=== PATIENT | male | born 1935 | race Caucasian/White ===

== ENCOUNTER 2018-01-15 08:20 | Day surgery (SDC) | payer MEDICARE, SELFPAY ==
[2018-01-15 08:48] VITALS: BP 150/84; PULSE 71; RESP 16; TEMP 36.5; O2SAT 100; BMI 31.8
[2018-01-15 09:01] LABS: Bedside Glucose 142 mg/dL (70-110)
--- NOTE | 2018-01-15 11:22 | PCM.DC.URO ---
Discharge Diet: Light diet - advance as tolerated Discharge Activity: Return to Normal Activity Suture Line Care: Avoid Pulling/Pushing, Avoid Pinching/Bending Catheter: Manzo to leg bag, Manzo to large bag Drain: [place] Allergies/Adverse Reactions: Allergies No Known Allergies Allergy (Verified 01/08/18 09:12) Medications to take at Discharge Ascorbic Acid [Vitamin C] 1,000 mg PO DAILY 11/14/16 Cholecalciferol (Vitamin D3) [Vitamin D3] 1,000 unit PO DAILY 11/14/16 Finasteride [Proscar] 5 mg PO DAILY 11/14/16 Lisinopril [Zestril] 40 mg PO DAILY 11/14/16 Loratadine [Claritin] 10 mg PO DAILY 11/14/16 Metformin HCl [Glucophage] 500 mg PO DAILY 11/14/16 Naproxen Sodium [Aleve] 220 mg PO DAILY 11/14/16 [place]-3 Fatty Acids/Fish Oil [Fish Oil 1,000 mg Capsule] 1 each PO DAILY 11/14/16 Omeprazole [Prilosec] 40 mg PO DAILY 11/14/16 Potassium (Otc) [Potassium Otc] 99 mg PO DAILY 11/14/16 Simvastatin [Zocor] 20 mg PO QHS 11/14/16 Tamsulosin HCl [Flomax] 0.4 mg PO DAILY 11/14/16 Insulin NPH Human Isophane [Novolin N] 40 unit SQ BID 01/08/18 Magnesium Oxide [Magnesium] 250 mg PO DAILY 01/08/18 Multivitamin [Multiple Vitamins] 1 each PO DAILY 01/08/18 Potassium 99 mg PO DAILY 01/08/18 Primary Care Physician: Nate Watters DO [Primary Care Provider] - Please Follow Up With: Darrell Stout MD When: January 28 at 8:45 am.
[2018-01-15] MEDS: Cefazolin 2 GM in 0.9% Normal Saline 100 ML IV (11:31)
--- NOTE | 2018-01-15 11:49 | OP.PCM_ITS ---
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 Post-Operative Diagnosis: Same Surgery/Procedure Performed:: Cystoscopy,meatotomy, direct vision internal urethrotomy, Steiner placement. Description of Surgical Findings:: 82-year-old male with a history of urethral stricture disease in the office was not able to dilate the stricture he had a very tight urethral stricture, very tight meatus. Therefore recommended we undergo anesthesia to cut open the urethral stricture and evaluate the urethra. Also do a cystoscopy evaluate the bladder and prostate. Patient was taken back to the operating room at the smooth induction of general anesthesia he was placed in dorsal lithotomy position with the legs in stirrups I first then used a Glidewire to advance this into the bladder over the Glidewire I dilated the meatus with 16, 18, 20 Norwegian dilators over the wire. I then was able to get into the urethra with the direct vision urethrotome and he had stricture disease along the course of the urethra I opened up the stricture disease from the bulbar urethra to the membranous and pendulous urethra. Went into the prostate and he had bilateral hypertrophy is small median lobe. Inside the bladder he had left and right ureteral orifice were open no tumors or stones seen within the bladder he had trabeculated bladder. I then pulled out the cystoscope I then performed a meatotomy and the penis by taking sharp dissection scissors and cutting open the meatus on the dorsal aspect in order to have a nice wide open meatus. Once the meatotomy was was performed then I put a 16 Norwegian catheter into the bladder to allow this to heal patient's anesthetic was reversed and is taken back to the PACU in good condition plan to see him about 2 weeks to remove the catheter and the patient knows the recurrent nature of this disease. Type of Anesthesia:: General Drains: steiner 16 fr - Admit VTE Documentation VTE Present on Admission: No VTE Mechan Device Prophylaxis: SCD's VTE Pharm Prophylaxis ordered?: No Reason prophylaxis not ordered:: Treatment Not Indicated
[2018-01-15 11:53] VITALS: BP 150/84; BP 167/91; PULSE 77; RESP 16; TEMP 36.4; O2SAT 92
[2018-01-15 12:08] VITALS: BP 142/76; BP 150/84; PULSE 62; RESP 16; O2SAT 94
[2018-01-15 12:15] VITALS: BP 150/84; BP 151/81; PULSE 59; RESP 16; O2SAT 93
[2018-01-15 12:16] LABS: Bedside Glucose 133 mg/dL (70-110)
[2018-01-15 12:24] VITALS: BP 150/81; BP 150/84; PULSE 63; RESP 16; TEMP 36.7; O2SAT 93
[2018-01-15 13:19] VITALS: BP 150/84
== END 2018-01-15 13:24 | disposition home or self-care (01) ==
LOC: SDC 08:22 → AC 08:24
PROVIDERS: Family Provider Family Medicine; PCP Family Medicine; Visit Provider Urology
PROC: 0T7D8ZZ Dilation of Urethra, Via Natural or Artificial Opening Endoscopic (ICD-10-PCS; CPT 52281; principal; 2018-01-15 10:20)
PROC: (CPT 52276; 2018-01-15 10:20)
DX: N40.1 Benign prostatic hyperplasia with lower urinary tract symptoms (principal); N13.8 Other obstructive and reflux uropathy; N35.8 Other urethral stricture; Z79.899 Other long term (current) drug therapy; Z79.4 Long term (current) use of insulin; I10 Essential (primary) hypertension; R01.1 Cardiac murmur, unspecified; Z85.828 Personal history of other malignant neoplasm of skin; E78.00 Pure hypercholesterolemia, unspecified; K21.9 Gastro-esophageal reflux disease without esophagitis; E11.9 Type 2 diabetes mellitus without complications
CPT/HCPCS: 52276; 82962; J3010; J7120; J2405

== ENCOUNTER → 2018-02-11 15:10 | Outpatient (CLI) | payer MEDICARE, SELFPAY ==
[2018-02-11 15:58] LABS: Hemoglobin A1c 6.6 % (4.2-6.3)
[2018-02-11 16:07] LABS: AST(SGOT) 24 U/L (15-37); Alanine Aminotransfer ALT/SGPT 33 U/L (16-61); Albumin, Serum 3.5 g/dL (3.2-5.0); Alkaline Phosphatase 54 U/L (45-117); Anion Gap 8 (5-15); BUN 22 mg/dL (7-18); BUN/Creat Ratio 14.4 RATIO (10-20); Calcium,Total 8.4 mg/dL (8.5-10.1); Chloride 109 mmol/L (98-107); Creatinine, Serum 1.53 mg/dL (0.70-1.30); EST Glomerular Filtration Rate 47 mL/min (>60); Est Glom Filt Rate - Afr Amer 57 mL/min (>60); Globulin 3.4 g/dL (2.2-4.2); Glucose 169 mg/dL (74-106); Potassium 4.1 mmol/L (3.5-5.1); Protein, Total 6.9 g/dL (6.4-8.2); Sodium Level 142 mmol/L (136-145)
== END ==
PROVIDERS: Family Provider Family Medicine; PCP Family Medicine; Visit Provider Family Medicine
DX: E11.9 Type 2 diabetes mellitus without complications (principal)
CPT/HCPCS: 36415; 80053; 83036

== ENCOUNTER → 2018-05-18 11:21 | Outpatient (CLI) | payer MEDICARE, SELFPAY ==
[2018-05-18 12:13] LABS: Absolute Lymphocyte Count 4.72 X10^3/ul (0.83-4.51); Absolute Neutrophil Count 3.9 X10^3/uL (2.0-7.7); Basophil# 0.02 X10^3/uL; Basophil% 0.2 % (0-1); Eosinophil# 0.18 X10^3/uL; Eosinophils% 1.9 % (0-5); Hematocrit 43.2 % (40-54); Hemoglobin 14.3 g/dl (13.0-16.5); Lymphocyte # 4.72 X10^3/ul (4.0); Lymphocyte % 50.8 % (19-41); Mean Corp Hgb Conc 33.1 g/gl (32-36); Mean Corpuscular Hgb 30.6 pg (27.0-32.0); Mean Corpuscular Volume 92.3 fL (80-94); Mean Platelet Vol. 11.6 fl (6.2-12.0); Monocyte# 0.51 X10^3/uL; Monocyte% 5.5 % (0-10); Neutrophil # 3.85 X10^3/uL (2.7-7.7); Neutrophil % 41.5 % (47-70); Platelet Count 121 K/mm3 (150-450); RBC Distribution Width CV 13.9 % (11.6-14.6); RBC Distribution Width SD 46.9 fl (35.1-43.9); Red Blood Count 4.68 M/mm3 (4.6-6.2); White Blood Count 9.3 K/mm3 (4.4-11.0)
[2018-05-18 12:14] LABS: POSITIVE COUNT NO; POSITIVE DIFFERENTIAL NO; POSITIVE MORPHOLOGY NO
[2018-05-18 12:36] LABS: Hemoglobin A1c 7.1 % (4.2-6.3)
[2018-05-18 12:54] LABS: Thyroid Stim Hormone (TSH) 2.88 uIU/mL (0.358-3.74)
== END ==
PROVIDERS: Family Provider Family Medicine; PCP Family Medicine; Visit Provider Family Medicine
DX: E11.9 Type 2 diabetes mellitus without complications (principal); R53.82 Chronic fatigue, unspecified
CPT/HCPCS: 36415; 83036; 84443; 85025

== ENCOUNTER → 2018-08-17 11:32 | Outpatient (CLI) | payer MEDICARE, SELFPAY ==
[2018-08-17 12:46] LABS: Cholesterol 117 mg/dL (200); High Density Lipoprotein 38 mg/dL; Triglycerides 126 mg/dL; Very Low Density Lipoprotein 25 mg/dL (5-40)
[2018-08-17 12:49] LABS: Hemoglobin A1c 6.6 % (4.2-6.3)
== END ==
PROVIDERS: Family Provider Family Medicine; PCP Family Medicine; Referring Provider Family Medicine; Visit Provider Family Medicine
DX: E11.9 Type 2 diabetes mellitus without complications (principal); E78.5 Hyperlipidemia, unspecified
CPT/HCPCS: 36415; 80061; 83036

== ENCOUNTER → 2019-02-15 | Outpatient (CLI) | payer MEDICARE, SELFPAY ==
[2019-02-15 11:51] VITALS: BMI 31.4
[2019-02-15 14:16] LABS: ALB/GLOB Ratio 0.9 RATIO (0.9-2.4); AST(SGOT) 25 U/L (15-37); Alanine Aminotransfer ALT/SGPT 32 U/L (16-61); Albumin, Serum 3.5 g/dL (3.2-5.0); Alkaline Phosphatase 69 U/L (45-117); Anion Gap 8 (5-15); BUN 26 mg/dL (7-18); BUN/Creat Ratio 14.9 RATIO (10-20); Calcium,Total 8.8 mg/dL (8.5-10.1); Chloride 108 mmol/L (98-107); Creatinine, Serum 1.75 mg/dL (0.70-1.30); EST Glomerular Filtration Rate 40 mL/min (>60); Est Glom Filt Rate - Afr Amer 48 mL/min (>60); Globulin 4.1 g/dL (2.2-4.2); Glucose 170 mg/dL (74-106); Potassium 4.8 mmol/L (3.5-5.1); Protein, Total 7.6 g/dL (6.4-8.2); Sodium Level 142 mmol/L (136-145)
[2019-02-15 14:48] LABS: Microalbumin:Creatinine Ratio 635.2 mg/g CRE (<30 mg/g CRE)
== END | disposition home or self-care (01) ==
LOC: BIMLAB 11:57
PROVIDERS: Family Provider Family Medicine; PCP Family Medicine; Visit Provider Family Medicine
DX: I10 Essential (primary) hypertension (principal); E11.9 Type 2 diabetes mellitus without complications
CPT/HCPCS: 36415; 80053; 82043; 82570

== ENCOUNTER → 2019-02-28 10:23 | Outpatient (CLI) | payer MEDICARE, SELFPAY ==
[2019-02-15 11:51] VITALS: BMI 31.4
[2019-02-28 12:42] LABS: Anion Gap 5 (5-15); BUN 21 mg/dL (7-18); BUN/Creat Ratio 13.3 RATIO (10-20); Calcium,Total 8.5 mg/dL (8.5-10.1); Chloride 111 mmol/L (98-107); Creatinine, Serum 1.58 mg/dL (0.70-1.30); EST Glomerular Filtration Rate 45 mL/min (>60); Est Glom Filt Rate - Afr Amer 54 mL/min (>60); Glucose 194 mg/dL (74-106); Potassium 4.5 mmol/L (3.5-5.1); Sodium Level 142 mmol/L (136-145)
== END ==
PROVIDERS: Family Provider Family Medicine; PCP Family Medicine; Visit Provider Family Medicine
DX: E11.22 Type 2 diabetes mellitus with diabetic chronic kidney disease (principal); N18.4 Chronic kidney disease, stage 4 (severe)
CPT/HCPCS: 36415; 80048

== ENCOUNTER 2019-04-22 05:51 | Day surgery (SDC) | payer MEDICARE, SELFPAY ==
[2019-02-15 11:51] VITALS: BMI 31.4
[2019-04-22] VITALS (7 sets, daily range): BP systolic 137–176; BP diastolic 72–94; PULSE 46–73; RESP 16–18; TEMP 36.4–37.2; O2SAT 92–97; BMI 32.5
[2019-04-22 07:35] LABS: Bedside Glucose 228 mg/dL (70-110)
[2019-04-22] MEDS: Cefazolin 2 GM in 0.9% Normal Saline 100 ML IV (07:36)
--- NOTE | 2019-04-22 07:38 | PCM.DC.URO ---
Discharge Diet: Light diet - advance as tolerated Discharge Activity: Return to Normal Activity Suture Line Care: Avoid Pulling/Pushing, Avoid Pinching/Bending Allergies/Adverse Reactions: Allergies No Known Allergies Allergy (Verified 04/20/19 14:55) Medications to take at Discharge Ascorbic Acid [Vitamin C] 1,000 mg PO DAILY 11/14/16 Cholecalciferol (Vitamin D3) [Vitamin D3] 1,000 unit PO DAILY 11/14/16 Finasteride [Proscar] 5 mg PO DAILY 11/14/16 Naproxen Sodium [Aleve] 220 mg PO DAILY 11/14/16 [place]-3 Fatty Acids/Fish Oil [Fish Oil 1,000 mg Capsule] 1 ea PO DAILY 11/14/16 Potassium (Otc) [Potassium Otc] 99 mg PO DAILY 11/14/16 Tamsulosin HCl [Flomax] 0.4 mg PO DAILY 11/14/16 Multivitamin [Multiple Vitamins] 1 ea PO DAILY 01/08/18 omeprazole 40 mg capsule,delayed release 40 mg PO DAILY #90 cap 05/18/18 loratadine 10 mg tablet 10 mg PO DAILY #90 tab 11/16/18 lisinopril 40 mg tablet 40 mg PO DAILY #90 tab 02/15/19 simvastatin 20 mg tablet 20 mg PO QHS #90 tab 02/15/19 Insulin NPH Human Isophane [Novolin N] 45 unit SC BID 04/20/19 Acetaminophen [Tylenol Extra Strength] 500 mg PO Q4H PRN PRN #20 tab 04/22/19 Ciprofloxacin [Cipro] 500 mg PO DAILY #14 tab 04/22/19 Ibuprofen 600 mg PO Q6H PRN PRN #20 tab 04/22/19 The following prescriptions were given: Acetaminophen [Tylenol Extra Strength] 500 mg PO Q4H PRN PRN #20 tab PRN Reason: Pain Ibuprofen 600 mg PO Q6H PRN PRN #20 tab PRN Reason: Pain Ciprofloxacin [Cipro] 500 mg PO DAILY #14 tab Primary Care Physician: Nate Watters DO [Primary Care Provider] - Test Results: Test results from this visit will be discussed in further detail at your follow-up appointment, if applicable. Please Follow Up With: Darrell Stout MD When: please call to make an appointment.
--- NOTE | 2019-04-22 08:05 | PCM.OPRPT ---
Problem List (1) Urethral stricture Status: Acute Qualifiers: Urethral stricture type: other stricture Urethral stricture sex-location: male urethra-overlapping sites Qualified Code(s): N35.816 - Other urethral stricture, male, overlapping sites Report of Operation Date of Procedure: 04/22/19 Pre-Operative Diagnosis: Severe urethral stricture disease along the entire course of the urethra Post-Operative Diagnosis: Same Surgery/Procedure Performed:: Cystoscopy, dilation of the urethra, direct vision internal urethrotomy, placement of Steiner catheter complicated. Description of Surgical Findings:: Indication this is an 84-year-old male who unfortunately has severe hathaway stricture urethral disease. He is refused to undergo reconstructive surgery and understands that the strictures will likely come back recurrent in nature. We talked about the progressive nature of this disease and that subsequent dilations and DVIU's are usually ineffective in the long-term he understands that this will be a temporary improvement. 84-year-old male taken back to the operating room at the smooth induction of anesthesia he was placed in dorsal lithotomy position, the penis and testicles are prepped and draped in usual sterile fashion had a fairly tight meatus at the dilate this with urethral sounds from 20 [place] to 28 [place]. I was then able to get into the urethra with the cystoscopy and DVIU set using a cutting knife and I went along the urethra and basically cut along the 12 o'clock position of the urethra all the way until I reached the sphincter there was scar tissue along the membranous urethra the scar tissue above the bulbar urethra. I then remove the DVIU set and then manually dilated the urethra with sounds from 20-28 [place]. Went back inside the bladder there was a small false passage after dilation of the sounds at the 12 o'clock position revealed near the bulbous urethra. Made correction for this as I went through with the cystoscope. Once inside the bladder place a wire and then over the wire I placed a 20 [place] catheter into the bladder drained the bladder pulled out the wire of the catheter in place the plan will be to leave the catheter in for about 3 weeks let it heal up because of severe urethral stricture and we will see him back in the office in 3 weeks for catheter removal probably after this I need to do a dilation of the urethra every month to keep it open. Type of Anesthesia:: General Drains: steiner - Admit VTE Documentation VTE Present on Admission: No VTE Mechan Device Prophylaxis: SCD's
[2019-04-22 08:26] LABS: Bedside Glucose 211 mg/dL (70-110)
== END 2019-04-22 10:00 | disposition home or self-care (01) ==
LOC: SDC 05:51 → AC 05:52
PROVIDERS: Family Provider Family Medicine; PCP Family Medicine; Referring Provider Urology; Visit Provider Urology
PROC: 0T7D8ZZ Dilation of Urethra, Via Natural or Artificial Opening Endoscopic (ICD-10-PCS; CPT 52276; principal; 2019-04-22 07:15)
DX: N35.816 Other urethral stricture, male, overlapping sites (principal); E11.9 Type 2 diabetes mellitus without complications; F32.9 Major depressive disorder, single episode, unspecified; E78.00 Pure hypercholesterolemia, unspecified; K21.9 Gastro-esophageal reflux disease without esophagitis; I10 Essential (primary) hypertension; M19.91 Primary osteoarthritis, unspecified site; H91.93 Unspecified hearing loss, bilateral; Z85.828 Personal history of other malignant neoplasm of skin; Z79.899 Other long term (current) drug therapy; Z79.4 Long term (current) use of insulin
CPT/HCPCS: 52276; 82962; J7120; C1769; J2405

== ENCOUNTER → 2019-11-18 11:43 | Outpatient (CLI) | payer MEDICARE, SELFPAY ==
[2019-11-17 14:33] VITALS: BMI 32.5
--- NOTE | 2019-11-18 11:45 | EKG12_ITS ---
Test Reason : BRADYCARDIA Blood Pressure : / mmHG Vent. Rate : 054 BPM Atrial Rate : 054 BPM P-R Int : 282 ms QRS Dur : 122 ms QT Int : 446 ms P-R-T Axes : -07 -62 073 degrees QTc Int : 422 ms Sinus bradycardia with sinus arrhythmia with 1st degree A-V block Left anterior fascicular block Abnormal ECG Confirmed by CONSTANCE SAMUEL, ANNE-MARIE ([id number]), multimedia editor WILBERT BELLO ([id number]) on 11/21/2019 10:30:34 AM Referred By: Nate Watters Confirmed By:ANNE-MARIE NOLASCO MD
== END ==
PROVIDERS: Family Provider Family Medicine; PCP Family Medicine; Referring Provider Family Medicine; Visit Provider Family Medicine
DX: R00.1 Bradycardia, unspecified (principal)
CPT/HCPCS: 93005

== ENCOUNTER → 2019-12-22 | Outpatient (CLI) | payer MEDICARE, SELFPAY ==
[2019-11-17 14:33] VITALS: BMI 32.5
== END | disposition home or self-care (01) ==
LOC: LABSPEC 11:05
PROVIDERS: PCP Family Medicine; Referring Provider Urology; Visit Provider Urology
DX: N39.0 Urinary tract infection, site not specified (principal)
CPT/HCPCS: 87077; 87086; 87088; 87186

== ENCOUNTER → 2020-05-23 13:32 | Outpatient (CLI) | payer MEDICARE, SELFPAY ==
[2020-05-23 13:06] VITALS: BMI 32.5
[2020-05-23 16:21] LABS: Absolute Lymphocyte Count 5.63 X10^3/uL (0.83-4.51); Absolute Neutrophil Count 3.7 X10^3/uL (2.0-7.7); Basophil# 0.07 X10^3/uL; Basophil% 0.7 % (0-1); Eosinophil# 0.24 X10^3/uL; Eosinophils% 2.3 % (0-5); Hemoglobin 15.2 g/dL (13.0-16.5); Lymphocyte # 5.63 X10^3/ul (4.0); Mean Corp Hgb Conc 31.7 g/dL (32-36); Mean Corpuscular Hgb 30.4 pg (27.0-32.0); Mean Platelet Vol. 11.8 fl (6.2-12.0); Monocyte# 0.56 X10^3/uL; Monocyte% 5.5 % (0-10); NRBC Flagged by Analyzer 0 % (0-5); Neutrophil % 36.2 % (47-70); POSITIVE DIFFERENTIAL YES; Platelet Count 148 K/mm3 (150-450); RBC Distribution Width CV 14.3 % (11.6-14.6); RBC Distribution Width SD 50.3 fl (35.1-43.9); White Blood Count 10.2 K/mm3 (4.4-11.0)
[2020-05-23 16:30] LABS: BUN 28 mg/dL (7-18); Creatinine, Serum 1.68 mg/dL (0.70-1.30); EST Glomerular Filtration Rate 42 mL/min (>60); Glucose 112 mg/dL (74-106)
[2020-05-23 16:31] LABS: AST(SGOT) 23 U/L (15-37); Alanine Aminotransfer ALT/SGPT 29 U/L (16-61); Albumin, Serum 3.8 g/dL (3.2-5.0); Alkaline Phosphatase 62 U/L (45-117); Anion Gap 5 (5-15); BUN/Creat Ratio 16.7 RATIO (10-20); Chloride 113 mmol/L (98-107); Cholesterol 101 mg/dL (200); Est Glom Filt Rate - Afr Amer 50 mL/min (>60); Globulin 3.7 g/dL (2.2-4.2); High Density Lipoprotein 37 mg/dL; Potassium 4.7 mmol/L (3.5-5.1); Protein, Total 7.5 g/dL (6.4-8.2); Sodium Level 144 mmol/L (136-145); Thyroid Stim Hormone (TSH) 2.38 uIU/mL (0.358-3.74); Triglycerides 277 mg/dL; Very Low Density Lipoprotein 55 mg/dL (5-40)
[2020-05-23 16:34] LABS: Differential Indicated SCAN CRITERIA MET
[2020-05-23 17:37] LABS: Platelet Estimate ADEQUATE (ADEQ); Red Cell Morphology NORM C+C NORMAL (NORM C&C)
== END ==
PROVIDERS: PCP Family Medicine; Referring Provider Family Medicine; Visit Provider Family Medicine
DX: R41.3 Other amnesia (principal); I10 Essential (primary) hypertension; E78.5 Hyperlipidemia, unspecified
CPT/HCPCS: 36415; 80053; 80061; 84443; 85025

== ENCOUNTER → 2020-12-03 | Outpatient (CLI) | payer MEDICARE, SELFPAY ==
[2020-12-03 11:37] VITALS: BMI 31.6
== END | disposition home or self-care (01) ==
LOC: LABSPEC 15:30
PROVIDERS: PCP Family Medicine; Referring Provider Physician Assistant; Visit Provider Physician Assistant
DX: R05 Cough (principal)
CPT/HCPCS: 87635; U0003

== ENCOUNTER → 2020-12-06 | Outpatient (CLI) | payer MEDICARE, SELFPAY ==
[2020-12-03 11:37] VITALS: BMI 31.6
--- NOTE | 2020-12-06 14:00 | RAD_ITS ---
STUDY: X-RAY CHEST REASON FOR EXAM: Male, 85 years old. SOB, COUGH, WEAKNESS TECHNIQUE: PA and lateral views of the chest. COMPARISON: None. FINDINGS: The lungs are clear and expanded. There is no demonstrated pleural abnormality. Normal size heart. Normal mediastinum and yvette. Normal visualized pulmonary arteries. There is atherosclerotic calcification of the aortic arch with tortuosity. There are diffuse degenerative changes of the visualized thoracic spine. Normal visualized ribs, clavicles, and shoulders. Moderate sized hiatal hernia. RAD/Chest PA and Lateral IMPRESSION: Moderate sized hiatal hernia. Electronically Signed: Tito Sargent MD at 15:48 EST , Service support ,
== END | disposition home or self-care (01) ==
PROVIDERS: PCP Family Medicine; Referring Provider Nurse Practitioner Family; Visit Provider Nurse Practitioner Family
DX: R05 Cough (principal); R06.00 Dyspnea, unspecified; R50.9 Fever, unspecified
CPT/HCPCS: 71046; 87635; U0005; U0003

== ENCOUNTER → 2021-02-20 14:28 | Outpatient (CLI) | payer MEDICARE, SELFPAY ==
[2021-02-20 13:54] VITALS: BMI 31.6
[2021-02-20 16:45] LABS: Absolute Lymphocyte Count 6.78 X10^3/uL (0.83-4.51); Absolute Neutrophil Count 5.9 X10^3/uL (2.0-7.7); Basophil# 0.06 X10^3/uL; Basophil% 0.4 % (0-1); Eosinophil# 0.12 X10^3/uL; Eosinophils% 0.9 % (0-5); Hematocrit 39.7 % (40-54); Hemoglobin 12.7 g/dL (13.0-16.5); Lymphocyte # 6.78 X10^3/ul (0.83-4.51); Lymphocyte % 49.9 % (19-41); Mean Corpuscular Volume 93.9 fL (80-94); Mean Platelet Vol. 11.4 fl (6.2-12.0); Monocyte# 0.72 X10^3/uL; Monocyte% 5.3 % (0-10); NRBC Flagged by Analyzer 0 % (0-5); Neutrophil # 5.87 X10^3/uL (2.7-7.7); Neutrophil % 43.2 % (47-70); POSITIVE DIFFERENTIAL YES; Platelet Count 197 K/mm3 (150-450); RBC Distribution Width CV 14.3 % (11.6-14.6); RBC Distribution Width SD 48.7 fl (35.1-43.9); Red Blood Count 4.23 M/mm3 (4.6-6.2); White Blood Count 13.6 K/mm3 (4.4-11.0)
[2021-02-20 16:59] LABS: Anion Gap 7 (5-15); BUN 31 mg/dL (7-18); BUN/Creat Ratio 16.5 RATIO (10-20); Calcium,Total 8.9 mg/dL (8.5-10.1); Chloride 110 mmol/L (98-107); Creatinine, Serum 1.88 mg/dL (0.70-1.30); EST Glomerular Filtration Rate 37 mL/min (>60); Est Glom Filt Rate - Afr Amer 44 mL/min (>60); Glucose 205 mg/dL (74-106); Potassium 4.3 mmol/L (3.5-5.1); Sodium Level 140 mmol/L (136-145)
[2021-02-20 17:00] LABS: Differential Indicated SCAN CRITERIA MET
[2021-02-20 17:47] LABS: Differential Comment SCANNED
== END ==
PROVIDERS: PCP Family Medicine; Referring Provider Family Medicine; Visit Provider Family Medicine
DX: R41.3 Other amnesia (principal); I10 Essential (primary) hypertension
CPT/HCPCS: 36415; 80048; 85025

== ENCOUNTER → 2021-03-26 13:23 | Outpatient (CLI) | payer MEDICARE, SELFPAY ==
[2021-03-26 13:08] VITALS: BMI 31.1
[2021-03-26 15:27] LABS: Absolute Lymphocyte Count 6.75 X10^3/uL (0.83-4.51); Absolute Neutrophil Count 4.8 X10^3/uL (2.0-7.7); Basophil# 0.05 X10^3/uL; Basophil% 0.4 % (0-1); Eosinophil# 0.22 X10^3/uL; Eosinophils% 1.8 % (0-5); Hematocrit 41.2 % (40-54); Hemoglobin 13.1 g/dL (13.0-16.5); Lymphocyte # 6.75 X10^3/ul (0.83-4.51); Lymphocyte % 54.6 % (19-41); Mean Corp Hgb Conc 31.8 g/dL (32-36); Mean Corpuscular Hgb 29.4 pg (27.0-32.0); Mean Corpuscular Volume 92.6 fL (80-94); Mean Platelet Vol. 11.5 fl (6.2-12.0); Monocyte# 0.57 X10^3/uL; Monocyte% 4.6 % (0-10); NRBC Flagged by Analyzer 0 % (0-5); Neutrophil # 4.75 X10^3/uL (2.7-7.7); Neutrophil % 38.4 % (47-70); POSITIVE DIFFERENTIAL YES; Platelet Count 196 K/mm3 (150-450); RBC Distribution Width CV 14.1 % (11.6-14.6); RBC Distribution Width SD 47.6 fl (35.1-43.9); Red Blood Count 4.45 M/mm3 (4.6-6.2); White Blood Count 12.4 K/mm3 (4.4-11.0)
[2021-03-26 15:33] LABS: Differential Indicated SCAN CRITERIA MET
[2021-03-26 15:45] LABS: Anion Gap 5 (5-15); BUN 31 mg/dL (7-18); BUN/Creat Ratio 18.1 RATIO (10-20); Calcium,Total 8.8 mg/dL (8.5-10.1); Chloride 111 mmol/L (98-107); Creatinine, Serum 1.71 mg/dL (0.70-1.30); EST Glomerular Filtration Rate 41 mL/min (>60); Est Glom Filt Rate - Afr Amer 49 mL/min (>60); Glucose 120 mg/dL (74-106); Potassium 4.5 mmol/L (3.5-5.1); Sodium Level 142 mmol/L (136-145)
[2021-03-26 16:06] LABS: Differential Comment SCANNED
== END ==
PROVIDERS: PCP Family Medicine; Referring Provider Family Medicine; Visit Provider Family Medicine
DX: E11.9 Type 2 diabetes mellitus without complications (principal); J30.2 Other seasonal allergic rhinitis; Z79.4 Long term (current) use of insulin
CPT/HCPCS: 36415; 80048; 85025

== ENCOUNTER → 2021-03-27 12:08 | Outpatient (CLI) | payer MEDICARE, SELFPAY ==
[2021-03-26 13:08] VITALS: BMI 31.1
--- NOTE | 2021-03-27 12:13 | EKG12_ITS ---
Test Reason : BRADYCARDIA Blood Pressure : / mmHG Vent. Rate : 059 BPM Atrial Rate : 059 BPM P-R Int : 232 ms QRS Dur : 122 ms QT Int : 428 ms P-R-T Axes : -56 -56 065 degrees QTc Int : 423 ms Unusual P axis, possible ectopic atrial bradycardia Left axis deviation Abnormal ECG Confirmed by CONSTANCE SAMUEL, ANNE-MARIE ([id number]), order editor WILBERT BELLO ([id number]) on 03/29/2021 11:06:58 AM Referred By: Nate Watters Confirmed By:ANNE-MARIE NOLASCO MD
== END ==
PROVIDERS: PCP Family Medicine; Referring Provider Family Medicine; Visit Provider Family Medicine
DX: R00.1 Bradycardia, unspecified (principal)
CPT/HCPCS: 93005

== ENCOUNTER 2021-04-08 11:59 | Observation (INO) | payer MEDICARE, SELFPAY ==
[2021-03-26 13:08] VITALS: BMI 31.1
[2021-04-08] VITALS (7 sets, daily range): BP systolic 150–186; BP diastolic 76–91; PULSE 52–74; RESP 16–18; TEMP 36.6–37.1; O2SAT 93–98; BMI 31.8; BMI 28.9
--- NOTE | 2021-04-08 12:11 | VDLE_ITS ---
Reason For Study: Swelling RIGHT LEFT GSV is normal. CFV is compressible, spontaneous, phasic, Rt CFV, Rt FV, Rt PopV, Rt T/P Trunk, Rt competent, and demonstrates normal GastrocV, Rt PTV, and Rt PeroV are dilated augmentation. and non compressible consistent with acute DVT Rt CFV DVT is not well adhered to vein wall and appears unstable. Procedure This is a venous duplex using B-mode, color flow and spectral Doppler. Exam performed portable in ED. A preliminary report was called and/or faxed to Dr. Gunn. VL/Venous Duplex US, Unilateral Interpretation Summary Acute deep venous thrombosis right common femoral, femoral, popliteal, tibioper mcdonough trunk, gastrocnemius, posterior tibial, and peroneal veins. Visible thrombus noted within the right common femoral vein with some mobility. Patent and compressible right great saphenous vein Normal flow patterns left common femoral vein Ordering Physician: Christian Gunn Referring Physician: Nate Watters Performed By: Veda Correia, ALIZA, RVT
--- NOTE | 2021-04-08 12:12 | EDS_ITS ---
HPI History of Present Illness Chief Complaint: Lower Extremity Injury Narrative Narrative: 86-year-old male presents with concern for swelling to his right lower extremity. States it began yesterday. States he has pain in the posterior aspect. Describes it as aching. Denies any trauma. Denies any chest pain or shortness of breath. Denies any history of DVT or pulmonary embolism. [facility] Medical History (Updated 04/08/21 @ 14:[address] Joanna Peguero MD) Arthritis Back problem Chronic neck and back pain Diabetes Diarrhea Fatigue Hearing problem Hyperlipidemia Hypertension Incontinence Knee pain Seasonal allergies Skin cancer Home Medications ascorbic acid (vitamin C) 1,000 mg PO DAILY 11/14/16 [History Last Taken Unknown] tamsulosin 0.4 mg PO DAILY 11/14/16 [History Last Taken Unknown] insulin NPH isoph U-100 human 100 unit/mL subcutaneous suspension 25 unit SUBCUT BID #20 ml 07/05/20 [Rx Last Taken Unknown] simvastatin 20 mg tablet 20 mg PO QHS #90 tab 12/14/20 [Rx Last Taken Unknown] donepezil 10 mg tablet 10 mg PO QHS #90 tablet 02/20/21 [Rx Last Taken Unknown] finasteride 1 mg tablet 1 mg PO DAILY 02/20/21 [History Last Taken Unknown] loratadine 10 mg capsule 10 mg PO DAILY #90 cap 02/20/21 [Rx Last Taken Unknown] omeprazole 40 mg capsule,delayed release 40 mg PO DAILY #90 cap 02/20/21 [Rx Last Taken Unknown] lisinopril 40 mg PO DAILY 04/08/21 [History Last Taken Unknown] Allergy/AdvReac Type Severity Reaction Status Date / Time No Known Allergies Allergy Verified 04/08/21 12:03 Family History (Updated 04/08/21 @ 14:[address] Joanna Peguero MD) Brother Heart disease Myocardial infarction Mother Myocardial infarction Heart disease Father CVA (cerebral vascular accident) Surgical History history of caataract removal History of urethral stricture Social History (Updated 04/08/21 @ 14:[address] Joanna Peguero MD) household members: spouse Smoking Status: Never smoker alcohol intake: never substance use type: does not use what type of physical activity do you participate in: none ROS ROS ED Constitutional Constitutional ED: Denies chills, fever(s) or sweats Eyes Eyes: Denies blurry vision, change in vision or diplopia ENT ENT ED: Denies rhinorrhea or sore throat Cardiovascular Cardiovascular: Denies chest pain, orthopnea, palpitations or racing heartbeat Respiratory/Chest Respiratory/Chest: Denies cough, dyspnea, dyspnea on exertion, orthopnea or sputum Gastrointestinal Gastrointestinal: Denies abdominal pain, constipation, diarrhea, melena, nausea or vomiting Genitourinary Genitourinary ED: Denies dysuria, hematuria or urinary frequency Musculoskeletal Musculoskeletal: Reports myalgias; Denies arthralgias or neck pain Integumentary Denies rash Neurologic Neurologic: Denies headache(s), paresthesias or weakness Psychiatric Psychiatric: Denies anxiety or depression Hematologic/Lymphatic Hematologic/Lymphatic: Denies easy bleeding or easy bruising Allergic/Immunologic Allergic/Immunologic ED: Denies mouth swelling or tongue swelling EXAM Physical Exam Const Vital Signs: 04/08/21 11:59 04/08/21 14:07 Temperature 97.9 F 97.9 F Temperature Source Temporal Temporal Pulse Rate 52 L 72 Respiratory Rate 18 16 Blood Pressure 169/78 H 186/91 H Blood Pressure Mean 108 122 Pulse Ox 98 97 Oxygen Delivery Method Room Air Room Air Positive well nourished and well developed General Appearance ED: well developed HEENT Reports moist mucous membranes normocephalic and atraumatic Eyes PERRL and EOMs intact bilaterally Neck no lymphadenopathy, supple and no JVD Chest Wall inspection of chest normal Resp normal respiratory effort and clear to auscultation bilaterally Cardio regular rate, S1 normal heart sound, S2 normal heart sound and no murmurs Peripheral Pulses: pulses 2+ throughout GI soft to palpation, non-tender and non-distended Back/Spine no thoracic nor lumbar tenderness Extremity Extremity Narrative: Unilateral swelling to the right lower extremity. Tenderness to palpation of the posterior aspect. No palpable cord. No overlying skin changes. Strong palpable pulses. Sensation intact. General Extremety ED: Yes edema and tenderness General Extremity: edema Neuro no sensory deficits noted Sensorium / Orientation: alert Motor Exam: strength 5/5 throughout Psych mental status grossly normal Skin no rashes or lesions noted MDM MDM MDM Narrative Medical decision making narrative: Patient appears well and nontoxic. Strong palpable pulses. Right lower extremity ultrasound shows significant clot burden from the right groin to the mid calf. Unstable proximal clot. Patient will be started on heparin. Spoke with vascular surgeon on-call Dr. Cohen who advised anticoagulation and agreeable with keeping patient at [facility]. Spoke with hospitalist Dr. Peguero who is agreeable with admission. Patient admitted in stable condition. Lab Data Attestation: I reviewed the patient's lab results. Labs: Laboratory Results - last 24 hr 04/08/21 04/08/21 04/08/21 13:40 13:40 13:40 WBC 12.9 H RBC 4.76 Hgb 13.8 Hct 43.6 MCV 91.6 MCH 29.0 MCHC 31.7 L RDW Std Deviation 47.9 H RDW Coeff of Bebe 14.3 Plt Count 126 L MPV 10.6 PT 13.3 INR 1.1 APTT 30.7 Sodium 143 Potassium 4.0 Chloride 111 H Carbon Dioxide 26.0 Anion Gap 6 BUN 28 H Creatinine 1.83 H Estim Creat Clear Calc 32.98 Est GFR (MDRD) Af Amer 46 L Est GFR (MDRD) Non-Af 38 L BUN/Creatinine Ratio 15.3 Glucose 102 Calcium 9.0 Magnesium 04/08/21 13:40 WBC RBC Hgb Hct MCV MCH MCHC RDW Std Deviation RDW Coeff of Bebe Plt Count MPV PT INR APTT Sodium Potassium Chloride Carbon Dioxide Anion Gap BUN Creatinine Estim Creat Clear Calc Est GFR (MDRD) Af Amer Est GFR (MDRD) Non-Af BUN/Creatinine Ratio Glucose Calcium Magnesium 2.3 Discharge Plan Disposition Disposition: Acute Care Hospital [facility] Discharge Date/Time: 04/08/21 14:32
--- NOTE | 2021-04-08 13:34 | HP.PCM.HOS_ITS ---
HPI - General HPI Narrative The patient is an 86 y/o M w/ PMHx: HTN, HLD, Obesity, Diabetes mellitus type II, Chronic neck and back pain, BPH, Dementia unclear type with unclear behavioral disturbance history, Chronic bradycardia who presents to the [facility] ED on 04/08/21 with history of onset RLE swelling and discomfort starting the day prior, more so in the posterior aspect with concurrent aching discomfort without any specific trauma associated Hypertension: Continue home regimen including lisinopril with hold parameters as needed, PRN hydralazine. Hyperlipidemia: We will continue patient home statin therapy. Diabetes mellitus type II: Hold oral home regimen, continue home insulin regimen, ADA diet, accu checks w/ ISS. Dementia, unclear type with unclear behavioral disturbance history: We will continue patient home donepezil regimen, fall precautions. Chronic bradycardia: Not on rate/rhythm agent, asymptomatic, continue outpatient follow-up as needed. Obesity: Weight loss and lifestyle changes encouraged. BPH: We will continue patient home finasteride and Flomax regimen. Allergic rhinitis: We will continue patient home loratadine regimen. Chronic neck and back pain: Fall precautions as noted, frequent position changes encouraged. Chronic Kidney Disease Stage III, unclear subtype: Admission BUN/Cr [], baseline renal function [], repeat BMP in AM. GERD: We will continue home PPI. [facility] Medical History (Updated 04/08/21 @ 13:[address] Christian Gunn, DO) Arthritis Back problem Chronic neck and back pain Diabetes Diarrhea Fatigue Hearing problem Hyperlipidemia Hypertension Incontinence Knee pain Seasonal allergies Skin cancer Home Medications ascorbic acid (vitamin C) 1,000 mg PO DAILY 11/14/16 [History Last Taken Unknown] tamsulosin 0.4 mg PO DAILY 11/14/16 [History Last Taken Unknown] insulin NPH isoph U-100 human 100 unit/mL subcutaneous suspension 25 unit SUBCUT BID #20 ml 07/05/20 [Rx Last Taken Unknown] simvastatin 20 mg tablet 20 mg PO QHS #90 tab 12/14/20 [Rx Last Taken Unknown] donepezil 10 mg tablet 10 mg PO QHS #90 tablet 02/20/21 [Rx Last Taken Unknown] finasteride 1 mg tablet 1 mg PO DAILY 02/20/21 [History Last Taken Unknown] loratadine 10 mg capsule 10 mg PO DAILY #90 cap 02/20/21 [Rx Last Taken Unknown] omeprazole 40 mg capsule,delayed release 40 mg PO DAILY #90 cap 02/20/21 [Rx Last Taken Unknown] lisinopril 40 mg PO DAILY 04/08/21 [History Last Taken Unknown] Allergy/AdvReac Type Severity Reaction Status Date / Time No Known Allergies Allergy Verified 04/08/21 12:03 Family History Brother Heart disease Myocardial infarction Surgical History history of caataract removal History of urethral stricture Social History Smoking Status: Never smoker alcohol intake: never substance use type: does not use what type of physical activity do you participate in: none Vital Signs Vital Signs Vital Signs: 04/08/21 11:59 Temperature 97.9 F Temperature Source Temporal Pulse Rate 52 L Respiratory Rate 18 Blood Pressure 169/78 H Blood Pressure Mean 108 Pulse Ox 98 Oxygen Delivery Method Room Air Weight Weight: 235 lb Body Mass Index (BMI) 31.8
[2021-04-08 13:46] LABS: Hematocrit 43.6 % (40-54); Hemoglobin 13.8 g/dL (13.0-16.5); Mean Corp Hgb Conc 31.7 g/dL (32-36); Mean Corpuscular Volume 91.6 fL (80-94); Mean Platelet Vol. 10.6 fl (6.2-12.0); Platelet Count 126 K/mm3 (150-450); RBC Distribution Width CV 14.3 % (11.6-14.6); RBC Distribution Width SD 47.9 fl (35.1-43.9); Red Blood Count 4.76 M/mm3 (4.6-6.2); White Blood Count 12.9 K/mm3 (4.4-11.0)
[2021-04-08 13:54] LABS: International Normalized Ratio 1.1; Prothrombin Time (Protime)PT. 13.3 SECONDS (11.7-14.9)
[2021-04-08 13:55] LABS: Partial Thromboplast Time 30.7 Seconds (24.1-36.2)
--- NOTE | 2021-04-08 13:55 | NURSING ---
MED SURG OBS DVT WHITE
[2021-04-08 14:00] LABS: Anion Gap 6 (5-15); BUN 28 mg/dL (7-18); BUN/Creat Ratio 15.3 RATIO (10-20); Chloride 111 mmol/L (98-107); Creatinine, Serum 1.83 mg/dL (0.70-1.30); EST Glomerular Filtration Rate 38 mL/min (>60); Est Glom Filt Rate - Afr Amer 46 mL/min (>60); Estimated Creatinine Clearance 32.98 ml/min; Glucose 102 mg/dL (74-106); Sodium Level 143 mmol/L (136-145)
[2021-04-08] MEDS: Heparin Injection (Vial) 5,000 UNIT/ML VIAL 8000 UNIT IV (14:01)
[2021-04-08] MEDS: HEPARIN/D5w 25,000 UNITS 25,000 UNITS/250 ML IV.SOLN. 15 UNITS IV (14:02)
--- NOTE | 2021-04-08 14:02 | HP.PCM.HOS_ITS ---
HPI - General General Date of Admission: 04/08/21 Date of Service: 04/08/21 Chief Complaint: RLE pain, edema. HPI Narrative The patient is an 86 y/o M w/ PMHx: HTN, HLD, Obesity, Diabetes mellitus type II, Chronic neck and back pain, BPH, Dementia unclear type with unclear behavioral disturbance history, Chronic bradycardia who presents to the [facility] ED on 04/08/21 with history of onset RLE swelling and discomfort starting the day prior, more so in the posterior aspect with concurrent aching discomfort without any specific trauma associated. He is currently rating the discomfort 5/10, primarily with activity or usage/weight bearing. He and his notes that he is very sedentary. He denies any recent travel. Work-up in the ED included T 97.9, heart rate 52, BP 169/78, respiratory rate 18, 90% room air, CBC with WBC 12.9, hemoglobin 13.8, platelet 126 without differential, unremarkable coags, BMP with chloride 111, BUN/creatinine 28/1.83 otherwise not marked appearing, RLE DVT US notable for significant clot burden groin to mid-calf region. ED physician, secondary to clot burden discussed case with Dr. Cohen who noted patient appropriate for [facility] admission, maintain on heparin drip. No intervention necessary given intact pulses. In the ED patient initiated on heparin bolus and drip. [facility] Medical History (Updated 04/08/21 @ 14:[address] Joanna Peguero MD) Arthritis Back problem Chronic neck and back pain Diabetes Diarrhea Fatigue Hearing problem Hyperlipidemia Hypertension Incontinence Knee pain Seasonal allergies Skin cancer Home Medications ascorbic acid (vitamin C) 1,000 mg PO DAILY 11/14/16 [History Last Taken Unknown] tamsulosin 0.4 mg PO DAILY 11/14/16 [History Last Taken Unknown] insulin NPH isoph U-100 human 100 unit/mL subcutaneous suspension 25 unit SUBCUT BID #20 ml 07/05/20 [Rx Last Taken Unknown] simvastatin 20 mg tablet 20 mg PO QHS #90 tab 12/14/20 [Rx Last Taken Unknown] donepezil 10 mg tablet 10 mg PO QHS #90 tablet 02/20/21 [Rx Last Taken Unknown] finasteride 1 mg tablet 1 mg PO DAILY 02/20/21 [History Last Taken Unknown] loratadine 10 mg capsule 10 mg PO DAILY #90 cap 02/20/21 [Rx Last Taken Unknown] omeprazole 40 mg capsule,delayed release 40 mg PO DAILY #90 cap 02/20/21 [Rx La st Taken Unknown] lisinopril 40 mg PO DAILY 04/08/21 [History Last Taken Unknown] Allergy/AdvReac Type Severity Reaction Status Date / Time No Known Allergies Allergy Verified 04/08/21 12:03 Family History (Updated 04/08/21 @ 14:[address] Joanna Peguero MD) Brother Heart disease Myocardial infarction Mother Myocardial infarction Heart disease Father CVA (cerebral vascular accident) Surgical History history of caataract removal History of urethral stricture Social History (Updated 04/08/21 @ 14:[address] Joanna Peguero MD) household members: spouse Smoking Status: Never smoker alcohol intake: never substance use type: does not use what type of physical activity do you participate in: none ROS ROS Narrative Admission Review of Systems: CONSTITUTIONAL: No weight loss, fever, chills, + weakness or fatigue. HEENT: Eyes: No visual loss, blurred vision, double vision or yellow sclerae. Ears, Nose, Throat: No hearing loss, sneezing, congestion, runny nose or sore th roat. SKIN: No rash or itching, lesions, wounds. CARDIOVASCULAR: No chest pain, chest pressure or chest discomfort, palpitations, edema, orthopnea, syncopal events. RESPIRATORY: No shortness of breath, cough or sputum, wheezing, hemoptysis. GASTROINTESTINAL: No anorexia, nausea, vomiting or diarrhea, abdominal pain, melena, BRBPR. GENITOURINARY: No dysuria, frequency, urgency or retention. NEUROLOGICAL: No headache, dizziness, syncope, paralysis, ataxia, numbness or tingling in the extremities, focal weakness, change in bowel or bladder control, seizure. MUSCULOSKELETAL: + muscle, back pain, joint pain or stiffness. HEMATOLOGIC: No anemia, bleeding or bruising. LYMPHATICS: No enlarged nodes. No history of splenectomy. PSYCHIATRIC: No history of depression or anxiety. ENDOCRINOLOGIC: No reports of sweating, cold or heat intolerance. No polyuria or polydipsia. ALLERGIES: No history of asthma, hives, eczema or rhinitis. Vital Signs Vital Signs Vital Signs: 04/08/21 11:59 Temperature 97.9 F Temperature Source Temporal Pulse Rate 52 L Respiratory Rate 18 Blood Pressure 169/78 H Blood Pressure Mean 108 Pulse Ox 98 Oxygen Delivery Method Room Air Weight Weight: 235 lb Body Mass Index (BMI) 31.8 Physical Exam Narrative Physical Examination: General: awake, alert, oriented x 3 although does have underlying mild dementia, remains cooperative, seated upright in the ED bed in no apparent distress, notes ongoing RLE discomfort, rated currently 4-5/10. Skin: normal color, turgor, no icterus, cyanosis. HEENT: AT/NC, EOMI, PERRLA, mildly dry MM, no carotid bruits or JVD noted. Lungs: Diminished BS, > bases, moderate effort, no rales, ronchi or wheezing. Heart: Mildly bradycardic with regular rhythm; no gallop, rub audible. Abdomen: soft, obese, NTTP, ND, distant normal BS, no HSM. Extremities: no cyanosis or clubbing, notable RLE ankle to mid thigh significant edema, warm to touch, no marked erythema, distal pulses intact. Neurological: patient awake, alert, oriented as noted, cognitive function intact; pupils equally reactive to light and accommodation, cranial nerves II- XII grossly normal, moving all 4 extremities although RLE discomfort limits some RLE movement, strength moderately to severely globally decreased. Psychiatric: affect appears fatigued otherwise normal, no acute evidence of depressive or anxiety feelings. Lab / Micro Data Result Diagrams: 04/08/21 13:40 04/08/21 13:40 Labs: Laboratory Results - last 24 hr 04/08/21 04/08/21 04/08/21 13:40 13:40 13:40 WBC 12.9 H RBC 4.76 Hgb 13.8 Hct 43.6 MCV 91.6 MCH 29.0 MCHC 31.7 L RDW Std Deviation 47.9 H RDW Coeff of Bebe 14.3 Plt Count 126 L MPV 10.6 PT 13.3 INR 1.1 APTT 30.7 Sodium 143 Potassium 4.0 Chloride 111 H Carbon Dioxide 26.0 Anion Gap 6 BUN 28 H Creatinine 1.83 H Estim Creat Clear Calc 32.98 Est GFR (MDRD) Af Amer 46 L Est GFR (MDRD) Non-Af 38 L BUN/Creatinine Ratio 15.3 Glucose 102 Calcium 9.0 Assessment & Plan Assessment/Plan (1) DVT (deep venous thrombosis): QUALIFIERS: DVT location: lower extremity Affected thrombotic vein of extremity: unspecified vein of extremity Chronicity: acute Laterality: right Qualified Code(s): I82.401 - Acute embolism and thrombosis of unspecified deep veins of right lower extremity PLAN: The patient is an 86 y/o M w/ PMHx: HTN, HLD, Obesity, Diabetes mellitus type II, Chronic neck and back pain, BPH, Dementia unclear type with unclear behavioral disturbance history, Chronic bradycardia who presents to the [facility] ED on 04/08/21 with history of onset RLE swelling and discomfort starting the day prior, more so in the posterior aspect with concurrent aching discomfort without any specific trauma associated. He is currently rating the discomfort 5/10, primarily with activity or usage/weight bearing. 1. Unstable appearing Large (mid calf-groin) RLE DVT: Discussed case with Vascular Surgeon, Dr. Cohen per ED who agreed with patient admission to [facility] on Heparin drip, no immediate surgical needs, will admit to [facility] telemetry, maintain on monitor to be cautious, continue heparin drip with bolus initiated in the ED, continue PTT parameter assessments to achieve therapeutic levels, continue elevation, as needed pain regimen. Will need case management input for transition to oral regimen likely within the next 24 hours if continued stable appearance. 2. Hypertension: Continue home regimen including lisinopril with hold parameters as needed, PRN hydralazine. 3. Hyperlipidemia: We will continue patient home statin therapy. 4. Diabetes mellitus type II: Hold oral home regimen, continue home insulin regimen, ADA diet, accu checks w/ ISS. 5. Dementia, unclear type with unclear behavioral disturbance history: We will continue patient home donepezil regimen, fall precautions. 6. Chronic bradycardia: Not on rate/rhythm agent, asymptomatic, continue outpatient follow-up as needed. 7. Obesity: Weight loss and lifestyle changes encouraged. 8. BPH: We will continue patient home finasteride and Flomax regimen. 9. Allergic rhinitis: We will continue patient home loratadine regimen. 10. Chronic neck and back pain: Fall precautions as noted, frequent position c hanges encouraged. 11. Chronic Kidney Disease Stage III, unclear subtype: Admission BUN/Cr 28/1.83 , baseline renal function 1.5-1.8, repeat BMP in AM. 12. GERD: We will continue home PPI. 13. DVT prophylaxis: SCDs, heparin drip. 14. CODE status: Patient HCPOA and living well are not set up but they are both interested therefore discussed and patient's will review with case management/social work during his admission. Discussed CODE status at length including difference between FULL code, DNR-CCA and DNR-CC status. Following discussions about the differences in these status, requested Full Code status. Advanced Care Planning Face to Face Time: 16 minutes. Visit Charges OBSV E&M: 24394 Initial observation care L3 Procedures Hospitalists Procedures: 49365 Advncd Care Plan 30 Min
[2021-04-08 14:27] LABS: Magnesium 2.3 mg/dL (1.6-2.6)
[2021-04-08] MEDS: 0.9% Normal Saline 1,000 ML 100 ML IV (15:21)
[2021-04-08] MEDS: hydrALAZINE 20 MG/ML Vial 10 MG IV (15:21)
[2021-04-08 18:01] LABS: Bedside Glucose 97 mg/dL (70-110)
[2021-04-08] MEDS: Insulin NPH Human 100 UNITS/ML PEN 25 UNITS SC (18:02)
[2021-04-08 18:10] LABS: Bedside Glucose 213 mg/dL (70-110)
[2021-04-08] MEDS: Atorvastatin Calcium 10 MG Tablet PO (20:21)
[2021-04-08] MEDS: Donepezil HCl 10 MG Tablet PO (20:21)
[2021-04-08] MEDS: Insulin Lispro 100 UNIT/ML INSULN.PEN SC (20:21)
[2021-04-08 20:52] LABS: Partial Thromboplast Time 217.1 Seconds (24.1-36.2)
[2021-04-08 22:26] LABS: Bedside Glucose 153 mg/dL (70-110)
[2021-04-09] VITALS (9 sets, daily range): BP systolic 127–145; BP diastolic 58–85; PULSE 56–76; RESP 16–18; TEMP 36.6–36.8; O2SAT 88–94
[2021-04-09 05:12] LABS: Absolute Lymphocyte Count 6.21 X10^3/uL (0.83-4.51); Absolute Neutrophil Count 4.7 X10^3/uL (2.0-7.7); Basophil# 0.05 X10^3/uL; Basophil% 0.4 % (0-1); Eosinophil# 0.25 X10^3/uL; Eosinophils% 2.1 % (0-5); Hematocrit 37.9 % (40-54); Hemoglobin 12.1 g/dL (13.0-16.5); Lymphocyte # 6.21 X10^3/ul (0.83-4.51); Lymphocyte % 52.1 % (19-41); Mean Corp Hgb Conc 31.9 g/dL (32-36); Mean Corpuscular Hgb 29.1 pg (27.0-32.0); Mean Corpuscular Volume 91.1 fL (80-94); Mean Platelet Vol. 10.3 fl (6.2-12.0); Monocyte# 0.65 X10^3/uL; Monocyte% 5.5 % (0-10); NRBC Flagged by Analyzer 0 % (0-5); Neutrophil # 4.74 X10^3/uL (2.7-7.7); Neutrophil % 39.7 % (47-70); POSITIVE DIFFERENTIAL YES; Platelet Count 110 K/mm3 (150-450); RBC Distribution Width CV 14.2 % (11.6-14.6); RBC Distribution Width SD 46.9 fl (35.1-43.9); Red Blood Count 4.16 M/mm3 (4.6-6.2); White Blood Count 11.9 K/mm3 (4.4-11.0)
[2021-04-09 05:14] LABS: Differential Indicated SCAN CRITERIA MET
[2021-04-09 05:25] LABS: Partial Thromboplast Time 87.1 Seconds (24.1-36.2)
[2021-04-09 05:31] LABS: ALB/GLOB Ratio 0.7 RATIO (0.9-2.4); AST(SGOT) 17 U/L (15-37); Alanine Aminotransfer ALT/SGPT 16 U/L (16-61); Albumin, Serum 2.7 g/dL (3.2-5.0); Alkaline Phosphatase 73 U/L (45-117); Anion Gap 6 (5-15); BUN 25 mg/dL (7-18); BUN/Creat Ratio 14.9 RATIO (10-20); Calcium,Total 8.3 mg/dL (8.5-10.1); Chloride 113 mmol/L (98-107); Creatinine, Serum 1.68 mg/dL (0.70-1.30); EST Glomerular Filtration Rate 42 mL/min (>60); Est Glom Filt Rate - Afr Amer 50 mL/min (>60); Estimated Creatinine Clearance 38.06 ml/min; Globulin 3.7 g/dL (2.2-4.2); Glucose 79 mg/dL (74-106); Potassium 3.7 mmol/L (3.5-5.1); Protein, Total 6.4 g/dL (6.4-8.2); Sodium Level 144 mmol/L (136-145)
--- NOTE | 2021-04-09 07:23 | PCM.PN.HOSP ---
Subjective Subjective The patient has dementia and mainly sits or lays down in couch all around the day. Hard to maintain therapeutic level with IV heparin drip therefore changed to Lovenox therapeutic dose after discussion with pharmacist. Objective Data Objective Data Vital Signs: Vital Signs Temp Pulse Resp BP Pulse Ox 98.3 F 56 L 16 127/58 H 92 04/09/21 02:35 04/09/21 02:35 04/09/21 02:35 04/09/21 02:35 04/09/21 02:35 Oxygen Delivery Method Room Air Weight: 225 lb 1.471 oz Body Mass Index (BMI) 28.9 Intake & Output: Intake and Output for Last 24 Hours 04/07/21 04/08/21 04/09/21 23:59 23:59 23:59 Intake Total 103.75 / 103.75 1084.6 / 1084.6 Output Total 450 / 450 500 / 500 Balance -346.25 / -346.25 584.6 / 584.6 Lab / Micro Data Result Diagrams: 04/09/21 05:06 04/09/21 05:06 Labs: Laboratory Results - last 24 hr 04/08/21 04/08/21 04/08/21 13:40 13:40 13:40 WBC 12.9 H RBC 4.76 Hgb 13.8 Hct 43.6 MCV 91.6 MCH 29.0 MCHC 31.7 L RDW Std Deviation 47.9 H RDW Coeff of Bebe 14.3 Plt Count 126 L MPV 10.6 Immature Gran % (Auto) Neut % (Auto) Lymph % (Auto) [place] % (Auto) Eos % (Auto) Baso % (Auto) Absolute Neuts (auto) Absolute Lymphs (auto) Nucleated RBC % PT 13.3 INR 1.1 APTT 30.7 Sodium 143 Potassium 4.0 Chloride 111 H Carbon Dioxide 26.0 Anion Gap 6 BUN 28 H Creatinine 1.83 H Estim Creat Clear Calc 32.98 Est GFR (MDRD) Af Amer 46 L Est GFR (MDRD) Non-Af 38 L BUN/Creatinine Ratio 15.3 Glucose 102 Calcium 9.0 Magnesium Total Bilirubin AST ALT Alkaline Phosphatase Total Protein Albumin Globulin Albumin/Globulin Ratio POC Glucose 04/08/21 04/08/21 04/08/21 13:40 15:56 18:01 WBC RBC Hgb Hct MCV MCH MCHC RDW Std Deviation RDW Coeff of Bebe Plt Count MPV Immature Gran % (Auto) Neut % (Auto) Lymph % (Auto) [place] % (Auto) Eos % (Auto) Baso % (Auto) Absolute Neuts (auto) Absolute Lymphs (auto) Nucleated RBC % PT INR APTT Sodium Potassium Chloride Carbon Dioxide Anion Gap BUN Creatinine Estim Creat Clear Calc Est GFR (MDRD) Af Amer Est GFR (MDRD) Non-Af BUN/Creatinine Ratio Glucose Calcium Magnesium 2.3 Total Bilirubin AST ALT Alkaline Phosphatase Total Protein Albumin Globulin Albumin/Globulin Ratio POC Glucose 97 213 H 04/08/21 04/08/21 04/09/21 20:10 20:14 05:06 WBC 11.9 H RBC 4.16 L Hgb 12.1 L Hct 37.9 L MCV 91.1 MCH 29.1 MCHC 31.9 L RDW Std Deviation 46.9 H RDW Coeff of Bebe 14.2 Plt Count 110 L MPV 10.3 Immature Gran % (Auto) 0.200 Neut % (Auto) 39.7 L Lymph % (Auto) 52.1 H [place] % (Auto) 5.5 Eos % (Auto) 2.1 Baso % (Auto) 0.4 Absolute Neuts (auto) 4.7 Absolute Lymphs (auto) 6.21 H Nucleated RBC % 0 PT INR APTT 217.1 H* Sodium Potassium Chloride Carbon Dioxide Anion Gap BUN Creatinine Estim Creat Clear Calc Est GFR (MDRD) Af Amer Est GFR (MDRD) Non-Af BUN/Creatinine Ratio Glucose Calcium Magnesium Total Bilirubin AST ALT Alkaline Phosphatase Total Protein Albumin Globulin Albumin/Globulin Ratio POC Glucose 153 H 04/09/21 04/09/21 05:06 05:06 WBC RBC Hgb Hct MCV MCH MCHC RDW Std Deviation RDW Coeff of Bebe Plt Count MPV Immature Gran % (Auto) Neut % (Auto) Lymph % (Auto) [place] % (Auto) Eos % (Auto) Baso % (Auto) Absolute Neuts (auto) Absolute Lymphs (auto) Nucleated RBC % PT INR APTT 87.1 H Sodium 144 Potassium 3.7 Chloride 113 H Carbon Dioxide 25.0 Anion Gap 6 BUN 25 H Creatinine 1.68 H Estim Creat Clear Calc 38.06 Est GFR (MDRD) Af Amer 50 L Est GFR (MDRD) Non-Af 42 L BUN/Creatinine Ratio 14.9 Glucose 79 Calcium 8.3 L Magnesium Total Bilirubin 0.60 AST 17 ALT 16 Alkaline Phosphatase 73 Total Protein 6.4 Albumin 2.7 L Globulin 3.7 Albumin/Globulin Ratio 0.7 L POC Glucose Radiography Diagnostic Testing: Radiology Impression Venous Doppler Study 04/08/21 12:11 Interpretation Summary Acute deep venous thrombosis right common femoral, femoral, popliteal, tibioperoneal trunk, gastrocnemius, posterior tibial, and peroneal veins. Visible thrombus noted within the right common femoral vein with some mobility. Patent and compressible right great saphenous vein Normal flow patterns left common femoral vein Ordering Physician: Christian Gunn Referring Physician: Nate Watters Performed By: Veda Correia, ALIZA, RVT Physical Exam Narrative General: Alert, oriented x3, mild cognitive deficit memory lapses. HEENT: Atraumatic, PERRLA, EOMI, Normocephalic Oral: No Gingival or Mucosal Lesions/ Ulcerations Neck: Supple, No JVD, Negative Carotid Bruits Lungs: Air entry diminished in bilateral lung bases. No crepitation/rhonchi Cardiovascular: A. fib, normal S1, Normal S2, systolic murmur over LSV Abdomen: Bowel Sounds Present, Soft, Non Tender, Non-Distended : No renal angle tenderness. No suprapubic tenderness. Extremities: Capillary Refill Less than 3 Seconds Skin: No rashes, No breakdown Musculoskeletal: Right lower extremity swollen and indurated as compared to left lower extremity. No appreciable tenderness. Neurological: Cranial nerves II-XII grossly intact, Deep Tendon Reflexes 2+/4 and Symmetrical, Neuro grossly intact Psych/Mental Status: Flat affect. Assessment & Plan Assessment/Plan (1) DVT (deep venous thrombosis): QUALIFIERS: Affected thrombotic vein of extremity: unspecified vein of extremity Chronicity: acute DVT location: lower extremity Laterality: right Qualified Code(s): I82.401 - Acute embolism and thrombosis of unspecified deep veins of right lower extremity (2) CKD (chronic kidney disease) stage 3, GFR 30-59 ml/min: PLAN: The patient is an 86 y/o MDiabetes mellitus type II, Dementia was admitted with history of onset RLE swelling and discomfort starting the day prior to admission. 1. Unstable appearing Large (mid calf-groin) RLE DVT: Patient does not have family history of hypercoagulable disorder and seems provoked from prolonged laying on the bed. As per vascular surgeon Dr. Cohen discussion with ED physician, patient was initially started on IV heparin drip but hard to maintain therapeutic level therefore changed to Lovenox 1 mg/kg body weight after improvement of creatinine clearance. Monitor CBC in evening. Pain is well controlled. 2. Hypertension: Continue home regimen including lisinopril with hold parameters as needed, PRN hydralazine. 3. Hyperlipidemia: We will continue patient home statin therapy. 4. Diabetes mellitus type II: Hold oral home regimen, continue home insulin regimen, ADA diet, Accu-Cheks AC meals and correctional sliding scale 5. Dementia, unclear type with unclear behavioral disturbance history: We will continue patient home donepezil regimen, fall precautions. 6. Chronic bradycardia: Not on rate/rhythm agent, asymptomatic, continue outpatient follow-up as needed. 7. Obesity: Weight loss and lifestyle changes encouraged. 8. BPH: We will continue patient home finasteride and Flomax regimen. 9. Allergic rhinitis: We will continue patient home loratadine regimen. 10. Chronic neck and back pain: Fall precautions as noted, frequent position changes encouraged. PT note 11. Chronic Kidney Disease Stage III, unclear subtype: Admission BUN/Cr 28/1.83, baseline renal function 1.5-1.8, repeat BMP, BUN/creatinine 25/1.68. 12. GERD: We will continue home PPI. 13. DVT prophylaxis: On therapeutic Lovenox 14. CODE status: Currently full code. Visit Charges Inpatient E&M: 68955 Subs Hosp L2
[2021-04-09] MEDS: Insulin NPH Human 100 UNITS/ML PEN 25 UNITS SC ×2 (08:35→17:27)
[2021-04-09] MEDS: Tamsulosin HCl 0.4 MG Capsule PO (08:35)
[2021-04-09] MEDS: Loratadine 10 MG Tablet PO (10:06)
[2021-04-09] MEDS: Lisinopril 20 MG Tablet PO (10:06)
[2021-04-09] MEDS: Pantoprazole Sodium 40 MG Tablet PO (10:06)
[2021-04-09] MEDS: Enoxaparin 100 MG/ML Syringe SC ×2 (10:06→22:01)
[2021-04-09] MEDS: Ascorbic Acid 500 MG Tablet 1000 MG PO (10:06)
[2021-04-09] MEDS: Finasteride 5 MG Tablet PO (10:07)
[2021-04-09] MEDS: Insulin Lispro 100 UNIT/ML INSULN.PEN SC (11:01)
[2021-04-09 11:38] LABS: Bedside Glucose 92 mg/dL (70-110)
[2021-04-09 11:39] LABS: Bedside Glucose 157 mg/dL (70-110)
--- NOTE | 2021-04-09 12:52 | CHAPLAIN ---
Type of Pastoral Visit _x__ Initial Visit ___ Follow-up Visit ___ On-call Visit ___ General Patient Visit ___ Spiritual Assessment ___ Family Conference ___ Bereavement ___ Rapid Response ___ Code Blue ___ Other (describe below) Pastoral Care Referral From _x__ Patient ___ Family ___ Nurse ___ Physician ___ Certified Low Vision Therapist ___ Hospital Receptionist ___ Other (describe below) Sacrament/Intervention _x__ Active listening ___ Anointing ___ Mandaeism ___ Bereavement ___ Communion ___ Alpa exploration ___ ___ Life review _x__ Prayer ___ Reconciliation ___ Sacrament of Sick _x__ Supportive presence ___ Wedding ___ Other (describe below) Pastoral Comments
--- NOTE | 2021-04-09 16:11 | CASEMGMT ---
BLAISE CHRISTENSEN in to discuss LA Form with patient. RN FERMIN explained LA Form to patient, patient voiced understanding. Patient signed LA form and filed in chart. Patient provided with copy of signed LA form. Patient had no further questions or concerns at this time.
[2021-04-09 16:30] LABS: Bedside Glucose 116 mg/dL (70-110)
[2021-04-09 20:48] LABS: Hematocrit 39.3 % (40-54); Hemoglobin 12.7 g/dL (13.0-16.5); Mean Corp Hgb Conc 32.3 g/dL (32-36); Mean Corpuscular Hgb 29.3 pg (27.0-32.0); Mean Corpuscular Volume 90.8 fL (80-94); Mean Platelet Vol. 10.3 fl (6.2-12.0); Platelet Count 108 K/mm3 (150-450); RBC Distribution Width CV 14.3 % (11.6-14.6); Red Blood Count 4.33 M/mm3 (4.6-6.2); White Blood Count 11.5 K/mm3 (4.4-11.0)
[2021-04-09] MEDS: Atorvastatin Calcium 10 MG Tablet PO (22:01)
[2021-04-09] MEDS: Donepezil HCl 10 MG Tablet PO (22:01)
[2021-04-09 22:06] LABS: Bedside Glucose 124 mg/dL (70-110)
[2021-04-10 02:30] VITALS: BP 162/86; PULSE 89; RESP 18; TEMP 36.9; O2SAT 93
[2021-04-10 03:00] VITALS: PULSE 66
[2021-04-10 06:40] VITALS: O2SAT 94
[2021-04-10 06:46] LABS: Bedside Glucose 145 mg/dL (70-110)
[2021-04-10 07:26] LABS: Absolute Lymphocyte Count 7.39 X10^3/uL (0.83-4.51); Absolute Neutrophil Count 4.2 X10^3/uL (2.0-7.7); Basophil# 0.06 X10^3/uL; Basophil% 0.5 % (0-1); Eosinophil# 0.31 X10^3/uL; Eosinophils% 2.4 % (0-5); Hemoglobin 12.9 g/dL (13.0-16.5); Lymphocyte # 7.39 X10^3/ul (0.83-4.51); Lymphocyte % 58.4 % (19-41); Mean Corp Hgb Conc 31.5 g/dL (32-36); Mean Corpuscular Hgb 28.6 pg (27.0-32.0); Mean Corpuscular Volume 90.9 fL (80-94); Mean Platelet Vol. 10.9 fl (6.2-12.0); Monocyte# 0.71 X10^3/uL; Monocyte% 5.6 % (0-10); NRBC Flagged by Analyzer 0 % (0-5); Neutrophil # 4.17 X10^3/uL (2.7-7.7); Neutrophil % 32.9 % (47-70); POSITIVE DIFFERENTIAL YES; Platelet Count 121 K/mm3 (150-450); RBC Distribution Width CV 14.3 % (11.6-14.6); RBC Distribution Width SD 47.3 fl (35.1-43.9); Red Blood Count 4.51 M/mm3 (4.6-6.2); White Blood Count 12.7 K/mm3 (4.4-11.0)
[2021-04-10 07:29] VITALS: PULSE 63
[2021-04-10 07:30] LABS: Differential Indicated SCAN CRITERIA MET
[2021-04-10 07:58] LABS: Anion Gap 5 (5-15); BUN 20 mg/dL (7-18); BUN/Creat Ratio 11.4 RATIO (10-20); Calcium,Total 8.7 mg/dL (8.5-10.1); Chloride 111 mmol/L (98-107); Creatinine, Serum 1.75 mg/dL (0.70-1.30); EST Glomerular Filtration Rate 40 mL/min (>60); Est Glom Filt Rate - Afr Amer 48 mL/min (>60); Estimated Creatinine Clearance 36.53 ml/min; Glucose 128 mg/dL (74-106); Sodium Level 141 mmol/L (136-145)
[2021-04-10 08:12] LABS: Differential Comment SCANNED; Reactive Lymphocyte 2+
--- NOTE | 2021-04-10 08:28 | CON.PCM_ITS ---
Assessment & Plan Assessment/Plan (1) DVT (deep venous thrombosis): QUALIFIERS: DVT location: lower extremity Affected thrombotic vein of extremity: unspecified vein of extremity Chronicity: acute Laterality: right Qualified Code(s): I82.401 - Acute embolism and thrombosis of unspecified deep veins of right lower extremity PLAN: 1. DVT. Continue with anticoagulation and switch over to an oral agent. Patient needs to wear thigh-high stockings. Patient needs increase daily activity and walking. Needs to be up-to-date with age-appropriate cancer screening. We will follow up in 6 months with repeat venous ultrasound. HPI Consult Data Date of Consult: 04/10/21 HPI Narrative HPI Narrative: JAYA STANTON, is a 86 M who presents right leg DVT. Reports some decreased activity here recently. No previous DVT. Has an extensive DVT up into the right common femoral vein. Has been on anticoagulation in his leg actually feels a little bit better. Thinks the swelling is down some. Vascular surgery consulted for evaluation of this. No coronary history. No stroke TIA amaurosis. No active smoking. Hypertension on meds. Diabetes on meds. Hyperlipidemia on a statin. No PAD. Does not appear to be up-to-date per him on age-appropriate cancer screening. [facility] Medical History Arthritis Back problem Chronic neck and back pain Diabetes Diarrhea Fatigue GERD (gastroesophageal reflux disease) Hearing problem Hyperlipidemia Hypertension Incontinence Irregular heart beat Kidney disease Knee pain Non-smoker Seasonal allergies Skin cancer Home Medications ascorbic acid (vitamin C) 1,000 mg PO DAILY 11/14/16 [History Last Taken 08:00] tamsulosin 0.4 mg PO DAILY 11/14/16 [History Last Taken 04/08/21 08:00] insulin NPH isoph U-100 human 100 unit/mL subcutaneous suspension 25 unit SUBCUT BID #20 ml 07/05/20 [Rx Last Taken 04/08/21 08:00] simvastatin 20 mg tablet 20 mg PO QHS #90 tab 12/14/20 [Rx Last Taken 04/07/21 17:00] donepezil 10 mg tablet 10 mg PO QHS #90 tablet 02/20/21 [Rx Last Taken 04/08/21 08:00] finasteride 1 mg tablet 5 mg PO DAILY 02/20/21 [History Last Taken 04/08/21 08:00] loratadine 10 mg capsule 10 mg PO DAILY #90 cap 02/20/21 [Rx Last Taken 04/08/21 08:00] omeprazole 40 mg capsule,delayed release 40 mg PO DAILY #90 cap 02/20/21 [Rx Last Taken 04/08/21 08:00] lisinopril 40 mg PO DAILY 04/08/21 [History Last Taken 04/08/21 08:00] Allergy/AdvReac Type Severity Reaction Status Date / Time No Known Allergies Allergy Verified 04/08/21 12:03 Family History Brother Heart disease Myocardial infarction Mother Myocardial infarction Heart disease Father CVA (cerebral vascular accident) Surgical History history of caataract removal History of urethral stricture Social History household members: spouse Smoking Status: Never smoker alcohol intake: never substance use type: does not use what type of physical activity do you participate in: none ROS ROS Narrative All appear negative except for what is in the HPI Physical Exam Narrative Patient awake alert oriented No apparent distress Afebrile vital signs stable HEENT: Normocephalic atraumatic Pupils equal and reactive Moist mucous membrane Neck supple Chest nontender Lungs clear Heart regular Abdomen soft Extremities palpable radial pulses Appears palpable pedal pulses Mild to moderate right leg edema Moves all extremities well x4 Lab / Micro Data Result Diagrams: 04/10/21 06:30 04/10/21 06:30 Labs: Laboratory Results - last 24 hr 04/09/21 04/09/21 04/09/21 07:43 10:59 16:19 WBC RBC Hgb Hct MCV MCH MCHC RDW Std Deviation RDW Coeff of Bebe Plt Count MPV Immature Gran % (Auto) Neut % (Auto) Lymph % (Auto) [place] % (Auto) Eos % (Auto) Baso % (Auto) Absolute Neuts (auto) Absolute Lymphs (auto) Nucleated RBC % Differential Comment Diff Path Review Reactive Lymphocytes Sodium Potassium Chloride Carbon Dioxide Anion Gap BUN Creatinine Estim Creat Clear Calc Est GFR (MDRD) Af Amer Est GFR (MDRD) Non-Af BUN/Creatinine Ratio Glucose Calcium POC Glucose 92 157 H 116 H 04/09/21 04/09/21 04/10/21 20:40 21:59 06:30 WBC 11.5 H 12.7 H RBC 4.33 L 4.51 L Hgb 12.7 L 12.9 L Hct 39.3 L 41.0 MCV 90.8 90.9 MCH 29.3 28.6 MCHC 32.3 31.5 L RDW Std Deviation 47.0 H 47.3 H RDW Coeff of Bebe 14.3 14.3 Plt Count 108 L 121 L MPV 10.3 10.9 Immature Gran % (Auto) 0.200 Neut % (Auto) 32.9 L Lymph % (Auto) 58.4 H [place] % (Auto) 5.6 Eos % (Auto) 2.4 Baso % (Auto) 0.5 Absolute Neuts (auto) 4.2 Absolute Lymphs (auto) 7.39 H Nucleated RBC % 0 Differential Comment SCANNED Diff Path Review May foll Reactive Lymphocytes 2+ Sodium Potassium Chloride Carbon Dioxide Anion Gap BUN Creatinine Estim Creat Clear Calc Est GFR (MDRD) Af Amer Est GFR (MDRD) Non-Af BUN/Creatinine Ratio Glucose Calcium POC Glucose 124 H 04/10/21 04/10/21 06:30 06:38 WBC RBC Hgb Hct MCV MCH MCHC RDW Std Deviation RDW Coeff of Bebe Plt Count MPV Immature Gran % (Auto) Neut % (Auto) Lymph % (Auto) [place] % (Auto) Eos % (Auto) Baso % (Auto) Absolute Neuts (auto) Absolute Lymphs (auto) Nucleated RBC % Differential Comment Diff Path Review Reactive Lymphocytes Sodium 141 Potassium 4.0 Chloride 111 H Carbon Dioxide 25.0 Anion Gap 5 BUN 20 H Creatinine 1.75 H Estim Creat Clear Calc 36.53 Est GFR (MDRD) Af Amer 48 L Est GFR (MDRD) Non-Af 40 L BUN/Creatinine Ratio 11.4 Glucose 128 H Calcium 8.7 POC Glucose 145 H
[2021-04-10 08:30] VITALS: BP 160/64; PULSE 72; RESP 16; TEMP 37.1; O2SAT 93
[2021-04-10] MEDS: Insulin NPH Human 100 UNITS/ML PEN 25 UNITS SC (08:54)
[2021-04-10] MEDS: Finasteride 5 MG Tablet PO (08:55)
[2021-04-10] MEDS: Pantoprazole Sodium 40 MG Tablet PO (08:55)
[2021-04-10] MEDS: Enoxaparin 100 MG/ML Syringe SC (08:55)
[2021-04-10] MEDS: Lisinopril 20 MG Tablet PO (08:55)
[2021-04-10] MEDS: Loratadine 10 MG Tablet PO (08:55)
[2021-04-10] MEDS: Ascorbic Acid 500 MG Tablet 1000 MG PO (08:56)
[2021-04-10] MEDS: Tamsulosin HCl 0.4 MG Capsule PO (08:56)
--- NOTE | 2021-04-10 09:57 | PCM.DC ---
Discharge Instructions Diet Discharge Diet: 1800 Calorie Control Diet and 2000 mg Sodium Diet Activity Discharge Activity: Return to Normal Activity and May Not Drive Weight Bearing Status: Partial weight bearing Follow Up Care Test Results: Test results from this visit will be discussed in further detail at your follow-up appointment, if applicable. Discharge Plan Admission Admit Date/Time: 04/08/21 14:13 Primary Reason for Your Visit: Right Lower extremity DVT Attending Provider: Tyrell Wilson Primary Care Provider: Nate Watters Consulting Providers: Jori Cohen Instructions Additional Instructions / Restrictions: Right knee high stocking, 10-20 mmHg PRESSURE (MIREILLE hose) while awake Discharge Orders/Prescriptions Prescriptions: New sennosides-docusate sodium [Stool Softener-Stimulant Laxat] 8.6-50 mg Tablet 2 tab PO BID PRN PRN (Reason: Constipation) Qty: 0 RF: 0 Eliquis DVT-PE Treat 30D Start 5 mg (74 tabs) tablets,dose pack 5 mg PO BID 30 Days Qty: 74 RF: 0 amlodipine 5 mg tablet 5 mg PO DAILY Qty: 30 RF: 1 lisinopril 20 mg tablet 10 mg PO DAILY Qty: 30 RF: 1 Continued finasteride 1 mg tablet 5 mg PO DAILY RF: 0 donepezil 10 mg tablet 10 mg PO QHS Qty: 90 RF: 1 omeprazole 40 mg capsule,delayed release(DR/EC) 40 mg PO DAILY Qty: 90 RF: 1 loratadine 10 mg capsule 10 mg PO DAILY Qty: 90 RF: 1 ascorbic acid (vitamin C) 1,000 MG tablet 1,000 mg PO DAILY RF: 0 tamsulosin 0.4 MG capsule 0.4 mg PO DAILY RF: 0 insulin NPH isoph U-100 human 100 unit/mL suspension 25 unit subcut BID Qty: 25 RF: 6 simvastatin 20 mg tablet 20 mg PO QHS Qty: 90 RF: 1 Discontinued lisinopril 40 mg tablet 40 mg PO DAILY RF: 0 Other Ambulatory Orders: Knee High Mireille Hose (Routine) Location: None Selected Ordered By: Dr. Tyrell iWlson Referrals / Follow Up: Nate Watters DO [Primary Care Provider] - In 1 Week (for CKD ) Jori Cohen MD [STAFF PHYSICIAN] - Within 1 Month (for RLE extremity DVT) Disposition Disposition (needs filled in before D/C Order can be placed): Home, self care
--- NOTE | 2021-04-10 09:58 | PCM.DC.SUM ---
Providers Date of Admission: 04/08/21 Primary Care Physician: Dr. Nate Watters, DO Consultations 04/09/21 12:50 Consult: Vascular Surgery Routine Consulting Provider: Jori Cohen Reason for Consult: Right lower extremity extensive DVT EMERGENT Consult: No MD Notified: Yes Date Notified:: 04/08/21 Time Notified: 13:50 Method of Notification: Text Reason For Visit: RLE DVT Diagnosis Discharge Diagnosis (1) DVT (deep venous thrombosis): Status: Acute Code(s): I82.409 - Acute embolism and thrombosis of unspecified deep veins of unspecified lower extremity Qualifiers: Affected thrombotic vein of extremity: unspecified vein of extremity Chronicity: acute DVT location: lower extremity Laterality: right Qualified Code(s): I82.401 - Acute embolism and thrombosis of unspecified deep veins of right lower extremity Medications at Discharge Home Medications ascorbic acid (vitamin C) 1,000 mg PO DAILY 11/14/16 tamsulosin 0.4 mg PO DAILY 11/14/16 simvastatin 20 mg tablet 20 mg PO QHS #90 tab 12/14/20 donepezil 10 mg tablet 10 mg PO QHS #90 tablet 02/20/21 finasteride 1 mg tablet 5 mg PO DAILY 02/20/21 loratadine 10 mg capsule 10 mg PO DAILY #90 cap 02/20/21 omeprazole 40 mg capsule,delayed release 40 mg PO DAILY #90 cap 02/20/21 amlodipine 5 mg PO DAILY #30 tab 04/10/21 apixaban [Eliquis DVT-PE Treat 30D Start] 5 mg PO BID 30 Days #74 tab 04/10/21 insulin NPH isoph U-100 human 25 unit SUBCUT BID #25 ml 04/10/21 lisinopril 10 mg PO DAILY #30 tab 04/10/21 sennosides-docusate sodium [Stool Softener-Stimulant Laxat] 2 tab PO BID PRN PRN #0 tab 04/10/21 Hospital Course Summary of Care Provided Hospital Course: The patient is an 86 y/o MDiabetes mellitus type II, Dementia was admitted with history of onset RLE swelling and discomfort starting the day prior to admission. 1. Unstable appearing Large (mid calf-groin) RLE DVT: Patient does not have family history of hypercoagulable disorder and seems provoked from prolonged laying on the bed. As per vascular surgeon Dr. Cohen discussion with ED physician, patient was initially started on IV heparin drip but hard to maintain therapeutic level therefore changed to Lovenox 1 mg/kg body weight after improvement of creatinine clearance. Patient hemoglobin remained stable, 12.9 g%. Mild leukocytosis probably inflammatory response of DVT. There was appreciable improvement on the RLE swelling, and induration. Seen by vascular surgeon Dr. Cohen agree with discharging on Eliquis DVT regimen. Prescription sent to the patient's pharmacy. Advised follow-up with Dr. Cohen in 1 month and repeat venous duplex of lower extremities after 6 months. Patient was advised to follow-up PCP in 1 to 2 weeks for age-an gender appropriate screening. Patient denies any family history of hypercoagulable disorder. MIREILLE hose bilateral lower extremities ordered, 10 to [address] Cohen recommendation. Advised to wear MIREILLE hose when patient is awake or moving. 2. Hypertension: Continue home regimen including lisinopril with hold parameters as needed, PRN hydralazine. 3. Hyperlipidemia: We will continue patient home statin therapy. 4. Diabetes mellitus type II: Hold oral home regimen, continue home insulin regimen, ADA diet, Accu-Cheks AC meals and correctional sliding scale 5. Dementia, unclear type with unclear behavioral disturbance history: We will continue patient home donepezil regimen, fall precautions. 6. Chronic bradycardia: Not on rate/rhythm agent, asymptomatic, continue outpatient follow-up as needed. 7. Obesity: Weight loss and lifestyle changes encouraged. 8. BPH: We will continue patient home finasteride and Flomax regimen. 9. Allergic rhinitis: We will continue patient home loratadine regimen. 10. Chronic neck and back pain: Fall precautions as noted, frequent position changes encouraged. PT note 11. Chronic Kidney Disease Stage III, unclear subtype: Admission BUN/Cr 28/1.83, baseline renal function 1.5-1.8, repeat BMP, BUN/creatinine 25/1.68. 12. GERD: We will continue home PPI. 13. DVT prophylaxis: On therapeutic Lovenox 14. CODE status: Currently full code. Discharge medication reconciliation done. Discharge follow-up instructions completed. Discharge process discussed with the patient and all questions were answered to patient's satisfaction. Total time spent, exact 35 minutes on discharge meds reconciliation, examination, coordination of care with nurses and ancillary staff, review of imaging and blood test and discussion with the patient on follow-up instructions Physical Exam Narrative General: Alert, oriented x3, chronic mild cognitive deficit memory lapses. HEENT: Atraumatic, PERRLA, EOMI, Normocephalic Oral: No Gingival or Mucosal Lesions/ Ulcerations Neck: Supple, No JVD, Negative Carotid Bruits Lungs: Air entry diminished in bilateral lung bases. No crepitation/rhonchi Cardiovascular: A. fib, normal S1, Normal S2, systolic murmur over LSV Abdomen: Bowel Sounds Present, Soft, Non Tender, Non-Distended : No renal angle tenderness. No suprapubic tenderness. Extremities: Capillary Refill Less than 3 Seconds Skin: No rashes, No breakdown Musculoskeletal: Decreasing RLE swelling and induration.No appreciable tenderness. Neurological: Cranial nerves II-XII grossly intact, Deep Tendon Reflexes 2+/4 and Symmetrical, Neuro grossly intact Psych/Mental Status: Flat affect. ABG / Lab / Microbiology Data Result Diagrams: 04/10/21 06:30 04/10/21 06:30 Laboratory: Laboratory Results - last 24 hr 04/09/21 04/09/21 04/09/21 07:43 10:59 16:19 WBC RBC Hgb Hct MCV MCH MCHC RDW Std Deviation RDW Coeff of Bebe Plt Count MPV Immature Gran % (Auto) Neut % (Auto) Lymph % (Auto) [place] % (Auto) Eos % (Auto) Baso % (Auto) Absolute Neuts (auto) Absolute Lymphs (auto) Nucleated RBC % Differential Comment Diff Path Review Reactive Lymphocytes Sodium Potassium Chloride Carbon Dioxide Anion Gap BUN Creatinine Estim Creat Clear Calc Est GFR (MDRD) Af Amer Est GFR (MDRD) Non-Af BUN/Creatinine Ratio Glucose Calcium POC Glucose 92 157 H 116 H 04/09/21 04/09/21 04/10/21 20:40 21:59 06:30 WBC 11.5 H 12.7 H RBC 4.33 L 4.51 L Hgb 12.7 L 12.9 L Hct 39.3 L 41.0 MCV 90.8 90.9 MCH 29.3 28.6 MCHC 32.3 31.5 L RDW Std Deviation 47.0 H 47.3 H RDW Coeff of Bebe 14.3 14.3 Plt Count 108 L 121 L MPV 10.3 10.9 Immature Gran % (Auto) 0.200 Neut % (Auto) 32.9 L Lymph % (Auto) 58.4 H [place] % (Auto) 5.6 Eos % (Auto) 2.4 Baso % (Auto) 0.5 Absolute Neuts (auto) 4.2 Absolute Lymphs (auto) 7.39 H Nucleated RBC % 0 Differential Comment SCANNED Diff Path Review May foll Reactive Lymphocytes 2+ Sodium Potassium Chloride Carbon Dioxide Anion Gap BUN Creatinine Estim Creat Clear Calc Est GFR (MDRD) Af Amer Est GFR (MDRD) Non-Af BUN/Creatinine Ratio Glucose Calcium POC Glucose 124 H 04/10/21 04/10/21 06:30 06:38 WBC RBC Hgb Hct MCV MCH MCHC RDW Std Deviation RDW Coeff of Bebe Plt Count MPV Immature Gran % (Auto) Neut % (Auto) Lymph % (Auto) [place] % (Auto) Eos % (Auto) Baso % (Auto) Absolute Neuts (auto) Absolute Lymphs (auto) Nucleated RBC % Differential Comment Diff Path Review Reactive Lymphocytes Sodium 141 Potassium 4.0 Chloride 111 H Carbon Dioxide 25.0 Anion Gap 5 BUN 20 H Creatinine 1.75 H Estim Creat Clear Calc 36.53 Est GFR (MDRD) Af Amer 48 L Est GFR (MDRD) Non-Af 40 L BUN/Creatinine Ratio 11.4 Glucose 128 H Calcium 8.7 POC Glucose 145 H Meaningful Use Info Meaningful Use Diagnoses (Choose all that apply): VTE VTE Anticoag overlap given w/in hospital stay or rx'd at dc?: No Pt receive overlap for 5 days?: No Reason overlap not ordered, prescribed, or given for 5 days: Procedure Not Indicated Discharge Plan Admission Admit Date/Time: 04/08/21 14:13 Primary Reason for Your Visit: Right Lower extremity DVT Attending Provider: Tyrell Wilson Primary Care Provider: Nate Watters Consulting Providers: Jori Cohen Instructions Additional Instructions / Restrictions: Right knee high stocking, 10-20 mmHg PRESSURE (MIREILLE hose) while awake Discharge Orders/Prescriptions Prescriptions: New sennosides-docusate sodium [Stool Softener-Stimulant Laxat] 8.6-50 mg Tablet 2 tab PO BID PRN PRN (Reason: Constipation) Qty: 0 RF: 0 Eliquis DVT-PE Treat 30D Start 5 mg (74 tabs) tablets,dose pack 5 mg PO BID 30 Days Qty: 74 RF: 0 amlodipine 5 mg tablet 5 mg PO DAILY Qty: 30 RF: 1 lisinopril 20 mg tablet 10 mg PO DAILY Qty: 30 RF: 1 Continued finasteride 1 mg tablet 5 mg PO DAILY RF: 0 donepezil 10 mg tablet 10 mg PO QHS Qty: 90 RF: 1 omeprazole 40 mg capsule,delayed release(DR/EC) 40 mg PO DAILY Qty: 90 RF: 1 loratadine 10 mg capsule 10 mg PO DAILY Qty: 90 RF: 1 ascorbic acid (vitamin C) 1,000 MG tablet 1,000 mg PO DAILY RF: 0 tamsulosin 0.4 MG capsule 0.4 mg PO DAILY RF: 0 insulin NPH isoph U-100 human 100 unit/mL suspension 25 unit subcut BID Qty: 25 RF: 6 simvastatin 20 mg tablet 20 mg PO QHS Qty: 90 RF: 1 Discontinued lisinopril 40 mg tablet 40 mg PO DAILY RF: 0 Other Ambulatory Orders: Knee High Mireille Hose (Routine) Location: None Selected Ordered By: Dr. Tyrell Wilson Referrals / Follow Up: Jori Cohen MD [STAFF PHYSICIAN] - Within 1 Month (for RLE extremity DVT) Nate Watters DO [Primary Care Provider] - In 1 Week (for CKD ) Disposition Disposition (needs filled in before D/C Order can be placed): Home, self care Visit Charges Inpatient E&M: 51303 Disch Hosp
--- NOTE | 2021-04-10 11:30 | CASEMGMT ---
BLAISE [facility]. Starter pack for Eliquis is $88. BLAISE CHRISTENSEN gave [facility] 30 free trial savings card and cost now $0. [facility] pharmacy script will be ready tomorrow as it is out of stock. BLAISE CHRISTENSEN updated hospitalist and floor nurse.
[2021-04-10 12:25] LABS: Bedside Glucose 139 mg/dL (70-110)
[2021-04-10 13:45] VITALS: BP 140/55; PULSE 61; RESP 18; O2SAT 96
[2021-04-10] MEDS: APIXABAN 5 MG TABLET 10 MG PO (13:47)
[2021-04-11 13:01] LABS: Pathologist Review Reviewed
== END 2021-04-10 13:52 | disposition home or self-care (01) ==
LOC: ED 13:01 → MS3 16:04
PROVIDERS: Admitting Provider Family Medicine; Emergency Provider Emergency Medicine; PCP Family Medicine; Visit Provider Internal Medicine
DX: I82.411 Acute embolism and thrombosis of right femoral vein (principal); E78.5 Hyperlipidemia, unspecified; M19.90 Unspecified osteoarthritis, unspecified site; E11.22 Type 2 diabetes mellitus with diabetic chronic kidney disease; N18.32 Chronic kidney disease, stage 3b; K21.9 Gastro-esophageal reflux disease without esophagitis; E66.9 Obesity, unspecified; N40.0 Benign prostatic hyperplasia without lower urinary tract symptoms; F03.90 Unspecified dementia, unspecified severity, without behavioral disturbance, psychotic disturbance, mood disturbance, and anxiety; R32 Unspecified urinary incontinence; Z79.4 Long term (current) use of insulin; Z79.899 Other long term (current) drug therapy; Z68.28 Body mass index [BMI] 28.0-28.9, adult
CPT/HCPCS: 36415; 80048; 80053; 82962; 83735; 85025; 85027; 85610; 85730; 93971; 96361; 96365; 96366; 96372; 96374; 96375; 99218; 99251; 99285; J7030; A4216; G0378; G0463

== ENCOUNTER → 2021-04-16 09:40 | Outpatient (CLI) | payer MEDICARE, SELFPAY ==
[2021-04-16 09:06] VITALS: BMI 28.9
[2021-04-16 12:08] LABS: Anion Gap 5 (5-15); BUN 33 mg/dL (7-18); BUN/Creat Ratio 16.9 RATIO (10-20); Calcium,Total 8.9 mg/dL (8.5-10.1); Chloride 112 mmol/L (98-107); Creatinine, Serum 1.95 mg/dL (0.70-1.30); EST Glomerular Filtration Rate 35 mL/min (>60); Est Glom Filt Rate - Afr Amer 42 mL/min (>60); Glucose 106 mg/dL (74-106); Potassium 4.6 mmol/L (3.5-5.1); Sodium Level 143 mmol/L (136-145)
== END ==
PROVIDERS: PCP Family Medicine; Referring Provider Physician Assistant; Visit Provider Physician Assistant
DX: E11.9 Type 2 diabetes mellitus without complications (principal); I10 Essential (primary) hypertension; Z79.4 Long term (current) use of insulin
CPT/HCPCS: 36415; 80048

== ENCOUNTER → 2021-05-30 08:48 | Outpatient (CLI) | payer MEDICARE, SELFPAY ==
[2021-05-29 16:07] VITALS: BMI 28.9
--- NOTE | 2021-05-30 08:56 | RAD_ITS ---
STUDY: X-RAY - LUMBAR SPINE REASON FOR EXAM: Male, 86 years old. Chronic pain. TECHNIQUE: 3 view(s) of the lumbar spine were obtained. COMPARISON: None FINDINGS: There is straightening of the normal lumbar lordosis. There is no substantial scoliosis. There is a normal alignment of the vertebrae. There is multilevel endplate spondylosis of the lumbar vertebrae. There is multi-level degenerative disc disease with multi-level disc space narrowing. There is atherosclerotic calcification of the abdominal aorta without a demonstrated aneurysm. RAD/Lumbar Spine 2 or 3 Views IMPRESSION: Degenerative changes of the spine, as detailed above. Electronically Signed: Tito Sargent MD at 10:25 EDT , Service support ,
== END ==
PROVIDERS: PCP Family Medicine; Referring Provider Family Medicine; Visit Provider Family Medicine
DX: M53.9 Dorsopathy, unspecified (principal)
CPT/HCPCS: 72100

== ENCOUNTER → 2021-08-21 | Outpatient (CLI) | payer MEDICARE, SELFPAY | END | disposition home or self-care (01) | LOC: LABSPEC 13:59 | PROVIDERS: PCP Family Medicine; Referring Provider Family Medicine; Visit Provider Family Medicine | DX: R50.9 Fever, unspecified (principal) | CPT/HCPCS: 87635; U0005; U0003 ==

== ENCOUNTER → 2021-08-23 10:11 | Outpatient (CLI) | payer MEDICARE, SELFPAY ==
[2021-08-23 11:03] LABS: Mucous, Urine 0 SEEN /hpf (<or=2+)
[2021-08-23 12:02] LABS: Absolute Lymphocyte Count 5.12 X10^3/uL (0.83-4.51); Basophil# 0.05 X10^3/uL; Basophil% 0.4 % (0-1); Eosinophil# 0.12 X10^3/uL; Hematocrit 37.5 % (40-54); Hemoglobin 12.1 g/dL (13.0-16.5); Lymphocyte # 5.12 X10^3/ul (0.83-4.51); Lymphocyte % 42.7 % (19-41); Mean Corp Hgb Conc 32.3 g/dL (32-36); Mean Corpuscular Hgb 30.7 pg (27.0-32.0); Mean Corpuscular Volume 95.2 fL (80-94); Mean Platelet Vol. 11.2 fl (6.2-12.0); Monocyte# 0.71 X10^3/uL; Monocyte% 5.9 % (0-10); NRBC Flagged by Analyzer 0 % (0-5); Neutrophil # 5.96 X10^3/uL (2.7-7.7); Neutrophil % 49.7 % (47-70); POSITIVE DIFFERENTIAL YES; Platelet Count 135 K/mm3 (150-450); RBC Distribution Width CV 15.8 % (11.6-14.6); RBC Distribution Width SD 55.4 fl (35.1-43.9); Red Blood Count 3.94 M/mm3 (4.6-6.2)
[2021-08-23 12:04] LABS: Differential Indicated SCAN CRITERIA MET
[2021-08-23 12:07] LABS: Color, Urine Yellow (Yellow); Glucose, Dipstick Normal (Normal); Ketone-Dipstick Negative (Negative); Leukocyte Esterase-Dipstick 500 /ul (Negative); Nitrite-Dipstick Negative (Negative); Occult Blood-Urine 50 /ul (Negative); Protein-Dipstick 100 mg/dl (Negative); Specific Gravity, Urine 1.015 (1.002-1.030); Urine Bilirubin Dipstick Negative (Negative); Urine Clarity Cloudy (Clear); Urine Urobilinogen Normal (Normal)
[2021-08-23 12:23] LABS: Bacteria 3+ /hpf (None Seen); Red Blood Cells-Urine 0-5 SEEN /hpf (0-5); Squamous Epithelial Cells - UA 0-5 SEEN /hpf (0-5); White Blood Cells 50-100 SEEN /hpf (0-5)
[2021-08-23 12:29] LABS: ALB/GLOB Ratio 0.6 RATIO (0.9-2.4); AST(SGOT) 31 U/L (15-37); Alanine Aminotransfer ALT/SGPT 27 U/L (16-61); Albumin, Serum 2.8 g/dL (3.2-5.0); Alkaline Phosphatase 66 U/L (45-117); Anion Gap 7 (5-15); BUN 36 mg/dL (7-18); BUN/Creat Ratio 19.3 RATIO (10-20); Calcium,Total 8.9 mg/dL (8.5-10.1); Chloride 109 mmol/L (98-107); Creatinine, Serum 1.87 mg/dL (0.70-1.30); EST Glomerular Filtration Rate 37 mL/min (>60); Est Glom Filt Rate - Afr Amer 44 mL/min (>60); Globulin 4.4 g/dL (2.2-4.2); Glucose 197 mg/dL (74-106); Potassium 4.1 mmol/L (3.5-5.1); Protein, Total 7.2 g/dL (6.4-8.2); Sodium Level 139 mmol/L (136-145)
== END ==
PROVIDERS: PCP Family Medicine; Referring Provider Physician Assistant; Visit Provider Physician Assistant
DX: R50.9 Fever, unspecified (principal)
CPT/HCPCS: 36415; 80053; 81001; 85025; 87077; 87086; 87088; 87186

== ENCOUNTER → 2021-08-28 | Outpatient (CLI) | payer MEDICARE, SELFPAY ==
[2021-08-28 12:08] LABS: Color, Urine Yellow (Yellow); Glucose, Dipstick Normal (Normal); Ketone-Dipstick Negative (Negative); Leukocyte Esterase-Dipstick 500 /ul (Negative); Nitrite-Dipstick Negative (Negative); Occult Blood-Urine 25 /ul (Negative); Protein-Dipstick 100 mg/dl (Negative); Urine Bilirubin Dipstick Negative (Negative); Urine Clarity Cloudy (Clear); Urine Urobilinogen Normal (Normal)
[2021-08-28 12:17] LABS: Red Blood Cells-Urine 0-5 SEEN /hpf (0-5); Squamous Epithelial Cells - UA 0-5 SEEN /hpf (0-5); White Blood Cells 50-100 SEEN /hpf (0-5)
[2021-08-28 12:18] LABS: Bacteria 1+ /hpf (None Seen); Mucous, Urine RARE /hpf (<or=2+)
== END | disposition home or self-care (01) ==
LOC: LABSPEC 11:00
PROVIDERS: PCP Family Medicine; Referring Provider Family Medicine; Visit Provider Family Medicine
DX: N39.0 Urinary tract infection, site not specified (principal)
CPT/HCPCS: 81001

== ENCOUNTER → 2021-09-16 11:24 | Outpatient (CLI) | payer MEDICARE, SELFPAY ==
[2021-09-16 11:36] LABS: Bacteria 0 SEEN /hpf (None Seen); Mucous, Urine 0 SEEN /hpf (<or=2+); Red Blood Cells-Urine 0 SEEN /hpf (0-5)
[2021-09-16 12:27] LABS: Color, Urine Yellow (Yellow); Glucose, Dipstick Normal (Normal); Ketone-Dipstick Negative (Negative); Leukocyte Esterase-Dipstick Negative /ul (Negative); Nitrite-Dipstick Negative (Negative); Occult Blood-Urine 10 /ul (Negative); Protein-Dipstick 100 mg/dl (Negative); Urine Bilirubin Dipstick Negative (Negative); Urine Clarity Clear (Clear); Urine Urobilinogen Normal (Normal)
[2021-09-16 12:37] LABS: Squamous Epithelial Cells - UA 0-5 SEEN /hpf (0-5); White Blood Cells 0-5 SEEN /hpf (0-5)
== END ==
PROVIDERS: PCP Family Medicine; Visit Provider Family Medicine
DX: R30.0 Dysuria (principal)
CPT/HCPCS: 81001

== ENCOUNTER 2022-01-13 12:58 | Outpatient (CLI) | payer MEDICARE, SELFPAY ==
--- NOTE | 2022-01-13 13:02 | VDLE_ITS ---
Reason For Study: DVT, Pain RIGHT LEFT GSV is normal. CFV is compressible, spontaneous, phasic, CFV is compressible, spontaneous, phasic, competent, and demonstrates normal competent and demonstrates normal augmentation. augmentation. FV is compressible, spontaneous, phasic, competent and demonstrates normal augmentation. POP V is compressible, spontaneous, phasic, competent and demonstrates normal augmentation. T/P Trunk is compressible. PTV is compressible. RT PerV is compressible. Rt gastrocV is partially compressible with bright intraluminal echoes consistent with Chronic DVT. Calf veins are diminished in size. Procedure This is a venous duplex using B-mode, color flow and spectral Doppler. Exam performed in department. A preliminary report was called and/or faxed to [facility]. VL/Venous Duplex US, Unilateral Interpretation Summary Right leg with chronic DVT noted of the gastroc. No extension noted. Ordering Physician: Jori Cohen Referring Physician: Zack Watters M.D. Performed By: Norma Herrera RVT
== END 2022-01-13 23:59 | disposition home or self-care (01) ==
PROVIDERS: PCP Family Medicine; Referring Provider Surgery Vascular Surgery; Visit Provider Surgery Vascular Surgery
DX: I80.201 Phlebitis and thrombophlebitis of unspecified deep vessels of right lower extremity (principal); M79.661 Pain in right lower leg
CPT/HCPCS: 93971

== ENCOUNTER 2022-06-05 00:01 | Inpatient (IN) | payer MEDICARE, SELFPAY ==
[2022-06-05] VITALS (21 sets, daily range): BP systolic 105–146; BP diastolic 63–116; PULSE 55–85; RESP 16–25; TEMP 34.7–36.8; O2SAT 85–98; BMI 34.0; BMI 32.3
--- NOTE | 2022-06-05 00:15 | CT_ITS ---
STUDY: CT BRAIN WITHOUT CONTRAST REASON FOR EXAM: Male, 87 years old. Syncope RADIATION DOSAGE (If Supplied By Facility): CTDIvol = ( 44.99 ) mGy, DLP = ( 829.85 ) mGycm TECHNIQUE: Transaxial CT imaging of the brain was performed without administration of intravenous contrast material. Individualized dose optimization techniques were used for this CT. COMPARISON: No relevant priors. FINDINGS: Normal soft tissue structures. Normal calvarium. Small left parietal calcified meningioma. Left middle fossa arachnoid cyst with mass effect on the left frontal and temporal lobes. There is mild cerebral volume loss with widening of the extra-axial spaces and ventricular dilatation. There are areas of decreased attenuation within the white matter tracts of the supratentorial brain, consistent with microvascular disease changes. Normal basal ganglia and thalami. Normal brainstem. Normal cerebellum. There is no intracranial hemorrhage. There are no findings of an acute ischemic infarction. Bilateral ocular lens replacements. Normal visualized paranasal sinuses. Diffuse right mastoid effusion. CT/Brain/Head without Contrast IMPRESSION: No acute abnormal intracranial finding. Right mastoid effusion. Left parietal calcified meningioma. Electronically Signed: Fernandez North MD at 1:50 EDT ,
--- NOTE | 2022-06-05 00:15 | EKG12_ITS ---
Test Reason : Syncope/A-fib Blood Pressure : / mmHG Vent. Rate : 078 BPM Atrial Rate : 000 BPM P-R Int : 000 ms QRS Dur : 130 ms QT Int : 440 ms P-R-T Axes : 000 -59 055 degrees QTc Int : 501 ms Sinus rhythm with PAC's Left axis deviation Non-specific intra-ventricular conduction block Minimal voltage criteria for LVH, may be normal variant ( [place] product ) Cannot rule out Septal infarct , age undetermined Abnormal ECG Confirmed by TEA SAMUEL, DIPTI ([id number]), material expeditor WILBERT BELLO ([id number]) on 06/09/2022 11:13:16 AM Referred By: Babita Confirmed By:UDAY METCALF MD
[2022-06-05 00:27] LABS: Absolute Lymphocyte Count 19.49 X10^3/uL (0.83-4.51); Absolute Neutrophil Count 5.1 X10^3/uL (2.0-7.7); Basophil# 0.11 X10^3/uL; Basophil% 0.4 % (0-1); Eosinophil# 0.26 X10^3/uL; Hematocrit 41.1 % (40-54); Hemoglobin 13.3 g/dL (13.0-16.5); Lymphocyte # 19.49 X10^3/ul (0.83-4.51); Mean Corp Hgb Conc 32.4 g/dL (32-36); Mean Corpuscular Hgb 31.1 pg (27.0-32.0); Mean Platelet Vol. 10.9 fl (6.2-12.0); Monocyte# 0.95 X10^3/uL; Monocyte% 3.7 % (0-10); NRBC Flagged by Analyzer 0 % (0-5); Neutrophil # 5.12 X10^3/uL (2.7-7.7); Neutrophil % 19.6 % (47-70); POSITIVE DIFFERENTIAL YES; Platelet Count 130 K/mm3 (150-450); RBC Distribution Width CV 13.4 % (11.6-14.6); RBC Distribution Width SD 47.6 fl (35.1-43.9); Red Blood Count 4.28 M/mm3 (4.6-6.2)
[2022-06-05 00:28] LABS: Differential Indicated SCAN CRITERIA MET
[2022-06-05 00:35] LABS: International Normalized Ratio 1.1; Prothrombin Time (Protime)PT. 13.5 SECONDS (11.7-14.9)
[2022-06-05 00:36] LABS: Partial Thromboplast Time 29.3 Seconds (24.1-36.2)
[2022-06-05 00:41] LABS: Macrocytosis 1+
[2022-06-05 00:45] LABS: Anion Gap 15 (5-15); BUN 30 mg/dL (7-18); BUN/Creat Ratio 12.8 RATIO (10-20); Calcium,Total 8.5 mg/dL (8.5-10.1); Chloride 110 mmol/L (98-107); Creatinine, Serum 2.35 mg/dL (0.70-1.30); EST Glomerular Filtration Rate 28 mL/min (>60); Est Glom Filt Rate - Afr Amer 34 mL/min (>60); Estimated Creatinine Clearance 25.22 ml/min; Glucose 349 mg/dL (74-106); Magnesium 2.5 mg/dL (1.6-2.6); Potassium 3.6 mmol/L (3.5-5.1); Sodium Level 141 mmol/L (136-145); Troponin-I HS 46 pg/mL (3.0-78.0)
[2022-06-05] MEDS: Ondansetron 4 MG/2 ML Vial IV (01:00)
--- NOTE | 2022-06-05 01:05 | RAD_ITS ---
STUDY: X-RAY CHEST REASON FOR EXAM: Male, 87 years old. Dyspnoea TECHNIQUE: Portable, upright, AP chest radiograph COMPARISON: 12/06/2020 FINDINGS: Right lower lung infiltrate. The left lung appears clear There is no demonstrated pleural abnormality. Normal size heart. Moderate-sized hiatal hernia. Normal mediastinum and yvette. Normal visualized pulmonary arteries. There is atherosclerotic calcification of the aortic arch with tortuosity. There is no demonstrated abnormality of the visualized soft tissue structures of the upper abdomen. RAD/Chest 1 View (Portable) IMPRESSION: Right lower lung infiltrate. Electronically Signed: Fernandez North MD at 1:46 EDT ,
--- NOTE | 2022-06-05 01:47 | HP.PCM.HOS_ITS ---
HPI - General General Date of Admission: 06/05/22 Date of Service: 06/05/22 Chief Complaint: Unresponsive episodes. HPI Narrative The patient is an 87 y/o M w/ PMHx: Chronic anemia/Fe deficiency anemia, HTN, HLD, Obesity, Diabetes mellitus type II, Chronic neck and back pain, BPH, Dementia unclear type with unclear behavioral disturbance history, Chronic bradycardia, Frequent UTIs, Hx RLE DVT, Obesity, BPH, Allergic Rhinitis, GERD who presents to the [facility] ED?on 06/05/22 with history of onset episodes of profound nausea and emesis with syncope lasting approximately 20 to 30 seconds with improvement following noted to be recurrent with at least 3 episodes including with EMS prompting eventual ED evaluation. Patient denies any recent fevers, chills, cough, dysuria, chest pain. In the ED following evaluation and concern for pneumonia he denies any recent pulmonary type complaints. Family does report that he has been significantly fatigued and primarily sits and sleeps upright with his legs down on his couch. Family does report that occasionally patient eats very fast and will cough with oral intake but this is on the rare side. Work-up in the ED included T97.2, heart rate 71, BP 142/116, respiratory rate 24, initially 85% on room air with improvement to 92% on 6 L nasal cannula, CBC with WBC 26, 113.3, platelet 130 with left shift, unremarkable coags, BMP with chloride 110, carbon dioxide 16, BUN/creatinine 30/2.35, glucose 349, lactic acid pending upon evaluation, magnesium 2.5, troponin 46, BNP 145, acetone negative, chest x-ray with right lower lobe lung infiltrate, CT of the brain with no acute abnormal intracranial finding with a right mastoid effusion, left parietal calcified meningioma. Of note EMS EKG was consistent with atrial fibrillation with rate 103. ED physician discussed case with cardiology given concerning findings. [facility] Medical History Arthritis Back problem Chronic neck and back pain Diabetes Diarrhea Fatigue GERD (gastroesophageal reflux disease) Hearing problem Hyperlipidemia Hypertension Incontinence Irregular heart beat Kidney disease Knee pain Non-smoker Seasonal allergies Skin cancer Home Medications ascorbic acid (vitamin C) 1,000 mg tablet 1,000 mg PO DAILY 11/14/16 [History Last Taken 04/08/21 08:00] finasteride 1 mg tablet (Propecia) 5 mg PO DAILY 02/20/21 [History Last Taken 04/08/21 08:00] blood sugar diagnostic (GeoGRAFITouch Verio test strips) #100 ea 04/16/21 [Rx Last Taken Unknown] ferrous sulfate 325 mg (65 mg iron) tablet 325 mg PO DAILY 08/28/21 [History Last Taken Unknown] cholecalciferol (vitamin D3) 125 mcg (5,000 unit) capsule 125 mcg PO DAILY 11/28/21 [History Last Taken Unknown] tamsulosin 0.4 mg capsule (Flomax) 0.4 mg PO DAILY 11/28/21 [History Last Taken Unknown] lisinopril 10 mg tablet 10 mg PO DAILY #90 tabs 02/11/22 [Rx Last Taken Unknown] amlodipine 5 mg tablet 5 mg PO DAILY #30 tabs 04/18/22 [Rx Last Taken Unknown] insulin NPH isoph U-100 human 100 unit/mL subcutaneous suspension 29 unit (0.29 mL) subcut BID #10 mL 04/25/22 [Rx Last Taken Unknown] donepezil 10 mg tablet (Aricept) 10 mg PO QHS 06/05/22 [History Last Taken Unknown] loperamide 2 mg capsule (Imodium A-D) 2 mg PO .COMPLEX PRN loose stool 06/05/22 [History Last Taken Unknown] loratadine 10 mg capsule (Claritin Liqui-Gel) 10 mg PO DAILY 06/05/22 [History Last Taken Unknown] simvastatin 20 mg tablet (Zocor) 20 mg PO QHS 06/05/22 [History Last Taken Unknown] Allergy/AdvReac Type Severity Reaction Status Date / Time No Known Allergies Allergy Verified 06/05/22 00:02 Family History Brother Heart disease Myocardial infarction Mother Myocardial infarction Heart disease Father CVA (cerebral vascular accident) Surgical History history of caataract removal History of urethral stricture Social History household members: spouse Smoking Status: Never smoker alcohol intake: never substance use type: does not use what type of physical activity do you participate in: none ROS ROS Narrative Admission Review of Systems: CONSTITUTIONAL: No weight loss, fever, chills, + weakness or fatigue. HEENT: Eyes: No visual loss, blurred vision, double vision or yellow sclerae. Ears, Nose, Throat: No hearing loss, sneezing, congestion, runny nose or sore throat. SKIN: No rash or itching, lesions, wounds. CARDIOVASCULAR: + Syncope, edema. No chest pain, chest pressure or chest discomfort, palpitations, orthopnea. RESPIRATORY: + Hypoxia but no reported prior shortness of breath, cough or sputum, wheezing, hemoptysis. GASTROINTESTINAL: + Mild anorexia, nausea, vomiting, No diarrhea, abdominal pain, melena, BRBPR. GENITOURINARY: No dysuria, frequency, urgency or retention. NEUROLOGICAL: + Syncopal events. No headache, dizziness, paralysis, ataxia, numbness or tingling in the extremities, focal weakness, change in bowel or bladder control, seizure. MUSCULOSKELETAL: + muscle, back pain, joint pain or stiffness. HEMATOLOGIC: No anemia, bleeding or bruising. LYMPHATICS: No enlarged nodes. No history of splenectomy. PSYCHIATRIC: No history of depression or anxiety. ENDOCRINOLOGIC: No reports of sweating, cold or heat intolerance. No polyuria or polydipsia. ALLERGIES: No history of asthma, hives, eczema or rhinitis. Vital Signs Vital Signs Vital Signs: 06/05/22 00:02 06/05/22 00:01 06/05/22 00:18 Temperature 97.2 F L Temperature Source Temporal Pulse Rate 71 Respiratory Rate 25 H Respiratory Effort Short of Breath Respiratory Pattern Tachypnea Blood Pressure 142/116 H Blood Pressure Mean 124 Pulse Ox 85 91 Oxygen Delivery Method Room Air Nasal Cannula Oxygen Flow Rate (L/min) 4 06/05/22 00:40 Temperature Temperature Source Pulse Rate Respiratory Rate Respiratory Effort Respiratory Pattern Blood Pressure Blood Pressure Mean Pulse Ox 92 Oxygen Delivery Method Nasal Cannula Oxygen Flow Rate (L/min) 6 Weight Weight: 251 lb 8 oz Body Mass Index (BMI) 34.0 Physical Exam Narrative Physical Examination: General: Awake, alert, oriented x 3 and cooperative, seated upright in ED bed, fatigued, ill-appearing. Skin: Mildly pale color, normal turgor, no icterus, no cyanosis. HEENT: AT/NC, EOMI, PERRLA, dry MM, no carotid bruits or JVD noted. Lungs: Diminished, greater bases, right greater than left, mildly rhonchorous, mildly increased respiratory rate but no distress, currently on 6 L nasal cannula, no marked no rales or wheezing. Heart: Irregular, rate controlled; no gallop, rub audible. Abdomen: Soft, obese, NTTP, ND, mildly hyperactive BS, no HSM. Extremities: No cyanosis, clubbing, or edema. Neurological: Patient awake, alert, oriented as noted, cognitive function mildly decreased from baseline intact; pupils equally reactive to light and accommodation, cranial nerves II-XII grossly normal, moving all 4 extremities, no focal deficits, strength moderately to severely global decrease secondary to acute presentation and recurrent syncopal events. Psychiatric: Affect appears fatigued, ill-appearing, no acute evidence of depressive or anxiety feelings. Results Lab / Micro Data Result Diagrams: 06/05/22 00:05 06/05/22 00:05 Labs: Laboratory Results - last 24 hr 06/05/22 00:05: PT 13.5, INR 1.1, APTT 29.3 06/05/22 00:05: Sodium 141, Potassium 3.6, Chloride 110 H, Carbon Dioxide 16.0 L , Anion Gap 15, BUN 30 H, Creatinine 2.35 H, Estim Creat Clear Calc 25.22, Est GFR (MDRD) Af Amer 34 L, Est GFR (MDRD) Non-Af 28 L, BUN/Creatinine Ratio 12.8, Glucose 349 H, Calcium 8.5, Magnesium 2.5, Troponin I High Sens 46 06/05/22 00:05: WBC 26.0 H, RBC 4.28 L, Hgb 13.3, Hct 41.1, MCV 96.0 H, MCH 31.1, MCHC 32.4, RDW Std Deviation 47.6 H, RDW Coeff of Bebe 13.4, Plt Count 130 L, MPV 10.9, Immature Gran % (Auto) 0.300, Neut % (Auto) 19.6 L, Lymph % (Auto) 75.0 H, Elliott % (Auto) 3.7, Eos % (Auto) 1.0, Baso % (Auto) 0.4, Absolute Neuts (auto) 5.1, Absolute Lymphs (auto) 19.49 H, Nucleated RBC % 0, Macrocytosis 1+ 06/05/22 00:05: B-Natriuretic Peptide 145.0 H 06/05/22 01:18: Acetone Level NEGATIVE Radiology Impression Chest X-Ray 06/05/22 01:05 IMPRESSION: Right lower lung infiltrate. Electronically Signed: Fernandez North MD at 1:46 EDT , Assessment & Plan Assessment/Plan (1) Right lower lobe pneumonia: (2) Hypoxia: PLAN: Plan The patient is an 87 y/o M w/ PMHx: Chronic anemia/Fe deficiency anemia, HTN, HLD, Obesity, Diabetes mellitus type II, Chronic neck and back pain, BPH, Dementia unclear type with unclear behavioral disturbance history, Chronic bradycardia, Frequent UTIs, Hx RLE DVT, Obesity, BPH, Allergic Rhinitis, GERD who presents to the [facility] ED?on 06/05/22 with history of onset episodes of profound nausea and emesis with syncope lasting approximately 20 to 30 seconds with improvement following noted to be recurrent with at least 3 episodes including with EMS prompting eventual ED evaluation. #1. Acute Hypoxia secondary to Acute RLL Pneumonia: Will admit to PCU, maintain on oxygen with wean as tolerated to room air, PRN albuterol, maintained on IV Rocephin and Azithromycin, HOB, IS parameters w/ pending sputum cultures, respiratory viral panel and urine antigens. Bld cx x 2 obtained in the ED. PT/OT/CM consultations for discharge planning. Speech therapy has been consulted given family report that patient has very rarely had episodes of coughing while he eats to be cautious. May alter antibiotic therapies if speech therapy does note any aspiration concerns. #2. New onset, Paroxsymal atrial fibrillation: EKG in ED w/ atrial fibril lation, rate controlled. Will maintain on telemetry, obtain cardiac enzyme serial set, magnesium 2.5, obtain ECHO, obtain TSH level. CHADs scoring appropriate for anticoagulation start at this time thus will initiate Eliquis regimen. Given history of bradycardia will hold on any rate agent at this time and continue to monitor. #3. Acute kidney injury on CKD stage III, unclear subtype: Secondary to acute presentation as noted above. Admission BUN/Cr 30/2.35, prior baseline creatinine noted to be 1.5-1.8 primarily. Will judiciously hydrate, hold nephrotoxic medications and repeat chemistry in AM. If no improvement would plan FeNa and renal ultrasound assessment. #4. Syncopal Events with episodes of bradycardia, concerning for vasovagal versus potentially underlying block: Likely secondary to acute presentation number 1, #2, #3, EKG in the field with EMS with atrial fibrillation with RVR, rate controlled upon presentation currently although has been bradycardic intermittently in the ED proceeding syncope, chest x-ray with as noted right lower lobe pneumonia, initial troponin 46, will continue treatment as noted above, maintain on fall precautions, cardiology has been consulted and discussed case with the ED physician. #5. Incidental left parietal calcified meningioma: CT of the brain with no acute intracranial findings with an incidental left parietal calcified meningioma. #6. Dementia unclear type with unclear behavioral disturbance history: We will continue patient home Aricept regimen, complicates presentation, maintain on fall precautions. #7. Hypertension: Continue home regimen including amlodipine with hold parameters as needed, PRN hydralazine. #8. Hyperlipidemia: We will continue patient home statin therapy. #9. Diabetes mellitus type II: Hold oral home regimen, continue home insulin regimen, ADA diet, accu checks w/ ISS. #10. Obesity: Weight loss and lifestyle changes encouraged. #11. BPH: We will continue patient home finasteride and Flomax regimen. #12. Allergic rhinitis: We will continue patient home loratadine regimen. #13. Chronic neck and back pain: Fall precautions as noted, frequent position changes encouraged. #14. DVT prophylaxis: SCDs, initiating Eliquis regimen as noted above. #15. CODE status: Patient HCPOA and living well are not set up. Discussed CODE status at length including difference between FULL code, DNR-CCA and DNR-CC status. Following discussions about the differences in these status, requested Full Code status. Advanced Care Planning Face to Face Time: 16 minutes. Charges/Coding Visit Charges Inpatient E&M: 16241 Init Hosp L3 Procedures Hospitalists Procedures: 78412 Advncd Care Plan 30 Min
--- NOTE | 2022-06-05 01:52 | ED.RN ---
pt dropped his hr to 34 and vomitted, dr in the room and saw this happen.
[2022-06-05 02:03] LABS: Lactic Acid 3.7 mmol/L (0.4-1.9)
--- NOTE | 2022-06-05 02:03 | EX.ED.DYSGE1 ---
HPI History of Present Illness Chief Complaint: Syncope Narrative Narrative: Patient is an 87-year-old male with history of of hypertension hyperlipidemia renal insufficiency and dementia as well as diabetes. states that she was in bed and the patient was standing up getting ready for bed when he suddenly passed out and fell from a standing position. She states he came to after 30 seconds to approximately 1 minute. states that after this event he seemed to keep feeling like he was going to pass out and was having bouts of nausea and vomiting and therefore EMS was called to bring him in for evaluation [facility] Medical History Arthritis Back problem Chronic neck and back pain Diabetes Diarrhea Fatigue GERD (gastroesophageal reflux disease) Hearing problem Hyperlipidemia Hypertension Incontinence Irregular heart beat Kidney disease Knee pain Non-smoker Seasonal allergies Skin cancer Home Medications ascorbic acid (vitamin C) 1,000 mg tablet 1,000 mg PO DAILY 11/14/16 [History Last Taken 04/08/21 08:00] finasteride 1 mg tablet (Propecia) 5 mg PO DAILY 02/20/21 [History Last Taken 04/08/21 08:00] blood sugar diagnostic (OneTouch Verio test strips) #100 ea 04/16/21 [Rx Last Taken Unknown] ferrous sulfate 325 mg (65 mg iron) tablet 325 mg PO DAILY 08/28/21 [History Last Taken Unknown] cholecalciferol (vitamin D3) 125 mcg (5,000 unit) capsule 125 mcg PO DAILY 11/28/21 [History Last Taken Unknown] tamsulosin 0.4 mg capsule (Flomax) 0.4 mg PO DAILY 11/28/21 [History Last Taken Unknown] lisinopril 10 mg tablet 10 mg PO DAILY #90 tabs 02/11/22 [Rx Last Taken Unknown] amlodipine 5 mg tablet 5 mg PO DAILY #30 tabs 04/18/22 [Rx Last Taken Unknown] insulin NPH isoph U-100 human 100 unit/mL subcutaneous suspension 29 unit (0.29 mL) subcut BID #10 mL 04/25/22 [Rx Last Taken Unknown] donepezil 10 mg tablet (Aricept) 10 mg PO QHS 06/05/22 [History Last Taken Unknown] loperamide 2 mg capsule (Imodium A-D) 2 mg PO .COMPLEX PRN loose stool 06/05/22 [History Last Taken Unknown] loratadine 10 mg capsule (Claritin Liqui-Gel) 10 mg PO DAILY 06/05/22 [History Last Taken Unknown] simvastatin 20 mg tablet (Zocor) 20 mg PO QHS 06/05/22 [History Last Taken Unknown] Allergy/AdvReac Type Severity Reaction Status Date / Time No Known Allergies Allergy Verified 06/05/22 03:44 Family History Brother Heart disease Myocardial infarction Mother Myocardial infarction Heart disease Father CVA (cerebral vascular accident) Surgical History history of caataract removal History of urethral stricture Social History household members: spouse Smoking Status: Never smoker alcohol intake: never substance use type: does not use what type of physical activity do you participate in: none ROS ROS ED Constitutional Constitutional ED: Denies chills or fever(s) Eyes Eyes: Denies change in vision ENT ENT ED: Denies sore throat Cardiovascular Cardiovascular: Denies chest pain or palpitations Respiratory/Chest Respiratory/Chest: Reports cough; Denies dyspnea Gastrointestinal Gastrointestinal: Reports nausea and vomiting; Denies abdominal pain or diarrhea Genitourinary Genitourinary ED: Denies dysuria Musculoskeletal Musculoskeletal: Denies myalgias Integumentary Reports Abrasions; Denies rash Neurologic Neurologic: Reports weakness; Denies headache(s) Hematologic/Lymphatic Hematologic/Lymphatic: Denies easy bleeding or easy bruising EXAM Physical Exam Const Vital Signs: 06/05/22 00:02 06/05/22 00:01 06/05/22 00:18 Temperature 97.2 F L Temperature Source Temporal Pulse Rate 71 Respiratory Rate 25 H Respiratory Effort Short of Breath Respiratory Pattern Tachypnea Blood Pressure 142/116 H Blood Pressure Mean 124 Pulse Ox 85 91 Oxygen Delivery Method Room Air Nasal Cannula Oxygen Flow Rate (L/min) 4 06/05/22 00:40 06/05/22 01:01 Temperature 97.2 F L Temperature Source Temporal Pulse Rate 78 Respiratory Rate 24 H Respiratory Effort Respiratory Pattern Blood Pressure 105/63 Blood Pressure Mean 77 Pulse Ox 92 95 Oxygen Delivery Method Nasal Cannula Nasal Cannula Oxygen Flow Rate (L/min) 6 6 Positive well nourished, well developed and obese General Appearance ED: well developed Nutritional Appearance: obese HEENT HEENT Narrative: No tongue or lip swelling no oral lesions no airway edema or compromise Eyes PERRL and EOMs intact bilaterally General Eye ED: Yes pale conjunctiva Neck supple and no JVD Chest Wall palpation of chest normal Resp normal respiratory effort Resp Narrative: Breath sounds are diminished throughout with faint rhonchi present in the bilateral lower lobes Cardio regular rate Rate: other Other Details: Regular rate with irregular rhythm consistent with atrial fibrillation GI normal to inspection, nondistended, normoactive bowel sounds, non-tender and non-distended GI Narrative: Abdomen is soft nontender and nondistended with hypoactive bowel sounds. No voluntary guarding or rigidity no pulsatile mass. No organomegaly to suggest a distended bladder Auscultation: hypoactive bowel sounds Palpation: soft Extremity Extremity Narrative: Patient has +3 pitting edema to the bilateral lower extremities that is equal and symmetric Neuro CN's II-XII intact bilaterally Sensorium / Orientation: alert Psych Psych Narrative: Patient has a depressed/flat affect Skin no rashes or lesions noted Skin Narrative: Patient has superficial abrasions to bilateral knees consistent with report of fall/syncope. However no secondary changes to suggest infection. Skin is pale in color MDM MDM MDM Narrative Medical decision making narrative: Patient presented to the ER at his baseline mental status but his pulse ox was in the low 80s and therefore he was placed on supplemental oxygen and had improvement of his PO2. EKG initially showed atrial fibrillation with rapid ventricular response from EMS with a rate of approximately 105. Upon arrival in the ER it is now normalized at approximately 70. Family denied any history of A. fib and therefore with his increased leg swelling and hypoxia as well as new onset heart rhythm there is concern he may have a pulmonary embolus or has developed acute fluid overload from CHF. A work-up was obtained and white count is grossly elevated at 26 and his lactic acid is also elevated at 3.7. His kidney function has raised from his baseline but approximately 1.7-2.35 indicating acute on chronic renal failure. Based on this value it is not possible to perform a CTA so therefore chest x-ray was added. Chest x-ray shows right lower lung pneumonia. This correlates with his high white count and hypoxia. Secondary to this he was started on vancomycin and Zosyn. His initial troponin is normal at 46 but delta has increased to 266 indicating non-STEMI. He was already given Eliquis secondary to the new onset A. fib prior to the elevation of the troponin and therefore will defer to cardiology about possible heparin drip. However the elevation could very well be secondary to his hypoxia and further metabolic demands. The patient did have occasional bouts of bradycardia where his heart rate reduced to about 30 and he becomes symptomatic with nausea vomiting and bouts of syncope which were short-lived. These events correlate with his passing out at home. At this time with his pneumonia he will need to continue antibiotics with the elevation to his troponin this will need to be trended to decide if it is truly coronary in nature or just secondary to metabolic demand. Therefore this time patient will be admitted to the medicine service for continued care Lab Data Attestation: I reviewed the patient's lab results. Labs: Laboratory Results - last 24 hr 06/05/22 06/05/22 06/05/22 00:05 00:05 00:05 WBC 26.0 H RBC 4.28 L Hgb 13.3 Hct 41.1 MCV 96.0 H MCH 31.1 MCHC 32.4 RDW Std Deviation 47.6 H RDW Coeff of Bebe 13.4 Plt Count 130 L MPV 10.9 Immature Gran % (Auto) 0.300 Neut % (Auto) 19.6 L Lymph % (Auto) 75.0 H Slope % (Auto) 3.7 Eos % (Auto) 1.0 Baso % (Auto) 0.4 Absolute Neuts (auto) 5.1 Absolute Lymphs (auto) 19.49 H Nucleated RBC % 0 Macrocytosis 1+ PT 13.5 INR 1.1 APTT 29.3 Sodium 141 Potassium 3.6 Chloride 110 H Carbon Dioxide 16.0 L Anion Gap 15 BUN 30 H Creatinine 2.35 H Estim Creat Clear Calc 25.22 Est GFR (MDRD) Af Amer 34 L Est GFR (MDRD) Non-Af 28 L BUN/Creatinine Ratio 12.8 Glucose 349 H Lactic Acid Calcium 8.5 Magnesium 2.5 Troponin I High Sens 46 B-Natriuretic Peptide Acetone Level 06/05/22 06/05/22 06/05/22 00:05 01:18 01:18 WBC RBC Hgb Hct MCV MCH MCHC RDW Std Deviation RDW Coeff of Bebe Plt Count MPV Immature Gran % (Auto) Neut % (Auto) Lymph % (Auto) Slope % (Auto) Eos % (Auto) Baso % (Auto) Absolute Neuts (auto) Absolute Lymphs (auto) Nucleated RBC % Macrocytosis PT INR APTT Sodium Potassium Chloride Carbon Dioxide Anion Gap BUN Creatinine Estim Creat Clear Calc Est GFR (MDRD) Af Amer Est GFR (MDRD) Non-Af BUN/Creatinine Ratio Glucose Lactic Acid 3.7 H* Calcium Magnesium Troponin I High Sens B-Natriuretic Peptide 145.0 H Acetone Level NEGATIVE Radiography Diagnostic Testing: Clinical Impression(s) from Imaging Studies Brain CT 06/05/22 00:15 IMPRESSION: No acute abnormal intracranial finding. Right mastoid effusion. Left parietal calcified meningioma. Electronically Signed: Fernandez North MD at 1:50 EDT , Chest X-Ray 06/05/22 01:05 IMPRESSION: Right lower lung infiltrate. Electronically Signed: Fernandez North MD at 1:46 EDT , Chest x-ray as interpreted by the emergency medicine physician reveals vascular congestion with right lower lung infiltrate Discharge Plan Dx/Rx/DC Orders Clinical Impression: Right lower lobe pneumonia, Hypoxia, Acute kidney injury superimposed on CKD, Atrial fibrillation, new onset Disposition Disposition: Acute Care [facility]
--- NOTE | 2022-06-05 02:21 | ED.RN ---
pt again w movement, leaning forward when dr antonio listenedto his lungs, pt became very sweaty, hr dropped to 32 and pt vomited.
[2022-06-05] MEDS: APIXABAN 5 MG TABLET PO (02:39)
[2022-06-05 02:51] LABS: Blood Gas Specimen Type VEN; O2 Delivery Device Cannula; VBG BASE EXCESS -9 mmol/L (-1.0-3.5); VBG Bicarbonate 18 mmol/L (22-26); VBG PO2 52 mmHg (25-40); VBG SO2 80 % (50-70); VBG TCO2 20 mmol/L (23-33); VBG pCO2 42.1 mmHg (41-51); VBG pH 7.25 (7.32-7.42)
[2022-06-05] MEDS: proCHLORPERazine 10 MG/2 ML Vial 5 MG IV (02:55)
[2022-06-05 02:58] LABS: Troponin-I HS 266 pg/mL (3.0-78.0)
--- NOTE | 2022-06-05 03:24 | ECHOCS_ITS ---
Reason For Study: PAF Procedure This was a 2D Doppler, Color Flow transthoracic echocardiogram. The study was technically difficult. Due to body habitus. Contrast injection was performed. Exam performed portable in patient room. Left Ventricle Normal LV size. Left ventricular systolic function is normal. The estimated ejection fraction is 60 %. No regional wall motion abnormalities noted. Right Ventricle Normal RV size. Normal systolic function. Atria The left atrium is mildly enlarged. Normal right atrium. Mitral Valve Normal mitral valve. Tricuspid Valve Normal tricuspid valve. Mild (1+) tricuspid valve insufficiency. Pulmonary artery systolic pressure is 30 mmHg. Aortic Valve Normal aortic valve. Trisinus/trileaflet aortic valve. Pulmonic Valve Normal pulmonic valve. Great Vessels Normal aortic root. The pulmonary artery is normal size. Normal inferior vena cava. Pericardium/Pleural No pericardial effusion. Medication Diluted definity 7.0ml given slow IV push to enhance endocardial definition. MMode/2D Measurements & Calculations LVIDd: 3.2 cm IVSd: 1.1 cm Ao root diam: 3.8 cm LVIDs: 2.2 cm LVPWd: 1.1 cm FS: 33.3 % LAV(MOD-sp4): 69.6 ml LA A4 area: 23.0 cm2 LA dimension(2D): 5.0 cm RA A4 area: 17.2 cm2 Doppler Measurements & Calculations MV E max nimco: 111.2 cm/sec Ao V2 max: 123.0 cm/sec LV V1 max: 77.7 cm/sec Ao max P.1 mmHg LV V1 max P.4 mmHg PA V2 max: 63.2 cm/sec TR max nimco: 263.8 cm/sec TR max P.8 mmHg ECHO/Echo Complete W/ Contrast Interpretation Summary Normal LV size. Left ventricular systolic function is normal. The estimated ejection fraction is 60 %. The left atrium is mildly enlarged. Pulmonary artery systolic pressure is 30 mmHg. Ordering Physician: Joanna Peguero Referring Physician: Nate Watters Performed By: Hamida Phan, ALIZA, RVT
[2022-06-05] MEDS: 0.9% Normal Saline 1,000 ML 125 ML IV ×3 (04:06→20:08)
[2022-06-05] MEDS: Aspirin 325 MG Tablet PO (04:07)
[2022-06-05 05:27] LABS: Reflex Lactate? Y
[2022-06-05] MEDS: 0.9% Normal Saline 1,000 ML 999 ML IV (06:39)
[2022-06-05 06:41] LABS: Lactic Acid 3.2 mmol/L (0.4-1.9)
[2022-06-05 06:45] LABS: Absolute Lymphocyte Count 5.26 X10^3/uL (0.83-4.51); Absolute Neutrophil Count 8.9 X10^3/uL (2.0-7.7); Basophil# 0.04 X10^3/uL; Basophil% 0.3 % (0-1); Eosinophil# 0.02 X10^3/uL; Eosinophils% 0.1 % (0-5); Hematocrit 39.9 % (40-54); Hemoglobin 13.1 g/dL (13.0-16.5); Lymphocyte # 5.26 X10^3/ul (0.83-4.51); Mean Corp Hgb Conc 32.8 g/dL (32-36); Mean Corpuscular Hgb 31.9 pg (27.0-32.0); Mean Corpuscular Volume 97.1 fL (80-94); Mean Platelet Vol. 10.9 fl (6.2-12.0); Monocyte# 0.72 X10^3/uL; Monocyte% 4.8 % (0-10); NRBC Flagged by Analyzer 0 % (0-5); Neutrophil % 59.3 % (47-70); POSITIVE DIFFERENTIAL YES; Platelet Count 100 K/mm3 (150-450); RBC Distribution Width CV 13.4 % (11.6-14.6); RBC Distribution Width SD 48.2 fl (35.1-43.9); Red Blood Count 4.11 M/mm3 (4.6-6.2)
[2022-06-05 06:46] LABS: Differential Indicated SCAN CRITERIA MET
[2022-06-05] MEDS: Insulin Lispro 100 UNIT/ML INSULN.PEN SC ×4 (06:48→23:09)
--- NOTE | 2022-06-05 06:54 | CON.PCM.CA_ITS ---
Assessment & Plan Assessment/Plan (1) Syncope: PLAN: He had a syncopal episode etiology of which is not entirely clear at this time. His EKG does not demonstrate any evidence of atrial fibrillation though the computer calls it as such. I also have not seen any significant pauses over 3 seconds. Will obtain an echocardiogram to assess his ventricular function (2) NSTEMI (non-ST elevated myocardial infarction): PLAN: He did have a significant elevation in his high-sensitivity troponin suggestive of a non-ST elevation myocardial infarction. It is possible that this may be the cause of his syncope. He does have significant renal dysfunction and would need to consider whether he is a candidate for an invasive approach with a cardiac catheterization. This could significantly worsen his renal function and push him towards dialysis. Risk versus benefits would need to be considered strongly. HPI Consult Data Date of Consult: 06/05/22 HPI Narrative HPI Narrative: JAYA STANTON, is a 87 M who presented to the emergency room following an apparent syncopal episode. He apparently had some nausea and vomiting and subsequently passed out after that for approximately 20 seconds. He has a history of hypertension, obesity, diabetes mellitus, chronic leg pain. Patient denies any recent fevers, chills, cough, dysuria, chest pain.? In the ED following evaluation and concern for pneumonia he denies any recent pulmonary type complaints.? Family does report that he has been significantly fatigued and primarily sits and sleeps upright with his legs down on his couch.?? Work-up in the ED included T97.2, heart rate 71, BP 142/116, respiratory rate 24, initially 85% on room air with improvement to 92% on 6 L nasal cannula, CBC with WBC 26, 113.3, platelet 130 with left shift, unremarkable coags, BMP with chloride 110, carbon dioxide 16, BUN/creatinine 30/2.35, glucose 349, lactic acid pending upon evaluation, magnesium 2.5, troponin 46, BNP 145, acetone negative, chest x-ray with right lower lobe lung infiltrate, CT of the brain with no acute abnormal i ntracranial finding with a right mastoid effusion, left parietal calcified meningioma. Of note EMS EKG was sinus rhythm with a right bundle branch block although the EKG machine read it as atrial fibrillation and was interpreted as such by ED. No pauses have been noted. [facility] Medical History Arthritis Back problem Chronic neck and back pain Diabetes Diarrhea Fatigue GERD (gastroesophageal reflux disease) Hearing problem Hyperlipidemia Hypertension Incontinence Irregular heart beat Kidney disease Knee pain Non-smoker Seasonal allergies Skin cancer Home Medications ascorbic acid (vitamin C) 1,000 mg tablet 1,000 mg PO DAILY 11/14/16 [History Last Taken 04/08/21 08:00] finasteride 1 mg tablet (Propecia) 5 mg PO DAILY 02/20/21 [History Last Taken 04/08/21 08:00] blood sugar diagnostic ([employer] Verio test strips) #100 ea 04/16/21 [Rx Last Taken Unknown] ferrous sulfate 325 mg (65 mg iron) tablet 325 mg PO DAILY 08/28/21 [History L ast Taken Unknown] cholecalciferol (vitamin D3) 125 mcg (5,000 unit) capsule 125 mcg PO DAILY 11/28/21 [History Last Taken Unknown] tamsulosin 0.4 mg capsule (Flomax) 0.4 mg PO DAILY 11/28/21 [History Last Taken Unknown] lisinopril 10 mg tablet 10 mg PO DAILY #90 tabs 02/11/22 [Rx Last Taken Unknown] amlodipine 5 mg tablet 5 mg PO DAILY #30 tabs 04/18/22 [Rx Last Taken Unknown] insulin NPH isoph U-100 human 100 unit/mL subcutaneous suspension 29 unit (0.29 mL) subcut BID #10 mL 04/25/22 [Rx Last Taken Unknown] donepezil 10 mg tablet (Aricept) 10 mg PO QHS 06/05/22 [History Last Taken Unknown] loperamide 2 mg capsule (Imodium A-D) 2 mg PO .COMPLEX PRN loose stool 06/05/22 [History Last Taken Unknown] loratadine 10 mg capsule (Claritin Liqui-Gel) 10 mg PO DAILY 06/05/22 [History Last Taken Unknown] simvastatin 20 mg tablet (Zocor) 20 mg PO QHS 06/05/22 [History Last Taken Unknown] Allergy/AdvReac Type Severity Reaction Status Date / Time No Known Allergies Allergy Verified 06/05/22 03:44 Family History Brother Heart disease Myocardial infarction Mother Myocardial infarction Heart disease Father CVA (cerebral vascular accident) Surgical History history of caataract removal History of urethral stricture Social History household members: spouse Smoking Status: Never smoker alcohol intake: never substance use type: does not use what type of physical activity do you participate in: none ROS Constitutional Constitutional: Denies fever(s) or weight loss Eyes Eyes: Reports systems reviewed and no addt'l complaints, except as documented ENT HEENT: Reports systems reviewed and no addt'l complaints, except as documented Cardiovascular Cardiovascular: Reports syncope; Denies chest pain at rest, chest pain with activity, dyspnea at rest, dyspnea on exertion, edema, palpitations or paroxysmal nocturnal dyspnea Respiratory/Chest Respiratory/Chest: Denies dyspnea on exertion, productive cough, shortness of breath at rest or shortness of breath with exertion Gastrointestinal Gastrointestinal: Reports nausea and vomiting; Denies change in bowel habits or weight changes Genitourinary Genitourinary: Denies difficulty urinating Musculoskeletal Musculoskeletal: Denies joint stiffness or muscle weakness Integumentary Integumentary: Denies lesions Neurologic Neurologic: Reports syncope; Denies dizziness Psychiatric Psychiatric: Denies anxiety Endocrine Endocrinology: Denies excessive sweating or fatigue Hematologic/Lymphatic Hematologic/Lymphatic: Denies anemia Allergic/Immunologic Allergic/Immunologic: Denies seasonal rhinorrhea Risk Stratification Risk Stratification Applicable: No Objective Data Vital Signs: Vital Signs Temp Pulse Resp BP Pulse Ox O2 Del Method O2 Flow Rate 97.2 F L 81 18 127/75 H 94 Nasal Cannula 2 06/05/22 06:37 06/05/22 06:37 06/05/22 06:37 06/05/22 06:37 06/05/22 06:37 06/05/22 06:37 06/05/22 06:37 Oxygen Flow Rate (L/min) 2 Oxygen Delivery Method Nasal Cannula Weight: 252 lb 10.396 oz Body Mass Index (BMI) 32.3 Intake & Output: Intake and Output for Last 24 Hours 06/03/22 06/04/22 06/05/22 23:59 23:59 23:59 Intake Total 903.75 / 903.75 Output Total 0 / 0 Balance 903.75 / 903.75 Lab / Micro Data Result Diagrams: 06/05/22 06:06 06/05/22 06:06 Labs: Laboratory Results - last 24 hr 06/05/22 00:05: PT 13.5, INR 1.1, APTT 29.3 06/05/22 00:05: Sodium 141, Potassium 3.6, Chloride 110 H, Carbon Dioxide 16.0 L , Anion Gap 15, BUN 30 H, Creatinine 2.35 H, Estim Creat Clear Calc 25.22, Est GFR (MDRD) Af Amer 34 L, Est GFR (MDRD) Non-Af 28 L, BUN/Creatinine Ratio 12.8, Glucose 349 H, Calcium 8.5, Magnesium 2.5, Troponin I High Sens 46 06/05/22 00:05: WBC 26.0 H, RBC 4.28 L, Hgb 13.3, Hct 41.1, MCV 96.0 H, MCH 31.1, MCHC 32.4, RDW Std Deviation 47.6 H, RDW Coeff of Bebe 13.4, Plt Count 130 L, MPV 10.9, Immature Gran % (Auto) 0.300, Neut % (Auto) 19.6 L, Lymph % (Auto) 75.0 H, [place] % (Auto) 3.7, Eos % (Auto) 1.0, Baso % (Auto) 0.4, Absolute Neuts (auto) 5.1, Absolute Lymphs (auto) 19.49 H, Nucleated RBC % 0, Macrocytosis 1+ 06/05/22 00:05: B-Natriuretic Peptide 145.0 H 06/05/22 01:18: Acetone Level NEGATIVE 06/05/22 01:18: Lactic Acid 3.7 H* 06/05/22 02:12: Troponin I High Sens 266 H* 06/05/22 05:27: Lactic Acid 3.2 H* 06/05/22 06:06: WBC 15.0 H, RBC 4.11 L, Hgb 13.1, Hct 39.9 L, MCV 97.1 H, MCH 31.9, MCHC 32.8, RDW Std Deviation 48.2 H, RDW Coeff of Bebe 13.4, Plt Count 100 L, MPV 10.9, Immature Gran % (Auto) 0.500, Neut % (Auto) 59.3, Lymph % (Auto) 35.0, [place] % (Auto) 4.8, Eos % (Auto) 0.1, Baso % (Auto) 0.3, Absolute Neuts (auto) 8.9 H, Absolute Lymphs (auto) 5.26 H, Nucleated RBC % 0 ABG Data ABG results: ABG 06/05/22 02:43 Specimen Type BRITTNEE VBG pH 7.25 L VBG pO2 52 H VBG HCO3 18 L VBG Total CO2 20 L VBG O2 Sat (Calc) 80 H VBG Base Excess -9 L POC Mix VBG pCO2 Pt Tmp 42.1 O2 Delivery Device Cannula Liter Flow 6.0 Cardiology Labs/Tests 06/05/22 00:05: PT 13.5, INR 1.1, APTT 29.3 06/05/22 00:05: Sodium 141, Potassium 3.6, Chloride 110 H, Carbon Dioxide 16.0 L , Anion Gap 15, BUN 30 H, Creatinine 2.35 H, Est GFR (MDRD) Af Amer 34 L, Est GFR (MDRD) Non-Af 28 L, BUN/Creatinine Ratio 12.8, Glucose 349 H, Calcium 8.5, Magnesium 2.5 06/05/22 00:05: WBC 26.0 H, RBC 4.28 L, Hgb 13.3, Hct 41.1, MCV 96.0 H, MCH 31.1, MCHC 32.4, Plt Count 130 L, MPV 10.9, Immature Gran % (Auto) 0.300, Neut % (Auto) 19.6 L, Lymph % (Auto) 75.0 H, [place] % (Auto) 3.7, Eos % (Auto) 1.0, Baso % (Auto) 0.4, Absolute Neuts (auto) 5.1, Nucleated RBC % 0 06/05/22 00:05: B-Natriuretic Peptide 145.0 H 06/05/22 01:18: Lactic Acid 3.7 H* 06/05/22 02:43: VBG pH 7.25 L, VBG pO2 52 H, VBG HCO3 18 L, VBG O2 Sat (Calc) 80 H, VBG Base Excess -9 L 06/05/22 05:27: Lactic Acid 3.2 H* 06/05/22 06:06: WBC 15.0 H, RBC 4.11 L, Hgb 13.1, Hct 39.9 L, MCV 97.1 H, MCH 31.9, MCHC 32.8, Plt Count 100 L, MPV 10.9, Immature Gran % (Auto) 0.500, Neut % (Auto) 59.3, Lymph % (Auto) 35.0, [place] % (Auto) 4.8, Eos % (Auto) 0.1, Baso % (Auto) 0.3, Absolute Neuts (auto) 8.9 H, Nucleated RBC % 0 Rhythm: EKG: ECHO: Stress Test: Cardiac Cath: PCI: CT Surgery: Holter monitor: EPS: PPM: CXR: Chest CT Scan: Radiography Diagnostic Testing: Radiology Impression Brain CT 06/05/22 00:15 IMPRESSION: No acute abnormal intracranial finding. Right mastoid effusion. Left parietal calcified meningioma. Electronically Signed: Fernandez Norht MD at 1:50 EDT , Chest X-Ray 06/05/22 01:05 IMPRESSION: Right lower lung infiltrate. Electronically Signed: Fernandez North MD at 1:46 EDT ,
[2022-06-05 07:06] LABS: Bedside Glucose 358 mg/dL (74-106)
[2022-06-05 07:33] LABS: ALB/GLOB Ratio 0.8 RATIO (0.9-2.4); AST(SGOT) 28 U/L (15-37); Alanine Aminotransfer ALT/SGPT 30 U/L (16-61); Albumin, Serum 2.9 g/dL (3.2-5.0); Alkaline Phosphatase 62 U/L (45-117); Anion Gap 12 (5-15); BUN 32 mg/dL (7-18); Calcium,Total 8.2 mg/dL (8.5-10.1); Chloride 110 mmol/L (98-107); Cholesterol 123 mg/dL (200); Creatinine, Serum 2.47 mg/dL (0.70-1.30); EST Glomerular Filtration Rate 27 mL/min (>60); Est Glom Filt Rate - Afr Amer 32 mL/min (>60); Estimated Creatinine Clearance 25.42 ml/min; Globulin 3.7 g/dL (2.2-4.2); Glucose 380 mg/dL (74-106); High Density Lipoprotein 33 mg/dL; Potassium 4.6 mmol/L (3.5-5.1); Protein, Total 6.6 g/dL (6.4-8.2); Sodium Level 140 mmol/L (136-145); Triglycerides 253 mg/dL; Troponin-I HS 828 pg/mL (3.0-78.0); Very Low Density Lipoprotein 51 mg/dL (5-40)
[2022-06-05 07:36] LABS: M R Staph aureus DNA By PCR Negative (Negative); Probe Check PASS; Specimen Processing Control PASS
[2022-06-05] MEDS: amLODIPine 5 MG Tablet PO (08:39)
[2022-06-05] MEDS: Ferrous Sulfate 325 MG Tablet PO (08:39)
[2022-06-05] MEDS: Tamsulosin HCl 0.4 MG Capsule PO (08:39)
[2022-06-05] MEDS: Loratadine 10 MG Tablet PO (08:39)
[2022-06-05] MEDS: Cholecalciferol (Vit D3) 125 MCG CAPSULE (5,000 UNITS) PO (08:39)
[2022-06-05] MEDS: Ascorbic Acid 500 MG Tablet 1000 MG PO (08:39)
[2022-06-05] MEDS: Finasteride 5 MG Tablet PO (08:40)
[2022-06-05] MEDS: APIXABAN 2.5 MG TABLET PO (08:40)
[2022-06-05] MEDS: Glucerna Shake 120 ML LIQUID PO ×3 (08:43→16:20)
[2022-06-05] MEDS: Insulin NPH Human 100 UNITS/ML PEN 29 UNITS SC ×2 (08:50→23:11)
[2022-06-05 09:37] LABS: Mucous, Urine 0 SEEN /hpf (<or=2+); Red Blood Cells-Urine 0 SEEN /hpf (0-5)
[2022-06-05 09:43] LABS: Color, Urine Yellow (Yellow); Glucose, Dipstick 100 mg/dl (Normal); Ketone-Dipstick 5 mg/dl (Negative); Leukocyte Esterase-Dipstick 500 /ul (Negative); Nitrite-Dipstick Negative (Negative); Occult Blood-Urine 50 /ul (Negative); Protein-Dipstick 500 mg/dl (Negative); Specific Gravity, Urine 1.025 (1.002-1.030); Urine Bilirubin Dipstick Negative (Negative); Urine Clarity Cloudy (Clear); Urine Urobilinogen Normal (Normal)
[2022-06-05 10:11] LABS: Bacteria 2+ /hpf (None Seen); Squamous Epithelial Cells - UA 0-5 SEEN /hpf (0-5); White Blood Cells >100 SEEN /hpf (0-5)
--- NOTE | 2022-06-05 10:37 | CASEMGMT ---
RN FERMIN Face to Face with patient for initial transition planning/care coordination assessment. RN CM introduced self and role at [facility]. Patient lying in bed, alert and oriented. Patient willing to participate in assessment and is able to answer all questions appropriately. Care providers, pharmacy, and demographics verified. Patient wishes to discharge home, denies need for home health at this time. Will monitor progress with therapy for needs at discharge. Patient states he has no further needs or concerns at this time. CM to follow for discharge planning needs that may arise. PCP: Duong Specialists: none [facility]erred [facility] Insurance: [facility] Prescription Benefit: yes Living Will/HPOA: none LNOK: , son Living Arrangements: Patient lives with in a single story home with 5 steps and railing to enter the home. Patient states he was independent prior to currently illness. Transportation: self, DME/HHC: Patient states he has cane, raised toilet, grab bars at home. Patient may benefit from walker at discharge. Therapy pending, will monitor progress. Will monitor patient for home oxygen at discharge. Disposition Plan: Patient to discharge home with family support and follow-up plans in place. Patient may benefit from HHC and walker at discharge. Norma MELENDEZ, RN, CM
--- NOTE | 2022-06-05 11:04 | PN.HOSP_ITS ---
Subjective Subjective Patient seen and examined. He was lying comfortably in bed and had no active complaints. He denied any chest pain, palpitations, dizziness, nausea, vomiting or diarrhea. Review of systems is otherwise negative. Objective Data Objective Data Vital Signs: Vital Signs Temp Pulse Resp BP Pulse Ox O2 Del Method O2 Flow Rate 98.2 F 79 16 124/81 H 93 Nasal Cannula 2 06/05/22 08:00 06/05/22 08:00 06/05/22 08:00 06/05/22 08:00 06/05/22 08:00 06/05/22 08:00 06/05/22 08:00 Oxygen Flow Rate (L/min) 2 Oxygen Delivery Method Nasal Cannula Weight: 252 lb 10.396 oz Body Mass Index (BMI) 32.3 Intake & Output: Intake and Output for Last 24 Hours 06/03/22 06/04/22 06/05/22 23:59 23:59 23:59 Intake Total 1903.75 / 1903.75 Output Total 0 / 0 Balance 1903.75 / 1903.75 Lab / Micro Data Result Diagrams: 06/05/22 06:06 06/05/22 06:06 Labs: Laboratory Results - last 24 hr 06/05/22 00:05: PT 13.5, INR 1.1, APTT 29.3 06/05/22 00:05: Sodium 141, Potassium 3.6, Chloride 110 H, Carbon Dioxide 16.0 L , Anion Gap 15, BUN 30 H, Creatinine 2.35 H, Estim Creat Clear Calc 25.22, Est GFR (MDRD) Af Amer 34 L, Est GFR (MDRD) Non-Af 28 L, BUN/Creatinine Ratio 12.8, Glucose 349 H, Calcium 8.5, Magnesium 2.5, Troponin I High Sens 46 06/05/22 00:05: WBC 26.0 H, RBC 4.28 L, Hgb 13.3, Hct 41.1, MCV 96.0 H, MCH 31.1, MCHC 32.4, RDW Std Deviation 47.6 H, RDW Coeff of Bebe 13.4, Plt Count 130 L, MPV 10.9, Immature Gran % (Auto) 0.300, Neut % (Auto) 19.6 L, Lymph % (Auto) 75.0 H, [place] % (Auto) 3.7, Eos % (Auto) 1.0, Baso % (Auto) 0.4, Absolute Neuts (auto) 5.1, Absolute Lymphs (auto) 19.49 H, Nucleated RBC % 0, Macrocytosis 1+ 06/05/22 00:05: B-Natriuretic Peptide 145.0 H 06/05/22 01:18: Acetone Level NEGATIVE 06/05/22 01:18: Lactic Acid 3.7 H* 06/05/22 02:12: Troponin I High Sens 266 H* 06/05/22 05:27: Lactic Acid 3.2 H* 06/05/22 05:30: MRSA (PCR) Negative 06/05/22 06:06: WBC 15.0 H, RBC 4.11 L, Hgb 13.1, Hct 39.9 L, MCV 97.1 H, MCH 31.9, MCHC 32.8, RDW Std Deviation 48.2 H, RDW Coeff of Bebe 13.4, Plt Count 100 L, MPV 10.9, Immature Gran % (Auto) 0.500, Neut % (Auto) 59.3, Lymph % (Auto) 35.0, [place] % (Auto) 4.8, Eos % (Auto) 0.1, Baso % (Auto) 0.3, Absolute Neuts (auto) 8.9 H, Absolute Lymphs (auto) 5.26 H, Nucleated RBC % 0 06/05/22 06:06: Sodium 140, Potassium 4.6, Chloride 110 H, Carbon Dioxide 18.0 L , Anion Gap 12, BUN 32 H, Creatinine 2.47 H, Estim Creat Clear Calc 25.42, Est GFR (MDRD) Af Amer 32 L, Est GFR (MDRD) Non-Af 27 L, BUN/Creatinine Ratio 13.0, Glucose 380 H, Calcium 8.2 L, Total Bilirubin 0.80, AST 28, ALT 30, Alkaline Phosphatase 62, Troponin I High Sens 828 H*, Total Protein 6.6, Albumin 2.9 L, Globulin 3.7, Albumin/Globulin Ratio 0.8 L, Triglycerides 253 H, Cholesterol 123, LDL Cholesterol 39, VLDL Cholesterol 51 H, HDL Cholesterol 33 L, TSH 4.40 H 06/05/22 06:42: POC Glucose 358 H 06/05/22 09:20: Urine Color Yellow, Urine Clarity Cloudy, Urine pH 5.0, Ur Specific [place] 1.025, Urine Protein 500 H, Urine Glucose (UA) 100 H, Urine Ketones 5 H, Urine Occult Blood 50 H, Urine Nitrite Negative, Urine Bilirubin Negative, Urine Urobilinogen Normal, Ur Leukocyte Esterase 500 H, Urine RBC 0 SEEN, Urine WBC >100 SEEN, Ur Squamous Epith Cells 0-5 SEEN, Urine Bacteria 2+, Urine Mucus 0 SEEN Micro: Microbiology 06/05/22 Unknown Urine, Clean Catch Legionella Antigen - Final 06/05/22 04:30 Mucosa - Nasopharyngeal Respiratory Panel (PCR) - Final ABG Data ABG results: ABG 06/05/22 02:43 Specimen Type BRITTNEE VBG pH 7.25 L VBG pO2 52 H VBG HCO3 18 L VBG Total CO2 20 L VBG O2 Sat (Calc) 80 H VBG Base Excess -9 L POC Mix VBG pCO2 Pt Tmp 42.1 O2 Delivery Device Cannula Liter Flow 6.0 Radiography Diagnostic Testing: Radiology Impression Brain CT 06/05/22 00:15 IMPRESSION: No acute abnormal intracranial finding. Right mastoid effusion. Left parietal calcified meningioma. Electronically Signed: Fernandez North MD at 1:50 EDT , Chest X-Ray 06/05/22 01:05 IMPRESSION: Right lower lung infiltrate. Electronically Signed: Fernandez North MD at 1:46 EDT , Physical Exam Const alert, oriented x3 and no apparent distress HEENT head/scalp atraumatic, moist oral mucous membranes and oropharynx normal Head and Scalp: normocephalic Mouth: oral and palatal mucosa normal Eyes PERRL, EOMs intact bilaterally and conjunctivae normal Neck no lymphadenopathy, supple and no JVD Resp Resp Narrative: mildly diminished breath sounds bibasally, no wheezes or crackles. On 2L of oxygen by nasal canula Cardio regular rate, regular rhythm, S1 normal heart sound, S2 normal heart sound and no murmurs GI normal to inspection, nondistended, normoactive bowel sounds, soft to palpation, non-tender and non-distended Extremity normal to inspection, full ROM and no clubbing, cyanosis or edema Neuro oriented x3, CN's II-XII intact bilaterally, moves all extremities and no focal motor deficits Sensorium / Orientation: awake and alert Coordination / Balance: [id number] test normal Motor Exam: strength 5/5 throughout Psych affect normal Assessment & Plan Assessment/Plan (1) NSTEMI (non-ST elevated myocardial infarction): (2) Syncope: (3) Right lower lobe pneumonia: (4) Hypoxia: PLAN: Plan #Syncope * associated with episodes of bradycardia, though he was in afib at time of admission * 2D echo done, read is pending * cardiology on board * initial tropoinin was only 46, but trended up to 828 * await further rec's from cardiology * fall precautions * #Nonstemi * troponin trended up to a peak of 828. * cardiology on board * EKG showed afib, rate controlled * 2D echo done, read pending * in light of patient's impaired kidney function, this may preclude a cath. Cardiology to determine * #Hypoxia due to right lower lobe pneumonia * on 3L of oxygen. Titrate oxygen to maintain sats >90% * breathing treatment with bronchodilators * on IV ceftriaxone and azithromycin * sputum cultures and blood cultures ordered * urine for strep and legionella negative * titrate oxygen to maintain sats >90% * #Afib: * new onset.rate controlled, with episodes of bradycardia. * Not on any rate control medication. on eliquis. * Cardiology on board. 2D echo pending. * #Hypertension: on amlodipine and hydralazine #Hyperlipidemia; on statiin #Type 2 diabetes mellitus: on ISS. Accuchecks ACHS #BPH: on finasteride and flomax #Dementia with behavioral disturbance: on aricept. PT/OT on board. Fall precautions. DVT prophylaxis; on eliquis. Code status; full code Charges/Coding Visit Charges Inpatient E&M: 85090 Subs Hosp L3
[2022-06-05] MEDS: Ceftriaxone 1 GM/50 ML BAG IV (11:16)
[2022-06-05 11:45] LABS: Bedside Glucose 406 mg/dL (74-106)
[2022-06-05 16:55] LABS: Bedside Glucose 340 mg/dL (74-106)
[2022-06-05] MEDS: Atorvastatin Calcium 10 MG Tablet PO (23:06)
[2022-06-05] MEDS: Donepezil HCl 10 MG Tablet PO (23:06)
[2022-06-05 23:46] LABS: Bedside Glucose 310 mg/dL (74-106)
[2022-06-06] VITALS (17 sets, daily range): BP systolic 133–204; BP diastolic 75–90; PULSE 49–112; RESP 12–40; TEMP 36.2–37; O2SAT 83–98
[2022-06-06] MEDS: Albuterol 2.5 MG/3 ML VIAL.NEB. INHALATION (00:58)
[2022-06-06] MEDS: 0.9% Normal Saline 1,000 ML 125 ML IV (05:05)
[2022-06-06 06:11] LABS: Absolute Lymphocyte Count 8.59 X10^3/uL (0.83-4.51); Absolute Neutrophil Count 8.9 X10^3/uL (2.0-7.7); Basophil# 0.06 X10^3/uL; Basophil% 0.3 % (0-1); Eosinophil# 0.06 X10^3/uL; Eosinophils% 0.3 % (0-5); Hematocrit 36.7 % (40-54); Lymphocyte # 8.59 X10^3/ul (0.83-4.51); Lymphocyte % 45.5 % (19-41); Mean Corp Hgb Conc 32.7 g/dL (32-36); Mean Corpuscular Hgb 31.7 pg (27.0-32.0); Mean Corpuscular Volume 97.1 fL (80-94); Monocyte% 6.4 % (0-10); NRBC Flagged by Analyzer 0 % (0-5); Neutrophil % 47.1 % (47-70); POSITIVE DIFFERENTIAL YES; Platelet Count 106 K/mm3 (150-450); RBC Distribution Width CV 13.7 % (11.6-14.6); RBC Distribution Width SD 48.7 fl (35.1-43.9); Red Blood Count 3.78 M/mm3 (4.6-6.2); White Blood Count 18.9 K/mm3 (4.4-11.0)
[2022-06-06] MEDS: Aspirin 81 MG TAB.CHEW PO (06:16)
[2022-06-06 06:17] LABS: Differential Indicated SCAN CRITERIA MET
[2022-06-06 06:26] LABS: Macrocytosis 1+
[2022-06-06 06:34] LABS: Anion Gap 8 (5-15); BUN 39 mg/dL (7-18); BUN/Creat Ratio 12.3 RATIO (10-20); Calcium,Total 7.9 mg/dL (8.5-10.1); Chloride 112 mmol/L (98-107); Creatinine, Serum 3.16 mg/dL (0.70-1.30); EST Glomerular Filtration Rate 20 mL/min (>60); Est Glom Filt Rate - Afr Amer 24 mL/min (>60); Estimated Creatinine Clearance 19.87 ml/min; Glucose 255 mg/dL (74-106); Potassium 4.4 mmol/L (3.5-5.1); Sodium Level 139 mmol/L (136-145)
--- NOTE | 2022-06-06 06:49 | EKG12_ITS ---
Test Reason : Blood Pressure : / mmHG Vent. Rate : 061 BPM Atrial Rate : 000 BPM P-R Int : 000 ms QRS Dur : 114 ms QT Int : 436 ms P-R-T Axes : 000 -49 025 degrees QTc Int : 438 ms Sinus rhythm Left axis deviation Incomplete right bundle branch block Abnormal ECG When compared with ECG of 05-JUN-2022 00:20, MANUAL COMPARISON REQUIRED, DATA IS UNCONFIRMED Confirmed by TEA SAMUEL, DIPTI ([id number]), newspaper editor managing WILBERT BELLO ([id number]) on 06/09/2022 11:33:46 AM Referred By: Ramila Confirmed By:UDAY METCALF MD
--- NOTE | 2022-06-06 07:08 | PN.CARD_ITS ---
Subjective Subjective Patient seen and evaluated. Appears to be stable at this time. Objective Data Vital Signs: Vital Signs Temp Pulse Resp BP Pulse Ox O2 Del Method O2 Flow Rate 97.9 F 63 18 147/75 H 95 Nasal Cannula 2 06/06/22 03:00 06/06/22 06:00 06/06/22 03:00 06/06/22 03:00 06/06/22 03:00 06/06/22 03:00 06/06/22 03:00 Oxygen Flow Rate (L/min) 2 Oxygen Delivery Method Nasal Cannula Weight: 253 lb 15.56 oz Body Mass Index (BMI) 32.3 Intake & Output: Intake and Output for Last 24 Hours 06/04/22 06/05/22 06/06/22 23:59 23:59 23:59 Intake Total 4131.67 / 4531.67 1450 / 1450 Output Total 100 / 200 200 / 200 Balance 4031.67 / 4331.67 1250 / 1250 Lab / Micro Data Result Diagrams: 06/06/22 05:20 06/06/22 05:20 Labs: Laboratory Results - last 24 hr 06/05/22 05:30: MRSA (PCR) Negative 06/05/22 06:06: Sodium 140, Potassium 4.6, Chloride 110 H, Carbon Dioxide 18.0 L , Anion Gap 12, BUN 32 H, Creatinine 2.47 H, Estim Creat Clear Calc 25.42, Est GFR (MDRD) Af Amer 32 L, Est GFR (MDRD) Non-Af 27 L, BUN/Creatinine Ratio 13.0, Glucose 380 H, Calcium 8.2 L, Total Bilirubin 0.80, AST 28, ALT 30, Alkaline Phosphatase 62, Troponin I High Sens 828 H*, Total Protein 6.6, Albumin 2.9 L, Globulin 3.7, Albumin/Globulin Ratio 0.8 L, Triglycerides 253 H, Cholesterol 123, LDL Cholesterol 39, VLDL Cholesterol 51 H, HDL Cholesterol 33 L, TSH 4.40 H 06/05/22 09:20: Urine Color Yellow, Urine Clarity Cloudy, Urine pH 5.0, Ur Specific [place] 1.025, Urine Protein 500 H, Urine Glucose (UA) 100 H, Urine Ketones 5 H, Urine Occult Blood 50 H, Urine Nitrite Negative, Urine Bilirubin Negative, Urine Urobilinogen Normal, Ur Leukocyte Esterase 500 H, Urine RBC 0 SEEN, Urine WBC >100 SEEN, Ur Squamous Epith Cells 0-5 SEEN, Urine Bacteria 2+, Urine Mucus 0 SEEN 06/05/22 11:15: POC Glucose 406 H 06/05/22 16:15: POC Glucose 340 H 06/05/22 23:05: POC Glucose 310 H 06/06/22 05:20: WBC 18.9 H, RBC 3.78 L, Hgb 12.0 L, Hct 36.7 L, MCV 97.1 H, MCH 31.7, MCHC 32.7, RDW Std Deviation 48.7 H, RDW Coeff of Bebe 13.7, Plt Count 106 L, MPV 11.0, Immature Gran % (Auto) 0.400, Neut % (Auto) 47.1, Lymph % (Auto) 45 .5 H, Mcke[place] % (Auto) 6.4, Eos % (Auto) 0.3, Baso % (Auto) 0.3, Absolute Neuts (auto) 8.9 H, Absolute Lymphs (auto) 8.59 H, Nucleated RBC % 0, Macrocytosis 1+ 06/06/22 05:20: Sodium 139, Potassium 4.4, Chloride 112 H, Carbon Dioxide 19.0 L , Anion Gap 8, BUN 39 H, Creatinine 3.16 H, Estim Creat Clear Calc 19.87, Est G FR (MDRD) Af Amer 24 L, Est GFR (MDRD) Non-Af 20 L, BUN/Creatinine Ratio 12.3, Glucose 255 H, Calcium 7.9 L Micro: Microbiology 06/05/22 Unknown Urine, Clean Catch Legionella Antigen - Final 06/05/22 04:30 Mucosa - Nasopharyngeal Respiratory Panel (PCR) - Final Cardiology Labs/Tests 06/05/22 06:06: Sodium 140, Potassium 4.6, Chloride 110 H, Carbon Dioxide 18.0 L , Anion Gap 12, BUN 32 H, Creatinine 2.47 H, Est GFR (MDRD) Af Amer 32 L, Est GFR (MDRD) Non-Af 27 L, BUN/Creatinine Ratio 13.0, Glucose 380 H, Calcium 8.2 L, Total Bilirubin 0.80, Triglycerides 253 H, Cholesterol 123, LDL Cholesterol 39, VLDL Cholesterol 51 H, HDL Cholesterol 33 L 06/05/22 09:20: Urine Color Yellow, Urine Clarity Cloudy, Urine pH 5.0, Ur Specific [place] 1.025, Urine Protein 500 H, Urine Glucose (UA) 100 H, Urine Ketones 5 H, Urine Occult Blood 50 H, Urine Nitrite Negative, Urine Bilirubin Negative, Urine Urobilinogen Normal, Ur Leukocyte Esterase 500 H, Urine RBC 0 SEEN, Urine WBC >100 SEEN 06/06/22 05:20: WBC 18.9 H, RBC 3.78 L, Hgb 12.0 L, Hct 36.7 L, MCV 97.1 H, MCH 31.7, MCHC 32.7, Plt Count 106 L, MPV 11.0, Immature Gran % (Auto) 0.400, Neut % (Auto) 47.1, Lymph % (Auto) 45.5 H, [place] % (Auto) 6.4, Eos % (Auto) 0.3, Baso % (Auto) 0.3, Absolute Neuts (auto) 8.9 H, Nucleated RBC % 0 06/06/22 05:20: Sodium 139, Potassium 4.4, Chloride 112 H, Carbon Dioxide 19.0 L , Anion Gap 8, BUN 39 H, Creatinine 3.16 H, Est GFR (MDRD) Af Amer 24 L, Est GFR (MDRD) Non-Af 20 L, BUN/Creatinine Ratio 12.3, Glucose 255 H, Calcium 7.9 L Rhythm: EKG: ECHO: Stress Test: Cardiac Cath: PCI: CT Surgery: Holter monitor: EPS: PPM: CXR: Chest CT Scan: Radiography Diagnostic Testing: Radiology Impression Echocardiogram 06/05/22 03:24 Interpretation Summary Normal LV size. Left ventricular systolic function is normal. The estimated ejection fraction is 60 %. The left atrium is mildly enlarged. Pulmonary artery systolic pressure is 30 mmHg. Ordering Physician: Joanna Peguero Referring Physician: Nate Watters Performed By: Hamida Phan, ALIZA, RVT Physical Exam Const alert, oriented x3 and no apparent distress HEENT head/scalp atraumatic, moist oral mucous membranes and oropharynx normal Head and Scalp: normocephalic Mouth: oral and palatal mucosa normal Eyes PERRL, EOMs intact bilaterally and conjunctivae normal Neck no lymphadenopathy, supple and no JVD Resp Resp Narrative: mildly diminished breath sounds bibasally, no wheezes or crackles. On 2L of oxygen by nasal canula Cardio regular rate, regular rhythm, S1 normal heart sound, S2 normal heart sound and no murmurs GI normal to inspection, nondistended, normoactive bowel sounds, soft to palpation, non-tender and non-distended Extremity normal to inspection, full ROM and no clubbing, cyanosis or edema Neuro oriented x3, CN's II-XII intact bilaterally, moves all extremities and no focal motor deficits Sensorium / Orientation: awake and alert Coordination / Balance: [id number] test normal Motor Exam: strength 5/5 throughout Psych affect normal Assessment & Plan Assessment/Plan (1) Syncope: PLAN: He had a syncopal episode etiology of which is not entirely clear at this time. His EKG does not demonstrate any evidence of atrial fibrillation though the computer calls it as such. I also have not seen any significant pauses over 3 seconds. I wonder whether this was related to repeated emesis or dehydration. His echocardiogram demonstrated preserved left ventricular systolic function. (2) NSTEMI (non-ST elevated myocardial infarction): PLAN: He did have a significant elevation in his high-sensitivity troponin suggestive of a non-ST elevation myocardial infarction. It is possible that this may be the cause of his syncope. He does have significant renal dysfunction and would need to consider whether he is a candidate for an invasive approach with a cardiac catheterization. This could significantly worsen his renal function and push him towards dialysis. Will perform a pharmacologic myocardial perfusion scan today. If the area of ischemia is not significantly worse we would continue with medical therapy.
[2022-06-06 07:20] LABS: Bedside Glucose 233 mg/dL (74-106)
--- NOTE | 2022-06-06 08:56 | ST.MBS ---
Modified Barium Swallow - Patient Information Study Date: 06/06/22 Study Time: 13:30 Diagnosis: Right lower lobe pneumonia (J18.9) Referring Physician: Brittney Mcgrath Reason for Referral: Objectively assess swallow function, risk for aspiration, and determine recommendations for least restrictive diet textures and compensatory strategies to improve safety of swallow. Medical History: The patient is an 87-old-male with PMH including anemia, HTN, HLD, obesity, DM type II, chronic neck and back pain, BPH, dementia, chronic bradycardia, Frequent UTIs, Hx RLE DVT, allergic rhinitis, and GERD who presented to the [facility] ED?on 06/05/22 with history of onset episodes of profound nausea and emesis with 3 episodes of syncope. X-ray 06/05/2022 revealed RLL infiltrate. He was evaluated by speech therapy and recommended for soft and bite size textures / thin liquids with 1:1 supervision and plan for MBS study 06/06/2022 due to current PNA and report of two recent coughing/choking/emesis episodes in the past week per patient?s . Current Diet Ordered: Soft and bite size textures / Thin liquids Mental Status: Impaired - Hx of dementia - Penetration-Aspiration Scale Penetration-Aspiration Scale: OBJECTIVE ASSESSMENT OF SWALLOW FUNCTION (QUANTITATIVE ? PER TRIAL): PENETRATION / ASPIRATION SCALE (REDDY): 1 = does not enter airway 2 = enters airway/above vocal folds/ejected 3 = enters airway/above vocal folds/not ejected 4 = enters airway/contacts vocal folds/ejected 5 = enters airway/contacts vocal folds/not ejected 6 = enters airway/below vocal folds/ejected 7 = enters airway/below vocal folds/not ejected despite effort 8 = enters airway/below vocal folds/no effort VIDEOFLOROSCOPIC SCALE SCORE (REDDY): Grade I = aspiration of material that has penetrated into the laryngeal vestibule, intact cough reflex Grade II = aspiration < 10 % of the bolus, intact cough reflex Grade III = aspiration of < 10 % of the bolus, reduced cough reflex or aspiration of > 10 % of the bolus, intact cough reflex Grade IV = aspiration of > 10 % of the bolus, reduced cough reflex - Status Active ST Patient: Active - Contact Information [facility] Speech Therapy:: Bushra Gonzales M.A. [facility] Speech-Language Pathologist [facility] [address] [place] [address] [email or web address] [phone] 06/06/22 09:00
--- NOTE | 2022-06-06 10:08 | PN.HOSP_ITS ---
Subjective Subjective Patient seen and examined. He complained of mild shortness of breath with exertion and wheezing. He denied any chest pain, palpitations, dizziness, nausea, vomiting or diarrhea. Review of systems is otherwise negative. He is for stress test today. Objective Data Objective Data Vital Signs: Vital Signs Temp Pulse Resp BP Pulse Ox O2 Del Method O2 Flow Rate 97.9 F 60 18 147/75 H 93 Nasal Cannula 2 06/06/22 03:00 06/06/22 07:55 06/06/22 03:00 06/06/22 03:00 06/06/22 08:02 06/06/22 08:02 06/06/22 08:02 Oxygen Flow Rate (L/min) 2 Oxygen Delivery Method Nasal Cannula Weight: 253 lb 15.56 oz Body Mass Index (BMI) 32.3 Intake & Output: Intake and Output for Last 24 Hours 06/04/22 06/05/22 06/06/22 23:59 23:59 23:59 Intake Total 4131.67 / 4531.67 1450 / 1450 Output Total 100 / 200 200 / 200 Balance 4031.67 / 4331.67 1250 / 1250 Lab / Micro Data Result Diagrams: 06/06/22 05:20 06/06/22 05:20 Labs: Laboratory Results - last 24 hr 06/05/22 09:20: Urine RBC 0 SEEN, Urine WBC >100 SEEN, Ur Squamous Epith Cells 0-5 SEEN, Urine Bacteria 2+, Urine Mucus 0 SEEN 06/05/22 11:15: POC Glucose 406 H 06/05/22 16:15: POC Glucose 340 H 06/05/22 23:05: POC Glucose 310 H 06/06/22 05:20: WBC 18.9 H, RBC 3.78 L, Hgb 12.0 L, Hct 36.7 L, MCV 97.1 H, MCH 31.7, MCHC 32.7, RDW Std Deviation 48.7 H, RDW Coeff of Bebe 13.7, Plt Count 106 L, MPV 11.0, Immature Gran % (Auto) 0.400, Neut % (Auto) 47.1, Lymph % (Auto) 45.5 H, [place] % (Auto) 6.4, Eos % (Auto) 0.3, Baso % (Auto) 0.3, Absolute Neuts (auto) 8.9 H, Absolute Lymphs (auto) 8.59 H, Nucleated RBC % 0, Macrocytosis 1+ 06/06/22 05:20: Sodium 139, Potassium 4.4, Chloride 112 H, Carbon Dioxide 19.0 L , Anion Gap 8, BUN 39 H, Creatinine 3.16 H, Estim Creat Clear Calc 19.87, Est GFR (MDRD) Af Amer 24 L, Est GFR (MDRD) Non-Af 20 L, BUN/Creatinine Ratio 12.3, Glucose 255 H, Calcium 7.9 L 06/06/22 06:53: POC Glucose 233 H Micro: Microbiology 06/06/22 06:20 Urine, Clean Catch Streptococcus pneumoniae Antigen (M - Final 06/05/22 Unknown Urine, Clean Catch Legionella Antigen - Final 06/05/22 04:30 Mucosa - Nasopharyngeal Respiratory Panel (PCR) - Final Radiography Diagnostic Testing: Radiology Impression Echocardiogram 06/05/22 03:24 Interpretation Summary Normal LV size. Left ventricular systolic function is normal. The estimated ejection fraction is 60 %. The left atrium is mildly enlarged. Pulmonary artery systolic pressure is 30 mmHg. Ordering Physician: Joanna Peguero Referring Physician: Nate Watters Performed By: Hamida Phan, ALIZA, RVT Physical Exam Const alert, oriented x3 and no apparent distress HEENT head/scalp atraumatic, moist oral mucous membranes and oropharynx normal Eyes PERRL, EOMs intact bilaterally and conjunctivae normal Neck no lymphadenopathy, supple and no JVD Resp Resp Narrative: mildly diminished breath sounds bibasally, mild wheezes, no crackles. On 2L of oxygen by nasal canula Cardio regular rate, regular rhythm, S1 normal heart sound, S2 normal heart sound and no murmurs GI normal to inspection, nondistended, normoactive bowel sounds, soft to palpation, non-tender and non-distended Extremity normal to inspection, full ROM and no clubbing, cyanosis or edema Neuro oriented x3, CN's II-XII intact bilaterally, moves all extremities and no focal motor deficits Sensorium / Orientation: awake and alert Coordination / Balance: [id number] test normal Motor Exam: strength 5/5 throughout Psych affect normal Assessment & Plan Assessment/Plan (1) NSTEMI (non-ST elevated myocardial infarction): (2) Syncope: (3) Right lower lobe pneumonia: (4) Hypoxia: PLAN: Plan #Syncope * associated with episodes of bradycardia, though he was in afib at time of admission * 2D echo done and showed EF of 60% and no regional wall motion abnormalities. PA pressure is 30mmHg. * cardiology on board * for stress test today * fall precautions * #Nonstemi * troponin trended up to a peak of 828. * cardiology on board * EKG showed afib, rate controlled * 2D echo as above * in light of patient's impaired kidney function, this may preclude a cath. * #Hypoxia due to right lower lobe pneumonia * on 2L of oxygen. Titrate oxygen to maintain sats >90% * breathing treatment with bronchodilators * on IV ceftriaxone and azithromycin * sputum cultures and blood cultures pending * urine for strep and legionella negative * titrate oxygen to maintain sats >90% * #Afib: * new onset.rate controlled, with episodes of bradycardia. * Not on any rate control medication. on eliquis. * Cardiology on board. 2D echo as above * #Juany on CKD 3 * Cr is 3.16, has trended up from 2.47. * will get nephrology consult * order renal USG * #Hypertension: on amlodipine and hydralazine #Hyperlipidemia; on statiin #Type 2 diabetes mellitus: on ISS. Accuchecks ACHS #BPH: on finasteride and flomax #Dementia with behavioral disturbance: on aricept. PT/OT on board. Fall precautions. DVT prophylaxis; on eliquis. Code status; full code Charges/Coding Visit Charges Inpatient E&M: 45826 Subs Hosp L3
--- NOTE | 2022-06-06 10:21 | US_ITS ---
INDICATION: acute on chronic kidney injury EXAMINATION: Ultrasound US Kidney(s) complete (eg, kidneys and bladder) TECHNIQUE: Harvey scale and color doppler images were obtained of the kidneys. COMPARISON: None. FINDINGS: RIGHT KIDNEY: 10.3 x 4.6 x 4.8 cm. There is no hydronephrosis. No shadowing calculus, solid lesion or perinephric collection is demonstrated. 1.8 cm anechoic simple cyst. LEFT KIDNEY: 12.9 x 6.1 x 7.0 cm. There is no hydronephrosis. No shadowing calculus, solid lesion or perinephric collection is demonstrated. 5.3 and 4.2 cm anechoic simple cysts. URINARY BLADDER: No acute abnormality. Anechoic. Prevoid volume 87 mL. Left ureteral jet seen. Nonspecific nonvisualization of the right ureteral jet. OTHER: Increased hepatic echogenicity. US/Kidney and Bladder IMPRESSION: 1. No evidence of obstructive uropathy or acute renal process. 2. Benign bilateral renal cysts, no specific imaging follow-up required. 3. Echogenic liver as can be seen with steatosis or early fibrosis. Electronically Signed: Polo Salazar MD at 2:46 EDT ,
[2022-06-06] MEDS: Ferrous Sulfate 325 MG Tablet PO (11:29)
[2022-06-06] MEDS: Tamsulosin HCl 0.4 MG Capsule PO (11:29)
[2022-06-06] MEDS: Ascorbic Acid 500 MG Tablet 1000 MG PO (11:29)
[2022-06-06] MEDS: Cholecalciferol (Vit D3) 125 MCG CAPSULE (5,000 UNITS) PO (11:29)
[2022-06-06] MEDS: Insulin Lispro 100 UNIT/ML INSULN.PEN SC ×3 (11:29→22:07)
[2022-06-06] MEDS: amLODIPine 5 MG Tablet PO (11:29)
[2022-06-06] MEDS: Insulin NPH Human 100 UNITS/ML PEN 29 UNITS SC ×2 (11:30→22:07)
[2022-06-06] MEDS: Finasteride 5 MG Tablet PO (11:33)
[2022-06-06] MEDS: Ceftriaxone 1 GM/50 ML BAG IV (12:07)
[2022-06-06] MEDS: 0.9% Saline Lock 10 ML Syringe IV ×2 (12:08→22:08)
[2022-06-06 12:45] LABS: Bedside Glucose 284 mg/dL (74-106)
--- NOTE | 2022-06-06 13:34 | ST.MBS ---
Modified Barium Swallow - Patient Information Study Date: 06/06/22 Study Time: 13:30 Direct Billable Minutes: 105 Total Minutes procedure & reportin Diagnosis: Right lower lobe pneumonia (J18.9) Referring Physician: Brittney Mcgrath Reason for Referral: Objectively assess swallow function, risk for aspiration, and determine recommendations for least restrictive diet textures and compensatory strategies to improve safety of swallow. Medical History: The patient is an 87-old-male with PMH including anemia, HTN, HLD, obesity, DM type II, chronic neck and back pain, BPH, dementia, chronic bradycardia, Frequent UTIs, Hx RLE DVT, allergic rhinitis, and GERD who presented to the [facility] ED?on 06/05/22 with history of onset episodes of profound nausea and emesis with 3 episodes of syncope. X-ray 06/05/2022 revealed RLL infiltrate. He was evaluated by speech therapy and recommended for soft and bite size textures / thin liquids with 1:1 supervision and plan for MBS study 06/06/2022 due to current PNA and report of two recent coughing/choking/emesis episodes in the past week per patient?s . Current Diet Ordered: Soft and bite size textures / Thin liquids Dentition: Lower Dentures Mental Status: Impaired - hx of dementia Respiratory Status: Oxygenating on 2L/M nasal cannula - Penetration-Aspiration Scale Penetration-Aspiration Scale: OBJECTIVE ASSESSMENT OF SWALLOW FUNCTION (QUANTITATIVE ? PER TRIAL): PENETRATION / ASPIRATION SCALE (REDDY): 1 = does not enter airway 2 = enters airway/above vocal folds/ejected 3 = enters airway/above vocal folds/not ejected 4 = enters airway/contacts vocal folds/ejected 5 = enters airway/contacts vocal folds/not ejected 6 = enters airway/below vocal folds/ejected 7 = enters airway/below vocal folds/not ejected despite effort 8 = enters airway/below vocal folds/no effort - Penetration-Aspiration Scale Score Thin Liquid via teaspoon Result: 5= enters airways/contacts vocal folds/not ejected Thin Liquid via teaspoon Trial 2 Result: 3= enters airways/above vocal folds/not ejected Thin Liquid via small single sip from cup Result: 3= enters airways/above vocal folds/not ejected Thin Liquid via single sip from straw Result: 4= enters airway/contacts vocal folds/ejected [place] Thick Liquid via teaspoon Result: 2= enter airway/above vocal folds/ejected [place] Thick Liquid via small single sip from cup Result: 2= enter airway/above vocal folds/ejected [place] Thick Liquid via small single sip from cup Result: 1= does not enter airway - No penetration or aspiration observed, however, following swallow residue in the valleculae and along the pharyngeal wall Pudding via teaspoon Result: 2= enter airway/above vocal folds/ejected Cookie via teaspoon Result: 1= does not enter airway Thin Liquid via small single sip from cup Chin tuck Result: 3= enters airways/above vocal folds/not ejected - swallow mildly delayed 3 seconds resulting in residue along pharyngeal wall and pyriform sinus during swallow - Oral Phase Labial Seal: Interlabial escape, no progression to anterior lip Tongue Control During Bolus Hold: Posterior escape of less than half of bolus Bolus Preparation/Mastication: Slow prolonged chewing/mashing with complete recollection Bolus Transport/Lingual Motion: Slowed tongue motion Oral Residue: Residue collection on oral structures - Pharyngeal Phase Initiation of Pharyngeal Swallow: Bolus head in valleculae Soft Palate Elevation: No bolus between soft palate and pharyngeal wall Laryngeal Elevation: Partial superior movement thyroid cart/partial apprx aryt-epig petiole Anterior Hyoid Excursion: Partial anterior movement Epiglottic Movement: Partial inversion Laryngeal Vestibule Closure at Height of Swallow: Incomplete; narrow column of air/contrast in laryngeal vestibule Pharyngeal Stripping Wave: Present - diminished Pharyngoesophageal Segment Opening: Complete distension and complete duration; no obstruction of flow Tongue Base Retraction: Narrow column of contrast between tongue base & post. pharyngeal wall Pharyngeal Residue: Trace residue within or on pharyngeal structures - Esophageal Phase Esophageal Clearance: Complete clearance - esophageal scan not completed due to width of patients shoulders - Treatment Strategies Effects of treatment strategies attemped:: Safe swallow strategies of 2nd swallow cued for pt. to implement with decrease in residuals, but they were not eliminated. The Swallow strategy of chin tuck was trialed with thin liquids. Chin tuck resulted in a delay in swallow initiation and increase in pharyngeal residues during the swallow resulting in continued penetration was observed with chin tuck. - Diagnosis/Impression Diagnosis: moderate oropharyngeal dysphagia (R13.12) Impression: PT. presented with oral phase dysphagia characterized by prolonged mastication, decreased anterior-posterior transfer of the bolus resulting in oral residuals. Pt. presented with pharyngeal phase dysphagia characterized by decreased tongue base retraction, decreased hyolaryngeal elevation and pharyngeal constriction resulting in bolus pooling into the valleculae prior to the swallow initiation, decreased epiglottic deflection and decreased airway closure. Penetration was observed with thin, nectar and puree textures. Penetrated bolus was ejected from airway with nectar and puree textures. Trace residue was present along the valleculae and pharyngeal wall. Pt. was breathing heavily during study and stated he has trouble breathing. He was on 2L of oxygen during the study. Pt. sat in a forward position and given verbal prompts to sit up straight. Pt. was able to follow verbal directions given during the study. - Recommendations Diet: Mechanical Soft Textures - soft and bite sides IDDSI level 6, [place]-thick Liquids - IDDSI level 2 Compensatory Strategies: Small Bites, Small Sips, No Straws, Slow Rate, Multiple Swallows, Alternate bites/solids and sips/liquids, Sitting upright, Remain sitting upright for 30 minutes after PO intake, Assist with verbal cues to use recommended strategies Supervision: 1:1 Close Supervision Recommend Repeat Modified Barium Swallow: TBD - based on respiratory status and ability to tolerate recommended diet Need for Skilled Speech Therapy Services: Yes Education Completed: 1. Described result of evaluation., 2. Pt understands evaluation & agrees with goals and treatment plan., 7. Pt requires further education on strategies & risks. - Status Active ST Patient: Active - Contact Information [facility] Speech Therapy:: [facility] [address] [place] [address] Sharmaine Oscar M.A., CCC-MITTEN STITCHER 06/06/22
--- NOTE | 2022-06-06 14:45 | NURSING ---
BLAISE Yates informed BLAISE Pillai of pt's tachypnea and vital signs during ultrasound at 1416. Freya reports pt has been tachypneic on floor. Pt is returning to floor when ultrasound is complete.
--- NOTE | 2022-06-06 15:01 | CON.PCM.RE_ITS ---
Assessment & Plan Assessment/Plan (1) Acute kidney injury superimposed on CKD: (2) Syncope: (3) Urethral stricture: QUALIFIERS: Urethral stricture type: other stricture Urethral stricture sex-location: male urethra-overlapping sites Qualified Code(s): N35.816 - Other urethral stricture, male, overlapping sites PLAN: Plan Assessment Pleasant 87-year-old gentleman underlying history of hypertension, diabetes,Dyslipidemia, urethral stricture in addition to chronic kidney disease admitted to the hospital due to syncope. Nephrology is consulted for acute kidney injury #1 acute kidney injury on chronic kidney disease -His baseline serum creatinine appears to be around 1.8 mg/dL -Acute insult likely combination of hemodynamics in setting of syncope in addition to possible obstructive uropathy -Patient had a renal ultrasound done. Official reading is pending however appears to have some dilated calyces to me #2 volume -Patient is dyspneic on conversation. Was receiving IV fluids currently off -At this time agree with holding IV fluids or diuretics #3 urethral stricture -Patient is known to urology service with prior dilation in the past. Urology has been consulted #4 syncope -Cardiology input is noted. Echocardiogram noted Plan -Check urinary indices -Ensure no obstructive uropathy -Hold Lasix and IV fluids for now -No immediate need for renal placement therapy today however will need to monitor urinary output and renal function over next 24 hours -We will add uric acid, phosphorus Thank you please call [phone] with any concerns Discussed with Dr. Mcgrath. HPI Consult Data Date of Consult: 06/06/22 HPI Narrative Reason for Consultation: Acute kidney injury on chronic kidney disease HPI Narrative: JAYA STANTON, is a 87 M who presents with underlying history below who presents to the hospital due to feeling unwell with company by syncope at home. Most of the history was obtained via patient's and chart review. For his syncope patient was seen by cardiology, echocardiogram obtained relatively unremarkable. No malignant rhythms were noted. Nephrology was consulted due to worsening renal function and progressive oliguria. According to the patient's patient has history of urethral stricture requiring dilation x2 in the past last episode being a few years ago. His p.o. intake has been on the lower side last few days. Currently feels slightly short of breath denies chest discomfort [facility] Medical History (Updated 06/05/22 @ 08:[address] Ethan Milan MD) Arthritis Back problem Chronic neck and back pain Diabetes Diarrhea Fatigue GERD (gastroesophageal reflux disease) Hearing problem Hyperlipidemia Hypertension Incontinence Irregular heart beat Kidney disease Knee pain Non-smoker Seasonal allergies Skin cancer Home Medications ascorbic acid (vitamin C) 1,000 mg tablet 1,000 mg PO DAILY 11/14/16 [History Last Taken 04/08/21 08:00] finasteride 1 mg tablet (Propecia) 5 mg PO DAILY 02/20/21 [History Last Taken 04/08/21 08:00] blood sugar diagnostic (Easiest Credit Card To Get Approved Foruch Verio test strips) #100 ea 04/16/21 [Rx Last Taken Unknown] ferrous sulfate 325 mg (65 mg iron) tablet 325 mg PO DAILY 08/28/21 [History Last Taken Unknown] cholecalciferol (vitamin D3) 125 mcg (5,000 unit) capsule 125 mcg PO DAILY 11/28/21 [History Last Taken Unknown] tamsulosin 0.4 mg capsule (Flomax) 0.4 mg PO DAILY 11/28/21 [History Last Taken Unknown] lisinopril 10 mg tablet 10 mg PO DAILY #90 tabs 02/11/22 [Rx Last Taken Unknown] amlodipine 5 mg tablet 5 mg PO DAILY #30 tabs 04/18/22 [Rx Last Taken Unknown] insulin NPH isoph U-100 human 100 unit/mL subcutaneous suspension 29 unit (0.29 mL) subcut BID #10 mL 04/25/22 [Rx Last Taken Unknown] donepezil 10 mg tablet (Aricept) 10 mg PO QHS 06/05/22 [History Last Taken Unknown] loperamide 2 mg capsule (Imodium A-D) 2 mg PO .COMPLEX PRN loose stool 06/05/22 [History Last Taken Unknown] loratadine 10 mg capsule (Claritin Liqui-Gel) 10 mg PO DAILY 06/05/22 [History Last Taken Unknown] simvastatin 20 mg tablet (Zocor) 20 mg PO QHS 06/05/22 [History Last Taken Unknown] Allergy/AdvReac Type Severity Reaction Status Date / Time No Known Allergies Allergy Verified 06/05/22 03:44 Family History Brother Heart disease Myocardial infarction Mother Myocardial infarction Heart disease Father CVA (cerebral vascular accident) Surgical History (Updated 06/05/22 @ 16:38 by Priscilla Connors) history of caataract removal History of urethral stricture Social History household members: spouse Smoking Status: Never smoker alcohol intake: never substance use type: does not use what type of physical activity do you participate in: none ROS ROS Narrative 10 review of system is negative other than stated above Physical Exam Narrative Pleasant elderly gentleman who is awake follows some simple commands Normocephalic atraumatic Oral mucosa is dry Neck is supple S1-S2 regular Breath sounds are diminished Abdomen is obese No Manzo catheter Lower extremities are wrapped No focal deficit Normal mood and affect Lab / Micro Data Result Diagrams: 06/06/22 05:20 06/06/22 05:20 Labs: Laboratory Results - last 24 hr 06/05/22 16:15: POC Glucose 340 H 06/05/22 23:05: POC Glucose 310 H 06/06/22 05:20: WBC 18.9 H, RBC 3.78 L, Hgb 12.0 L, Hct 36.7 L, MCV 97.1 H, MCH 31.7, MCHC 32.7, RDW Std Deviation 48.7 H, RDW Coeff of Bebe 13.7, Plt Count 106 L, MPV 11.0, Immature Gran % (Auto) 0.400, Neut % (Auto) 47.1, Lymph % (Auto) 45.5 H, [place] % (Auto) 6.4, Eos % (Auto) 0.3, Baso % (Auto) 0.3, Absolute Neuts (auto) 8.9 H, Absolute Lymphs (auto) 8.59 H, Nucleated RBC % 0, Macrocytosis 1+ 06/06/22 05:20: Sodium 139, Potassium 4.4, Chloride 112 H, Carbon Dioxide 19.0 L , Anion Gap 8, BUN 39 H, Creatinine 3.16 H, Estim Creat Clear Calc 19.87, Est GFR (MDRD) Af Amer 24 L, Est GFR (MDRD) Non-Af 20 L, BUN/Creatinine Ratio 12.3, Glucose 255 H, Calcium 7.9 L 06/06/22 06:53: POC Glucose 233 H 06/06/22 11:27: POC Glucose 284 H Micro: Microbiology 06/06/22 02:10 Sputum, Expectorated/Coughed Gram Stain - Final 06/06/22 06:20 Urine, Clean Catch Streptococcus pneumoniae Antigen (M - Final
--- NOTE | 2022-06-06 16:11 | NURSING ---
pt down for cookie swallow and will do us bladder and kidney per dr. grover. thinking outlet obstuction reports hx strictures with need of intervention x2 and that was supposed to do home caths to keep it open but hasnt been doing.
[2022-06-06 16:13] LABS: CPK Total, Creatine Kinase 308 U/L (39-308); Phosphorus 3.9 mg/dL (2.5-4.9); Uric Acid 8.6 mg/dL (3.5-7.2)
--- NOTE | 2022-06-06 16:13 | NURSING ---
pt back in bed and diaphoretic and rr 36. sop2 on 4l was 83%. pt moved up in bed and hob up. pt looking more tachypneic. o2 up to 6l and up to 93%. hr 114. bs checked and was 368. pt more ill appearing. nephrology in and concerned on pt's condition and voiced that may have to transfer.
[2022-06-06 16:32] LABS: Urine Chloride 11 mmol/L (Not Establ.); Urine Sodium 20 mmol/L (Not Establ.)
--- NOTE | 2022-06-06 16:43 | STRESSREP_ITS ---
Stress Test Report Date: 06/06/2022 Procedure: Pharmacologic stress nuclear imaging study Indications: Syncope Consent: Per the patient Procedure: The patient underwent pharmacologic (Regadenoson) evaluation with a peak heart rate of 68 beats per minute (50%predicted maximal heart rate) and a peak blood pressure of 158/80 mmHg. The baseline ECG demonstrated normal sinus rhythm, prior anterior OK. EKG during lexiscan infusion revealed no significant ST-T changes. EKG post infusion revealed no significant ST-T changes [There were no cardiac dysrhythmias pretest, during pharmacologic infusion, or recovery]. [There was no complaint of chest discomfort during pharmacologic infusion or recovery]. The examination was discontinued secondary to completion of protocol. Impression: 1. Lexiscan stress test test is negative for Lexiscan infusion induced EKG changes of ischemia. 2. Lexiscan stress test test is negative for Lexiscan infusion induced chest pain. 3. Results of the nuclear portion of the test is as below Myocardial perfusion imaging study: Technique: The patient was injected with 15 millicuries of technetium 99m Cardiolite and subsequently rest SPECT Cardiolite nuclear imaging was obtained in the horizontal long, vertical long, and short axis views. The patient underwent pharmacologic [Regadenoson 0.4mg] evaluation. Please see above for details. The patient was injected with 44.8 millicuries of technetium 99m Cardiolite and subsequently stress SPECT Cardiolite nuclear imaging was obtained in the horizontal long, vertical long, and short axis views. A gated Cardiolite study at peak stress was obtained. Interpretation: Rest and stress SPECT Cardiolite nuclear imaging status post realignment, normal ization, and attenuation correction demonstrate overall normal myocardial radioisotope uptake after attenuation correction. Gated images reveal no significant regional wall motion abnormalities. The reported LVEF is 63%. Impression: 1. There is no evidence of significant ischemia or infarction. 2. Estimated ejection fraction is 63%. This note was generated with Data[employer] software. It may contain incorrect words, spelling, and punctuation that were not noted in checking the note before signing.
--- NOTE | 2022-06-06 16:47 | NURSING ---
pt on bipap and spo2 99% now. rr more controlled on bipap. pt resting with eyes closed. 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 awaiting dr. cope to come in to try catheter. lungs clear ant and lat bases. occas gas reverser cough. pt npo while on bipap and aware.
[2022-06-06 16:50] LABS: Bedside Glucose 368 mg/dL (74-106)
--- NOTE | 2022-06-06 17:47 | PCM.CONS.U ---
Assessment & Plan Assessment/Plan (1) Urethral stricture unspecified: QUALIFIERS: Urethral stricture type: other stricture Qualified Code(s): N35.8 - Other urethral stricture PLAN: We will proceed with procedure to place Manzo at the bedside. (2) Meatal stenosis: HPI Consult Data Date of Consult: 06/06/22 HPI Narrative Reason for Consultation: Urethral strictures unable to place Manzo HPI Narrative: JAYA STANTON, is a 87 M who is well-known to my service he has a history of chronic BX so and as a result has severe dense strictures along the urethra he has had multiple surgeries to dilate the strictures in the past he has refused referral for reconstruction given his age and comorbidities. He has been on his self intermittent catheterization to keep the urethra open but his says with his dementia and chronic deteriorating health is not been self cathing. At this point he is in the hospital he is on BiPAP to help him breathe is got chronic medical problems that are worsening the nursing staff attend the place a catheter but because of the severe dense strictures along the entire length of the urethra they were not able so procedure will be done today to dilate the strictures and place a Manzo. [facility] Medical History (Updated 06/05/22 @ 08:[address] Ethan Milan MD) Arthritis Back problem Chronic neck and back pain Diabetes Diarrhea Fatigue GERD (gastroesophageal reflux disease) Hearing problem Hyperlipidemia Hypertension Incontinence Irregular heart beat Kidney disease Knee pain Non-smoker Seasonal allergies Skin cancer Home Medications ascorbic acid (vitamin C) 1,000 mg tablet 1,000 mg PO DAILY 11/14/16 [History Last Taken 04/08/21 08:00] finasteride 1 mg tablet (Propecia) 5 mg PO DAILY 02/20/21 [History Last Taken 04/08/21 08:00] blood sugar diagnostic (OneTouch Verio test strips) #100 ea 04/16/21 [Rx Last Taken Unknown] ferrous sulfate 325 mg (65 mg iron) tablet 325 mg PO DAILY 08/28/21 [History Last Taken Unknown] cholecalciferol (vitamin D3) 125 mcg (5,000 unit) capsule 125 mcg PO DAILY 11/28/21 [History Last Taken Unknown] tamsulosin 0.4 mg capsule (Flomax) 0.4 mg PO DAILY 11/28/21 [History Last Taken Unknown] lisinopril 10 mg tablet 10 mg PO DAILY #90 tabs 02/11/22 [Rx Last Taken Unknown] amlodipine 5 mg tablet 5 mg PO DAILY #30 tabs 04/18/22 [Rx Last Taken Unknown] insulin NPH isoph U-100 human 100 unit/mL subcutaneous suspension 29 unit (0.29 mL) subcut BID #10 mL 04/25/22 [Rx Last Taken Unknown] donepezil 10 mg tablet (Aricept) 10 mg PO QHS 06/05/22 [History Last Taken Unknown] loperamide 2 mg capsule (Imodium A-D) 2 mg PO .COMPLEX PRN loose stool 06/05/22 [History Last Taken Unknown] loratadine 10 mg capsule (Claritin Liqui-Gel) 10 mg PO DAILY 06/05/22 [History Last Taken Unknown] simvastatin 20 mg tablet (Zocor) 20 mg PO QHS 06/05/22 [History Last Taken Unknown] Allergy/AdvReac Type Severity Reaction Status Date / Time No Known Allergies Allergy Verified 06/05/22 03:44 Family History Brother Heart disease Myocardial infarction Mother Myocardial infarction Heart disease Father CVA (cerebral vascular accident) Surgical History history of caataract removal History of urethral stricture Social History household members: spouse Smoking Status: Never smoker alcohol intake: never substance use type: does not use what type of physical activity do you participate in: none Physical Exam Narrative On exam he is on BiPAP he is responding but no conversation was held because he was on BiPAP machine breathing penis is circumcised he had a very tight meatal stenosis and he also has known to have strictures along the course of the urethra testicles are normal digital rectal exam deferred abdomen is obese he is alert but not oriented to place or time. Lab / Micro Data Result Diagrams: 06/06/22 05:20 06/06/22 05:20 Labs: Laboratory Results - last 24 hr 06/05/22 23:05: POC Glucose 310 H 06/06/22 05:20: WBC 18.9 H, RBC 3.78 L, Hgb 12.0 L, Hct 36.7 L, MCV 97.1 H, MCH 31.7, MCHC 32.7, RDW Std Deviation 48.7 H, RDW Coeff of Bebe 13.7, Plt Count 106 L, MPV 11.0, Immature Gran % (Auto) 0.400, Neut % (Auto) 47.1, Lymph % (Auto) 45.5 H, [place] % (Auto) 6.4, Eos % (Auto) 0.3, Baso % (Auto) 0.3, Absolute Neuts (auto) 8.9 H, Absolute Lymphs (auto) 8.59 H, Nucleated RBC % 0, Macrocytosis 1+ 06/06/22 05:20: Sodium 139, Potassium 4.4, Chloride 112 H, Carbon Dioxide 19.0 L, Anion Gap 8, BUN 39 H, Creatinine 3.16 H, Estim Creat Clear Calc 19.87, Est GFR (MDRD) Af Amer 24 L, Est GFR (MDRD) Non-Af 20 L, BUN/Creatinine Ratio 12.3, Glucose 255 H, Calcium 7.9 L 06/06/22 05:20: Uric Acid 8.6 H, Phosphorus 3.9, Total Creatine Kinase 308 06/06/22 06:53: POC Glucose 233 H 06/06/22 11:27: POC Glucose 284 H 06/06/22 15:50: POC Glucose 368 H 06/06/22 15:55: Ur Random Sodium 20, Urine Potassium 54.0, Urine Chloride 11 Micro: Microbiology 06/06/22 02:10 Sputum, Expectorated/Coughed Gram Stain - Final 06/06/22 06:20 Urine, Clean Catch Streptococcus pneumoniae Antigen (M - Final
--- NOTE | 2022-06-06 17:50 | PCM.OPRPT ---
Report of Operation Date of Procedure: 06/06/22 Pre-Operative Diagnosis: Urethral stricture disease Post-Operative Diagnosis: Same Surgery/Procedure Performed:: Dilation of urethral strictures and placement of a 16 [place]an catheter Description of Surgical Findings:: At the bedside I used a local anesthetic for control of pain the penis and testicles were prepped and draped in usual sterile fashion I advanced a wire with the FestEvo urology kit through the urethra into the bladder by feel once the wire was in place then after this I used the serial dilators in the kit started with a 14 Zimbabwean then 16 Zimbabwean then 18 and 20 Zimbabwean to dilate the urethra was very dense strictures along the entire length the urethra as is dilating the gallow but a urine when I went deep into the urethra when I got to the prostate beyond the prostate and bladder with reached dilator. Then once this was accomplished I try to go over the wire with the 16 [place]an solomon tip catheter using the guide but the wire kinked so I switched out to a new wire once I got the wire new wire in place then over that wire I advanced a 16 [place]an solomon tip catheter into the bladder with return of bloody urine. I then irrigated the catheter out until was completely clear and draining there was some urine in the bladder but not expect significant amount. This was placed to Steiner drainage 10 cc in the balloon and was secured to the patient. For now we will leave this catheter in place and he ought to go home with a catheter he can follow-up in my office after discharge hopefully when he improves he will need further work for the stents urethral strictures. Surgeon: Darrell Stout Type of Anesthesia: Local Drains: 16 fr solomon tip steiner Admit VTE Documentation VTE Present on Admission: No
--- NOTE | 2022-06-06 19:20 | NURSING ---
dr cope placed steiner with several attempts with urology tray and 350cc bright red urine remmoved. flushed with ns and no clots obs now. family in at bedside. linens changed and pt moved up in bed. doing much better with bipap now
[2022-06-06] MEDS: Donepezil HCl 10 MG Tablet PO (22:01)
[2022-06-06] MEDS: Atorvastatin Calcium 10 MG Tablet PO (22:02)
[2022-06-06 22:45] LABS: Bedside Glucose 252 mg/dL (74-106)
[2022-06-07] VITALS (24 sets, daily range): BP systolic 142–167; BP diastolic 06–83; PULSE 57–86; RESP 12–42; TEMP 36.1–36.9; O2SAT 90–97
--- NOTE | 2022-06-07 07:28 | CT_ITS ---
EXAMINATION: CT CHEST/THORAX WITHOUT CONTRAST - CT Chest W/O Contrast Injection INDICATION: Male, 87 years old. Shortness of breath TECHNIQUE: Helically acquired images were obtained of the chest. A radiation dose optimization technique was used for this scan. IV Contrast dosage and agent: None.. Imaging is degraded by respiratory motion. COMPARISON: Portable AP upright chest x-ray 06/05/2022 FINDINGS: LUNGS, PLEURA AND LARGE AIRWAYS: There is moderate elevation of the right diaphragm. Opacity in much of the right lower lobe is consistent with collapse. This is accompanied by small pleural effusion, however, and infection is not excluded. There is trace subsegmental atelectasis in the medial basilar left lower lobe. No pleural effusion or thickening. No pneumothorax. THYROID: No thyroid lesions. HEART AND PERICARDIUM: Heart size is normal. No pericardial effusion. CORONARY ARTERIES: Coronary artery calcification is seen. VESSELS: There are atherosclerotic calcifications of the thoracic aortic arch and descending thoracic aorta Thoracic aorta is not dilated. MEDIASTINUM AND DANTE: No mediastinal or hilar adenopathy. Esophagus is unremarkable. Moderate size to large hiatal hernia containing fundus of the stomach as well as adjacent perigastric fatty tissues. UPPER ABDOMEN: Subtle hyperdensity along the dependent aspect of the neck of the gallbladder raises question of with lithogenic sludge. Although not fully included in the [id number], there is suggestion of hepatomegaly. Also not fully included in the [id number] is a 4.2 x 2.85 cm subcapsular cortical cyst at the lateral upper pole of the left kidney. BONES: There are extensive spondylotic degenerative changes of the thoracic spine with multilevel bridging or near bridging anterior endplate osteophytes. No suspicious lytic or blastic abnormality. CT/Chest without Contrast IMPRESSION: 1. Collapse of much of the right lower lobe with concomitant elevation of right diaphragm now present. A small pleural effusion is also noted. Infection not excluded. 2. Atherosclerotic vascular calcifications. Heart size within normal limits. No thoracic aortic aneurysm. 3. Moderate sized to large hiatal hernia containing the gastric fundus and perigastric fatty tissues. 4. 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 5. Although not fully included in the [id number], there is suggestion of hepatomegaly. Possible small volume of lithogenic sludge in the gallbladder. A 4 cm cortical cyst is also seen at the upper pole of the left kidney. Electronically Signed: Angel Childers MD at 8:32 EDT ,
[2022-06-07 07:44] LABS: Absolute Lymphocyte Count 10.49 X10^3/uL (0.83-4.51); Absolute Neutrophil Count 8.5 X10^3/uL (2.0-7.7); Basophil# 0.05 X10^3/uL; Basophil% 0.2 % (0-1); Eosinophil# 0.11 X10^3/uL; Eosinophils% 0.5 % (0-5); Hematocrit 36.8 % (40-54); Hemoglobin 12.2 g/dL (13.0-16.5); Lymphocyte # 10.49 X10^3/ul (0.83-4.51); Lymphocyte % 51.6 % (19-41); Mean Corp Hgb Conc 33.2 g/dL (32-36); Mean Corpuscular Hgb 31.9 pg (27.0-32.0); Mean Corpuscular Volume 96.3 fL (80-94); Mean Platelet Vol. 11.4 fl (6.2-12.0); Monocyte# 1.14 X10^3/uL; Monocyte% 5.6 % (0-10); NRBC Flagged by Analyzer 0 % (0-5); Neutrophil # 8.47 X10^3/uL (2.7-7.7); Neutrophil % 41.8 % (47-70); POSITIVE DIFFERENTIAL YES; POSITIVE MORPHOLOGY YES; Platelet Count 126 K/mm3 (150-450); RBC Distribution Width CV 13.8 % (11.6-14.6); RBC Distribution Width SD 48.7 fl (35.1-43.9); Red Blood Count 3.82 M/mm3 (4.6-6.2); White Blood Count 20.3 K/mm3 (4.4-11.0)
[2022-06-07 07:47] LABS: Differential Indicated SCAN CRITERIA MET
[2022-06-07 07:56] LABS: Anion Gap 8 (5-15); BUN 43 mg/dL (7-18); BUN/Creat Ratio 13.8 RATIO (10-20); Calcium,Total 8.3 mg/dL (8.5-10.1); Chloride 114 mmol/L (98-107); Creatinine, Serum 3.12 mg/dL (0.70-1.30); EST Glomerular Filtration Rate 20 mL/min (>60); Est Glom Filt Rate - Afr Amer 25 mL/min (>60); Estimated Creatinine Clearance 20.13 ml/min; Glucose 161 mg/dL (74-106); Potassium 4.4 mmol/L (3.5-5.1); Sodium Level 141 mmol/L (136-145)
--- NOTE | 2022-06-07 08:05 | NURSING ---
Pt back from CT scan, abdominal breathing noted and patient c/o SOB. Saturating 93% on 6L NC, Placed back on BiPap at this time. Will continue to monitor.
[2022-06-07 09:43] LABS: Atypical Lymphocyte 1+ %; Platelet Estimate SLT DEC (ADEQ)
[2022-06-07 09:44] LABS: Red Cell Morphology NORM C+C NORMAL (NORM C&C)
--- NOTE | 2022-06-07 09:56 | PCM.CONS.B ---
Consult Date of Consult: 06/07/22 Reason for Consult Status post placement of Manzo catheter yesterday due to urethral strictures. The catheter is in place this morning urine is nice and clear no more bleeding no more blood. Patient still on BiPAP. At this point recommend he go home with the Manzo catheter on discharge he needs a follow-up with me in the office and I spoke to the patient and family regarding probable dilation of the urethral strictures even more as an outpatient setting once he is clinically stable call me with questions, signing off.
[2022-06-07] MEDS: Ceftriaxone 1 GM/50 ML BAG IV (10:24)
[2022-06-07] MEDS: 0.9% Saline Lock 10 ML Syringe IV (10:25)
[2022-06-07 10:56] LABS: Bedside Glucose 160 mg/dL (74-106)
--- NOTE | 2022-06-07 10:57 | PN.HOSP_ITS ---
Subjective Subjective Patient seen and examined. He looks much better today. He had no active complaints. He is on BiPAP. He was placed on BiPAP yesterday for worsening shortness of breath. He had a steiner catheter inserted by urology yesterday. WBC is up to 20. Cr is 3.12 today. Objective Data Objective Data Vital Signs: Vital Signs Temp Pulse Resp BP Pulse Ox O2 Del Method O2 Flow Rate 97.1 F L 59 L 28 H 147/71 H 97 Bi-pap 45 06/07/22 10:00 06/07/22 10:00 06/07/22 10:00 06/07/22 10:00 06/07/22 10:00 06/07/22 10:00 06/07/22 08:15 FiO2 45 06/07/22 10:00 Oxygen Flow Rate (L/min) 45 Oxygen Delivery Method Bi-pap Weight: 263 lb 7.238 oz Body Mass Index (BMI) 32.3 Intake & Output: Intake and Output for Last 24 Hours 06/05/22 06/06/22 06/07/22 23:59 23:59 23:59 Intake Total 4131.67 / 4531.67 2600.83 / 2600.83 Output Total 100 / 200 700 / 700 150 / 150 Balance 4031.67 / 4331.67 1900.83 / 1900.83 -150 / -150 Lab / Micro Data Result Diagrams: 06/07/22 06:56 06/07/22 06:56 Labs: Laboratory Results - last 24 hr 06/06/22 05:20: Uric Acid 8.6 H, Phosphorus 3.9, Total Creatine Kinase 308 06/06/22 11:27: POC Glucose 284 H 06/06/22 15:50: POC Glucose 368 H 06/06/22 15:55: Ur Random Sodium 20, Urine Potassium 54.0, Urine Chloride 11 06/06/22 22:06: POC Glucose 252 H 06/07/22 06:56: WBC 20.3 H, RBC 3.82 L, Hgb 12.2 L, Hct 36.8 L, MCV 96.3 H, MCH 31.9, MCHC 33.2, RDW Std Deviation 48.7 H, RDW Coeff of Bebe 13.8, Plt Count 126 L, MPV 11.4, Immature Gran % (Auto) 0.300, Neut % (Auto) 41.8 L, Lymph % (Auto) 51.6 H, [place] % (Auto) 5.6, Eos % (Auto) 0.5, Baso % (Auto) 0.2, Absolute Neuts (auto) 8.5 H, Absolute Lymphs (auto) 10.49 H, Nucleated RBC % 0, Differential Comment , Atypical Lymphocytes 1+, Platelet Estimate SLT DEC, RBC Morphology NORM C+C 06/07/22 06:56: Sodium 141, Potassium 4.4, Chloride 114 H, Carbon Dioxide 19.0 L , Anion Gap 8, BUN 43 H, Creatinine 3.12 H, Estim Creat Clear Calc 20.13, Est GFR (MDRD) Af Amer 25 L, Est GFR (MDRD) Non-Af 20 L, BUN/Creatinine Ratio 13.8, Glucose 161 H, Calcium 8.3 L 06/07/22 10:22: POC Glucose 160 H Micro: Microbiology 06/06/22 02:10 Sputum, Expectorated/Coughed Gram Stain - Final 06/06/22 06:20 Urine, Clean Catch Streptococcus pneumoniae Antigen (M - Final 06/05/22 Unknown Urine, Clean Catch Legionella Antigen - Final 06/05/22 04:30 Mucosa - Nasopharyngeal Respiratory Panel (PCR) - Final Radiography Diagnostic Testing: Radiology Impression Renal Ultrasound 06/06/22 10:21 IMPRESSION: 1. No evidence of obstructive uropathy or acute renal process. 2. Benign bilateral renal cysts, no specific imaging follow-up required. 3. Echogenic liver as can be seen with steatosis or early fibrosis. Electronically Signed: Polo Salazar MD at 2:46 EDT , Chest CT 06/07/22 07:28 IMPRESSION: 1. Collapse of much of the right lower lobe with concomitant elevation of right diaphragm now present. A small pleural effusion is also noted. Infection not excluded. 2. Atherosclerotic vascular calcifications. Heart size within normal limits. No thoracic aortic aneurysm. 3. Moderate sized to large hiatal hernia containing the gastric fundus and perigastric fatty tissues. 4. 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 5. Although not fully included in the [id number]-fdnl, there is suggestion of hepatomegaly. Possible small volume of lithogenic sludge in the gallbladder. A 4 cm cortical cyst is also seen at the upper pole of the left kidney. Electronically Signed: Angel Childers MD at 8:32 EDT , Physical Exam Const alert, oriented x3 and no apparent distress HEENT head/scalp atraumatic, moist oral mucous membranes and oropharynx normal Eyes PERRL, EOMs intact bilaterally and conjunctivae normal Neck no lymphadenopathy, supple and no JVD Resp Resp Narrative: mildly diminished breath sounds bibasally, mild wheezes, no crackles. On BIPAP Cardio regular rate, regular rhythm, S1 normal heart sound, S2 normal heart sound and no murmurs GI normal to inspection, nondistended, normoactive bowel sounds, soft to palpation, non-tender and non-distended Extremity normal to inspection, full ROM and no clubbing, cyanosis or edema Neuro oriented x3, CN's II-XII intact bilaterally, moves all extremities and no focal motor deficits Sensorium / Orientation: awake and alert Coordination / Balance: [id number] test normal Motor Exam: strength 5/5 throughout Psych affect normal Assessment & Plan Assessment/Plan (1) NSTEMI (non-ST elevated myocardial infarction): (2) Syncope: (3) Right lower lobe pneumonia: (4) Hypoxia: PLAN: Plan #Syncope * associated with episodes of bradycardia, though he was in afib at time of admission * 2D echo done and showed EF of 60% and no regional wall motion abnormalities. PA pressure is 30mmHg. * cardiology on board * stress test showed no evidence of infarct * fall precautions * #Nonstemi * troponin trended up to a peak of 828. * cardiology on board * EKG showed afib, rate controlled * 2D echo as above * stress test as above * cardiology recommends conservative management for now * #Acute hypoxic respiratory failure due to right lower lobe pneumonia * had to be transitioned to BIPAP yesterday * remains on BIPAP * on IV ceftriaxone and azithromycin * CT chest done today showed collapse of the much of hte right lower lobe with elevatedion of ht right hemidiaphragm, and a small pleural effusion, as well as a modere to large sized hiatal hernia containing the gastric fundus and perigastric fatty tissues * titrate oxygen to maintain sats >90% * breathing treatment with bronchodilators * pulmonology consulted; await rec's * #Afib: * new onset.rate controlled, with episodes of bradycardia. * Not on any rate control medication. on eliquis. * Cardiology on board. 2D echo as above * #Juany on CKD 3 * Cr is down to 3.12, from 3.16 yesterday * nephrology on board * renal USG showed no evidence of obstruction or acute renal process * there was concern about obstruction as he has a history of urethral stricture * urology consulted and he had steiner catheter placed. Plan is for him to be discharged with Steiner catheter in situ. * * #Hypertension: on amlodipine and hydralazine #Hyperlipidemia; on statiin #Type 2 diabetes mellitus: on ISS. Accuchecks ACHS #BPH: on finasteride and flomax #Dementia with behavioral disturbance: on aricept. PT/OT on board. Fall precautions. DVT prophylaxis; on eliquis. Code status; full code Charges/Coding Visit Charges Inpatient E&M: 64387 Subs Hosp L3
[2022-06-07] MEDS: Cholecalciferol (Vit D3) 125 MCG CAPSULE (5,000 UNITS) PO (12:31)
[2022-06-07] MEDS: Loratadine 10 MG Tablet PO (12:31)
[2022-06-07] MEDS: Finasteride 5 MG Tablet PO (12:31)
[2022-06-07] MEDS: Ascorbic Acid 500 MG Tablet 1000 MG PO (12:31)
[2022-06-07] MEDS: Ferrous Sulfate 325 MG Tablet PO (12:32)
[2022-06-07] MEDS: amLODIPine 5 MG Tablet PO (12:32)
[2022-06-07] MEDS: Tamsulosin HCl 0.4 MG Capsule PO (12:32)
[2022-06-07] MEDS: Aspirin 81 MG TAB.CHEW PO (12:32)
--- NOTE | 2022-06-07 12:52 | PCM.PN.REN ---
Subjective Subjective f/u maci/ckd -needed NIV yesterday -feels a little better -steiner inserted, u/s no obstruction b/l cyst Objective Data Objective Data Vital Signs: Vital Signs Temp Pulse Resp BP Pulse Ox O2 Del Method O2 Flow Rate 97.1 F L 57 L 24 H 155/73 H 93 Nasal Cannula 6 06/07/22 12:23 06/07/22 12:23 06/07/22 12:23 06/07/22 12:23 06/07/22 12:23 06/07/22 12:23 06/07/22 12:23 FiO2 45 06/07/22 10:00 Oxygen Flow Rate (L/min) 6 Oxygen Delivery Method Nasal Cannula Weight: 119.5 kg Body Mass Index (BMI) 32.3 Intake & Output: Intake and Output for Last 24 Hours 06/05/22 06/06/22 06/07/22 23:59 23:59 23:59 Intake Total 4131.67 / 4531.67 2600.83 / 2600.83 170 / 170 Output Total 100 / 200 700 / 700 400 / 400 Balance 4031.67 / 4331.67 1900.83 / 1900.83 -230 / -230 Lab / Micro Data Attestation: I reviewed the patient's lab results. Result Diagrams: 06/07/22 06:56 06/07/22 06:56 Labs: Laboratory Results - last 24 hr 06/06/22 05:20: Uric Acid 8.6 H, Phosphorus 3.9, Total Creatine Kinase 308 06/06/22 15:50: POC Glucose 368 H 06/06/22 15:55: Ur Random Sodium 20, Urine Potassium 54.0, Urine Chloride 11 06/06/22 22:06: POC Glucose 252 H 06/07/22 06:56: WBC 20.3 H, RBC 3.82 L, Hgb 12.2 L, Hct 36.8 L, MCV 96.3 H, MCH 31.9, MCHC 33.2, RDW Std Deviation 48.7 H, RDW Coeff of Bebe 13.8, Plt Count 126 L, MPV 11.4, Immature Gran % (Auto) 0.300, Neut % (Auto) 41.8 L, Lymph % (Auto) 51.6 H, [place] % (Auto) 5.6, Eos % (Auto) 0.5, Baso % (Auto) 0.2, Absolute Neuts (auto) 8.5 H, Absolute Lymphs (auto) 10.49 H, Nucleated RBC % 0, Differential Comment , Atypical Lymphocytes 1+, Platelet Estimate SLT DEC, RBC Morphology NORM C+C 06/07/22 06:56: Sodium 141, Potassium 4.4, Chloride 114 H, Carbon Dioxide 19.0 L, Anion Gap 8, BUN 43 H, Creatinine 3.12 H, Estim Creat Clear Calc 20.13, Est GFR (MDRD) Af Amer 25 L, Est GFR (MDRD) Non-Af 20 L, BUN/Creatinine Ratio 13.8, Glucose 161 H, Calcium 8.3 L 06/07/22 10:22: POC Glucose 160 H Micro: Microbiology 06/06/22 02:10 Sputum, Expectorated/Coughed Gram Stain - Final 06/06/22 02:10 Sputum, Expectorated/Coughed Respiratory Culture - Preliminary Appears to be normal respiratory lenard. Further studies to follow. 06/05/22 01:17 Blood Culture (Wb) - Anticubital Left Blood Culture - Preliminary No growth in 48 hours. 06/05/22 01:18 Blood Culture (Wb) - Right Forearm Blood Culture - Preliminary No growth in 48 hours. 06/06/22 06:20 Urine, Clean Catch Streptococcus pneumoniae Antigen (M - Final 06/05/22 Unknown Urine, Clean Catch Legionella Antigen - Final 06/05/22 04:30 Mucosa - Nasopharyngeal Respiratory Panel (PCR) - Final Radiography Diagnostic Testing: Radiology Impression Renal Ultrasound 06/06/22 10:21 IMPRESSION: 1. No evidence of obstructive uropathy or acute renal process. 2. Benign bilateral renal cysts, no specific imaging follow-up required. 3. Echogenic liver as can be seen with steatosis or early fibrosis. Electronically Signed: Polo Salazar MD at 2:46 EDT , Chest CT 06/07/22 07:28 IMPRESSION: 1. Collapse of much of the right lower lobe with concomitant elevation of right diaphragm now present. A small pleural effusion is also noted. Infection not excluded. 2. Atherosclerotic vascular calcifications. Heart size within normal limits. No thoracic aortic aneurysm. 3. Moderate sized to large hiatal hernia containing the gastric fundus and perigastric fatty tissues. 4. 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 5. Although not fully included in the [id number], there is suggestion of hepatomegaly. Possible small volume of lithogenic sludge in the gallbladder. A 4 cm cortical cyst is also seen at the upper pole of the left kidney. Electronically Signed: Angel Childers MD at 8:32 EDT , Physical Exam Narrative awake, respiration better s1s2 regular coarse b/s abdomen obese, non tender steiner, yellow urine Assessment & Plan Assessment/Plan (1) Acute kidney injury superimposed on CKD: (2) Syncope: (3) Urethral stricture: QUALIFIERS: Urethral stricture type: other stricture Urethral stricture sex-location: male urethra-overlapping sites Qualified Code(s): N35.816 - Other urethral stricture, male, overlapping sites PLAN: Plan Assessment Pleasant 87-year-old gentleman underlying history of hypertension, diabetes,Dyslipidemia, urethral stricture in addition to chronic kidney disease admitted to the hospital due to syncope. Nephrology is consulted for acute kidney injury #1 acute kidney injury on chronic kidney disease -His baseline serum creatinine appears to be around 1.8 mg/dL -Acute insult likely combination of hemodynamics in setting of syncope -u/s no obstruction -scr peaked at 3.16mg/dL -stable at 3.12mg/dL today #2 volume -urine sodium of 20, hence still has decrease EBV -bp ok -given respiratory status can hold of on fluids/lasix today #3 urethral stricture -steiner inserted, appreciate urology assistance #4 syncope/sob -echo/stress test unremarkable Plan -continue with supportive care today -hold lasix/fluids -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
[2022-06-07] MEDS: Albuterol 2.5 MG/3 ML VIAL.NEB. INHALATION (14:58)
[2022-06-07 17:00] LABS: Bedside Glucose 174 mg/dL (74-106)
[2022-06-07 17:08] LABS: Urine Sodium 27 mmol/L (Not Establ.)
[2022-06-07] MEDS: Atorvastatin Calcium 10 MG Tablet PO (22:10)
[2022-06-07] MEDS: Insulin NPH Human 100 UNITS/ML PEN 29 UNITS SC (22:10)
[2022-06-07] MEDS: Insulin Lispro 100 UNIT/ML INSULN.PEN SC (22:11)
[2022-06-07] MEDS: Donepezil HCl 10 MG Tablet PO (22:12)
[2022-06-07 23:35] LABS: Bedside Glucose 226 mg/dL (74-106)
[2022-06-08] VITALS (22 sets, daily range): BP systolic 131–171; BP diastolic 70–91; PULSE 56–75; RESP 12–30; TEMP 36.3–36.8; O2SAT 93–96
[2022-06-08] MEDS: 0.9% Saline Lock 10 ML Syringe IV (03:40)
--- NOTE | 2022-06-08 05:57 | EX.PCM.CONCC ---
Assessment & Plan Assessment/Plan (1) Acute hypoxemic respiratory failure: PLAN: Plan RECOMMENDATIONS: 1. Transition from BiPAP to Airvo for patient comfort. Wean FiO2 for saturations greater than 90%. 2. Transition from current antibiotics to Zosyn to provide better aspiration coverage. 3. Continue aggressive bronchopulmonary hygiene. PEP therapy has been ordered. 4. Continue modified diet and aspiration precautions per speech therapy. IMPRESSIONS: 1. Acute hypoxemic respiratory failure Appears to be secondary to right lower lobe pneumonia with concern for aspiration. The patient is currently on a modified diet after being evaluated by speech therapy. For patient comfort, I would recommend that we transition him from BiPAP to Airvo heated high flow and continue to wean FiO2 to maintain saturations at or above 90%. Continue supervised feeds and aspiration precautions. I would recommend that his current antibiotics be discontinued and he be transitioned to Zosyn to provide better aspiration coverage. Initiate aggressive bronchopulmonary hygiene. If the aforementioned interventions do not provide any improvement in the patient's respiratory status, bronchoscopy could be considered. 2. Acute on chronic kidney disease Potentially related to hemodynamic instability in the setting of syncope. No obstruction was noted on renal ultrasound. Nephrology is currently following to assist with medical management. The patient does have a urethral stricture, which required dilation and subsequent Manzo catheter insertion. Continue to monitor urine output for now. No indication for renal replacement therapy. 3. Syncope/NSTEMI/atrial fibrillation Continue current medical management per cardiology recommendations. 4. Advanced age/obesity/hypertension/hyperlipidemia/BPH/dementia/diabetes mellitus Complicates care, management, recovery and prognosis. Continue home medications as indicated. This note was generated with [employer] dictation software. It may contain incorrect words, spelling, and punctuation that were not noted in checking the note before signing. HPI Consult Data Date of Consult: 06/08/22 HPI Narrative Reason for Consultation: Respiratory failure HPI Narrative: The patient is an 87-year-old male, with a history as outlined below, who presented to the emergency department via EMS on June 05 with syncope. The patient has no pre-existing lung conditions and does not utilize supplemental oxygen at his baseline. His medical history includes diabetes mellitus/chronic pain/anemia/GERD and history of DVT. On presentation to the emergency department, the patient was noted to be afebrile and hemodynamically stable. He was, nevertheless, hypoxemic on room air. Initial laboratory evaluation revealed an elevated white blood cell count to 26,000. Coagulation profile was within normal limits. Chemistry profile was notable for a bicarbonate of 16, creatinine of 2.35 and lactate of 3.7. Troponin was within normal limits. BNP was mildly elevated at 145. Urine analysis was positive for leukocyte esterase and 2+ urine bacteria. Acetone level was negative. MRSA screen was negative. Head CT revealed no acute intracranial finding. Initial chest x-ray demonstrated a right lower lobe infiltrate. EKG demonstrated the presence of atrial fibrillation. Due to the patient's presenting syncope, cardiology was consulted to evaluate the patient. A cardiac stress test was then completed on June 06 which showed no evidence of significant ischemia or infarction. The estimated ejection fraction was 63%. Due to an inability to place a Manzo catheter, a urology consultation was obtained as well on June 06. The patient ultimately had to be taken to the OR on June 06 due to the presence of a urethral stricture which required dilation. In addition, the patient completed a modified barium swallow on June 06, which raise concerns for aspiration, for which a modified diet was recommended. Ironically, despite the concern for potential aspiration, the patient has only been maintained on ceftriaxone and azithromycin throughout his hospital course, to date. The patient's oxygenation status has worsened. He is currently on BiPAP with an FiO2 of 50%. [facility] Medical History (Updated 06/08/22 @ 06:[address] Gilbert Watters, ) Arthritis Back problem Chronic neck and back pain Diabetes Diarrhea Fatigue GERD (gastroesophageal reflux disease) Hearing problem Hyperlipidemia Hypertension Incontinence Irregular heart beat Kidney disease Knee pain Non-smoker Seasonal allergies Skin cancer Home Medications ascorbic acid (vitamin C) 1,000 mg tablet 1,000 mg PO DAILY 11/14/16 [History Last Taken 04/08/21 08:00] finasteride 1 mg tablet (Propecia) 5 mg PO DAILY 02/20/21 [History Last Taken 04/08/21 08:00] blood sugar diagnostic (MovetisTouch Verio test strips) #100 ea 04/16/21 [Rx Last Taken Unknown] ferrous sulfate 325 mg (65 mg iron) tablet 325 mg PO DAILY 08/28/21 [History Last Taken Unknown] cholecalciferol (vitamin D3) 125 mcg (5,000 unit) capsule 125 mcg PO DAILY 11/28/21 [History Last Taken Unknown] tamsulosin 0.4 mg capsule (Flomax) 0.4 mg PO DAILY 11/28/21 [History Last Taken Unknown] lisinopril 10 mg tablet 10 mg PO DAILY #90 tabs 02/11/22 [Rx Last Taken Unknown] amlodipine 5 mg tablet 5 mg PO DAILY #30 tabs 04/18/22 [Rx Last Taken Unknown] insulin NPH isoph U-100 human 100 unit/mL subcutaneous suspension 29 unit (0.29 mL) subcut BID #10 mL 04/25/22 [Rx Last Taken Unknown] donepezil 10 mg tablet (Aricept) 10 mg PO QHS 06/05/22 [History Last Taken Unknown] loperamide 2 mg capsule (Imodium A-D) 2 mg PO .COMPLEX PRN loose stool 06/05/22 [History Last Taken Unknown] loratadine 10 mg capsule (Claritin Liqui-Gel) 10 mg PO DAILY 06/05/22 [History Last Taken Unknown] simvastatin 20 mg tablet (Zocor) 20 mg PO QHS 06/05/22 [History Last Taken Unknown] Allergy/AdvReac Type Severity Reaction Status Date / Time No Known Allergies Allergy Verified 06/05/22 03:44 Family History Brother Heart disease Myocardial infarction Mother Myocardial infarction Heart disease Father CVA (cerebral vascular accident) Surgical History history of caataract removal History of urethral stricture Social History household members: spouse Smoking Status: Never smoker alcohol intake: never substance use type: does not use what type of physical activity do you participate in: none ROS Constitutional Constitutional: Reports fatigue; Denies chills or fever(s) Eyes Eyes: Denies blurry vision or change in vision ENT HEENT: Reports dysphagia; Denies epistaxis or headache(s) Cardiovascular Cardiovascular: Reports dyspnea; Denies chest pain Respiratory/Chest Respiratory/Chest: Reports dyspnea; Denies cough Gastrointestinal Gastrointestinal: Denies abdominal pain, nausea or vomiting Genitourinary Genitourinary: Reports difficulty urinating Musculoskeletal Musculoskeletal: Denies arthralgias or back pain Integumentary Integumentary: Denies lesions, rash or skin ulcer Neurologic Neurologic: Reports syncope Psychiatric Psychiatric: Denies anxiety or depression Endocrine Endocrinology: Reports fatigue Hematologic/Lymphatic Hematologic/Lymphatic: Denies easy bleeding or easy bruising Physical Exam Const alert and no apparent distress Constitutional Narrative: Fatigued in appearance. BiPAP currently in place. Nutritional Appearance: obese HEENT normocephalic and head/scalp atraumatic Eyes PERRL, EOMs intact bilaterally and conjunctivae normal Neck supple General: trachea midline Chest inspection of chest normal Resp no use of accessory muscles Auscultation: rales bilateral lower and diminished lung sounds Cardio regular rate and regular rhythm GI normal to inspection, nondistended, normoactive bowel sounds Extremity Extremity Narrative: Wrapped lower extremities. General Extremity: edema; Negative for clubbing Skin no rashes or lesions noted Neuro CN's II-XII intact bilaterally and no focal motor deficits Psych Mood & Affect: flat affect Lab / Micro Data Result Diagrams: 06/08/22 05:28 06/07/22 06:56 Labs: Laboratory Results - last 24 hr 06/07/22 06:56: WBC 20.3 H, RBC 3.82 L, Hgb 12.2 L, Hct 36.8 L, MCV 96.3 H, MCH 31.9, MCHC 33.2, RDW Std Deviation 48.7 H, RDW Coeff of Bebe 13.8, Plt Count 126 L, MPV 11.4, Immature Gran % (Auto) 0.300, Neut % (Auto) 41.8 L, Lymph % (Auto) 51.6 H, [place] % (Auto) 5.6, Eos % (Auto) 0.5, Baso % (Auto) 0.2, Absolute Neuts (auto) 8.5 H, Absolute Lymphs (auto) 10.49 H, Nucleated RBC % 0, Differential Comment , Atypical Lymphocytes 1+, Platelet Estimate SLT DEC, RBC Morphology NORM C+C 06/07/22 06:56: Sodium 141, Potassium 4.4, Chloride 114 H, Carbon Dioxide 19.0 L, Anion Gap 8, BUN 43 H, Creatinine 3.12 H, Estim Creat Clear Calc 20.13, Est GFR (MDRD) Af Amer 25 L, Est GFR (MDRD) Non-Af 20 L, BUN/Creatinine Ratio 13.8, Glucose 161 H, Calcium 8.3 L 06/07/22 10:22: POC Glucose 160 H 06/07/22 16:34: Ur Random Sodium 27 06/07/22 16:36: POC Glucose 174 H 06/07/22 22:05: POC Glucose 226 H Micro: Microbiology 06/06/22 02:10 Sputum, Expectorated/Coughed Gram Stain - Final 06/06/22 02:10 Sputum, Expectorated/Coughed Respiratory Culture - Preliminary Appears to be normal respiratory lenard. Further studies to follow. 06/05/22 01:17 Blood Culture (Wb) - Anticubital Left Blood Culture - Preliminary No growth in 48 hours. 06/05/22 01:18 Blood Culture (Wb) - Right Forearm Blood Culture - Preliminary No growth in 48 hours. Radiology Impression Chest CT 06/07/22 07:28 IMPRESSION: 1. Collapse of much of the right lower lobe with concomitant elevation of right diaphragm now present. A small pleural effusion is also noted. Infection not excluded. 2. Atherosclerotic vascular calcifications. Heart size within normal limits. No thoracic aortic aneurysm. 3. Moderate sized to large hiatal hernia containing the gastric fundus and perigastric fatty tissues. 4. 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 5. Although not fully included in the [id number], there is suggestion of hepatomegaly. Possible small volume of lithogenic sludge in the gallbladder. A 4 cm cortical cyst is also seen at the upper pole of the left kidney. Electronically Signed: Angel Childers MD at 8:32 EDT , Charges/Coding Visit Charges Inpatient E&M: 00478 Init Hosp L3
[2022-06-08 06:13] LABS: Absolute Lymphocyte Count 8.95 X10^3/uL (0.83-4.51); Basophil# 0.06 X10^3/uL; Basophil% 0.3 % (0-1); Eosinophil# 0.22 X10^3/uL; Eosinophils% 1.3 % (0-5); Hematocrit 39.8 % (40-54); Hemoglobin 13.1 g/dL (13.0-16.5); Lymphocyte # 8.95 X10^3/ul (0.83-4.51); Lymphocyte % 52.1 % (19-41); Mean Corp Hgb Conc 32.9 g/dL (32-36); Mean Corpuscular Hgb 32.1 pg (27.0-32.0); Mean Corpuscular Volume 97.5 fL (80-94); Mean Platelet Vol. 11.5 fl (6.2-12.0); Monocyte% 5.2 % (0-10); NRBC Flagged by Analyzer 0 % (0-5); Neutrophil # 6.99 X10^3/uL (2.7-7.7); Neutrophil % 40.8 % (47-70); POSITIVE DIFFERENTIAL YES; Platelet Count 130 K/mm3 (150-450); RBC Distribution Width CV 13.9 % (11.6-14.6); RBC Distribution Width SD 49.1 fl (35.1-43.9); Red Blood Count 4.08 M/mm3 (4.6-6.2); White Blood Count 17.2 K/mm3 (4.4-11.0)
[2022-06-08 06:25] LABS: Differential Indicated SCAN CRITERIA MET
[2022-06-08] MEDS: Insulin Lispro 100 UNIT/ML INSULN.PEN SC ×4 (06:33→22:19)
[2022-06-08 06:47] LABS: Macrocytosis 1+
[2022-06-08 06:48] LABS: Anisocytosis 1+
[2022-06-08 06:51] LABS: Anion Gap 8 (5-15); BUN 44 mg/dL (7-18); BUN/Creat Ratio 14.8 RATIO (10-20); Calcium,Total 8.2 mg/dL (8.5-10.1); Chloride 112 mmol/L (98-107); Creatinine, Serum 2.97 mg/dL (0.70-1.30); EST Glomerular Filtration Rate 22 mL/min (>60); Est Glom Filt Rate - Afr Amer 26 mL/min (>60); Estimated Creatinine Clearance 21.14 ml/min; Glucose 206 mg/dL (74-106); Potassium 4.2 mmol/L (3.5-5.1); Sodium Level 139 mmol/L (136-145)
[2022-06-08 07:00] LABS: Bedside Glucose 195 mg/dL (74-106)
[2022-06-08 09:26] LABS: M R Staph aureus DNA By PCR Negative (Negative); Probe Check PASS; Specimen Processing Control PASS
--- NOTE | 2022-06-08 10:57 | PN.HOSP_ITS ---
Subjective Subjective Patient seen and examined. He still remains short of breath. He has been switched to Airvo. Antibiotics broadened to Zosyn. He is still coughing but denies any fever or chills, nausea vomiting or diarrhea. Review of systems otherwise negative. WBC 17.2 today. Objective Data Objective Data Vital Signs: Vital Signs Temp Pulse Resp BP Pulse Ox O2 Del Method O2 Flow Rate 97.7 F L 60 24 H 158/77 H 95 Airvo 6 06/08/22 08:17 06/08/22 08:27 06/08/22 08:27 06/08/22 08:17 06/08/22 08:17 06/08/22 08:27 06/07/22 17:44 FiO2 63 06/08/22 08:17 Oxygen Flow Rate (L/min) 6 Oxygen Delivery Method Airvo Weight: 263 lb 3.711 oz Body Mass Index (BMI) 32.3 Intake & Output: Intake and Output for Last 24 Hours 06/06/22 06/07/22 06/08/22 23:59 23:59 23:59 Intake Total 2600.83 / 2600.83 545 / 545 60 / 60 Output Total 700 / 700 650 / 650 450 / 450 Balance 1900.83 / 1900.83 -105 / -105 -390 / -390 Lab / Micro Data Result Diagrams: 06/08/22 05:28 06/08/22 05:28 Labs: Laboratory Results - last 24 hr 06/07/22 16:34: Ur Random Sodium 27 06/07/22 16:36: POC Glucose 174 H 06/07/22 22:05: POC Glucose 226 H 06/08/22 05:28: WBC 17.2 H, RBC 4.08 L, Hgb 13.1, Hct 39.8 L, MCV 97.5 H, MCH 32.1 H, MCHC 32.9, RDW Std Deviation 49.1 H, RDW Coeff of Bebe 13.9, Plt Count 130 L, MPV 11.5, Immature Gran % (Auto) 0.300, Neut % (Auto) 40.8 L, Lymph % (Auto) 52.1 H, [place] % (Auto) 5.2, Eos % (Auto) 1.3, Baso % (Auto) 0.3, Absolute Neuts (auto) 7.0, Absolute Lymphs (auto) 8.95 H, Nucleated RBC % 0, Anisocytosis 1+, Macrocytosis 1+ 06/08/22 05:28: Sodium 139, Potassium 4.2, Chloride 112 H, Carbon Dioxide 19.0 L , Anion Gap 8, BUN 44 H, Creatinine 2.97 H, Estim Creat Clear Calc 21.14, Est GFR (MDRD) Af Amer 26 L, Est GFR (MDRD) Non-Af 22 L, BUN/Creatinine Ratio 14.8, Glucose 206 H, Calcium 8.2 L 06/08/22 06:32: POC Glucose 195 H 06/08/22 07:26: MRSA (PCR) Negative Micro: Microbiology 06/06/22 02:10 Sputum, Expectorated/Coughed Gram Stain - Final 06/06/22 02:10 Sputum, Expectorated/Coughed Respiratory Culture - Final 06/05/22 01:17 Blood Culture (Wb) - Anticubital Left Blood Culture - Preliminary No growth in 48 hours. 06/05/22 01:18 Blood Culture (Wb) - Right Forearm Blood Culture - Preliminary No growth in 48 hours. 06/06/22 06:20 Urine, Clean Catch Streptococcus pneumoniae Antigen (M - Final 06/05/22 Unknown Urine, Clean Catch Legionella Antigen - Final 06/05/22 04:30 Mucosa - Nasopharyngeal Respiratory Panel (PCR) - Final Physical Exam Const alert, oriented x3 and no apparent distress HEENT head/scalp atraumatic, moist oral mucous membranes and oropharynx normal Eyes PERRL, EOMs intact bilaterally and conjunctivae normal Neck no lymphadenopathy, supple and no JVD Resp Resp Narrative: markedly diminished breath sounds in right mid and lower lung posey, no crackles. on AirVo Cardio regular rate, regular rhythm, S1 normal heart sound, S2 normal heart sound and no murmurs GI normal to inspection, nondistended, normoactive bowel sounds, soft to palpation, non-tender and non-distended Extremity normal to inspection, full ROM and no clubbing, cyanosis or edema Neuro oriented x3, CN's II-XII intact bilaterally, moves all extremities and no focal motor deficits Sensorium / Orientation: awake and alert Coordination / Balance: gyugqw-ko-[id number] test normal Motor Exam: strength 5/5 throughout Psych affect normal Assessment & Plan Assessment/Plan (1) NSTEMI (non-ST elevated myocardial infarction): (2) Syncope: (3) Right lower lobe pneumonia: (4) Hypoxia: PLAN: Plan #Syncope * associated with episodes of bradycardia, though he was in afib at time of admission * 2D echo done and showed EF of 60% and no regional wall motion abnormalities. PA pressure is 30mmHg. * cardiology on board * stress test showed no evidence of infarct * fall precautions * #Nonstemi * troponin trended up to a peak of 828. * cardiology on board * EKG showed afib, rate controlled * 2D echo as above * stress test as above * cardiology recommends conservative management for now * #Acute hypoxic respiratory failure due to right lower lobe pneumonia and lung collapse. * CT chest done today showed collapse of the much of hte right lower lobe with elevatedion of ht right hemidiaphragm, and a small pleural effusion, as well as a modere to large sized hiatal hernia containing the gastric fundus and perigastric fatty tissues * now transitioned to IV zosyn due to concerns of aspiration * now on AirVO * titrate oxygen to maintain sats >90% * breathing treatment with bronchodilators * pulmonology on board * chest physiotherapy * #Afib: * new onset.rate controlled, with episodes of bradycardia. * Not on any rate control medication. on eliquis. * Cardiology on board. 2D echo as above * #Juany on CKD 3 * Cr trended down some more to 2.97 * nephrology on board * renal USG showed no evidence of obstruction or acute renal process * there was concern about obstruction as he has a history of urethral stricture * urology consulted and he had steiner catheter placed. Plan is for him to be discharged with Steiner catheter in situ. * * #Hypertension: on amlodipine and hydralazine #Hyperlipidemia; on statiin #Type 2 diabetes mellitus: on ISS. Accuchecks ACHS #BPH: on finasteride and flomax #Dementia with behavioral disturbance: on aricept. PT/OT on board. Fall precautions. DVT prophylaxis; on eliquis. Code status; full code Charges/Coding Visit Charges Inpatient E&M: 41417 Subs Hosp L3
[2022-06-08] MEDS: Aspirin 81 MG TAB.CHEW PO (11:39)
[2022-06-08] MEDS: Ferrous Sulfate 325 MG Tablet PO (11:40)
[2022-06-08] MEDS: Tamsulosin HCl 0.4 MG Capsule PO (11:40)
[2022-06-08] MEDS: Ascorbic Acid 500 MG Tablet 1000 MG PO (11:41)
[2022-06-08] MEDS: amLODIPine 5 MG Tablet PO (11:41)
[2022-06-08] MEDS: Finasteride 5 MG Tablet PO (11:41)
[2022-06-08] MEDS: Cholecalciferol (Vit D3) 125 MCG CAPSULE (5,000 UNITS) PO (11:42)
[2022-06-08] MEDS: Insulin NPH Human 100 UNITS/ML PEN 29 UNITS SC ×2 (11:49→22:16)
[2022-06-08] MEDS: Glucerna Shake 120 ML LIQUID PO (11:52)
[2022-06-08 12:25] LABS: Bedside Glucose 223 mg/dL (74-106)
[2022-06-08] MEDS: Albuterol 2.5 MG/3 ML VIAL.NEB. INHALATION (14:41)
[2022-06-08 18:10] LABS: Bedside Glucose 265 mg/dL (74-106)
--- NOTE | 2022-06-08 18:35 | NUR.TO.PHY ---
All documentation and med pass completed by Lazarus Casillas RN completed under the supervision of this RN.
[2022-06-08] MEDS: Donepezil HCl 10 MG Tablet PO (22:19)
[2022-06-08] MEDS: Atorvastatin Calcium 10 MG Tablet PO (22:20)
[2022-06-08 22:55] LABS: Bedside Glucose 183 mg/dL (74-106)
[2022-06-09] VITALS (23 sets, daily range): BP systolic 126–170; BP diastolic 67–88; PULSE 57–76; RESP 19–96; TEMP 36.3–36.7; O2SAT 94–97
[2022-06-09] MEDS: hydrALAZINE 20 MG/ML Vial 10 MG IV ×2 (02:11→06:30)
[2022-06-09] MEDS: 0.9% Saline Lock 10 ML Syringe IV ×2 (02:11→06:30)
[2022-06-09 05:49] LABS: Absolute Lymphocyte Count 9.15 X10^3/uL (0.83-4.51); Absolute Neutrophil Count 7.3 X10^3/uL (2.0-7.7); Basophil# 0.07 X10^3/uL; Basophil% 0.4 % (0-1); Eosinophil# 0.28 X10^3/uL; Eosinophils% 1.6 % (0-5); Hemoglobin 12.4 g/dL (13.0-16.5); Lymphocyte # 9.15 X10^3/ul (0.83-4.51); Lymphocyte % 52.1 % (19-41); Mean Corp Hgb Conc 32.6 g/dL (32-36); Mean Corpuscular Hgb 31.4 pg (27.0-32.0); Mean Corpuscular Volume 96.2 fL (80-94); Mean Platelet Vol. 11.2 fl (6.2-12.0); Monocyte# 0.74 X10^3/uL; Monocyte% 4.2 % (0-10); NRBC Flagged by Analyzer 0 % (0-5); Neutrophil # 7.27 X10^3/uL (2.7-7.7); Neutrophil % 41.4 % (47-70); POSITIVE DIFFERENTIAL YES; POSITIVE MORPHOLOGY YES; Platelet Count 137 K/mm3 (150-450); RBC Distribution Width CV 13.5 % (11.6-14.6); RBC Distribution Width SD 47.8 fl (35.1-43.9); Red Blood Count 3.95 M/mm3 (4.6-6.2); White Blood Count 17.6 K/mm3 (4.4-11.0)
[2022-06-09 06:18] LABS: Anion Gap 8 (5-15); BUN 46 mg/dL (7-18); BUN/Creat Ratio 16.6 RATIO (10-20); Calcium,Total 8.3 mg/dL (8.5-10.1); Chloride 114 mmol/L (98-107); Creatinine, Serum 2.77 mg/dL (0.70-1.30); EST Glomerular Filtration Rate 23 mL/min (>60); Est Glom Filt Rate - Afr Amer 28 mL/min (>60); Estimated Creatinine Clearance 22.67 ml/min; Glucose 167 mg/dL (74-106); Sodium Level 141 mmol/L (136-145)
[2022-06-09 06:23] LABS: Differential Indicated SCAN CRITERIA MET
[2022-06-09 06:50] LABS: Macrocytosis 1+
[2022-06-09 06:51] LABS: Platelet Estimate SLT DEC (ADEQ)
[2022-06-09 06:53] LABS: Atypical Lymphocyte 1+ %
[2022-06-09 07:00] LABS: Bedside Glucose 164 mg/dL (74-106)
--- NOTE | 2022-06-09 07:02 | PN.CC_ITS ---
Assessment & Plan Assessment/Plan (1) Acute hypoxemic respiratory failure: PLAN: Plan RECOMMENDATIONS: 1. Okay to continue with Airvo for now. Wean FiO2 for saturations greater than 90%. 2. Complete 7 days of Zosyn for aspiration pneumonia. 3. Continue aggressive bronchopulmonary hygiene. PEP therapy has been ordered. 4. Continue modified diet and aspiration precautions per speech therapy. 5. Mobilize patient as tolerated IMPRESSIONS: 1. Acute hypoxemic respiratory failure Appears to be secondary to right lower lobe pneumonia with concern for aspiration. The patient is currently on a modified diet after being evaluated by speech therapy. Patient appears to be tolerating Airvo well. Continue to wean FiO2 to maintain saturations at or above 90%. Continue supervised feeds and aspiration precautions. Patient likely require 7 days of antibiotics. Initiate aggressive bronchopulmonary hygiene. If the aforementioned interventions do not provide any improvement in the patient's respiratory status, bronchoscopy could be considered. 2. Acute on chronic kidney disease Potentially related to hemodynamic instability in the setting of syncope. No obstruction was noted on renal ultrasound. Nephrology is currently following to assist with medical management. The patient does have a urethral stricture, which required dilation and subsequent Manzo catheter insertion. Continue to monitor urine output for now. No indication for renal replacement therapy. 3. Syncope/NSTEMI/atrial fibrillation Continue current medical management per cardiology recommendations. 4. Advanced age/obesity/hypertension/hyperlipidemia/BPH/dementia/diabetes mellitus Complicates care, management, recovery and prognosis. Continue home medications as indicated. This note was generated with [employer] dictation software. It may contain incorrect words, spelling, and punctuation that were not noted in checking the note before signing. Subjective Subjective Patient did okay overnight. Patient was able to be transition to Airvo and tolerated this well. Patient continues to report a productive cough. Patient feels subjectively slightly improved compared to yesterday. Patient has not been out of bed per his report. Objective Data Objective Data Vital Signs: Vital Signs Temp Pulse Resp BP Pulse Ox O2 Del Method O2 Flow Rate 36.4 C L 66 26 H 164/71 H 97 Airvo 60 06/09/22 06:00 06/09/22 06:30 06/09/22 06:00 06/09/22 06:30 06/09/22 06:00 06/09/22 06:00 06/09/22 02:00 FiO2 65 06/09/22 02:00 Oxygen Flow Rate (L/min) 60 Oxygen Delivery Method Airvo Weight: 118.9 kg Body Mass Index (BMI) 32.3 Intake & Output: Intake and Output for Last 24 Hours 06/07/22 06/08/22 06/09/22 23:59 23:59 23:59 Intake Total 545 / 545 1140 / 1140 270 / 270 Output Total 650 / 650 1275 / 1275 400 / 400 Balance -105 / -105 -135 / -135 -130 / -130 Lab / Micro Data Attestation: I reviewed the patient's lab results. Result Diagrams: 06/09/22 04:53 06/09/22 04:53 Labs: Laboratory Results - last 24 hr 06/08/22 07:26: MRSA (PCR) Negative 06/08/22 11:47: POC Glucose 223 H 06/08/22 17:46: POC Glucose 265 H 06/08/22 22:12: POC Glucose 183 H 06/09/22 04:53: WBC 17.6 H, RBC 3.95 L, Hgb 12.4 L, Hct 38.0 L, MCV 96.2 H, MCH 31.4, MCHC 32.6, RDW Std Deviation 47.8 H, RDW Coeff of Bebe 13.5, Plt Count 137 L, MPV 11.2, Immature Gran % (Auto) 0.300, Neut % (Auto) 41.4 L, Lymph % (Auto) 52.1 H, [place] % (Auto) 4.2, Eos % (Auto) 1.6, Baso % (Auto) 0.4, Absolute Neuts (auto) 7.3, Absolute Lymphs (auto) 9.15 H, Nucleated RBC % 0, Atypical Lymphocytes 1+, Platelet Estimate SLT DEC, Macrocytosis 1+ 06/09/22 04:53: Sodium 141, Potassium 4.0, Chloride 114 H, Carbon Dioxide 19.0 L , Anion Gap 8, BUN 46 H, Creatinine 2.77 H, Estim Creat Clear Calc 22.67, Est GFR (MDRD) Af Amer 28 L, Est GFR (MDRD) Non-Af 23 L, BUN/Creatinine Ratio 16.6, Glucose 167 H, Calcium 8.3 L 06/09/22 06:27: POC Glucose 164 H Micro: Microbiology 06/06/22 02:10 Sputum, Expectorated/Coughed Gram Stain - Final 06/06/22 02:10 Sputum, Expectorated/Coughed Respiratory Culture - Final 06/05/22 01:17 Blood Culture (Wb) - Anticubital Left Blood Culture - Preliminary No growth in 48 hours. 06/05/22 01:18 Blood Culture (Wb) - Right Forearm Blood Culture - Preliminary No growth in 48 hours. 06/06/22 06:20 Urine, Clean Catch Streptococcus pneumoniae Antigen (M - Final 06/05/22 Unknown Urine, Clean Catch Legionella Antigen - Final 06/05/22 04:30 Mucosa - Nasopharyngeal Respiratory Panel (PCR) - Final Physical Exam Const alert, oriented x3 and no apparent distress Nutritional Appearance: obese HEENT normocephalic and head/scalp atraumatic Eyes PERRL, EOMs intact bilaterally and conjunctivae normal Neck supple General: trachea midline Chest inspection of chest normal Resp no use of accessory muscles Auscultation: rales bilateral lower and diminished lung sounds; Negative for rhonchi or wheezes Cardio regular rate, S1 normal heart sound, S2 normal heart sound, no murmurs, no rub and no gallops Rhythm: abnormal rhythm irregularly irregular GI normal to inspection, nondistended, normoactive bowel sounds Extremity Extremity Narrative: Wrapped lower extremities. General Extremity: edema; Negative for clubbing Skin no rashes or lesions noted Neuro CN's II-XII intact bilaterally, moves all extremities and no focal motor deficits Psych Mood & Affect: flat affect Charges/Coding Visit Charges Inpatient E&M: 43836 Subs Hosp L3
[2022-06-09] MEDS: Glucerna Shake 120 ML LIQUID PO ×3 (08:30→16:46)
[2022-06-09] MEDS: Cholecalciferol (Vit D3) 125 MCG CAPSULE (5,000 UNITS) PO (08:30)
[2022-06-09] MEDS: Ascorbic Acid 500 MG Tablet 1000 MG PO (08:30)
[2022-06-09] MEDS: Finasteride 5 MG Tablet PO (08:30)
[2022-06-09] MEDS: Tamsulosin HCl 0.4 MG Capsule PO (08:30)
[2022-06-09] MEDS: Acetaminophen 325 MG Tablet 650 MG PO (08:30)
[2022-06-09] MEDS: Aspirin 81 MG TAB.CHEW PO (08:31)
[2022-06-09] MEDS: amLODIPine 5 MG Tablet PO (08:31)
[2022-06-09] MEDS: Loratadine 10 MG Tablet PO (08:31)
[2022-06-09] MEDS: Ferrous Sulfate 325 MG Tablet PO (08:31)
[2022-06-09] MEDS: Insulin NPH Human 100 UNITS/ML PEN 29 UNITS SC ×2 (08:31→21:59)
--- NOTE | 2022-06-09 11:01 | PN.RENAL_ITS ---
Subjective Subjective Following for CLAYTON Patient is resting, sitting up in bed. Denies any nausea, vomiting or diarrhea. Reports shortness of breath has improved. Reports that he has not been eating much, states has poor appetite. Objective Data Objective Data Vital Signs: Vital Signs Temp Pulse Resp BP Pulse Ox O2 Del Method O2 Flow Rate 97.6 F L 75 24 H 152/85 H 96 Airvo 55 06/09/22 08:00 06/09/22 08:00 06/09/22 08:00 06/09/22 08:00 06/09/22 08:00 06/09/22 08:00 06/09/22 08:00 FiO2 63 06/09/22 08:00 Oxygen Flow Rate (L/min) 55 Oxygen Delivery Method Airvo Weight: 118.9 kg Body Mass Index (BMI) 32.3 Intake & Output: Intake and Output for Last 24 Hours 06/07/22 06/08/22 06/09/22 23:59 23:59 23:59 Intake Total 545 / 545 1140 / 1140 320 / 320 Output Total 650 / 650 1275 / 1275 400 / 400 Balance -105 / -105 -135 / -135 -80 / -80 Lab / Micro Data Result Diagrams: 06/09/22 04:53 06/09/22 04:53 Labs: Laboratory Results - last 24 hr 06/08/22 11:47: POC Glucose 223 H 06/08/22 17:46: POC Glucose 265 H 06/08/22 22:12: POC Glucose 183 H 06/09/22 04:53: WBC 17.6 H, RBC 3.95 L, Hgb 12.4 L, Hct 38.0 L, MCV 96.2 H, MCH 31.4, MCHC 32.6, RDW Std Deviation 47.8 H, RDW Coeff of Bebe 13.5, Plt Count 137 L, MPV 11.2, Immature Gran % (Auto) 0.300, Neut % (Auto) 41.4 L, Lymph % (Auto) 52.1 H, [place] % (Auto) 4.2, Eos % (Auto) 1.6, Baso % (Auto) 0.4, Absolute Neuts (auto) 7.3, Absolute Lymphs (auto) 9.15 H, Nucleated RBC % 0, Atypical Lymphocytes 1+, Platelet Estimate SLT DEC, Macrocytosis 1+ 06/09/22 04:53: Sodium 141, Potassium 4.0, Chloride 114 H, Carbon Dioxide 19.0 L , Anion Gap 8, BUN 46 H, Creatinine 2.77 H, Estim Creat Clear Calc 22.67, Est GFR (MDRD) Af Amer 28 L, Est GFR (MDRD) Non-Af 23 L, BUN/Creatinine Ratio 16.6, Glucose 167 H, Calcium 8.3 L 06/09/22 06:27: POC Glucose 164 H Micro: Microbiology 06/06/22 02:10 Sputum, Expectorated/Coughed Gram Stain - Final 06/06/22 02:10 Sputum, Expectorated/Coughed Respiratory Culture - Final 06/05/22 01:17 Blood Culture (Wb) - Anticubital Left Blood Culture - Preliminary No growth in 48 hours. 06/05/22 01:18 Blood Culture (Wb) - Right Forearm Blood Culture - Preliminary No growth in 48 hours. 06/06/22 06:20 Urine, Clean Catch Streptococcus pneumoniae Antigen (M - Final 06/05/22 Unknown Urine, Clean Catch Legionella Antigen - Final 06/05/22 04:30 Mucosa - Nasopharyngeal Respiratory Panel (PCR) - Final Physical Exam Narrative awake and alert. No apparent distress s1s2 regular Clear anteriorly, diminished breath sounds posterior bases. No rhonchi, rales or wheezing noted abdomen obese, non tender, soft No pitting edema noted bilateral lower extremities or feet steiner, clear yellow urine Assessment & Plan Assessment/Plan (1) Acute kidney injury superimposed on CKD: (2) Syncope: (3) Urethral stricture: QUALIFIERS: Urethral stricture type: other stricture Urethral stricture sex-location: male urethra-overlapping sites Qualified Code(s): N35.816 - Other urethral stricture, male, overlapping sites PLAN: Plan Assessment Pleasant 87-year-old gentleman underlying history of hypertension, diabetes,Dyslipidemia, urethral stricture in addition to chronic kidney disease admitted to the hospital due to syncope. Nephrology consulted for acute kidney injury #1 nonoliguric CLAYTON on cCKD -His baseline serum creatinine appears to be around 1.8 mg/dL -Acute insult likely combination of hemodynamics in setting of syncope -u/s no obstruction -scr peaked at 3.16mg/dL on 06/06 -overall renal function is stable, SCr 2.77mg/dL today - No acute indication for [employer] today as there has been some improvement in renal function, potassium and acid-base acceptable, no overt fluid overload noted. -Encouraged patient to increase solute and fluid intake #2 volume -repeat urine sodium 27, initial urine sodium 20, hence still has decrease EBV -bp ok -given respiratory status can hold of on fluids/lasix again today #3 urethral stricture -steiner inserted, appreciate urology assistance #4 syncope/sob -echo/stress test unremarkable -pulmonary following for acute hypoxemic respiratory failure felt to be secondary to right lower lobe pneumonia with concern for aspiration. Patient is tolerating Airvo. He is on Zosyn. He is on modified diet with supervision. Blood cultures no growth. 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 Current baseline SCr ~1.7- 1.8mg/dL as of August 2021 Plan -continue with supportive care today -lasix/IV fluids on hold - on Airvo - on Zosyn -no need for [employer] -bmp in am - bps slightly elevated, on norvasc. If SBP remains consistently above 150 will increase amlodipine but add holding parameters. - continue protein supplement -repeat urine sodium 27 today (previous urine sodium 20). Will hold off on rechallenge of volume expansion today. Encouraged patient to increase fluid and solute intake.
[2022-06-09] MEDS: Insulin Lispro 100 UNIT/ML INSULN.PEN SC ×3 (11:21→21:17)
[2022-06-09 11:50] LABS: Bedside Glucose 182 mg/dL (74-106)
--- NOTE | 2022-06-09 16:23 | PN.HOSP_ITS ---
Subjective Subjective Doing well, no issues overnight. He has been able to come off of BiPAP down to Airvo and he still has a bit of a cough but does feel better than he did yesterday. Objective Data Objective Data Vital Signs: Vital Signs Temp Pulse Resp BP Pulse Ox O2 Del Method O2 Flow Rate 97.3 F L 65 24 H 155/77 H 95 Airvo 55 06/09/22 14:00 06/09/22 15:00 06/09/22 14:00 06/09/22 14:00 06/09/22 15:20 06/09/22 14:00 06/09/22 14:00 FiO2 64 06/09/22 15:20 Oxygen Flow Rate (L/min) 55 Oxygen Delivery Method Airvo Weight: 262 lb 2.074 oz Body Mass Index (BMI) 32.3 Intake & Output: Intake and Output for Last 24 Hours 06/08/22 06/09/22 06/10/22 03:59 03:59 03:59 Intake Total 605 / 605 1130 / 1130 510 / 510 Output Total 1100 / 1100 825 / 825 950 / 950 Balance -495 / -495 305 / 305 -440 / -440 Lab / Micro Data Result Diagrams: 06/09/22 04:53 06/09/22 04:53 Labs: Laboratory Results - last 24 hr 06/08/22 17:46: POC Glucose 265 H 06/08/22 22:12: POC Glucose 183 H 06/09/22 04:53: WBC 17.6 H, RBC 3.95 L, Hgb 12.4 L, Hct 38.0 L, MCV 96.2 H, MCH 31.4, MCHC 32.6, RDW Std Deviation 47.8 H, RDW Coeff of Bebe 13.5, Plt Count 137 L, MPV 11.2, Immature Gran % (Auto) 0.300, Neut % (Auto) 41.4 L, Lymph % (Auto) 52.1 H, [place] % (Auto) 4.2, Eos % (Auto) 1.6, Baso % (Auto) 0.4, Absolute Neuts (auto) 7.3, Absolute Lymphs (auto) 9.15 H, Nucleated RBC % 0, Atypical Lym phocytes 1+, Platelet Estimate SLT DEC, Macrocytosis 1+ 06/09/22 04:53: Sodium 141, Potassium 4.0, Chloride 114 H, Carbon Dioxide 19.0 L , Anion Gap 8, BUN 46 H, Creatinine 2.77 H, Estim Creat Clear Calc 22.67, Est GFR (MDRD) Af Amer 28 L, Est GFR (MDRD) Non-Af 23 L, BUN/Creatinine Ratio 16.6, Glucose 167 H, Calcium 8.3 L 06/09/22 06:27: POC Glucose 164 H 06/09/22 11:20: POC Glucose 182 H Micro: Microbiology 06/09/22 10:10 Nasal Secretion SARS-CoV-2 Antigen (Rapid) - Final 06/06/22 02:10 Sputum, Expectorated/Coughed Gram Stain - Final 06/06/22 02:10 Sputum, Expectorated/Coughed Respiratory Culture - Final 06/05/22 01:17 Blood Culture (Wb) - Anticubital Left Blood Culture - Preliminary No growth in 48 hours. 06/05/22 01:18 Blood Culture (Wb) - Right Forearm Blood Culture - Preli minary No growth in 48 hours. 06/06/22 06:20 Urine, Clean Catch Streptococcus pneumoniae Antigen (M - Final 06/05/22 Unknown Urine, Clean Catch Legionella Antigen - Final 06/05/22 04:30 Mucosa - Nasopharyngeal Respiratory Panel (PCR) - Final Physical Exam Narrative General: Alert, Oriented x3, Cooperative, No apparent distress HEENT: Atraumatic, PERRLA, EOMI, Normocephalic Oral: Moist Mucosa Neck: Supple, No JVD Lungs: Diminished, normal air movement, No rhonchi, No wheeze, Rales at the bilateral bases Cardiovascular: Regular rate and rhythm, Normal S1, Normal S2, No murmurs Abdomen: Soft, Non Tender, Non-Distended, No Hepato-splenomegaly Extremities: Edema, Capillary Refill Less than 3 Seconds Skin: No rashes, No breakdown Musculoskeletal: No Tenderness to Palpation of Joints or Extremities Neurological: Cranial nerves II-XII grossly intact, Motor Exam 5/5 strength thro ughout, Sensory exam intact to light touch and pain Psych/Mental Status: Flat affect, Appropriate Assessment & Plan Assessment/Plan (1) NSTEMI (non-ST elevated myocardial infarction): (2) Syncope: (3) Right lower lobe pneumonia: (4) Hypoxia: PLAN: Plan 1. Acute hypoxic respiratory failure secondary to right lower lobe pneumonia and lung collapse/CLAYTON on CKD 3B ? Continue with Zosyn for 7 days as her concerns for aspiration ? CT scan had demonstrated collapse of the right lower lobe with elevation of the right hemidiaphragm and a small pleural effusion ? Continue with bronchodilators ? Appreciate pulmonology's assistance ? Appreciate nephrology's assistance, will continue to monitor renal function ? Renal ultrasound demonstrates no evidence of obstruction or acute renal process ? Urology was consulted and Manzo was placed and he will need to keep the Manzo in place even after discharge 2. Syncope/non-STEMI/HTN/HLD ? Cardiology did not feel that he had A. fib despite the EKG text stating A. fib, the Eliquis that was started on admission was discontinued ? Echo demonstrates an EF of 60% with no regional wall motion abnormalities, PA pressure is 30 mmHg ? Stress test was negative for any type of ischemia ? Appreciate cardiology's assistance ? His troponin did peak at 828 ? We will continue with conservative management for now ? Continue with his statin as well his blood medications 3. DM2 ? Continue sign scale insulin ? Accu-Cheks AC at bedtime ? We will make adjustments as necessary 4. BPH ? Continue with finasteride and Flomax ? Continue with Manzo in place ? Appreciate urology distance 5. Dementia with behavioral disturbance ? Currently on Aricept which we will continue ? PT/OT for evaluation discharge planning ? Continue with fall precautions DVT: SCDs Charges/Coding Visit Charges Inpatient E&M: 66009 Subs Hosp L2
[2022-06-09 17:20] LABS: Bedside Glucose 183 mg/dL (74-106)
[2022-06-09] MEDS: Donepezil HCl 10 MG Tablet PO (21:19)
[2022-06-09] MEDS: Atorvastatin Calcium 10 MG Tablet PO (21:20)
[2022-06-09 22:16] LABS: Bedside Glucose 191 mg/dL (74-106)
[2022-06-10] VITALS (15 sets, daily range): BP systolic 143–164; BP diastolic 71–96; PULSE 58–70; RESP 20–26; TEMP 35.9–36.6; O2SAT 93–97
[2022-06-10 06:30] LABS: Absolute Lymphocyte Count 9.33 X10^3/uL (0.83-4.51); Absolute Neutrophil Count 7.5 X10^3/uL (2.0-7.7); Basophil# 0.05 X10^3/uL; Basophil% 0.3 % (0-1); Eosinophil# 0.32 X10^3/uL; Eosinophils% 1.8 % (0-5); Hematocrit 36.8 % (40-54); Hemoglobin 12.1 g/dL (13.0-16.5); Lymphocyte # 9.33 X10^3/ul (0.83-4.51); Mean Corp Hgb Conc 32.9 g/dL (32-36); Mean Corpuscular Hgb 31.7 pg (27.0-32.0); Mean Corpuscular Volume 96.3 fL (80-94); Mean Platelet Vol. 11.5 fl (6.2-12.0); Monocyte# 0.67 X10^3/uL; Monocyte% 3.7 % (0-10); NRBC Flagged by Analyzer 0 % (0-5); Neutrophil % 41.8 % (47-70); POSITIVE DIFFERENTIAL YES; POSITIVE MORPHOLOGY YES; Platelet Count 160 K/mm3 (150-450); RBC Distribution Width CV 13.7 % (11.6-14.6); RBC Distribution Width SD 48.2 fl (35.1-43.9); Red Blood Count 3.82 M/mm3 (4.6-6.2)
[2022-06-10 06:40] LABS: Differential Indicated SCAN CRITERIA MET
[2022-06-10 06:53] LABS: Anion Gap 8 (5-15); BUN 47 mg/dL (7-18); BUN/Creat Ratio 16.8 RATIO (10-20); Calcium,Total 8.3 mg/dL (8.5-10.1); Chloride 114 mmol/L (98-107); Creatinine, Serum 2.79 mg/dL (0.70-1.30); Differential Comment SCANNED; EST Glomerular Filtration Rate 23 mL/min (>60); Est Glom Filt Rate - Afr Amer 28 mL/min (>60); Estimated Creatinine Clearance 22.51 ml/min; Glucose 127 mg/dL (74-106); Potassium 4.2 mmol/L (3.5-5.1); Reactive Lymphocyte RARE; Sodium Level 141 mmol/L (136-145)
[2022-06-10] MEDS: Insulin NPH Human 100 UNITS/ML PEN 29 UNITS SC ×2 (08:43→22:09)
[2022-06-10] MEDS: 0.9% Saline Lock 10 ML Syringe IV (08:43)
[2022-06-10] MEDS: Glucerna Shake 120 ML LIQUID PO ×3 (08:43→16:32)
--- NOTE | 2022-06-10 08:44 | PN.CC_ITS ---
Assessment & Plan Assessment/Plan (1) NSTEMI (non-ST elevated myocardial infarction): (2) Syncope: (3) Right lower lobe pneumonia: (4) Hypoxia: (5) Acute hypoxemic respiratory failure: PLAN: Plan RECOMMENDATIONS: 1. Okay to continue with Airvo for now. Wean FiO2 for saturations greater than 90%. 2. Complete 7 days of Zosyn for aspiration pneumonia. 3. Continue aggressive bronchopulmonary hygiene. PEP therapy has been ordered. 4. Continue modified diet and aspiration precautions per speech therapy. 5. Mobilize patient as tolerated 6. Consider nasal saline if develops epistaxis IMPRESSIONS: 1. Acute hypoxemic respiratory failure Appears to be secondary to right lower lobe pneumonia with concern for as piration. The patient is currently on a modified diet after being evaluated by speech therapy. Patient appears to be tolerating Airvo well. Continue to wean FiO2 to maintain saturations at or above 90%. Continue supervised feeds and aspiration precautions. Patient likely require 7 days of antibiotics. Continue aggressive bronchopulmonary hygiene. Patient appears to be slowly improving. It is unclear if bronchoscopy will be required. 2. Acute on chronic kidney disease Potentially related to hemodynamic instability in the setting of syncope. No obstruction was noted on renal ultrasound. Nephrology is currently following to assist with medical management. The patient does have a urethral stricture, which required dilation and subsequent Manzo catheter insertion. Continue to monitor urine output for now. No indication for renal replacement therapy. Renal function has remained stable. 3. Syncope/NSTEMI/atrial fibrillation Continue current medical management per cardiology recommendations. 4. Advanced age/obesity/hypertension/hyperlipidemia/BPH/dementia/diabetes mellitus Complicates care, management, recovery and prognosis. Continue home medications as indicated. This note was generated with [employer] dictation software. It may contain incorrect words, spelling, and punctuation that were not noted in checking the note before signing. Subjective Subjective Patient did well overnight. No acute issues were reported. Patient is reporting that he is thirsty and wanting some water. Patient has reported his cough is less frequent with less production. Patient is still requiring Airvo to maintain saturations. Patient was able to make it out of bed yesterday and is interested in doing it again today. Objective Data Objective Data Vital Signs: Vital Signs Temp Pulse Resp BP Pulse Ox O2 Del Method O2 Flow Rate 35.9 C L 61 24 H 145/79 H 94 Airvo 55 06/10/22 08:00 06/10/22 08:00 06/10/22 08:00 06/10/22 08:00 06/10/22 08:00 06/10/22 08:18 06/10/22 08:18 FiO2 45 06/10/22 08:18 Oxygen Flow Rate (L/min) 55 Oxygen Delivery Method Airvo Weight: 118 kg Body Mass Index (BMI) 32.3 Intake & Output: Intake and Output for Last 24 Hours 06/08/22 06/09/22 06/10/22 23:59 23:59 23:59 Intake Total 1140 / 1140 970 / 1170 250 / 250 Output Total 1275 / 1275 950 / 950 Balance -135 / -135 20 / 220 250 / 250 Lab / Micro Data Attestation: I reviewed the patient's lab results. Result Diagrams: 06/10/22 05:30 06/10/22 05:30 Labs: Laboratory Results - last 24 hr 06/09/22 11:20: POC Glucose 182 H 06/09/22 16:45: POC Glucose 183 H 06/09/22 21:16: POC Glucose 191 H 06/10/22 05:30: WBC 18.0 H, RBC 3.82 L, Hgb 12.1 L, Hct 36.8 L, MCV 96.3 H, MCH 31.7, MCHC 32.9, RDW Std Deviation 48.2 H, RDW Coeff of Bebe 13.7, Plt Count 160, MPV 11.5, Immature Gran % (Auto) 0.400, Neut % (Auto) 41.8 L, Lymph % (Auto) 52.0 H, [place] % (Auto) 3.7, Eos % (Auto) 1.8, Baso % (Auto) 0.3, Absolute Neuts (auto) 7.5, Absolute Lymphs (auto) 9.33 H, Nucleated RBC % 0, Differential Comment SCANNED, Reactive Lymphocytes RARE 06/10/22 05:30: Sodium 141, Potassium 4.2, Chloride 114 H, Carbon Dioxide 19.0 L , Anion Gap 8, BUN 47 H, Creatinine 2.79 H, Estim Creat Clear Calc 22.51, Est GFR (MDRD) Af Amer 28 L, Est GFR (MDRD) Non-Af 23 L, BUN/Creatinine Ratio 16.8, Glucose 127 H, Calcium 8.3 L Micro: Microbiology 06/05/22 01:17 Blood Culture (Wb) - Anticubital Left Blood Culture - Final No growth in 5 days. 06/05/22 01:18 Blood Culture (Wb) - Right Forearm Blood Culture - Final No growth in 5 days. 06/09/22 10:10 Nasal Secretion SARS-CoV-2 Antigen (Rapid) - Final 06/06/22 02:10 Sputum, Expectorated/Coughed Gram Stain - Final 06/06/22 02:10 Sputum, Expectorated/Coughed Respiratory Culture - Final 06/06/22 06:20 Urine, Clean Catch Streptococcus pneumoniae Antigen (M - Final 06/05/22 Unknown Urine, Clean Catch Legionella Antigen - Final 06/05/22 04:30 Mucosa - Nasopharyngeal Respiratory Panel (PCR) - Final Physical Exam Const alert, oriented x3 and no apparent distress Nutritional Appearance: obese HEENT normocephalic and head/scalp atraumatic Eyes PERRL, EOMs intact bilaterally and conjunctivae normal Neck supple General: trachea midline Chest inspection of chest normal Resp no use of accessory muscles Auscultation: rales bilateral lower and diminished lung sounds; Negative for rhonchi or wheezes Cardio regular rate, S1 normal heart sound, S2 normal heart sound, no murmurs, no rub and no gallops Rhythm: abnormal rhythm irregularly irregular GI normal to inspection, nondistended, normoactive bowel sounds Extremity Extremity Narrative: Wrapped lower extremities. General Extremity: edema; Negative for clubbing Skin no rashes or lesions noted Neuro CN's II-XII intact bilaterally, moves all extremities and no focal motor deficits Psych Mood & Affect: flat affect Charges/Coding Visit Charges Inpatient E&M: 12147 Subs Hosp L3
[2022-06-10] MEDS: Acetaminophen 325 MG Tablet 650 MG PO (08:46)
[2022-06-10] MEDS: Tamsulosin HCl 0.4 MG Capsule PO (08:46)
[2022-06-10] MEDS: Ferrous Sulfate 325 MG Tablet PO (08:46)
[2022-06-10] MEDS: Finasteride 5 MG Tablet PO (08:46)
[2022-06-10] MEDS: Cholecalciferol (Vit D3) 125 MCG CAPSULE (5,000 UNITS) PO (08:46)
[2022-06-10] MEDS: amLODIPine 5 MG Tablet PO (08:46)
[2022-06-10] MEDS: Ascorbic Acid 500 MG Tablet 1000 MG PO (08:46)
[2022-06-10] MEDS: Aspirin 81 MG TAB.CHEW PO (08:46)
[2022-06-10 08:55] LABS: Bedside Glucose 129 mg/dL (74-106)
--- NOTE | 2022-06-10 10:23 | PN.RENAL_ITS ---
Subjective Subjective Following for CLAYTON on CKD Patient is sitting up in bed. Denies any complaints. States again today he does not have much of an appetite. Denies any nausea, vomiting or diarrhea. Objective Data Objective Data Vital Signs: Vital Signs Temp Pulse Resp BP Pulse Ox O2 Del Method O2 Flow Rate 96.7 F L 70 24 H 154/73 H 94 Airvo 55 06/10/22 10:00 06/10/22 10:00 06/10/22 10:00 06/10/22 10:00 06/10/22 10:00 06/10/22 10:00 06/10/22 10:00 FiO2 45 06/10/22 10:00 Oxygen Flow Rate (L/min) 55 Oxygen Delivery Method Airvo Weight: 118 kg Body Mass Index (BMI) 32.3 Intake & Output: Intake and Output for Last 24 Hours 06/08/22 06/09/22 06/10/22 23:59 23:59 23:59 Intake Total 1140 / 1140 970 / 1170 250 / 250 Output Total 1275 / 1275 950 / 950 Balance -135 / -135 20 / 220 250 / 250 Lab / Micro Data Result Diagrams: 06/10/22 05:30 06/10/22 05:30 Labs: Laboratory Results - last 24 hr 06/09/22 11:20: POC Glucose 182 H 06/09/22 16:45: POC Glucose 183 H 06/09/22 21:16: POC Glucose 191 H 06/10/22 05:30: WBC 18.0 H, RBC 3.82 L, Hgb 12.1 L, Hct 36.8 L, MCV 96.3 H, MCH 31.7, MCHC 32.9, RDW Std Deviation 48.2 H, RDW Coeff of Bebe 13.7, Plt Count 160, MPV 11.5, Immature Gran % (Auto) 0.400, Neut % (Auto) 41.8 L, Lymph % (Auto) 52.0 H, [place] % (Auto) 3.7, Eos % (Auto) 1.8, Baso % (Auto) 0.3, Absolute Neuts (auto) 7.5, Absolute Lymphs (auto) 9.33 H, Nucleated RBC % 0, Differential Comment SCANNED, Reactive Lymphocytes RARE 06/10/22 05:30: Sodium 141, Potassium 4.2, Chloride 114 H, Carbon Dioxide 19.0 L , Anion Gap 8, BUN 47 H, Creatinine 2.79 H, Estim Creat Clear Calc 22.51, Est GFR (MDRD) Af Amer 28 L, Est GFR (MDRD) Non-Af 23 L, BUN/Creatinine Ratio 16.8, Glucose 127 H, Calcium 8.3 L 06/10/22 06:20: POC Glucose 129 H Micro: Microbiology 06/05/22 01:17 Blood Culture (Wb) - Anticubital Left Blood Culture - Final No growth in 5 days. 06/05/22 01:18 Blood Culture (Wb) - Right Forearm Blood Culture - Final No growth in 5 days. 06/09/22 10:10 Nasal Secretion SARS-CoV-2 Antigen (Rapid) - Final 06/06/22 02:10 Sputum, Expectorated/Coughed Gram Stain - Final 06/06/22 02:10 Sputum, Expectorated/Coughed Respiratory Culture - Final 06/06/22 06:20 Urine, Clean Catch Streptococcus pneumoniae Antigen (M - Final 06/05/22 Unknown Urine, Clean Catch Legionella Antigen - Final 06/05/22 04:30 Mucosa - Nasopharyngeal Respiratory Panel (PCR) - Final Physical Exam Narrative awake and alert. No apparent distress s1s2 regular Clear anteriorly and posteriorly. No rhonchi, rales or wheezing noted abdomen obese, non tender, soft No pitting edema noted bilateral lower extremities or feet steiner, clear yellow urine Assessment & Plan Assessment/Plan (1) Acute kidney injury superimposed on CKD: (2) Syncope: (3) Urethral stricture: QUALIFIERS: Urethral stricture type: other stricture Urethral stricture sex-location: male urethra-overlapping sites Qualified Code(s): N35.816 - Other urethral stricture, male, overlapping sites PLAN: Plan Assessment Pleasant 87-year-old gentleman underlying history of hypertension, diabetes, dementia, dyslipidemia, urethral stricture in addition to chronic kidney disease admitted to the hospital due to syncope. Nephrology consulted for acute kidney injury #1 nonoliguric CLAYTON on CKD -His baseline serum creatinine appears to be around 1.8 mg/dL -Acute insult likely combination of hemodynamics in setting of syncope -u/s no obstruction -scr peaked at 3.16mg/dL on 06/06 -overall renal function is stable, SCr 2.79mg/dL today - No acute indication for [facility] today as there has been some improvement in renal function, potassium and acid-base acceptable, no overt fluid overload no mary, and patient is nonoliguric. -Patient may be becoming intravascularly volume depleted as he has poor oral intake. Encouraged patient to increase solute and fluid intake #2 volume -repeat urine sodium 27, initial urine sodium 20 -bp ok -given respiratory status can hold of on fluids/lasix #3 urethral stricture -steiner inserted, appreciate urology assistance -patient will be discharged with steiner in place #4 syncope/sob -echo/stress test unremarkable -pulmonary following for acute hypoxemic respiratory failure felt to be secondary to right lower lobe pneumonia with concern for aspiration. Patient is tolerating Airvo. He is on Zosyn. He is on modified diet with supervision. Blood cultures no growth. 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 Current baseline SCr ~1.7- 1.8mg/dL as of August 2021 Plan -continue with supportive care today -lasix/IV fluids on hold. However patient may need gentle IV fluids as he has poor oral intake. -on Airvo, tolerating and weaning to maintain saturations at or above 90% -on Zosyn -no need for [facility] -bmp in am -On Norvasc, blood pressure is acceptable -continue protein supplement -repeat urine sodium 27 (previous urine sodium 20). Given poor oral intake patient may need rechallenge of volume expansion. Encouraged patient to increase fluid and solute intake.
[2022-06-10] MEDS: Insulin Lispro 100 UNIT/ML INSULN.PEN SC ×3 (11:38→22:09)
--- NOTE | 2022-06-10 11:53 | PCM.PN.HOSP ---
Subjective Subjective No new issues overnight, doing well. Discussed the case with nephrology and they feel that he might be a little bit dry Objective Data Objective Data Vital Signs: Vital Signs Temp Pulse Resp BP Pulse Ox O2 Del Method O2 Flow Rate 96.7 F L 70 24 H 154/73 H 94 Airvo 55 06/10/22 10:00 06/10/22 10:00 06/10/22 10:00 06/10/22 10:00 06/10/22 10:00 06/10/22 10:00 06/10/22 10:00 FiO2 45 06/10/22 10:00 Oxygen Flow Rate (L/min) 55 Oxygen Delivery Method Airvo Weight: 260 lb 2.327 oz Body Mass Index (BMI) 32.3 Intake & Output: Intake and Output for Last 24 Hours 06/09/22 06/10/22 06/11/22 03:59 03:59 03:59 Intake Total 1130 / 1130 1170 / 1170 530 / 530 Output Total 825 / 825 950 / 950 225 / 225 Balance 305 / 305 220 / 220 305 / 305 Lab / Micro Data Result Diagrams: 06/10/22 05:30 06/10/22 05:30 Labs: Laboratory Results - last 24 hr 06/09/22 16:45: POC Glucose 183 H 06/09/22 21:16: POC Glucose 191 H 06/10/22 05:30: WBC 18.0 H, RBC 3.82 L, Hgb 12.1 L, Hct 36.8 L, MCV 96.3 H, MCH 31.7, MCHC 32.9, RDW Std Deviation 48.2 H, RDW Coeff of Bebe 13.7, Plt Count 160, MPV 11.5, Immature Gran % (Auto) 0.400, Neut % (Auto) 41.8 L, Lymph % (Auto) 52.0 H, [place] % (Auto) 3.7, Eos % (Auto) 1.8, Baso % (Auto) 0.3, Absolute Neuts (auto) 7.5, Absolute Lymphs (auto) 9.33 H, Nucleated RBC % 0, Differential Comment SCANNED, Reactive Lymphocytes RARE 06/10/22 05:30: Sodium 141, Potassium 4.2, Chloride 114 H, Carbon Dioxide 19.0 L, Anion Gap 8, BUN 47 H, Creatinine 2.79 H, Estim Creat Clear Calc 22.51, Est GFR (MDRD) Af Amer 28 L, Est GFR (MDRD) Non-Af 23 L, BUN/Creatinine Ratio 16.8, Glucose 127 H, Calcium 8.3 L 06/10/22 06:20: POC Glucose 129 H Micro: Microbiology 06/05/22 01:17 Blood Culture (Wb) - Anticubital Left Blood Culture - Final No growth in 5 days. 06/05/22 01:18 Blood Culture (Wb) - Right Forearm Blood Culture - Final No growth in 5 days. 06/09/22 10:10 Nasal Secretion SARS-CoV-2 Antigen (Rapid) - Final 06/06/22 02:10 Sputum, Expectorated/Coughed Gram Stain - Final 06/06/22 02:10 Sputum, Expectorated/Coughed Respiratory Culture - Final 06/06/22 06:20 Urine, Clean Catch Streptococcus pneumoniae Antigen (M - Final 06/05/22 Unknown Urine, Clean Catch Legionella Antigen - Final 06/05/22 04:30 Mucosa - Nasopharyngeal Respiratory Panel (PCR) - Final Physical Exam Narrative General: Alert, Oriented x3, Cooperative, No apparent distress HEENT: Atraumatic, PERRLA, EOMI, Normocephalic Oral: Moist Mucosa Neck: Supple, No JVD Lungs: Diminished, normal air movement, No rhonchi, No wheeze, Rales at the bilateral bases Cardiovascular: Regular rate and rhythm, Normal S1, Normal S2, No murmurs Abdomen: Soft, Non Tender, Non-Distended, No Hepato-splenomegaly Extremities: Edema, Capillary Refill Less than 3 Seconds Skin: No rashes, No breakdown Musculoskeletal: No Tenderness to Palpation of Joints or Extremities Neurological: Cranial nerves II-XII grossly intact, Motor Exam 5/5 strength throughout, Sensory exam intact to light touch and pain Psych/Mental Status: Flat affect, Appropriate Assessment & Plan Assessment/Plan (1) NSTEMI (non-ST elevated myocardial infarction): (2) Syncope: (3) Right lower lobe pneumonia: (4) Hypoxia: PLAN: Plan 1. Acute hypoxic respiratory failure secondary to right lower lobe pneumonia and lung collapse/CLAYTON on CKD 3B ? Continue with Zosyn for 7 days on concerns for aspiration ? CT scan had demonstrated collapse of the right lower lobe with elevation of the right hemidiaphragm and a small pleural effusion ? Continue with bronchodilators ? Appreciate pulmonology's assistance ? Appreciate nephrology's assistance, will continue to monitor renal function, will trial him on small amount of fluid today ? Renal ultrasound demonstrates no evidence of obstruction or acute renal process ? Urology was consulted and Manzo was placed and he will need to keep the Manzo in place even after discharge 2. Syncope/non-STEMI/HTN/HLD ? Cardiology did not feel that he had A. fib despite the EKG text stating A. fib, the Eliquis that was started on admission was discontinued ? Echo demonstrates an EF of 60% with no regional wall motion abnormalities, PA pressure is 30 mmHg ? Stress test was negative for any type of ischemia ? Appreciate cardiology's assistance ? His troponin did peak at 828 ? We will continue with conservative management for now ? Continue with his statin as well his blood medications 3. DM2 ? Continue sign scale insulin ? Accu-Cheks AC at bedtime ? We will make adjustments as necessary 4. BPH ? Continue with finasteride and Flomax ? Continue with Manzo in place ? Appreciate urology distance 5. Dementia with behavioral disturbance ? Currently on Aricept which we will continue ? PT/OT for evaluation discharge planning ? Continue with fall precautions DVT: SCDs Charges/Coding Visit Charges Inpatient E&M: 92602 Subs Hosp L2
[2022-06-10 12:05] LABS: Bedside Glucose 195 mg/dL (74-106)
[2022-06-10] MEDS: 0.9% Normal Saline 1,000 ML 75 ML IV (12:58)
[2022-06-10 17:00] LABS: Bedside Glucose 229 mg/dL (74-106)
[2022-06-10] MEDS: Atorvastatin Calcium 10 MG Tablet PO (22:12)
[2022-06-10] MEDS: Donepezil HCl 10 MG Tablet PO (22:12)
[2022-06-10 22:35] LABS: Bedside Glucose 210 mg/dL (74-106)
[2022-06-11] VITALS (22 sets, daily range): BP systolic 147–181; BP diastolic 70–87; PULSE 59–70; RESP 20–28; TEMP 36.1–36.8; O2SAT 93–96
[2022-06-11] MEDS: hydrALAZINE 20 MG/ML Vial 10 MG IV (04:33)
[2022-06-11] MEDS: 0.9% Saline Lock 10 ML Syringe IV (04:34)
[2022-06-11 05:40] LABS: Absolute Lymphocyte Count 8.75 X10^3/uL (0.83-4.51); Absolute Neutrophil Count 7.1 X10^3/uL (2.0-7.7); Basophil# 0.06 X10^3/uL; Basophil% 0.4 % (0-1); Eosinophil# 0.35 X10^3/uL; Eosinophils% 2.1 % (0-5); Hematocrit 36.9 % (40-54); Hemoglobin 12.4 g/dL (13.0-16.5); Lymphocyte # 8.75 X10^3/ul (0.83-4.51); Lymphocyte % 51.4 % (19-41); Mean Corp Hgb Conc 33.6 g/dL (32-36); Mean Corpuscular Hgb 31.8 pg (27.0-32.0); Mean Corpuscular Volume 94.6 fL (80-94); Mean Platelet Vol. 11.2 fl (6.2-12.0); Monocyte# 0.73 X10^3/uL; Monocyte% 4.3 % (0-10); NRBC Flagged by Analyzer 0 % (0-5); Neutrophil # 7.07 X10^3/uL (2.7-7.7); Neutrophil % 41.4 % (47-70); POSITIVE DIFFERENTIAL YES; POSITIVE MORPHOLOGY YES; Platelet Count 149 K/mm3 (150-450); RBC Distribution Width CV 13.6 % (11.6-14.6); RBC Distribution Width SD 46.9 fl (35.1-43.9)
[2022-06-11 05:46] LABS: Differential Indicated SCAN CRITERIA MET
[2022-06-11 06:10] LABS: Differential Comment SCANNED; Reactive Lymphocyte 2+
[2022-06-11 06:11] LABS: Anion Gap 8 (5-15); BUN 43 mg/dL (7-18); Calcium,Total 8.2 mg/dL (8.5-10.1); Chloride 115 mmol/L (98-107); Creatinine, Serum 2.68 mg/dL (0.70-1.30); EST Glomerular Filtration Rate 24 mL/min (>60); Est Glom Filt Rate - Afr Amer 29 mL/min (>60); Estimated Creatinine Clearance 23.43 ml/min; Glucose 136 mg/dL (74-106); Sodium Level 142 mmol/L (136-145)
--- NOTE | 2022-06-11 06:39 | PN.CC_ITS ---
Assessment & Plan Assessment/Plan (1) NSTEMI (non-ST elevated myocardial infarction): (2) Syncope: (3) Right lower lobe pneumonia: (4) Hypoxia: (5) Acute hypoxemic respiratory failure: PLAN: Plan RECOMMENDATIONS: 1. Consider attempt at nasal cannula. Wean FiO2 for saturations greater than 90%. 2. Complete 7 days of Zosyn for aspiration pneumonia. 3. Continue aggressive bronchopulmonary hygiene. PEP therapy has been ordered. 4. Continue modified diet and aspiration precautions per speech therapy. 5. Mobilize patient as tolerated 6. Consider nasal saline if develops epistaxis IMPRESSIONS: 1. Acute hypoxemic respiratory failure Appears to be secondary to right lower lobe pneumonia with concern for aspiration. The patient is currently on a modified diet after being evaluated by speech therapy. Patient appears to be tolerating Airvo well, but likely would tolerate nasal cannula at current FiO2 requirements. Continue to wean FiO2 to maintain saturations at or above 90%. Continue supervised feeds and aspiration precautions. Patient likely require 7 days of antibiotics (stop date added). Continue aggressive bronchopulmonary hygiene. Patient appears to be slowly improving. Bronchoscopy will likely not be required. 2. Acute on chronic kidney disease Stable. Potentially related to hemodynamic instability in the setting of syncope. No obstruction was noted on renal ultrasound. Nephrology is currently following to assist with medical management. The patient does have a urethral stricture, which required dilation and subsequent Manzo catheter insertion. Continue to monitor urine output for now. No indication for renal replacement therapy. Renal function has remained stable. 3. Syncope/NSTEMI/atrial fibrillation Continue current medical management per cardiology recommendations. 4. Advanced age/obesity/hypertension/hyperlipidemia/BPH/dementia/diabetes mellitus Complicates care, management, recovery and prognosis. Continue home medications as indicated. This note was generated with [employer] dictation software. It may contain incorrect words, spelling, and punctuation that were not noted in checking the note before signing. Subjective Subjective Patient did well overnight. No acute issues were reported. Patient remains on Airvo and tolerating well. Patient resting comfortably on my initial evaluat ion. Patient is denying any pain. Patient is requesting water and does not like the diet you give me. Patient states he is working with speech therapy. Objective Data Objective Data Vital Signs: Vital Signs Temp Pulse Resp BP Pulse Ox O2 Del Method O2 Flow Rate 36.6 C 66 24 H 164/87 H 96 Airvo 55 08/03/22 06:00 06/11/22 06:00 06/11/22 06:00 06/11/22 06:00 06/11/22 06:00 06/11/22 06:00 06/11/22 06:00 FiO2 45 06/11/22 06:00 Oxygen Flow Rate (L/min) 55 Oxygen Delivery Method Airvo Weight: 118.1 kg Body Mass Index (BMI) 32.3 Intake & Output: Intake and Output for Last 24 Hours 06/09/22 06/10/22 06/11/22 23:59 23:59 23:59 Intake Total 970 / 1170 1190 / 1390 1250 / 1250 Output Total 950 / 950 575 / 1175 600 / 600 Balance 615 / 215 650 / 650 Lab / Micro Data Attestation: I reviewed the patient's lab results. Result Diagrams: 06/11/22 04:21 06/11/22 04:21 Labs: Laboratory Results - last 24 hr 06/10/22 05:30: WBC 18.0 H, RBC 3.82 L, Hgb 12.1 L, Hct 36.8 L, MCV 96.3 H, MCH 31.7, MCHC 32.9, RDW Std Deviation 48.2 H, RDW Coeff of Bebe 13.7, Plt Count 160, MPV 11.5, Immature Gran % (Auto) 0.400, Neut % (Auto) 41.8 L, Lymph % (Auto) 52.0 H, [place] % (Auto) 3.7, Eos % (Auto) 1.8, Baso % (Auto) 0.3, Absolute Neuts ( auto) 7.5, Absolute Lymphs (auto) 9.33 H, Nucleated RBC % 0, Differential Com ment SCANNED, Reactive Lymphocytes RARE 06/10/22 05:30: Sodium 141, Potassium 4.2, Chloride 114 H, Carbon Dioxide 19.0 L , Anion Gap 8, BUN 47 H, Creatinine 2.79 H, Estim Creat Clear Calc 22.51, Est GFR (MDRD) Af Amer 28 L, Est GFR (MDRD) Non-Af 23 L, BUN/Creatinine Ratio 16.8, Glucose 127 H, Calcium 8.3 L 06/10/22 06:20: POC Glucose 129 H 06/10/22 11:37: POC Glucose 195 H 06/10/22 16:30: POC Glucose 229 H 06/10/22 22:09: POC Glucose 210 H 06/11/22 04:21: WBC 17.0 H, RBC 3.90 L, Hgb 12.4 L, Hct 36.9 L, MCV 94.6 H, MCH 31.8, MCHC 33.6, RDW Std Deviation 46.9 H, RDW Coeff of Bebe 13.6, Plt Count 149 L, MPV 11.2, Immature Gran % (Auto) 0.400, Neut % (Auto) 41.4 L, Lymph % (Auto) 51.4 H, [place] % (Auto) 4.3, Eos % (Auto) 2.1, Baso % (Auto) 0.4, Absolute Neuts (auto) 7.1, Absolute Lymphs (auto) 8.75 H, Nucleated RBC % 0, Differential Comment SCANNED, Reactive Lymphocytes 2+ 06/11/22 04:21: Sodium 142, Potassium 4.0, Chloride 115 H, Carbon Dioxide 19.0 L , Anion Gap 8, BUN 43 H, Creatinine 2.68 H, Estim Creat Clear Calc 23.43, Est GFR (MDRD) Af Amer 29 L, Est GFR (MDRD) Non-Af 24 L, BUN/Creatinine Ratio 16.0, Glucose 136 H, Calcium 8.2 L Micro: Microbiology 06/05/22 01:17 Blood Culture (Wb) - Anticubital Left Blood Culture - Final No growth in 5 days. 06/05/22 01:18 Blood Culture (Wb) - Right Forearm Blood Culture - Final No growth in 5 days. 06/09/22 10:10 Nasal Secretion SARS-CoV-2 Antigen (Rapid) - Final 06/06/22 02:10 Sputum, Expectorated/Coughed Gram Stain - Final 06/06/22 02:10 Sputum, Expectorated/Coughed Respiratory Culture - Final 06/06/22 06:20 Urine, Clean Catch Streptococcus pneumoniae Antigen (M - Final 06/05/22 Unknown Urine, Clean Catch Legionella Antigen - Final 06/05/22 04:30 Mucosa - Nasopharyngeal Respiratory Panel (PCR) - Final Physical Exam Const alert and no apparent distress Constitutional Narrative: Airvo in place on my arrival. Resting comfortably. Nutritional Appearance: obese HEENT normocephalic and head/scalp atraumatic Eyes PERRL, EOMs intact bilaterally and conjunctivae normal Neck supple General: trachea midline Chest inspection of chest normal Resp no use of accessory muscles Auscultation: diminished lung sounds; Negative for rales, rhonchi or wheezes Cardio regular rate, S1 normal heart sound, S2 normal heart sound, no murmurs, no rub and no gallops Rhythm: abnormal rhythm irregularly irregular GI normal to inspection, nondistended, normoactive bowel sounds Extremity Extremity Narrative: Wrapped lower extremities. General Extremity: edema; Negative for clubbing Skin no rashes or lesions noted Neuro CN's II-XII intact bilaterally, moves all extremities and no focal motor deficits Psych Mood & Affect: flat affect Charges/Coding Visit Charges Inpatient E&M: 54786 Subs Hosp L2
[2022-06-11 07:20] LABS: Bedside Glucose 128 mg/dL (74-106)
[2022-06-11] MEDS: Insulin NPH Human 100 UNITS/ML PEN 29 UNITS SC (08:32)
[2022-06-11] MEDS: Ferrous Sulfate 325 MG Tablet PO (08:34)
[2022-06-11] MEDS: Glucerna Shake 120 ML LIQUID PO ×3 (08:34→16:46)
[2022-06-11] MEDS: Acetaminophen 325 MG Tablet 650 MG PO (08:34)
[2022-06-11] MEDS: Menthol/Lanolin/Calamine/Znox 113 GM Tube 1 APPLIC TOPICAL ×2 (08:34→21:35)
[2022-06-11] MEDS: Aspirin 81 MG TAB.CHEW PO (08:34)
[2022-06-11] MEDS: Loratadine 10 MG Tablet PO (08:35)
[2022-06-11] MEDS: Loperamide 2 MG Capsule PO ×2 (08:35→16:46)
[2022-06-11] MEDS: Cholecalciferol (Vit D3) 125 MCG CAPSULE (5,000 UNITS) PO (08:35)
[2022-06-11] MEDS: Ascorbic Acid 500 MG Tablet 1000 MG PO (08:35)
[2022-06-11] MEDS: Tamsulosin HCl 0.4 MG Capsule PO (08:35)
[2022-06-11] MEDS: Finasteride 5 MG Tablet PO (08:35)
[2022-06-11] MEDS: amLODIPine 5 MG Tablet PO (08:35)
--- NOTE | 2022-06-11 11:39 | PCM.PN.REN ---
Subjective Subjective Following for CLAYTON on CKD Patient is sitting up in bed, no distress noted. Alert. Again states today he does not have an appetite. Objective Data Objective Data Vital Signs: Vital Signs Temp Pulse Resp BP Pulse Ox O2 Del Method O2 Flow Rate 97.9 F 65 27 H 164/87 H 93 Airvo 55 06/11/22 06:00 06/11/22 11:16 06/11/22 11:16 06/11/22 06:00 06/11/22 11:16 06/11/22 07:52 06/11/22 07:52 FiO2 40 06/11/22 11:16 Oxygen Flow Rate (L/min) 55 Oxygen Delivery Method Airvo Weight: 118.1 kg Body Mass Index (BMI) 32.3 Intake & Output: Intake and Output for Last 24 Hours 06/09/22 06/10/22 06/11/22 23:59 23:59 23:59 Intake Total 970 / 1170 1190 / 1390 1300 / 1300 Output Total 950 / 950 575 / 1175 600 / 600 Balance 20 / 220 615 / 215 700 / 700 Lab / Micro Data Result Diagrams: 06/11/22 04:21 06/11/22 04:21 Labs: Laboratory Results - last 24 hr 06/10/22 11:37: POC Glucose 195 H 06/10/22 16:30: POC Glucose 229 H 06/10/22 22:09: POC Glucose 210 H 06/11/22 04:21: WBC 17.0 H, RBC 3.90 L, Hgb 12.4 L, Hct 36.9 L, MCV 94.6 H, MCH 31.8, MCHC 33.6, RDW Std Deviation 46.9 H, RDW Coeff of Bebe 13.6, Plt Count 149 L, MPV 11.2, Immature Gran % (Auto) 0.400, Neut % (Auto) 41.4 L, Lymph % (Auto) 51.4 H, [place] % (Auto) 4.3, Eos % (Auto) 2.1, Baso % (Auto) 0.4, Absolute Neuts (auto) 7.1, Absolute Lymphs (auto) 8.75 H, Nucleated RBC % 0, Differential Comment SCANNED, Reactive Lymphocytes 2+ 06/11/22 04:21: Sodium 142, Potassium 4.0, Chloride 115 H, Carbon Dioxide 19.0 L, Anion Gap 8, BUN 43 H, Creatinine 2.68 H, Estim Creat Clear Calc 23.43, Est GFR (MDRD) Af Amer 29 L, Est GFR (MDRD) Non-Af 24 L, BUN/Creatinine Ratio 16.0, Glucose 136 H, Calcium 8.2 L 06/11/22 06:36: POC Glucose 128 H Micro: Microbiology 06/05/22 01:17 Blood Culture (Wb) - Anticubital Left Blood Culture - Final No growth in 5 days. 06/05/22 01:18 Blood Culture (Wb) - Right Forearm Blood Culture - Final No growth in 5 days. 06/09/22 10:10 Nasal Secretion SARS-CoV-2 Antigen (Rapid) - Final 06/06/22 02:10 Sputum, Expectorated/Coughed Gram Stain - Final 06/06/22 02:10 Sputum, Expectorated/Coughed Respiratory Culture - Final 06/06/22 06:20 Urine, Clean Catch Streptococcus pneumoniae Antigen (M - Final 06/05/22 Unknown Urine, Clean Catch Legionella Antigen - Final 06/05/22 04:30 Mucosa - Nasopharyngeal Respiratory Panel (PCR) - Final Physical Exam Narrative awake and alert. No apparent distress s1s2 regular Clear anteriorly and posteriorly. No rhonchi, rales or wheezing noted abdomen obese, non tender, soft No pitting edema noted bilateral lower extremities or feet steiner, clear yellow urine Assessment & Plan Assessment/Plan (1) Acute kidney injury superimposed on CKD: (2) Syncope: (3) Urethral stricture: QUALIFIERS: Urethral stricture type: other stricture Urethral stricture sex-location: male urethra-overlapping sites Qualified Code(s): N35.816 - Other urethral stricture, male, overlapping sites PLAN: Plan Assessment Pleasant 87-year-old gentleman underlying history of hypertension, diabetes, dementia, dyslipidemia, urethral stricture in addition to chronic kidney disease admitted to the hospital due to syncope. Nephrology consulted for acute kidney injury #1 nonoliguric CLAYTON on CKD -His baseline serum creatinine appears to be around 1.8 mg/dL -Acute insult likely combination of hemodynamics in setting of syncope -u/s no obstruction -scr peaked at 3.16mg/dL on 06/06 -overall renal function is stable, SCr 2.68mg/dL today - No acute indication for ONLINE [employer]IA [employer]ER today as there has been some improvement in renal function, potassium and acid-base acceptable, no overt fluid overload noted, and patient is nonoliguric. -Patient may be becoming intravascularly volume depleted as he has poor oral intake. Encouraged patient to increase solute and fluid intake #2 volume -repeat urine sodium 27, initial urine sodium 20 -bp ok -given respiratory status can hold of on fluids/lasix #3 urethral stricture -steiner inserted, appreciate urology assistance -patient will be discharged with steiner in place #4 syncope/sob -echo/stress test unremarkable -pulmonary following for acute hypoxemic respiratory failure felt to be secondary to right lower lobe pneumonia with concern for aspiration. Patient is tolerating Airvo. He is on Zosyn. He is on modified diet with supervision. Blood cultures no growth. 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 Current baseline SCr ~1.7-1.8mg/dL as of August 2021 Plan -continue with supportive care -Concern for patient becoming intravascularly volume depleted as he has very poor oral/solute intake, he did receive IV fluids yesterday. Urine output picked up and slight improvement in kidney function today. Currently lasix/IV fluids on hold. -on Airvo, tolerating and weaning to maintain saturations at or above 90%. Trying to attempt nasal cannula. -on Zosyn -no need for ONLINE MEDIA BUYER -bmp in am -Increase Norvasc 10 mg daily. -continue protein supplement -repeat urine sodium 27 (previous urine sodium 20). Given poor oral intake patient may need rechallenge of volume expansion. Encouraged patient to increase fluid and solute intake. -Discharge planning in progress, to ECF.
[2022-06-11] MEDS: Insulin Lispro 100 UNIT/ML INSULN.PEN SC (11:57)
[2022-06-11 12:20] LABS: Bedside Glucose 192 mg/dL (74-106)
[2022-06-11 17:10] LABS: Bedside Glucose 144 mg/dL (74-106)
[2022-06-11] MEDS: Albuterol 2.5 MG/3 ML VIAL.NEB. INHALATION (20:27)
--- NOTE | 2022-06-11 20:34 | PN.HOSP_ITS ---
Subjective Subjective Patient was seen and examined today, I talked briefly with pulmonary medicine about his care, at the time of this dictation patient is on 6 L of nasal cannula oxygen. Patient has no complaints of any fevers or chills at this time. Objective Data Objective Data Vital Signs: Vital Signs Temp Pulse Resp BP Pulse Ox O2 Del Method O2 Flow Rate 98.0 F 63 25 H 164/81 H 94 High Flow 6 06/11/22 20:19 06/11/22 20:19 06/11/22 20:19 06/11/22 20:19 06/11/22 20:19 06/11/22 20:19 06/11/22 20:19 FiO2 40 06/11/22 11:16 Oxygen Flow Rate (L/min) 6 Oxygen Delivery Method High Flow Weight: 118.1 kg Body Mass Index (BMI) 32.3 Intake & Output: Intake and Output for Last 24 Hours 06/09/22 06/10/22 06/11/22 23:59 23:59 23:59 Intake Total 970 / 1170 1190 / 1390 2190 / 2190 Output Total 950 / 950 575 / 1175 1300 / 1300 Balance 20 / 220 615 / 215 890 / 890 Lab / Micro Data Result Diagrams: 06/12/22 05:40 06/12/22 05:40 Labs: Laboratory Results - last 24 hr 06/10/22 22:09: POC Glucose 210 H 06/11/22 04:21: WBC 17.0 H, RBC 3.90 L, Hgb 12.4 L, Hct 36.9 L, MCV 94.6 H, MCH 31.8, MCHC 33.6, RDW Std Deviation 46.9 H, RDW Coeff of Bebe 13.6, Plt Count 149 L, MPV 11.2, Immature Gran % (Auto) 0.400, Neut % (Auto) 41.4 L, Lymph % (Auto) 51.4 H, [place] % (Auto) 4.3, Eos % (Auto) 2.1, Baso % (Auto) 0.4, Absolute Neuts (auto) 7.1, Absolute Lymphs (auto) 8.75 H, Nucleated RBC % 0, Differential Comment SCANNED, Reactive Lymphocytes 2+ 06/11/22 04:21: Sodium 142, Potassium 4.0, Chloride 115 H, Carbon Dioxide 19.0 L , Anion Gap 8, BUN 43 H, Creatinine 2.68 H, Estim Creat Clear Calc 23.43, Est GFR (MDRD) Af Amer 29 L, Est GFR (MDRD) Non-Af 24 L, BUN/Creatinine Ratio 16.0, Glucose 136 H, Calcium 8.2 L 06/11/22 06:36: POC Glucose 128 H 06/11/22 11:56: POC Glucose 192 H 06/11/22 16:45: POC Glucose 144 H Micro: Microbiology 06/05/22 01:17 Blood Culture (Wb) - Anticubital Left Blood Culture - Final No growth in 5 days. 06/05/22 01:18 Blood Culture (Wb) - Right Forearm Blood Culture - Final No growth in 5 days. 06/09/22 10:10 Nasal Secretion SARS-CoV-2 Antigen (Rapid) - Final 06/06/22 02:10 Sputum, Expectorated/Coughed Gram Stain - Final 06/06/22 02:10 Sputum, Expectorated/Coughed Respiratory Culture - Final 06/06/22 06:20 Urine, Clean Catch Streptococcus pneumoniae Antigen (M - Final 06/05/22 Unknown Urine, Clean Catch Legionella Antigen - Final 06/05/22 04:30 Mucosa - Nasopharyngeal Respiratory Panel (PCR) - Final Physical Exam Const alert, oriented x3 and no apparent distress General Appearance: cooperative, well kempt and well developed Orientation / Consciousness: awake, oriented to person, oriented to place and oriented to time HEENT normocephalic and moist oral mucous membranes Eyes PERRL, EOMs intact bilaterally and conjunctivae normal Neck supple, no JVD, thyroid normal and no carotid bruits General: trachea midline Resp normal respiratory effort, no retractions and no use of accessory muscles Resp Narrative: Decreased breath sounds bilaterally Auscultation: Negative for rales, rhonchi or wheezes Cardio regular rate, regular rhythm, S1 normal heart sound, S2 normal heart sound, no murmurs, no rub and no gallops GI normal to inspection, nondistended, normoactive bowel sounds, soft to palpation, non-tender and non-distended Extremity normal to inspection Skin no rashes or lesions noted General Skin Exam: no breakdown Neuro oriented x3, CN's II-XII intact bilaterally, no focal motor deficits and no sensory deficits noted Sensorium / Orientation: awake and alert Speech: speech normal Psych affect normal Assessment & Plan Assessment/Plan (1) Acute hypoxemic respiratory failure: PLAN: Plan 1. Acute hypoxic respiratory failure secondary to right lower lobe community- acquired pneumonia-continue present antibiotic coverage, pulmonary medicine is participating in his care #2 right lower lobe pneumonia-felt to be bacterial in nature, organism unknown at this time, continue present antibiotic coverage #3 type 2 diabetes-blood sugars will continue to be monitored, sliding scale insulin will be given as indicated #4 [id number] allergies participating in his care, patient is currently on a statin and aspirin, stress test showed no evidence of reversible ischemia. #5 essential hypertension-patient will remain on Norvasc #6 acute kidney injury superimposed on a backdrop of chronic kidney disease stage IV-complicates care, recovery, and prognosis #7 dementia-complicates care, recovery, and prognosis Charges/Coding Visit Charges Inpatient E&M: 30021 Subs Hosp L2
[2022-06-11] MEDS: Atorvastatin Calcium 10 MG Tablet PO (21:35)
[2022-06-11] MEDS: Donepezil HCl 10 MG Tablet PO (21:35)
[2022-06-11 22:45] LABS: Bedside Glucose 102 mg/dL (74-106)
[2022-06-12] VITALS (31 sets, daily range): BP systolic 147–177; BP diastolic 65–82; PULSE 63–90; RESP 24–31; TEMP 36.1–37.3; O2SAT 90–95
[2022-06-12] MEDS: hydrALAZINE 20 MG/ML Vial 10 MG IV ×2 (00:21→16:05)
[2022-06-12] MEDS: 0.9% Saline Lock 10 ML Syringe IV ×2 (00:23→16:05)
[2022-06-12] MEDS: Albuterol 2.5 MG/3 ML VIAL.NEB. INHALATION ×2 (03:27→12:00)
[2022-06-12 06:34] LABS: Absolute Lymphocyte Count 9.65 X10^3/uL (0.83-4.51); Absolute Neutrophil Count 7.4 X10^3/uL (2.0-7.7); Basophil# 0.06 X10^3/uL; Basophil% 0.3 % (0-1); Eosinophil# 0.29 X10^3/uL; Eosinophils% 1.6 % (0-5); Hemoglobin 12.2 g/dL (13.0-16.5); Lymphocyte # 9.65 X10^3/ul (0.83-4.51); Mean Corp Hgb Conc 32.1 g/dL (32-36); Mean Corpuscular Hgb 31.1 pg (27.0-32.0); Mean Corpuscular Volume 96.9 fL (80-94); Mean Platelet Vol. 11.2 fl (6.2-12.0); Monocyte# 0.74 X10^3/uL; Monocyte% 4.1 % (0-10); NRBC Flagged by Analyzer 0 % (0-5); Neutrophil # 7.37 X10^3/uL (2.7-7.7); Neutrophil % 40.5 % (47-70); POSITIVE DIFFERENTIAL YES; POSITIVE MORPHOLOGY YES; Platelet Count 159 K/mm3 (150-450); RBC Distribution Width SD 48.9 fl (35.1-43.9); Red Blood Count 3.92 M/mm3 (4.6-6.2); White Blood Count 18.2 K/mm3 (4.4-11.0)
[2022-06-12 06:37] LABS: Differential Indicated SCAN CRITERIA MET
[2022-06-12 06:39] LABS: Anion Gap 7 (5-15); BUN 38 mg/dL (7-18); Calcium,Total 8.1 mg/dL (8.5-10.1); Chloride 115 mmol/L (98-107); Creatinine, Serum 2.54 mg/dL (0.70-1.30); EST Glomerular Filtration Rate 26 mL/min (>60); Est Glom Filt Rate - Afr Amer 31 mL/min (>60); Estimated Creatinine Clearance 24.72 ml/min; Glucose 116 mg/dL (74-106); Potassium 4.1 mmol/L (3.5-5.1); Sodium Level 142 mmol/L (136-145)
[2022-06-12 06:55] LABS: Bedside Glucose 120 mg/dL (74-106)
[2022-06-12 07:00] LABS: Atypical Lymphocyte RARE %; Differential Comment SCANNED
--- NOTE | 2022-06-12 07:30 | PN.CC_ITS ---
Assessment & Plan Assessment/Plan (1) NSTEMI (non-ST elevated myocardial infarction): (2) Syncope: (3) Right lower lobe pneumonia: (4) Hypoxia: (5) Acute hypoxemic respiratory failure: PLAN: Plan RECOMMENDATIONS: 1. Encourage incentive spirometer. Wean FiO2 for saturations greater than 90%. 2. Complete 7 days of Zosyn for aspiration pneumonia. End date added to order 3. Continue aggressive bronchopulmonary hygiene. PEP therapy has been ordered. 4. Continue modified diet and aspiration precautions per speech therapy. 5. Mobilize patient as tolerated 6. Consider nasal saline if develops epistaxis IMPRESSIONS: 1. Acute hypoxemic respiratory failure Appears to be secondary to right lower lobe pneumonia with concern for aspiration. The patient is currently on a modified diet after being evaluated by speech therapy. Patient tolerating nasal cannula at current FiO2 requirements. Continue to wean FiO2 to maintain saturations at or above 90%. Continue supervised feeds and aspiration precautions. Patient improving with prevention of recurrent aspiration. Patient likely require 7 days of antibio tics (stop date added). Continue aggressive bronchopulmonary hygiene. Patient appears to be slowly improving. Bronchoscopy will likely not be required. 2. Acute on chronic kidney disease Stable. Potentially related to hemodynamic instability in the setting of syncope. No obstruction was noted on renal ultrasound. Nephrology is currently following to assist with medical management. The patient does have a urethral stricture, which required dilation and subsequent Manzo catheter insertion. Continue to monitor urine output for now. No indication for renal replacement therapy. Renal function has remained stable. 3. Syncope/NSTEMI/atrial fibrillation Continue current medical management per cardiology recommendations. 4. Advanced age/obesity/hypertension/hyperlipidemia/BPH/dementia/diabetes mellitus Complicates care, management, recovery and prognosis. Continue home medications as indicated. This note was generated with [employer] dictation software. It may contain incorrect words, spelling, and punctuation that were not noted in checking the note before signing. Subjective Subjective Patient did okay overnight. Patient states he did not get to the chair yesterday. Patient's cough is starting to decrease in frequency and volume. Patient was able to be weaned to nasal cannula. Patient's biggest complaint is thirst and global weakness. Objective Data Objective Data Vital Signs: Vital Signs Temp Pulse Resp BP Pulse Ox O2 Del Method O2 Flow Rate 36.7 C 67 28 H 170/75 H 93 High Flow 6 06/12/22 07:00 06/12/22 07:00 06/12/22 07:00 06/12/22 07:00 06/12/22 07:00 06/12/22 07:00 06/12/22 07:00 FiO2 40 06/11/22 11:16 Oxygen Flow Rate (L/min) 6 Oxygen Delivery Method High Flow Weight: 120.3 kg Body Mass Index (BMI) 32.3 Intake & Output: Intake and Output for Last 24 Hours 06/10/22 06/11/22 06/12/22 23:59 23:59 23:59 Intake Total 1190 / 1390 2190 / 2190 650 / 650 Output Total 575 / 1175 1300 / 1300 900 / 900 Balance 615 / 215 890 / 890 -250 / -250 Lab / Micro Data Attestation: I reviewed the patient's lab results. Result Diagrams: 06/12/22 05:40 06/12/22 05:40 Labs: Laboratory Results - last 24 hr 06/11/22 11:56: POC Glucose 192 H 06/11/22 16:45: POC Glucose 144 H 06/11/22 21:52: POC Glucose 102 06/12/22 05:40: WBC 18.2 H, RBC 3.92 L, Hgb 12.2 L, Hct 38.0 L, MCV 96.9 H, MCH 31.1, MCHC 32.1, RDW Std Deviation 48.9 H, RDW Coeff of Bebe 14.0, Plt Count 159, MPV 11.2, Immature Gran % (Auto) 0.500, Neut % (Auto) 40.5 L, Lymph % (Auto) 53.0 H, [place] % (Auto) 4.1, Eos % (Auto) 1.6, Baso % (Auto) 0.3, Absolute Neuts (auto) 7.4, Absolute Lymphs (auto) 9.65 H, Nucleated RBC % 0, Differential Comme nt SCANNED, Atypical Lymphocytes RARE 06/12/22 05:40: Sodium 142, Potassium 4.1, Chloride 115 H, Carbon Dioxide 20.0 L , Anion Gap 7, BUN 38 H, Creatinine 2.54 H, Estim Creat Clear Calc 24.72, Est GFR (MDRD) Af Amer 31 L, Est GFR (MDRD) Non-Af 26 L, BUN/Creatinine Ratio 15.0, Glucose 116 H, Calcium 8.1 L 06/12/22 06:20: POC Glucose 120 H Micro: Microbiology 06/05/22 01:17 Blood Culture (Wb) - Anticubital Left Blood Culture - Final No growth in 5 days. 06/05/22 01:18 Blood Culture (Wb) - Right Forearm Blood Culture - Final No growth in 5 days. 06/09/22 10:10 Nasal Secretion SARS-CoV-2 Antigen (Rapid) - Final 06/06/22 02:10 Sputum, Expectorated/Coughed Gram Stain - Final 06/06/22 02:10 Sputum, Expectorated/Coughed Respiratory Culture - Final 06/06/22 06:20 Urine, Clean Catch Streptococcus pneumoniae Antigen (M - Final 06/05/22 Unknown Urine, Clean Catch Legionella Antigen - Final 06/05/22 04:30 Mucosa - Nasopharyngeal Respiratory Panel (PCR) - Final Physical Exam Const alert and no apparent distress Constitutional Narrative: Nasal cannula in place on my arrival. Resting comfortably. Nutritional Appearance: obese HEENT normocephalic and head/scalp atraumatic Eyes PERRL, EOMs intact bilaterally and conjunctivae normal Neck supple General: trachea midline Chest inspection of chest normal Resp no use of accessory muscles Auscultation: diminished lung sounds; Negative for rales, rhonchi or wheezes Cardio regular rate, regular rhythm, S1 normal heart sound, S2 normal heart sound, no murmurs, no rub and no gallops Rhythm: abnormal rhythm irregularly irregular GI normal to inspection, nondistended, normoactive bowel sounds Extremity Extremity Narrative: Wrapped lower extremities. General Extremity: edema; Negative for clubbing Skin no rashes or lesions noted Neuro CN's II-XII intact bilaterally, moves all extremities and no focal motor de ficits Psych Mood & Affect: flat affect Charges/Coding Visit Charges Inpatient E&M: 09938 Subs Hosp L2
[2022-06-12] MEDS: Menthol/Lanolin/Calamine/Znox 113 GM Tube 1 APPLIC TOPICAL ×2 (08:36→22:26)
[2022-06-12] MEDS: Ascorbic Acid 500 MG Tablet 1000 MG PO (08:36)
[2022-06-12] MEDS: Tamsulosin HCl 0.4 MG Capsule PO (08:36)
[2022-06-12] MEDS: Glucerna Shake 120 ML LIQUID PO ×2 (08:36→16:05)
[2022-06-12] MEDS: Aspirin 81 MG TAB.CHEW PO (08:36)
[2022-06-12] MEDS: Cholecalciferol (Vit D3) 125 MCG CAPSULE (5,000 UNITS) PO (08:36)
[2022-06-12] MEDS: Finasteride 5 MG Tablet PO (08:36)
[2022-06-12] MEDS: Ferrous Sulfate 325 MG Tablet PO (08:36)
[2022-06-12] MEDS: amLODIPine 10 MG Tablet PO (08:36)
--- NOTE | 2022-06-12 09:57 | CASEMGMT ---
Dr Hare spoke with and he states would like pt to go to TCU at discharge. Call to and she states the same plan for TCU. Radha in TCU aware of referral and precert started as Dr. Hare states probable d/c tomorrow. Norma PORTER aware. CM to follow. An WELSH CM
[2022-06-12] MEDS: Insulin NPH Human 100 UNITS/ML PEN 29 UNITS SC ×2 (11:06→22:25)
[2022-06-12] MEDS: Insulin Lispro 100 UNIT/ML INSULN.PEN SC ×3 (11:06→22:25)
--- NOTE | 2022-06-12 11:10 | NURSING ---
Patient satting 93% on 5L High Flow nasal cannula. Changed oxygen tubing from high flow tubing to regular oxygen tubing and patient saturations remain 93% on 5L.
[2022-06-12 11:31] LABS: Bedside Glucose 176 mg/dL (74-106)
--- NOTE | 2022-06-12 13:30 | PN.RENAL_ITS ---
Subjective Subjective No new events. Urine output is okay through Steiner catheter. Remains on nasal cannula. Feels breathing is subjectively somewhat better. Creatinine trending down. Objective Data Objective Data Vital Signs: Vital Signs Temp Pulse Resp BP Pulse Ox O2 Del Method O2 Flow Rate 98.9 F 73 31 H 177/82 H 91 Nasal Cannula 6 06/12/22 12:00 06/12/22 12:00 06/12/22 12:00 06/12/22 12:00 06/12/22 12:00 06/12/22 12:00 06/12/22 12:00 FiO2 40 06/11/22 11:16 Oxygen Flow Rate (L/min) 6 Oxygen Delivery Method Nasal Cannula Weight: 120.3 kg Body Mass Index (BMI) 32.3 Intake & Output: Intake and Output for Last 24 Hours 06/10/22 06/11/22 06/12/22 23:59 23:59 23:59 Intake Total 1190 / 1390 2190 / 2190 820 / 820 Output Total 575 / 1175 1300 / 1300 1275 / 1275 Balance 615 / 215 890 / 890 -455 / -455 Lab / Micro Data Result Diagrams: 06/12/22 05:40 06/12/22 05:40 Labs: Laboratory Results - last 24 hr 06/11/22 16:45: POC Glucose 144 H 06/11/22 21:52: POC Glucose 102 06/12/22 05:40: WBC 18.2 H, RBC 3.92 L, Hgb 12.2 L, Hct 38.0 L, MCV 96.9 H, MCH 31.1, MCHC 32.1, RDW Std Deviation 48.9 H, RDW Coeff of Bebe 14.0, Plt Count 159, MPV 11.2, Immature Gran % (Auto) 0.500, Neut % (Auto) 40.5 L, Lymph % (Auto) 53.0 H, [place] % (Auto) 4.1, Eos % (Auto) 1.6, Baso % (Auto) 0.3, Absolute Neuts (auto) 7.4, Absolute Lymphs (auto) 9.65 H, Nucleated RBC % 0, Differential Comment SCANNED, Atypical Lymphocytes RARE 06/12/22 05:40: Sodium 142, Potassium 4.1, Chloride 115 H, Carbon Dioxide 20.0 L , Anion Gap 7, BUN 38 H, Creatinine 2.54 H, Estim Creat Clear Calc 24.72, Est GFR (MDRD) Af Amer 31 L, Est GFR (MDRD) Non-Af 26 L, BUN/Creatinine Ratio 15.0, Glucose 116 H, Calcium 8.1 L 06/12/22 06:20: POC Glucose 120 H 06/12/22 11:04: POC Glucose 176 H Micro: Microbiology 06/05/22 01:17 Blood Culture (Wb) - Anticubital Left Blood Culture - Final No growth in 5 days. 06/05/22 01:18 Blood Culture (Wb) - Right Forearm Blood Culture - Final No growth in 5 days. 06/09/22 10:10 Nasal Secretion SARS-CoV-2 Antigen (Rapid) - Final 06/06/22 02:10 Sputum, Expectorated/Coughed Gram Stain - Final 06/06/22 02:10 Sputum, Expectorated/Coughed Respiratory Culture - Final 06/06/22 06:20 Urine, Clean Catch Streptococcus pneumoniae Antigen (M - Final 06/05/22 Unknown Urine, Clean Catch Legionella Antigen - Final 06/05/22 04:30 Mucosa - Nasopharyngeal Respiratory Panel (PCR) - Final Physical Exam Narrative Alert awake oriented x 3 no obvious distress no pallor no icterus no JVD s1s2 no murmurs lungs clear abdomen soft no organomegaly + edema no cyanosis steiner + Assessment & Plan Assessment/Plan (1) Acute kidney injury superimposed on CKD: PLAN: Baseline creatinine is around 1.8 as of last year. Admitted with CLAYTON. Likely ischemic ATN. Creatinine is trending down. Renal ultrasound without any hydronephrosis. He has known history of ureteral stenosis, s/p Steiner catheter placement. Urine analysis shows proteinuria, hematuria, cells. He currently has a Steiner catheter. Previous urine albumin creatinine ratio was around 830 mg. Repeat protein creatinine ratio. BNP on admission 145 Echocardiogram with good ejection fraction, no significant elevation of PA pressures CT chest with collapsed right lower lobe, possible aspiration pneumonia, currently on antibiotics as per primary Creatinine is trending down to start daily. Good urine output. Likely recovery. Discussed with family at bedside
[2022-06-12 15:14] LABS: Protein:Creat Ratio 2183 mg/g CRE (0-200)
[2022-06-12 16:26] LABS: Bedside Glucose 232 mg/dL (74-106)
--- NOTE | 2022-06-12 16:54 | PN.HOSP_ITS ---
Subjective Subjective Patient was seen and examined today, I talked with the patient's by phone this morning and I told her that the patient would need to go short-term to a longterm facility for rehab services, I think the patient is too weak to go home, she agreed to this approach and we are trying to get the patient into TCU, we will have to get precertification. Patient is currently on nasal cannula oxygen of 5 L. Objective Data Objective Data Vital Signs: Vital Signs Temp Pulse Resp BP Pulse Ox O2 Del Method O2 Flow Rate 97.8 F 63 27 H 170/74 H 91 High Flow 5 06/12/22 15:00 06/12/22 16:05 06/12/22 15:00 06/12/22 16:05 06/12/22 15:00 06/12/22 15:00 06/12/22 15:00 FiO2 40 06/11/22 11:16 Oxygen Flow Rate (L/min) 5 Oxygen Delivery Method High Flow Weight: 120.3 kg Body Mass Index (BMI) 32.3 Intake & Output: Intake and Output for Last 24 Hours 06/10/22 06/11/22 06/12/22 23:59 23:59 23:59 Intake Total 1190 / 1390 2190 / 2190 820 / 820 Output Total 575 / 1175 1300 / 1300 1275 / 1275 Balance 615 / 215 890 / 890 -455 / -455 Lab / Micro Data Result Diagrams: 06/12/22 05:40 06/12/22 05:40 Labs: Laboratory Results - last 24 hr 06/11/22 16:45: POC Glucose 144 H 06/11/22 21:52: POC Glucose 102 06/12/22 05:40: WBC 18.2 H, RBC 3.92 L, Hgb 12.2 L, Hct 38.0 L, MCV 96.9 H, MCH 31.1, MCHC 32.1, RDW Std Deviation 48.9 H, RDW Coeff of Bebe 14.0, Plt Count 159, MPV 11.2, Immature Gran % (Auto) 0.500, Neut % (Auto) 40.5 L, Lymph % (Auto) 53.0 H, [place] % (Auto) 4.1, Eos % (Auto) 1.6, Baso % (Auto) 0.3, Absolute Neuts (auto) 7.4, Absolute Lymphs (auto) 9.65 H, Nucleated RBC % 0, Differential Comment SCANNED, Atypical Lymphocytes RARE 06/12/22 05:40: Sodium 142, Potassium 4.1, Chloride 115 H, Carbon Dioxide 20.0 L , Anion Gap 7, BUN 38 H, Creatinine 2.54 H, Estim Creat Clear Calc 24.72, Est GFR (MDRD) Af Amer 31 L, Est GFR (MDRD) Non-Af 26 L, BUN/Creatinine Ratio 15.0, Glucose 116 H, Calcium 8.1 L 06/12/22 06:20: POC Glucose 120 H 06/12/22 11:04: POC Glucose 176 H 06/12/22 14:40: U Random Total Protein 275.0 H, Urine Creatinine 126.00, Protein/Creatinin Ratio 2183 H 06/12/22 16:04: POC Glucose 232 H Micro: Microbiology 06/05/22 01:17 Blood Culture (Wb) - Anticubital Left Blood Culture - Final No growth in 5 days. 06/05/22 01:18 Blood Culture (Wb) - Right Forearm Blood Culture - Final No growth in 5 days. 06/09/22 10:10 Nasal Secretion SARS-CoV-2 Antigen (Rapid) - Final 06/06/22 02:10 Sputum, Expectorated/Coughed Gram Stain - Final 06/06/22 02:10 Sputum, Expectorated/Coughed Respiratory Culture - Final 06/06/22 06:20 Urine, Clean Catch Streptococcus pneumoniae Antigen (M - Final 06/05/22 Unknown Urine, Clean Catch Legionella Antigen - Final 06/05/22 04:30 Mucosa - Nasopharyngeal Respiratory Panel (PCR) - Final Physical Exam Narrative alert, oriented x3 and no apparent distress General Appearance: cooperative, well kempt and well developed Orientation / Consciousness: awake, oriented to person, oriented to place HEENT normocephalic and moist oral mucous membranes Eyes PERRL, EOMs intact bilaterally and conjunctivae normal Neck supple, no JVD, thyroid normal and no carotid bruits General: trachea midline Resp normal respiratory effort, no retractions and no use of accessory muscles Resp Narrative: Decreased breath sounds bilaterally Auscultation: Negative for rales, rhonchi or wheezes Cardio regular rate, regular rhythm, S1 normal heart sound, S2 normal heart sound, no murmurs, no rub and no gallops GI normal to inspection, nondistended, normoactive bowel sounds, soft to palpation, non-tender and non-distended Extremity normal to inspection Skin no rashes or lesions noted General Skin Exam: no breakdown Neuro oriented x3, CN's II-XII intact bilaterally, no focal motor deficits and no sensory deficits noted Sensorium / Orientation: awake and alert Speech: speech normal Psych affect flat Const alert, oriented x3 and no apparent distress General Appearance: cooperative, well kempt and well developed Orientation / Consciousness: awake, oriented to person, oriented to place and oriented to time HEENT normocephalic, head/scalp atraumatic, moist oral mucous membranes and oropharynx normal Eyes PERRL, EOMs intact bilaterally and conjunctivae normal Neck no lymphadenopathy, supple, no JVD, thyroid normal and no carotid bruits General: trachea midline Resp normal respiratory effort, no retractions and no use of accessory muscles Resp Narrative: Decreased breath sounds bilaterally Auscultation: Negative for rales, rhonchi or wheezes Cardio regular rate, regular rhythm, S1 normal heart sound, S2 normal heart sound, no murmurs, no rub and no gallops GI normal to inspection, nondistended, normoactive bowel sounds, soft to palpation, non-tender and non-distended Extremity normal to inspection, full ROM and no clubbing, cyanosis or edema Skin no rashes or lesions noted General Skin Exam: no breakdown Neuro oriented x3, CN's II-XII intact bilaterally, moves all extremities, no focal motor deficits and no sensory deficits noted Sensorium / Orientation: awake and alert Coordination / Balance: [id number] test normal Speech: speech normal Motor Exam: strength 5/5 throughout Psych affect normal Assessment & Plan Assessment/Plan (1) Acute hypoxemic respiratory failure: PLAN: Plan 1. Acute hypoxic respiratory failure secondary to right lower lobe community- acquired pneumonia-continue present antibiotic coverage, pulmonary medicine is participating in his care #2 right lower lobe pneumonia-felt to be bacterial in nature, organism unknown at this time, continue present antibiotic coverage #3 type 2 diabetes-blood sugars will continue to be monitored, sliding scale insulin will be given as indicated #4 [id number] allergies participating in his care, patient is currently on a statin and aspirin, stress test showed no evidence of reversible ischemia. #5 essential hypertension-patient will remain on Norvasc #6 acute kidney injury superimposed on a backdrop of chronic kidney disease stage IV-complicates care, recovery, and prognosis #7 dementia-complicates care, recovery, and prognosis #8 acute debility-physical therapy is participating in his care, again patient will need short-term placement in a longterm facility. We are attempting pre-CERT at this time Charges/Coding Visit Charges Inpatient E&M: 12664 Subs Hosp L2
[2022-06-12] MEDS: Donepezil HCl 10 MG Tablet PO (22:24)
[2022-06-12] MEDS: Atorvastatin Calcium 10 MG Tablet PO (22:26)
[2022-06-12 22:55] LABS: Bedside Glucose 181 mg/dL (74-106)
[2022-06-13] VITALS (17 sets, daily range): BP systolic 146–170; BP diastolic 62–75; PULSE 64–80; RESP 20–34; TEMP 36.4–36.8; O2SAT 92–95
[2022-06-13] MEDS: hydrALAZINE 20 MG/ML Vial 10 MG IV (02:16)
[2022-06-13 04:32] LABS: Absolute Lymphocyte Count 8.94 X10^3/uL (0.83-4.51); Absolute Neutrophil Count 7.7 X10^3/uL (2.0-7.7); Basophil# 0.05 X10^3/uL; Basophil% 0.3 % (0-1); Eosinophil# 0.19 X10^3/uL; Eosinophils% 1.1 % (0-5); Hematocrit 35.1 % (40-54); Hemoglobin 11.4 g/dL (13.0-16.5); Lymphocyte # 8.94 X10^3/ul (0.83-4.51); Lymphocyte % 50.4 % (19-41); Mean Corp Hgb Conc 32.5 g/dL (32-36); Mean Corpuscular Hgb 31.1 pg (27.0-32.0); Mean Corpuscular Volume 95.9 fL (80-94); Mean Platelet Vol. 10.7 fl (6.2-12.0); Monocyte# 0.75 X10^3/uL; Monocyte% 4.2 % (0-10); NRBC Flagged by Analyzer 0 % (0-5); Neutrophil # 7.71 X10^3/uL (2.7-7.7); Neutrophil % 43.4 % (47-70); POSITIVE DIFFERENTIAL YES; POSITIVE MORPHOLOGY YES; Platelet Count 162 K/mm3 (150-450); RBC Distribution Width CV 13.6 % (11.6-14.6); RBC Distribution Width SD 47.6 fl (35.1-43.9); Red Blood Count 3.66 M/mm3 (4.6-6.2); White Blood Count 17.8 K/mm3 (4.4-11.0)
[2022-06-13 04:33] LABS: Differential Indicated SCAN CRITERIA MET
[2022-06-13 04:53] LABS: Anion Gap 8 (5-15); BUN 36 mg/dL (7-18); BUN/Creat Ratio 14.5 RATIO (10-20); Chloride 113 mmol/L (98-107); Creatinine, Serum 2.49 mg/dL (0.70-1.30); EST Glomerular Filtration Rate 26 mL/min (>60); Est Glom Filt Rate - Afr Amer 32 mL/min (>60); Estimated Creatinine Clearance 25.22 ml/min; Glucose 148 mg/dL (74-106); Potassium 4.2 mmol/L (3.5-5.1); Sodium Level 140 mmol/L (136-145)
[2022-06-13 05:11] LABS: Atypical Lymphocyte RARE %; Differential Comment SCANNED
[2022-06-13 07:16] LABS: Bedside Glucose 129 mg/dL (74-106)
--- NOTE | 2022-06-13 08:12 | PCM.PN.INT ---
Assessment & Plan Assessment/Plan (1) NSTEMI (non-ST elevated myocardial infarction): (2) Syncope: (3) Right lower lobe pneumonia: (4) Hypoxia: (5) Acute hypoxemic respiratory failure: PLAN: Plan RECOMMENDATIONS: 1. Encourage incentive spirometer. Wean FiO2 for saturations greater than 90%. 2. Complete 7 days of Zosyn for aspiration pneumonia. End date added to order 3. Continue aggressive bronchopulmonary hygiene. PEP therapy has been ordered. 4. Continue modified diet and aspiration precautions per speech therapy. 5. Mobilize patient as tolerated 6. Consider nasal saline if develops epistaxis 7. Okay to transfer to TCU from a pulmonary perspective IMPRESSIONS: 1. Acute hypoxemic respiratory failure Appears to be secondary to right lower lobe pneumonia with concern for aspiration. The patient is currently on a modified diet after being evaluated by speech therapy. Patient tolerating nasal cannula at current FiO2 requirements. Continue to wean FiO2 to maintain saturations at or above 90%. Continue supervised feeds and aspiration precautions. Patient improving with prevention of recurrent aspiration. Impaired at the patient continues precautions to avoid repeat insult. Patient likely require 7 days of antibiotics (stop date added). Continue aggressive bronchopulmonary hygiene. Patient appears to be slowly improving. Bronchoscopy will likely not be required. Patient can follow-up in 2 to 4 weeks in pulmonary office. 2. Acute on chronic kidney disease Stable. Potentially related to hemodynamic instability in the setting of syncope. No obstruction was noted on renal ultrasound. Nephrology is currently following to assist with medical management. The patient does have a urethral stricture, which required dilation and subsequent Manzo catheter insertion. Continue to monitor urine output for now. No indication for renal replacement therapy. Renal function has remained stable. 3. Syncope/NSTEMI/atrial fibrillation Continue current medical management per cardiology recommendations. 4. Advanced age/obesity/hypertension/hyperlipidemia/BPH/dementia/diabetes mellitus Complicates care, management, recovery and prognosis. Continue home medications as indicated. This note was generated with [employer] dictation software. It may contain incorrect words, spelling, and punctuation that were not noted in checking the note before signing. Subjective Subjective Patient did okay overnight from a hemodynamic standpoint. Patient remains on nasal cannula oxygen. Patient states he was not out of bed yesterday. Patient is reporting a dry mouth, but no nausea or palpitations. Objective Data Objective Data Vital Signs: Vital Signs Temp Pulse Resp BP Pulse Ox O2 Del Method O2 Flow Rate 36.4 C L 67 30 H 146/70 H 95 Nasal Cannula 6 06/13/22 06:49 06/13/22 07:00 06/13/22 06:49 06/13/22 06:49 06/13/22 07:30 06/13/22 07:30 06/13/22 07:30 FiO2 40 06/11/22 11:16 Oxygen Flow Rate (L/min) 6 Oxygen Delivery Method Nasal Cannula Weight: 119.8 kg Body Mass Index (BMI) 32.3 Intake & Output: Intake and Output for Last 24 Hours 06/11/22 06/12/22 06/13/22 23:59 23:59 23:59 Intake Total 2190 / 2190 1070 / 1070 170 / 170 Output Total 1300 / 1300 1475 / 1825 600 / 600 Balance 890 / 890 -405 / -755 -430 / -430 Lab / Micro Data Attestation: I reviewed the patient's lab results. Result Diagrams: 06/13/22 04:14 06/13/22 04:14 Labs: Laboratory Results - last 24 hr 06/12/22 11:04: POC Glucose 176 H 06/12/22 14:40: U Random Total Protein 275.0 H, Urine Creatinine 126.00, Protein/Creatinin Ratio 2183 H 06/12/22 16:04: POC Glucose 232 H 06/12/22 22:21: POC Glucose 181 H 06/13/22 04:14: WBC 17.8 H, RBC 3.66 L, Hgb 11.4 L, Hct 35.1 L, MCV 95.9 H, MCH 31.1, MCHC 32.5, RDW Std Deviation 47.6 H, RDW Coeff of Bebe 13.6, Plt Count 162, MPV 10.7, Immature Gran % (Auto) 0.600, Neut % (Auto) 43.4 L, Lymph % (Auto) 50.4 H, [place] % (Auto) 4.2, Eos % (Auto) 1.1, Baso % (Auto) 0.3, Absolute Neuts (auto) 7.7, Absolute Lymphs (auto) 8.94 H, Nucleated RBC % 0, Differential Comment SCANNED, Atypical Lymphocytes RARE 06/13/22 04:14: Sodium 140, Potassium 4.2, Chloride 113 H, Carbon Dioxide 19.0 L, Anion Gap 8, BUN 36 H, Creatinine 2.49 H, Estim Creat Clear Calc 25.22, Est GFR (MDRD) Af Amer 32 L, Est GFR (MDRD) Non-Af 26 L, BUN/Creatinine Ratio 14.5, Glucose 148 H, Calcium 8.0 L 06/13/22 06:54: POC Glucose 129 H Micro: Microbiology 06/05/22 01:17 Blood Culture (Wb) - Anticubital Left Blood Culture - Final No growth in 5 days. 06/05/22 01:18 Blood Culture (Wb) - Right Forearm Blood Culture - Final No growth in 5 days. 06/09/22 10:10 Nasal Secretion SARS-CoV-2 Antigen (Rapid) - Final 06/06/22 02:10 Sputum, Expectorated/Coughed Gram Stain - Final 06/06/22 02:10 Sputum, Expectorated/Coughed Respiratory Culture - Final 06/06/22 06:20 Urine, Clean Catch Streptococcus pneumoniae Antigen (M - Final 06/05/22 Unknown Urine, Clean Catch Legionella Antigen - Final 06/05/22 04:30 Mucosa - Nasopharyngeal Respiratory Panel (PCR) - Final Physical Exam Const alert and no apparent distress Constitutional Narrative: Nasal cannula in place on my arrival. Resting comfortably. Nutritional Appearance: obese HEENT normocephalic and head/scalp atraumatic Eyes PERRL, EOMs intact bilaterally and conjunctivae normal Neck supple General: trachea midline Chest inspection of chest normal Resp no use of accessory muscles Auscultation: diminished lung sounds; Negative for rales, rhonchi or wheezes Cardio regular rate, regular rhythm, S1 normal heart sound, S2 normal heart sound, no murmurs, no rub and no gallops Rhythm: abnormal rhythm irregularly irregular GI normal to inspection, nondistended, normoactive bowel sounds Extremity Extremity Narrative: Wrapped lower extremities. General Extremity: edema; Negative for clubbing Skin no rashes or lesions noted Neuro CN's II-XII intact bilaterally, moves all extremities and no focal motor deficits Psych Mood & Affect: flat affect Charges/Coding Visit Charges Inpatient E&M: 94381 Subs Hosp L2
[2022-06-13] MEDS: Ascorbic Acid 500 MG Tablet 1000 MG PO (08:36)
[2022-06-13] MEDS: Glucerna Shake 120 ML LIQUID PO ×2 (08:36→11:09)
[2022-06-13] MEDS: Loratadine 10 MG Tablet PO (08:36)
[2022-06-13] MEDS: Tamsulosin HCl 0.4 MG Capsule PO (08:36)
[2022-06-13] MEDS: Aspirin 81 MG TAB.CHEW PO (08:36)
[2022-06-13] MEDS: amLODIPine 10 MG Tablet PO (08:36)
[2022-06-13] MEDS: Ferrous Sulfate 325 MG Tablet PO (08:36)
[2022-06-13] MEDS: Finasteride 5 MG Tablet PO (08:37)
[2022-06-13] MEDS: Cholecalciferol (Vit D3) 125 MCG CAPSULE (5,000 UNITS) PO (08:37)
[2022-06-13] MEDS: Menthol/Lanolin/Calamine/Znox 113 GM Tube 1 APPLIC TOPICAL (08:37)
[2022-06-13] MEDS: Insulin NPH Human 100 UNITS/ML PEN 29 UNITS SC (08:50)
[2022-06-13] MEDS: Albuterol 2.5 MG/3 ML VIAL.NEB. INHALATION ×2 (09:01→12:30)
--- NOTE | 2022-06-13 10:15 | CASEMGMT ---
Social Work Telephone call from Dyan Napier. Patient approved for discharge to TCU today as pre-cert has been obtained. This social services communicating above information to medical team, patient, and patient spouse. Nurse to obtain COVID results and aware that a negative COVID test is needed in order for patient to discharge to TCU. Proposed discharge date: 06/13/2022 PLAN: Discharge to TCU, skilled. Anson GONZALEZ, THIAGO-S
--- NOTE | 2022-06-13 10:50 | PCM.TXEXTCAR ---
Diet Diet Order/Speech Therapy: 06/06/22 12:12 Diet: Cardiac: Calorie-Controlled Food consistency:: Soft & Bite Sized Liquid Consistency:: [place]/Mildly Thick Dietary Modifications:: Consistent Carbohydrate Type of Dietary Supplement:: 120ml Straw Glucerna TID Is pt able to select menu?: Yes Diet Comments: staff or family supervision - small bites, slow rate; no straws, How many daily calories?: 2000 calorie Routine Orders/Code Status O2 Liters per Minute: 6 O2 Frequency: 8 liters/min with activity Keep PO Greater than or Equal to (%): 90 Routine Lab Work: CBC (In 5 days) and - (Fingerstick blood sugars AC nightly, coverage with Humalog subcu per sliding scale: 200-250: 5 units, 251-300: 8 units, 301-350: 12 units) Code Status: Full Code Wound(s) left knee: Wound Type: Abrasion right knee: Wound Type: Abrasion right hand: Wound Type: Abrasion Therapies Weight Bearing: Full weight bearing Physical Therapy: Eval and Treat Occupational Therapy: Eval and Treat Speech Therapy: Eval and Treat Problem/Diagnosis (1) NSTEMI (non-ST elevated myocardial infarction): Status: Acute Code(s): I21.4 - Non-ST elevation (NSTEMI) myocardial infarction (2) Syncope: Status: Acute Code(s): R55 - Syncope and collapse (3) Right lower lobe pneumonia: Status: Acute Code(s): J18.9 - Pneumonia, unspecified organism (4) Hypoxia: Status: Acute Code(s): R09.02 - Hypoxemia (5) Acute hypoxemic respiratory failure: Status: Acute Code(s): J96.01 - Acute respiratory failure with hypoxia Plan 1. Acute hypoxic respiratory failure secondary to right lower lobe community-acquired pneumonia-continue present antibiotic coverage, pulmonary medicine is participating in his care #2 right lower lobe pneumonia-felt to be bacterial in nature, organism unknown at this time, continue present antibiotic coverage #3 type 2 diabetes-blood sugars will continue to be monitored, sliding scale insulin will be given as indicated #4 [id number] participating in his care, patient is currently on a statin and aspirin, stress test showed no evidence of reversible ischemia. #5 essential hypertension-patient will remain on Norvasc #6 acute kidney injury superimposed on a backdrop of chronic kidney disease stage IV-complicates care, recovery, and prognosis #7 dementia-complicates care, recovery, and prognosis #8 acute debility-physical therapy is participating in his care, again patient will need short-term placement in a snf facility. We are attempting pre-CERT at this time #9 persistent leukocytosis-possibly secondary to chronic aspiration, CBC will be rechecked #10 right lower lobe collapse on CT 06/07/2022-CT scan of the chest will need to be repeated in 4 to 6 weeks Allergies/Procedures Done in Hospital Allergies No Known Allergies Allergy (Verified 06/05/22 03:44) Procedures: 2-D Echocardiogram Type of Care/Length of Stay Estimated LOS: Convalescent Care Less Than 30 days Type of Care Needed: Skilled Rehab Potential: Good Prognosis: Good Additional Orders/Day of Discharge H&P will serve as current which was dated: 06/05/22 Day of Discharge: 06/13/22 Dietary and Speech Recommendations Dietitian Recommendations/Changes: Will continue 2000 calorie/consistent carbohydrate; cardiac diet with consistency/texture as per PASSENGER BOOKING CLERK. Will continue 120mL Glucerna TID with medpass and 120 ml strawberry glucerna shake TID w/ meals due to decreased intake at meals---nectar-thick liquids. Discharge Plan Admission Admit Date/Time: 06/05/22 01:58 Primary Reason for Your Visit: Respiratory failure, pneumonia, non-STEMI Attending Provider: Buddy Hare Primary Care Provider: Nate Watters Consulting Providers: Ethan Milan ; Joanna Peguero ; Alli Richard ; Darrell Stout ; Arnold Doe ; Gilbert Watters ; Tamiko Little NP ; Brittney Mcgrath ; Ed Mendez Instructions Additional Instructions / Restrictions: Repeat CT of the chest without contrast should be obtained in 4 to 6 weeks Maintain Manzo catheter due to history of urethral stricture, patient to follow-up with Dr. Stout in 2 weeks Discharge Orders/Prescriptions Prescriptions: New ascorbic acid (vitamin C) 500 mg Tablet 1,000 mg PO DAILY Qty: 0 0RF amlodipine 10 mg Tablet 10 mg PO DAILY Qty: 0 0RF finasteride 5 mg Tablet 5 mg PO DAILY Qty: 0 0RF Humulin N NPH Insulin KwikPen 100 unit/mL (3 mL) Insulin Pen 29 unit subcut BID Qty: 0 0RF acetaminophen [Tylenol] 325 mg Tablet 650 mg PO Q4H PRN PRN (Reason: Fever, pain -08/18) Qty: 0 0RF loperamide 2 mg Capsule 2 mg PO Q4H PRN (Reason: loose stool) Qty: 1 0RF tamsulosin 0.4 mg Capsule 0.4 mg PO DAILY Qty: 0 0RF albuterol sulfate 2.5 mg /3 mL (0.083 %) Solution For Nebulization 2.5 mg inhalation Q2H PRN PRN (Reason: Dyspnea, wheezing) Qty: 0 0RF aspirin 81 mg Tablet,Chewable 81 mg PO BREAKFAST Qty: 0 0RF Glucerna 1.2 Brady 0.06-1.2 gram-kcal/mL Liquid 120 ml PO TIDCM Qty: 0 0RF menthol-zinc oxide [Calmoseptine] 0.44-20.6 % Ointment 1 applic topical BID Qty: 0 0RF Protocol: *Topical Application Instructions APPLICATION INSTRUCTIONS: apply to groin/buttocks amoxicillin-pot clavulanate [Augmentin] 500-125 mg tablet 1 tab PO TID Qty: 6 0RF Rx Instructions: 1 3 times daily with meals starting 06/13/2022-continue for 2 days Continued ferrous sulfate 325 mg (65 mg iron) tablet 325 mg PO DAILY cholecalciferol (vitamin D3) 125 mcg (5,000 unit) capsule 125 mcg PO DAILY donepezil [Aricept] 10 mg tablet 10 mg PO QHS simvastatin [Zocor] 20 mg tablet 20 mg PO QHS Discontinued finasteride [Propecia] 1 mg tablet 5 mg PO DAILY (DME) OneTouch Verio test strips Strip See Rx Instructions .ROUTE .MEDSUPPLY Qty: 100 5RF Rx Instructions: Check three times a day and as needed ascorbic acid (vitamin C) 1,000 MG tablet 1,000 mg PO DAILY loperamide [Imodium A-D] 2 mg capsule 2 mg PO .COMPLEX MDD 16mg PRN (Reason: loose stool) Rx Instructions: Take 4 mg by mouth once and then 2 mg by mouth after each loose stool Claritin Liqui-Gel 10 mg capsule 10 mg PO DAILY amlodipine 5 mg tablet 5 mg PO DAILY Qty: 30 1RF insulin NPH isoph U-100 human 100 unit/mL suspension 29 unit subcut BID Qty: 10 0RF No Action tamsulosin [Flomax] 0.4 mg capsule 0.4 mg PO DAILY lisinopril 10 mg tablet 10 mg PO DAILY Qty: 90 1RF Referrals / Follow Up: Nate Watters DO [Primary Care Provider] - Darrell Stout MD [Med Staff - Active Staff] - See Referral Note (In 2 weeks, call for an appointment) Disposition Disposition (needs filled in before D/C Order can be placed): [facility]
[2022-06-13] MEDS: Insulin Lispro 100 UNIT/ML INSULN.PEN SC (11:09)
[2022-06-13 11:30] LABS: Bedside Glucose 206 mg/dL (74-106)
--- NOTE | 2022-06-13 12:43 | NURSING ---
Report called to BLAISE Foley in TCU. Patient okay to discharge to TCU, room 20.
--- NOTE | 2022-06-15 14:47 | PCM.DC.SUM ---
Providers Date of Admission: 06/05/22 Date of Discharge: 06/13/22 Primary Care Physician: Dr. Nate Watters, DO Consultations 06/05/22 03:24 Consult: Cardiology Routine Consulting Provider: Ethan Milan Reason for Consult: New onset PAF, unresponsive episodes preceded by bradycardia, N/V EMERGENT Consult: No MD Notified: Yes Date Notified: 06/05/22 Time Notified: 02:21 Method of Notification: ED Physician Initiated 06/06/22 10:21 Consult: Nephrology Routine Consulting Provider: Alli Richard Reason for Consult: Clayton on CKD EMERGENT Consult: No Notified: Yes Date Notified: 06/06/22 Time Notified: 10:21 Method of Notification: Text 06/06/22 15:17 Consult: Urology Routine Consulting Provider: Darrell Stout Reason for Consult: Clayton on CKD3, urethral stricture EMERGENT Consult: No MD Notified: Yes Date Notified: 06/06/22 Time Notified: 15:17 Method of Notification: Text 06/07/22 07:26 Consult: Chimney Sweeper / Pulmonary Medicine Routine Consulting Provider: Pulmonary Medicine derek Madison Reason for Consult: acute hypoxic respiratory failure EMERGENT Consult: No MD Notified: Yes Date Notified: 06/07/22 Time Notified: 07:26 Method of Notification: Text Reason For Visit: PNA, SYNCOPE, PAF, CLAYTON Diagnosis Discharge Diagnosis (1) NSTEMI (non-ST elevated myocardial infarction): Status: Inactive Code(s): I21.4 - Non-ST elevation (NSTEMI) myocardial infarction (2) Syncope: Status: Inactive Code(s): R55 - Syncope and collapse (3) Right lower lobe pneumonia: Status: Acute Code(s): J18.9 - Pneumonia, unspecified organism (4) Hypoxia: Status: Acute Code(s): R09.02 - Hypoxemia (5) Acute hypoxemic respiratory failure: Status: Resolved Code(s): J96.01 - Acute respiratory failure with hypoxia Plan 1. Acute hypoxic respiratory failure secondary to right lower lobe community-acquired pneumonia-continue present antibiotic coverage, pulmonary medicine is participating in his care #2 right lower lobe pneumonia-felt to be bacterial in nature, organism unknown at this time, continue present antibiotic coverage #3 type 2 diabetes-blood sugars will continue to be monitored, sliding scale insulin will be given as indicated #4 [id number] participating in his care, patient is currently on a statin and aspirin, stress test showed no evidence of reversible ischemia. #5 essential hypertension-patient will remain on Norvasc #6 acute kidney injury superimposed on a backdrop of chronic kidney disease stage IV-complicates care, recovery, and prognosis #7 dementia-complicates care, recovery, and prognosis #8 acute debility-physical therapy is participating in his care, again patient will need short-term placement in a fpc facility. We are attempting pre-CERT at this time #9 persistent leukocytosis-possibly secondary to chronic aspiration, CBC will be rechecked #10 right lower lobe collapse on CT 06/07/2022-CT scan of the chest will need to be repeated in 4 to 6 weeks #11 urethral strictures-patient has a Manzo currently that was inserted by urology, this will need to remain in place Medications at Discharge Home Medications ferrous sulfate 325 mg (65 mg iron) tablet 325 mg PO DAILY iron 08/28/21 cholecalciferol (vitamin D3) 125 mcg (5,000 unit) capsule 125 mcg PO DAILY vit D3 11/28/21 donepezil 10 mg tablet (Aricept) 10 mg PO QHS memory 06/05/22 simvastatin 20 mg tablet (Zocor) 20 mg PO QHS cholesterol 06/05/22 acetaminophen 325 mg tablet (Tylenol) 650 mg PO Q4H PRN PRN Fever, pain 1-08/18 #0 tabs 06/13/22 albuterol sulfate 2.5 mg/3 mL (0.083 %) solution for nebulization 2.5 mg (3 mL) inhalation Q2H PRN PRN Dyspnea, wheezing #0 mL 06/13/22 amlodipine 10 mg tablet 10 mg PO DAILY bp 06/13/22 amoxicillin 500 mg-potassium clavulanate 125 mg tablet (Augmentin) 1 tab PO TID ATB 06/13/22 ascorbic acid (vitamin C) 500 mg tablet 1,000 mg PO DAILY vitamin 06/13/22 aspirin 81 mg chewable tablet 81 mg PO BREAKFAST heart health 06/13/22 finasteride 5 mg tablet 5 mg PO DAILY BPH 06/13/22 insulin NPH isoph U-100 human 100 unit/mL (3 mL) subcutaneous pen (Humulin N NPH U-100 Insulin KwikPen) 29 unit subcut BID diabetes 06/13/22 lisinopril 10 mg tablet 10 mg PO DAILY BP 06/13/22 loperamide 2 mg capsule 2 mg PO Q4H PRN loose stool #1 cap 06/13/22 menthol 0.44 %-zinc oxide 20.6 % topical ointment (Calmoseptine) 1 applic topical BID buttocks 06/13/22 nutrition tx glu intol,lac-free,soy-fiber 0.06 gram-1.2 kcal/mL liquid (Glucerna 1.2 Brady) 120 ml PO TIDCM nutrition 06/13/22 tamsulosin 0.4 mg capsule 0.4 mg PO DAILY BPH 06/13/22 Hospital Course Operations None Procedures 2-D Echocardiogram, Stress test and - (Dilation of urethral strictures and placement of 16 Khmer catheter) Summary of Care Provided Minutes Spent on Discharge: 32 Hospital Course: 77-year-old white male was seen in the emergency room at [facility] after being brought in following a syncopal episode at home. Evaluation in the emergency room showed his pulse ox to be in the low 80s, he was then put on supplemental oxygen with an improvement in SPO2. EKG initially showed atrial fibrillation with rapid ventricular response of 105, upon arrival in the emergency room, he was in sinus rhythm at approximately 70. X-ray of the chest was obtained which showed right lower lung pneumonia, patient's white blood cell count was elevated at 26,000, he was started on vancomycin and Zosyn, his initial troponin was normal at 46 but the second troponin increased to 266 indicating a non-STEMI. Patient was admitted to [facility], he was seen in consultation by cardiology, an echocardiogram was performed which showed normal LV size and normal left ventricular systolic function. Due to the patient's renal function, it was decided that a pharmacological stress test should be performed, this stress test was negative for reversible ischemia. Patient was maintained on IV antibiotic treatment for his pneumonia, he was seen in consultation by pulmonary medicine. Patient was also seen in consultation by urology due to severe urethral strictures and inability to place a Manzo catheter. Manzo catheter was eventually placed by urology. Patient's respiratory status worsened and he was seen in consultation by pulmonary medicine, patient was on Airvo for a period of time, due to acute kidney injury, patient was also seen by nephrology. Patient respiratory status improved slowly, he was seen by PT and OT and it was felt he would benefit from short-term placement in a fpc facility. On 06/13/2022, patient was seen and examined: Alert and in no apparent distress General Appearance: cooperative, well kempt and well developed Orientation / Consciousness: awake, oriented to person, oriented to place HEENT normocephalic and moist oral mucous membranes Eyes PERRL, EOMs intact bilaterally and conjunctivae normal Neck supple, no JVD, thyroid normal and no carotid bruits General: trachea midline Resp normal respiratory effort, no retractions and no use of accessory muscles Resp Narrative: Decreased breath sounds bilaterally Auscultation: Negative for rales, rhonchi or wheezes Cardio regular rate, regular rhythm, S1 normal heart sound, S2 normal heart sound, no murmurs, no rub and no gallops GI normal to inspection, nondistended, normoactive bowel sounds, soft to palpation, non-tender and non-distended Extremity normal to inspection Skin no rashes or lesions noted General Skin Exam: no breakdown Neuro oriented x3, CN's II-XII intact bilaterally, no focal motor deficits and no sensory deficits noted Sensorium / Orientation: awake and alert Speech: speech normal Psych affect flat On 06/13/2022, patient was transferred to TCU in stable condition for inpatient fpc services. Weight / BMI Weight Weight: 119.8 kg Body Mass Index (BMI) 32.3 ABG / Lab / Microbiology Data Result Diagrams: 06/13/22 04:14 06/13/22 04:14 Microbiology: Microbiology 06/13/22 11:12 Nasal Secretion SARS-CoV-2 Antigen (Rapid) - Final 06/05/22 01:17 Blood Culture (Wb) - Anticubital Left Blood Culture - Final No growth in 5 days. 06/05/22 01:18 Blood Culture (Wb) - Right Forearm Blood Culture - Final No growth in 5 days. 06/09/22 10:10 Nasal Secretion SARS-CoV-2 Antigen (Rapid) - Final 06/06/22 02:10 Sputum, Expectorated/Coughed Gram Stain - Final 06/06/22 02:10 Sputum, Expectorated/Coughed Respiratory Culture - Final 06/06/22 06:20 Urine, Clean Catch Streptococcus pneumoniae Antigen (M - Final 07/28/22 Unknown Urine, Clean Catch Legionella Antigen - Final 06/05/22 04:30 Mucosa - Nasopharyngeal Respiratory Panel (PCR) - Final Meaningful Use Info Meaningful Use Diagnoses (Choose all that apply): None applicable Discharge Plan Admission Admit Date/Time: 06/05/22 01:58 Primary Reason for Your Visit: Respiratory failure, pneumonia, non-STEMI Attending Provider: Buddy Hare Primary Care Provider: Nate Watters Consulting Providers: Ethan Milan ; Joanna Peguero ; Alli Richard ; Darrell Stout ; Arnold Doe ; Gilbert Watters ; Tamiko Little NP ; Brittney Mcgrath ; Ed Mendez Instructions Additional Instructions / Restrictions: Repeat CT of the chest without contrast should be obtained in 4 to 6 weeks Maintain Manzo catheter due to history of urethral stricture, patient to follow-up with Dr. Stout in 2 weeks Discharge Orders/Prescriptions Prescriptions: New acetaminophen [Tylenol] 325 mg Tablet 650 mg PO Q4H PRN PRN (Reason: Fever, pain 1-08/18) Qty: 0 0RF loperamide 2 mg Capsule 2 mg PO Q4H PRN (Reason: loose stool) Qty: 1 0RF albuterol sulfate 2.5 mg /3 mL (0.083 %) Solution For Nebulization 2.5 mg inhalation Q2H PRN PRN (Reason: Dyspnea, wheezing) Qty: 0 0RF Continued ferrous sulfate 325 mg (65 mg iron) tablet 325 mg PO DAILY cholecalciferol (vitamin D3) 125 mcg (5,000 unit) capsule 125 mcg PO DAILY donepezil [Aricept] 10 mg tablet 10 mg PO QHS simvastatin [Zocor] 20 mg tablet 20 mg PO QHS Discontinued finasteride [Propecia] 1 mg tablet 5 mg PO DAILY (DME) OneTouch Verio test strips Strip See Rx Instructions .ROUTE .MEDSUPPLY Qty: 100 5RF Rx Instructions: Check three times a day and as needed ascorbic acid (vitamin C) 1,000 MG tablet 1,000 mg PO DAILY loperamide [Imodium A-D] 2 mg capsule 2 mg PO .COMPLEX MDD 16mg PRN (Reason: loose stool) Rx Instructions: Take 4 mg by mouth once and then 2 mg by mouth after each loose stool Claritin Liqui-Gel 10 mg capsule 10 mg PO DAILY amlodipine 5 mg tablet 5 mg PO DAILY Qty: 30 1RF insulin NPH isoph U-100 human 100 unit/mL suspension 29 unit subcut BID Qty: 10 0RF No Action ascorbic acid (vitamin C) 500 mg tablet 1,000 mg PO DAILY tamsulosin 0.4 mg capsule 0.4 mg PO DAILY amlodipine 10 mg tablet 10 mg PO DAILY lisinopril 10 mg tablet 10 mg PO DAILY aspirin 81 mg tablet,chewable 81 mg PO BREAKFAST finasteride 5 mg tablet 5 mg PO DAILY amoxicillin-pot clavulanate [Augmentin] 500-125 mg tablet 1 tab PO TID Rx Instructions: 1 3 times daily with meals starting 06/13/2022-continue for 2 days Humulin N NPH Insulin KwikPen 100 unit/mL (3 mL) insulin pen 29 unit subcut BID Glucerna 1.2 Brady 0.06-1.2 gram-kcal/mL liquid 120 ml PO TIDCM menthol-zinc oxide [Calmoseptine] 0.44-20.6 % ointment 1 applic topical BID Protocol: *Topical Application Instructions APPLICATION INSTRUCTIONS: apply to groin/buttocks Referrals / Follow Up: Nate Watters DO [Primary Care Provider] - Darrell Stout MD [Med Staff - Active Staff] - See Referral Note (In 2 weeks, call for an appointment) Disposition Disposition (needs filled in before D/C Order can be placed): [facility] Charges/Coding Visit Charges Inpatient E&M: 64347 Disch Hosp
== END 2022-06-13 13:46 | disposition skilled nursing facility (03) | DRG 193 ==
LOC: ED 02:08 → PCU 02:23
PROVIDERS: Family Medicine; Internal Medicine; Internal Medicine Critical Care Medicine; Internal Medicine Nephrology; Student in an Organized Health Care Education/Training Program; Admitting Provider Family Medicine; Emergency Provider Emergency Medicine; PCP Family Medicine; Visit Provider Internal Medicine
DX: J18.9 Pneumonia, unspecified organism (principal); J96.01 Acute respiratory failure with hypoxia; N17.0 Acute kidney failure with tubular necrosis; I21.A1 Myocardial infarction type 2; F03.91 Unspecified dementia, unspecified severity, with behavioral disturbance; N18.4 Chronic kidney disease, stage 4 (severe); E11.22 Type 2 diabetes mellitus with diabetic chronic kidney disease; D50.9 Iron deficiency anemia, unspecified; J69.0 Pneumonitis due to inhalation of food and vomit; Z79.4 Long term (current) use of insulin; I48.0 Paroxysmal atrial fibrillation; D32.0 Benign neoplasm of cerebral meninges; E78.5 Hyperlipidemia, unspecified; I12.9 Hypertensive chronic kidney disease with stage 1 through stage 4 chronic kidney disease, or unspecified chronic kidney disease; M54.2 Cervicalgia; M54.9 Dorsalgia, unspecified; R00.1 Bradycardia, unspecified; J30.2 Other seasonal allergic rhinitis; K21.9 Gastro-esophageal reflux disease without esophagitis; E66.9 Obesity, unspecified; G89.29 Other chronic pain; N40.0 Benign prostatic hyperplasia without lower urinary tract symptoms; Z87.440 Personal history of urinary (tract) infections; Z86.718 Personal history of other venous thrombosis and embolism; Z85.828 Personal history of other malignant neoplasm of skin; Z79.899 Other long term (current) drug therapy; Z68.34 Body mass index [BMI] 34.0-34.9, adult; N35.816 Other urethral stricture, male, overlapping sites
CPT/HCPCS: 36415; 70450; 71045; 71250; 74230; 76770; 78452; 80048; 80053; 80061; 81001; 82009; 82436; 82550; 82570; 82803; 82962; 83605; 83735; 83880; 84100; 84133; 84156; 84300; 84443; 84484; 84550; 85025; 85610; 85730; 87040; 87070; 87205; 87426; 87449; 87633; 87641; 92526; 92610; 92611; 93005; 93017; 93306; 94002; 94003; 94640; 94660; 94762; 97110; 97116; 97162; 97166; 97530; 97535; 97802; 97803; 99285; A9500; J7030; J7040; J7050; Q9957; A4216; C8929; J2405; J2785

== ENCOUNTER 2022-06-13 14:11 | Inpatient (IN) | payer MEDICARE, SELFPAY ==
[2022-06-13 14:31] VITALS: PULSE 68; RESP 28
[2022-06-13 14:38] VITALS: BP 138/74; PULSE 68; RESP 28; TEMP 36.2; O2SAT 82
[2022-06-13 14:40] VITALS: BMI 33.9
[2022-06-13 15:40] VITALS: PULSE 88; RESP 20; O2SAT 96
[2022-06-13] MEDS: Amox/Clavulanate 500 MG Tablet PO (17:53)
[2022-06-13] MEDS: Insulin NPH Human 100 UNITS/ML PEN 29 UNITS SC (18:00)
[2022-06-13] MEDS: Menthol/Lanolin/Calamine/Znox 113 GM Tube 1 APPLIC TOPICAL (18:06)
[2022-06-13] MEDS: Glucerna Shake 120 ML LIQUID PO (18:13)
[2022-06-13 18:21] LABS: Bedside Glucose 138 mg/dL (74-106)
--- NOTE | 2022-06-13 18:22 | NURSING ---
Entered patients room, noticed that patient had items on tray that was not on patients diet. Immediately took tray away and got the appropriate food and drinks.
[2022-06-13] MEDS: Atorvastatin Calcium 10 MG Tablet PO (21:02)
[2022-06-13] MEDS: Donepezil HCl 10 MG Tablet PO (21:02)
[2022-06-13 22:05] LABS: Bedside Glucose 187 mg/dL (74-106)
[2022-06-13 23:20] LABS: Mucous, Urine 0 SEEN /hpf (<or=2+); Red Blood Cells-Urine 0 SEEN /hpf (0-5); Squamous Epithelial Cells - UA 0 SEEN /hpf (0-5)
[2022-06-13 23:23] LABS: Color, Urine Yellow (Yellow); Glucose, Dipstick Normal (Normal); Ketone-Dipstick Negative (Negative); Leukocyte Esterase-Dipstick 500 /ul (Negative); Nitrite-Dipstick Negative (Negative); Occult Blood-Urine 150 /ul (Negative); Protein-Dipstick 100 mg/dl (Negative); Urine Bilirubin Dipstick Negative (Negative); Urine Clarity Cloudy (Clear); Urine Urobilinogen Normal (Normal)
[2022-06-13 23:44] LABS: White Blood Cells >100 SEEN /hpf (0-5)
[2022-06-13 23:46] LABS: Yeast-Urine 3+ /hpf (None Seen)
[2022-06-14 05:15] VITALS: BP 151/66; PULSE 62
[2022-06-14] MEDS: Finasteride 5 MG Tablet PO (05:15)
[2022-06-14] MEDS: Lisinopril 10 MG Tablet PO (05:15)
[2022-06-14] MEDS: Acetaminophen 325 MG Tablet 650 MG PO (05:15)
[2022-06-14] MEDS: amLODIPine 10 MG Tablet PO (05:15)
[2022-06-14] MEDS: Menthol/Lanolin/Calamine/Znox 113 GM Tube 1 APPLIC TOPICAL ×2 (05:16→21:12)
[2022-06-14 06:24] LABS: Absolute Lymphocyte Count 8.98 X10^3/uL (0.83-4.51); Absolute Neutrophil Count 7.4 X10^3/uL (2.0-7.7); Basophil# 0.05 X10^3/uL; Basophil% 0.3 % (0-1); Eosinophil# 0.31 X10^3/uL; Eosinophils% 1.8 % (0-5); Hemoglobin 11.3 g/dL (13.0-16.5); Lymphocyte # 8.98 X10^3/ul (0.83-4.51); Lymphocyte % 50.9 % (19-41); Mean Corp Hgb Conc 32.3 g/dL (32-36); Mean Corpuscular Hgb 31.2 pg (27.0-32.0); Mean Corpuscular Volume 96.7 fL (80-94); Mean Platelet Vol. 10.7 fl (6.2-12.0); Monocyte# 0.79 X10^3/uL; Monocyte% 4.5 % (0-10); NRBC Flagged by Analyzer 0 % (0-5); Neutrophil # 7.43 X10^3/uL (2.7-7.7); POSITIVE DIFFERENTIAL YES; POSITIVE MORPHOLOGY YES; Platelet Count 167 K/mm3 (150-450); RBC Distribution Width CV 13.8 % (11.6-14.6); RBC Distribution Width SD 48.7 fl (35.1-43.9); Red Blood Count 3.62 M/mm3 (4.6-6.2); White Blood Count 17.7 K/mm3 (4.4-11.0)
[2022-06-14 06:25] LABS: Bedside Glucose 77 mg/dL (74-106)
[2022-06-14 06:46] LABS: Differential Indicated SCAN CRITERIA MET
[2022-06-14 06:53] LABS: Differential Comment SCANNED; Reactive Lymphocyte RARE
[2022-06-14 06:58] LABS: Anion Gap 5 (5-15); BUN 35 mg/dL (7-18); BUN/Creat Ratio 14.7 RATIO (10-20); Calcium,Total 8.1 mg/dL (8.5-10.1); Chloride 114 mmol/L (98-107); Creatinine, Serum 2.38 mg/dL (0.70-1.30); EST Glomerular Filtration Rate 28 mL/min (>60); Est Glom Filt Rate - Afr Amer 34 mL/min (>60); Estimated Creatinine Clearance 26.38 ml/min; Glucose 91 mg/dL (74-106); Potassium 4.2 mmol/L (3.5-5.1); Sodium Level 140 mmol/L (136-145)
[2022-06-14 07:23] VITALS: O2SAT 94
[2022-06-14] MEDS: Insulin NPH Human 100 UNITS/ML PEN 29 UNITS SC ×2 (08:16→17:49)
[2022-06-14] MEDS: Cholecalciferol (Vit D3) 125 MCG CAPSULE (5,000 UNITS) PO (08:18)
[2022-06-14] MEDS: Aspirin 81 MG TAB.CHEW PO (08:18)
[2022-06-14] MEDS: Tamsulosin HCl 0.4 MG Capsule PO (08:18)
[2022-06-14] MEDS: Amox/Clavulanate 500 MG Tablet PO ×3 (08:18→17:50)
[2022-06-14] MEDS: Glucerna Shake 120 ML LIQUID PO ×3 (08:18→17:49)
[2022-06-14] MEDS: Ascorbic Acid 500 MG Tablet 1000 MG PO (08:18)
[2022-06-14] MEDS: Tuberculin,Purif.prot.deriv. 50 TU/ML Vial 0.1 ML ID (09:22)
[2022-06-14 11:10] LABS: Bedside Glucose 150 mg/dL (74-106)
[2022-06-14] MEDS: Ferrous Sulfate 325 MG Tablet PO (11:34)
[2022-06-14 11:51] LABS: Albumin, Serum 2.4 g/dL (3.2-5.0)
--- NOTE | 2022-06-14 14:58 | HP.PCM_ITS ---
[facility] - General General Date of Admission: 06/13/22 Date of Service: 06/14/22 Chief Complaint: Generalized weakness and debility. [facility] Narrative JAYA STANTON, is a 87-year-old M with a past medical history of chronic anemia/iron deficiency anemia, hypertension, hyperlipidemia, obesity, diabetes mellitus type 2, chronic neck and back pain, BPH, dementia with possible behavioral disturbance history, chronic bradycardia, frequent urinary tract infections, history of DVT right leg, allergic rhinitis and GERD who presented to the [facility] emergency department on 06/05/2022 with complaint of profound nausea and vomiting with syncope lasting approximately 20 to 30 seconds and then recurring 2-3 more times. Pulse ox initially in the emergency department was 85% on room air and improved to 92% on his 6 L nasal cannula. White blood cell count was elevated at 26,000 and the platelet count was low at 130,000. Serum bicarb was low at 16 and the BUN was 30 with a creatinine of 2.35 (baseline is around 1.8). Chest x-ray showed a right lower lobe infiltrate and a CT brain showed no acute findings. He was admitted to the hospitalist service with a diagnosis of acute respiratory failure with hypoxemia secondary to acute right lower lobe pneumonia, atrial fibrillation and acute on chronic renal failure. Troponins were trended because of the new onset atrial fibrillation and they did trend up. He was started on Rocephin and azithromycin. Appropriate cultures and lab work was ordered. An echocardiogram was ordered due to new onset atrial fibrillation. He was seen by cardiology, pulmonary medicine and nephrology while in the hospital. He had a pharmacologic nuclear stress test on 06/05/2022 and the EF was 63% with no evidence of significant ischemia or infarction. The echocardiogram showed normal left augie tricular function with a 60% EF and no regional wall motion abnormalities. The left atrium was mildly enlarged and the right atrium was normal. PA systolic pressure was estimated at 30. Nephrology felt the acute kidney injury was related to dehydration and altered hemodynamics plus obstructive uropathy. Dr. Stout was consulted and performed a urethral dilatation at the bedside and then placed a Manzo catheter to keep the urethra open. He should go home with a catheter and will follow up with Dr. Pedro in the office post discharge. While in the hospital he was on Airvo to keep him oxygenated. He was evaluated by PT/OT/ST while in the hospital and it was apparent he is too weak to go home. He was transferred to the transitional care unit on 06/13/2022 for therapy to strengthen him and get him as close to his baseline as possible prior to discharging home. [facility] Medical History (Updated 06/15/22 @ 09:[address] Yaritza Schroeder DO) Arthritis Chronic neck and back pain Diarrhea DVT (deep venous thrombosis) Fatigue GERD (gastroesophageal reflux disease) Hyperlipidemia Hypertension Incontinence Irregular heart beat Kidney disease Knee pain Non-smoker NSTEMI (non-ST elevated myocardial infarction) Presbycusis Seasonal allergies Skin cancer Syncope Home Medications ferrous sulfate 325 mg (65 mg iron) tablet 325 mg PO DAILY iron 08/28/21 [History Last Taken Unknown] cholecalciferol (vitamin D3) 125 mcg (5,000 unit) capsule 125 mcg PO DAILY vit D3 11/28/21 [History Last Taken Unknown] donepezil 10 mg tablet (Aricept) 10 mg PO QHS memory 06/05/22 [History Last Kartik en Unknown] simvastatin 20 mg tablet (Zocor) 20 mg PO QHS cholesterol 06/05/22 [History Last Taken Unknown] acetaminophen 325 mg tablet (Tylenol) 650 mg PO Q4H PRN PRN Fever, pain 1-08/18 #0 tabs 06/13/22 [Rx Last Taken Unknown] albuterol sulfate 2.5 mg/3 mL (0.083 %) solution for nebulization 2.5 mg (3 mL) inhalation Q2H PRN PRN Dyspnea, wheezing #0 mL 06/13/22 [Rx Last Taken Unknown] amlodipine 10 mg tablet 10 mg PO DAILY bp 06/13/22 [History Last Taken Unknown] amoxicillin 500 mg-potassium clavulanate 125 mg tablet (Augmentin) 1 tab PO TID ATB 06/13/22 [History Last Taken Unknown] ascorbic acid (vitamin C) 500 mg tablet 1,000 mg PO DAILY vitamin 06/13/22 [History Last Taken Unknown] aspirin 81 mg chewable tablet 81 mg PO BREAKFAST heart health 06/13/22 [History Last Taken Unknown] finasteride 5 mg tablet 5 mg PO DAILY BPH 06/13/22 [History Last Taken Unknown] insulin NPH isoph U-100 human 100 unit/mL (3 mL) subcutaneous pen (Humulin N NPH U-100 Insulin KwikPen) 29 unit subcut BID diabetes 06/13/22 [History Last Taken Unknown] lisinopril 10 mg tablet 10 mg PO DAILY BP 06/13/22 [History Last Taken Unknown] loperamide 2 mg capsule 2 mg PO Q4H PRN loose stool #1 cap 06/13/22 [Rx Last Taken Unknown] menthol 0.44 %-zinc oxide 20.6 % topical ointment (Calmoseptine) 1 applic topical BID buttocks 06/13/22 [History Last Taken Unknown] nutrition tx glu intol,lac-free,soy-fiber 0.06 gram-1.2 kcal/mL liquid (Glucerna 1.2 Brady) 120 ml PO TIDCM nutrition 06/13/22 [History Last Taken Unknown] tamsulosin 0.4 mg capsule 0.4 mg PO DAILY BPH 06/13/22 [History Last Taken Unknown] Allergy/AdvReac Type Severity Reaction Status Date / Time No Known Allergies Allergy Verified 06/05/22 03:44 Family History Brother Heart disease Myocardial infarction Mother Myocardial infarction Heart disease Father CVA (cerebral vascular accident) Surgical History history of caataract removal History of urethral stricture Social History household members: spouse Smoking Status: Never smoker alcohol intake: never substance use type: does not use what type of physical activity do you participate in: none ROS Constitutional Constitutional: Reports fatigue and weakness; Denies anorexia, change in weight, chills, fever(s) or night sweats Eyes Eyes: Denies blurry vision, change in vision, eye pain or loss of vision ENT HEENT: Denies abnormal hearing, dysphagia, headache(s), hearing loss, nasal congestion or sore throat Cardiovascular Cardiovascular: Denies chest pain, dyspnea on exertion, edema, lightheadedness, orthopnea, palpitations, paroxysmal nocturnal dyspnea or syncope Respiratory/Chest Respiratory/Chest: Reports cough and shortness of breath with exertion; Denies dyspnea, shortness of breath at rest or wheezing Gastrointestinal Gastrointestinal: Denies abdominal pain, constipation, diarrhea, dyspepsia, hematemesis, hematochezia, nausea or vomiting Genitourinary Genitourinary: Denies dysuria, hematuria, nocturia, urinary frequency, urinary hesitancy, urinary incontinence or urinary urgency Musculoskeletal Musculoskeletal: Denies back pain, joint pain, joint swelling or neck pain Neurologic Neurologic: Denies confusion, disequilibrium, dizziness, focal weakness, headache(s), paresthesias, seizures or tremor(s) Psychiatric Psychiatric: Denies anxiety, depression, homicidal ideation or suicidal ideation Endocrine Endocrinology: Denies change in body appearance, polydipsia or polyuria Hematologic/Lymphatic Hematologic/Lymphatic: Denies easy bleeding, easy bruising or lymphadenopathy Allergic/Immunologic Allergic/Immunologic: Denies rhinitis, eczemia or asthma Vital Signs Vital Signs Vital Signs: 06/13/22 15:40 06/13/22 20:30 06/14/22 05:15 Pulse Rate 88 62 Pulse Strength Weak (1+) Respiratory Rate 20 H Respiratory Pattern Normal Blood Pressure 151/66 H Blood Pressure Mean 94 Blood Pressure Source Monitor Blood Pressure Position Semi-Fowlers Blood Pressure Location Right Forearm Pulse Ox 96 Oxygen Delivery Method High Flow Oxygen Flow Rate (L/min) 8 06/14/22 07:23 06/14/22 07:48 06/14/22 07:48 Pulse Rate Pulse Strength Respiratory Rate Respiratory Pattern Blood Pressure Blood Pressure Mean Blood Pressure Source Blood Pressure Position Blood Pressure Location Pulse Ox 94 Oxygen Delivery Method Nasal Cannula Oxygen Flow Rate (L/min) 6 8 8 06/14/22 10:00 Pulse Rate Pulse Strength Weak (1+) Respiratory Rate Respiratory Pattern Blood Pressure Blood Pressure Mean Blood Pressure Source Blood Pressure Position Blood Pressure Location Pulse Ox Oxygen Delivery Method Oxygen Flow Rate (L/min) Weight Weight: 264 lb 1.82 oz Body Mass Index (BMI) 33.9 Physical Exam Const alert Constitutional Narrative: Looks fatigued. He is appropriate and making good eye contact with me. Denies pain. General Appearance: cooperative HEENT normocephalic and head/scalp atraumatic HEENT Narrative: MM are dry. Denies tongue pain. No buccal exudates. Eyes PERRL and EOMs intact bilaterally General Eye: normal appearance of both eyes Neck no lymphadenopathy and supple General: trachea midline Chest Chest: symmetrical chest wall rise Resp normal respiratory effort, no retractions and no use of accessory muscles Resp Narrative: Diminished BS's ion the R base. Effort and Inspection: able to speak in complete sentences; Negative for tachypneic Cardio regular rate Cardio Narrative: Heart sounds are distant. No gallop appreciated. He has a soft systolic MM at the LLSB. No rub. He is bradycardic but, he denies lightheadedness, even with standing. GI normal to inspection, nondistended, normoactive bowel sounds, soft to palpation and non-tender GI Narrative: No guarding with palpation and no masses. Narrative: Manzo is in place. the urine has some sediment but is clear. He has funguria. No pain in the suprapubic area and no pain at the glans. Extremity no calf tenderness Extremity Narrative: He has pitting edema of the Upper and LE's. No cyanosis and no mottling. Skin Rashes: no rashes Results Lab / Micro Data Result Diagrams: 06/14/22 06:09 06/14/22 06:09 Labs: Laboratory Results - last 24 hr 06/13/22 17:59: POC Glucose 138 H 06/13/22 21:46: POC Glucose 187 H 06/13/22 23:10: Urine Color Yellow, Urine Clarity Cloudy, Urine pH 6.0, Ur Specific [place] 1.020, Urine Protein 100 H, Urine Glucose (UA) Normal, Urine Ketones Negative, Urine Occult Blood 150 H, Urine Nitrite Negative, Urine Bilirubin Negative, Urine Urobilinogen Normal, Ur Leukocyte Esterase 500 H, Urine RBC 0 SEEN, Urine WBC >100 SEEN, Ur Squamous Epith Cells 0 SEEN, Urine Bacteria Not Reportable, Urine Mucus 0 SEEN, Urine Yeast 3+ 06/14/22 06:08: POC Glucose 77 06/14/22 06:09: WBC 17.7 H, RBC 3.62 L, Hgb 11.3 L, Hct 35.0 L, MCV 96.7 H, MCH 31.2, MCHC 32.3, RDW Std Deviation 48.7 H, RDW Coeff of Bebe 13.8, Plt Count 167, MPV 10.7, Immature Gran % (Auto) 0.500, Neut % (Auto) 42.0 L, Lymph % (Auto) 50.9 H, Todd % (Auto) 4.5, Eos % (Auto) 1.8, Baso % (Auto) 0.3, Absolute Neuts ( auto) 7.4, Absolute Lymphs (auto) 8.98 H, Nucleated RBC % 0, Differential Com ment SCANNED, Reactive Lymphocytes RARE 06/14/22 06:09: Sodium 140, Potassium 4.2, Chloride 114 H, Carbon Dioxide 21.0, Anion Gap 5, BUN 35 H, Creatinine 2.38 H, Estim Creat Clear Calc 26.38, Est GFR (MDRD) Af Amer 34 L, Est GFR (MDRD) Non-Af 28 L, BUN/Creatinine Ratio 14.7, Glucose 91, Calcium 8.1 L 06/14/22 06:09: Albumin 2.4 L 06/14/22 10:48: POC Glucose 150 H Assessment & Plan Assessment/Plan (1) Physical debility: PLAN: due to generalized weakness secondary to recent acute PNA, Acute on chronic RF, NSTEMI. (2) Right lower lobe pneumonia: PLAN: Was on Rocephin and Azithromycin in the hospital and now is on Augmentin which will be DC'd after the last dose on 06/15/22. (3) Urethral stricture unspecified: QUALIFIERS: Urethral stricture type: other stricture Qualified Code(s): N35.8 - Other urethral stricture PLAN: S/P dilation by Dr. Stout May 2022 and placement of Manzo catheter. We will follow-up with Dr. Stout post discharge. Maintain Manzo at the time of discharge from TCU until seen by Dr. Stout in the office. (4) Acute kidney injury superimposed on CKD: PLAN: Due to obstructive uropathy, dehydration and infection (5) Atrial fibrillation, new onset: PLAN: Not currently on any rate limiting agents secondary to chronic bradycardia. (6) Non-ST elevation myocardial infarction (NSTEMI) in recovery phase: PLAN: Pharmacologic stress negative for ischemia with a normal EF of 60% (7) Dysphagia: PLAN: Being followed by ST and on [place] thick liquids. (8) Hypoxia: PLAN: Had been on Airvo initially but has been weaned off and now is on NC (9) Bradycardia: PLAN: Chronic, TSH is a little high at 4.4. No T4 was done. (10) CKD (chronic kidney disease) stage 3, GFR 30-59 ml/min: PLAN: Baseline creat is about 1.8. (11) Iron deficiency anemia, unspecified: PLAN: No iron studies done this admission. (12) Hyperlipidemia: QUALIFIERS: Hyperlipidemia type: mixed hyperlipidemia Qualified Code(s): E78.2 - Mixed hyperlipidemia (13) Hypertension: QUALIFIERS: Hypertension type: essential hypertension Qualified Code(s): I10 - Essential (primary) hypertension (14) Diabetes mellitus type 2 in obese: PLAN: Not tested this admission. PLAN: Plan PLAN PT for gait stability OT for ADL's ST for evaluation/treatment for dysphagia. Analgesics as needed Bowel protocol Fall precautions Assess for Anxiety/Depression GI prophylaxis - hold off for now. He has no complaints of nausea, epigastric pain, and no hx of GI bleeding DVT prophylaxis - he was not sent to TCU on any DVT prophylaxis. In light of RF will use Heparin 5,000 units Q 8 H due to the hx of DVT in the past. Follow up with PCP, cardiology, nephrology following DC from [facility] Hemoccult stool, HGBA1C, T4, add Heparin for DVT prophylaxis Nursing reports a lot of sediment in the urine so will order a UA and culture Continue IS and add PEP Charges/Coding Visit Charges Inpatient E&M: 06255 SNF Init L2
[2022-06-14 16:00] VITALS: BP 147/65; PULSE 64; RESP 20; TEMP 36.6; O2SAT 93
[2022-06-14] MEDS: Donepezil HCl 10 MG Tablet PO (21:13)
[2022-06-14] MEDS: Saliva Substitute 237 ML BOTTLE 15 ML MUCOUS MEM (21:13)
[2022-06-14] MEDS: Atorvastatin Calcium 10 MG Tablet PO (21:14)
[2022-06-14 22:50] VITALS: PULSE 62; RESP 20
[2022-06-15] MEDS: Menthol/Lanolin/Calamine/Znox 113 GM Tube 1 APPLIC TOPICAL ×2 (04:59→17:15)
[2022-06-15] MEDS: Finasteride 5 MG Tablet PO (04:59)
[2022-06-15] MEDS: Saliva Substitute 237 ML BOTTLE 15 ML MUCOUS MEM ×3 (04:59→20:06)
[2022-06-15] MEDS: amLODIPine 10 MG Tablet PO (04:59)
[2022-06-15] MEDS: Lisinopril 10 MG Tablet PO (05:00)
[2022-06-15] MEDS: Glucerna Shake 120 ML LIQUID PO ×3 (07:44→17:13)
[2022-06-15] MEDS: Amox/Clavulanate 500 MG Tablet PO ×3 (07:47→17:13)
[2022-06-15] MEDS: Aspirin 81 MG TAB.CHEW PO (07:48)
[2022-06-15] MEDS: Ascorbic Acid 500 MG Tablet 1000 MG PO (07:48)
[2022-06-15] MEDS: Tamsulosin HCl 0.4 MG Capsule PO (07:49)
[2022-06-15] MEDS: Cholecalciferol (Vit D3) 125 MCG CAPSULE (5,000 UNITS) PO (07:49)
[2022-06-15] MEDS: Insulin NPH Human 100 UNITS/ML PEN 29 UNITS SC ×2 (08:01→17:14)
[2022-06-15 11:20] LABS: Bedside Glucose 159 mg/dL (74-106)
[2022-06-15] MEDS: Ferrous Sulfate 325 MG Tablet PO (11:41)
[2022-06-15 12:11] VITALS: PULSE 58; RESP 22
[2022-06-15] MEDS: Heparin Injection (Vial) 5,000 UNIT/ML VIAL 5000 UNIT SC ×2 (13:51→20:06)
[2022-06-15 15:49] VITALS: BP 142/72; PULSE 58; RESP 22; TEMP 36.8; O2SAT 93
[2022-06-15 16:06] LABS: Bedside Glucose 225 mg/dL (74-106)
[2022-06-15] MEDS: Donepezil HCl 10 MG Tablet PO (20:06)
[2022-06-15] MEDS: Atorvastatin Calcium 10 MG Tablet PO (20:06)
[2022-06-15 21:55] LABS: Bedside Glucose 241 mg/dL (74-106)
[2022-06-16 05:15] VITALS: BP 138/66; PULSE 63
[2022-06-16] MEDS: Saliva Substitute 237 ML BOTTLE 15 ML MUCOUS MEM ×3 (05:15→21:08)
[2022-06-16] MEDS: Lisinopril 10 MG Tablet PO (05:16)
[2022-06-16] MEDS: amLODIPine 10 MG Tablet PO (05:16)
[2022-06-16] MEDS: Menthol/Lanolin/Calamine/Znox 113 GM Tube 1 APPLIC TOPICAL ×2 (05:16→17:47)
[2022-06-16] MEDS: Finasteride 5 MG Tablet PO (05:16)
[2022-06-16] MEDS: Heparin Injection (Vial) 5,000 UNIT/ML VIAL 5000 UNIT SC ×3 (05:16→21:09)
[2022-06-16 05:28] VITALS: O2SAT 93
[2022-06-16 05:45] LABS: Hematocrit 35.3 % (40-54); Hemoglobin 11.3 g/dL (13.0-16.5); Mean Platelet Vol. 10.9 fl (6.2-12.0); Platelet Count 196 K/mm3 (150-450); RBC Distribution Width CV 13.5 % (11.6-14.6); RBC Distribution Width SD 48.3 fl (35.1-43.9); Red Blood Count 3.64 M/mm3 (4.6-6.2); White Blood Count 14.4 K/mm3 (4.4-11.0)
[2022-06-16 06:20] LABS: Albumin, Serum 2.6 g/dL (3.2-5.0); BUN 34 mg/dL (7-18); BUN/Creat Ratio 16.5 RATIO (10-20); Calcium,Total 7.9 mg/dL (8.5-10.1); Chloride 112 mmol/L (98-107); Creatinine, Serum 2.06 mg/dL (0.70-1.30); EST Glomerular Filtration Rate 33 mL/min (>60); Est Glom Filt Rate - Afr Amer 40 mL/min (>60); Estimated Creatinine Clearance 30.48 ml/min; Glucose 177 mg/dL (74-106); Phosphorus 3.3 mg/dL (2.5-4.9); Potassium 4.5 mmol/L (3.5-5.1); Sodium Level 139 mmol/L (136-145); T4 Free Direct 1.02 ng/dL (0.76-1.46)
[2022-06-16 06:55] LABS: Bedside Glucose 178 mg/dL (74-106)
[2022-06-16 08:05] LABS: Hemoglobin A1c 9.2 % (3.8-5.6)
[2022-06-16] MEDS: Insulin NPH Human 100 UNITS/ML PEN 29 UNITS SC ×2 (09:05→17:46)
[2022-06-16] MEDS: Aspirin 81 MG TAB.CHEW PO (09:06)
[2022-06-16] MEDS: Tamsulosin HCl 0.4 MG Capsule PO (09:06)
[2022-06-16] MEDS: Ascorbic Acid 500 MG Tablet 1000 MG PO (09:06)
[2022-06-16] MEDS: Cholecalciferol (Vit D3) 125 MCG CAPSULE (5,000 UNITS) PO (09:06)
[2022-06-16] MEDS: Glucerna Shake 120 ML LIQUID PO ×3 (09:10→17:47)
--- NOTE | 2022-06-16 10:44 | CASEMGMT ---
Social Work See attached assessment for complete details. This clinical social work therapist met with patient in room. Introduced self and clinical social work therapist role. Patient agreeable to speak with this clinical social work therapist. This clinical social work therapist educated patient on insurance update process and that there is no guarantee of continued stay approval. Patient voiced understanding. This clinical social work therapist communicating that next insurance update is due on 06/18/2022. Patient reports that main handyperson is patient spouse, Laura. Patient denies having advanced directives and declines to have documents completed. This clinical social work therapist attempting to confirm code status, patient states I am not sure, check with my . Patient declined to sign MOLST form due to not being sure of code status, this clinical social work therapist voiced understanding to this. Patient plans to discharge to home with spouse when ready for discharge. Telephone call to patient spouse, Laura. Introduced self and clinical social work therapist role. This clinical social work therapist communicating insurance update process and when first update is due, Laura voiced understanding. Laura confirms that patient code status is [id number] with intubation. Laura thanked this clinical social work therapist for the information. Predatory Animal Trapper to continue to follow. Anson GONZALEZ, MARY ANN
--- NOTE | 2022-06-16 10:56 | CASEMGMT ---
Social Work Telephone call to [facility], Gloria. This director social service inquired about status of referral. Gloria reports to be able to accept patient with start of care to be on 06/19/2022. This director social service added information to patient discharge information. Anson GONZALEZ, MARY ANN
[2022-06-16 11:07] VITALS: O2SAT 93
[2022-06-16 11:35] LABS: Bedside Glucose 186 mg/dL (74-106)
[2022-06-16] MEDS: Ferrous Sulfate 325 MG Tablet PO (13:28)
--- NOTE | 2022-06-16 15:00 | NURSING ---
Resident educated on the COVID 19 Vaccine and does not want to receive it.
[2022-06-16 15:24] VITALS: BP 141/70; PULSE 56; RESP 16; TEMP 36.3; O2SAT 94
--- NOTE | 2022-06-16 16:05 | CHAPLAIN ---
Type of Pastoral Visit _x__ Initial Visit ___ Follow-up Visit ___ On-call Visit ___ General Patient Visit ___ Spiritual Assessment ___ Family Conference ___ Bereavement ___ Rapid Response ___ Code Blue ___ Other (describe below) Pastoral Care Referral From _x__ Patient _x__ Family ___ Nurse ___ Physician ___ Field Geologist ___ Secondary Connector Armature ___ Other (describe below) Sacrament/Intervention _x__ Active listening ___ Anointing ___ Judaism ___ Bereavement ___ Communion _x__ Alpa exploration ___ ___ Life review _x__ Prayer ___ Reconciliation ___ Sacrament of Sick _x__ Supportive presence ___ Wedding ___ Other (describe below) Pastoral Comments patient remembers this shot coat tender and states the same; spouse returns to room at this time and also states her remembrance of this shot coat tender; pt and spouse identify as Christians and desire to have spiritual care and prayer; talk with couple about this situation and their concerns; pt states no other needs or concerns at this time
[2022-06-16 16:40] LABS: Bedside Glucose 161 mg/dL (74-106)
[2022-06-16 21:00] VITALS: PULSE 56; RESP 20; O2SAT 93
[2022-06-16] MEDS: Donepezil HCl 10 MG Tablet PO (21:08)
[2022-06-16] MEDS: Pantoprazole Sodium 40 MG Tablet PO (21:08)
[2022-06-16] MEDS: Atorvastatin Calcium 10 MG Tablet PO (21:09)
[2022-06-16] MEDS: Sodium Chloride 0.65% 1 SPRAY SPRAY.BTL 2 SPRAY NASAL (21:10)
[2022-06-16 21:40] LABS: Bedside Glucose 216 mg/dL (74-106)
[2022-06-17] MEDS: Saliva Substitute 237 ML BOTTLE 15 ML MUCOUS MEM ×3 (05:21→21:17)
[2022-06-17] MEDS: Sodium Chloride 0.65% 1 SPRAY SPRAY.BTL 2 SPRAY NASAL ×6 (05:21→21:09)
[2022-06-17] MEDS: amLODIPine 10 MG Tablet PO (05:22)
[2022-06-17] MEDS: Lisinopril 10 MG Tablet PO (05:22)
[2022-06-17] MEDS: Heparin Injection (Vial) 5,000 UNIT/ML VIAL 5000 UNIT SC ×3 (05:22→21:08)
[2022-06-17] MEDS: Finasteride 5 MG Tablet PO (05:22)
[2022-06-17] MEDS: Pantoprazole Sodium 40 MG Tablet PO ×2 (05:22→17:20)
[2022-06-17] MEDS: Menthol/Lanolin/Calamine/Znox 113 GM Tube 1 APPLIC TOPICAL ×2 (05:22→17:21)
[2022-06-17 07:20] LABS: Bedside Glucose 82 mg/dL (74-106)
[2022-06-17] MEDS: Cholecalciferol (Vit D3) 125 MCG CAPSULE (5,000 UNITS) PO (08:50)
[2022-06-17] MEDS: Tamsulosin HCl 0.4 MG Capsule PO (08:50)
[2022-06-17] MEDS: Ascorbic Acid 500 MG Tablet 1000 MG PO (08:50)
[2022-06-17] MEDS: Aspirin 81 MG TAB.CHEW PO (08:50)
[2022-06-17] MEDS: Glucerna Shake 120 ML LIQUID PO ×3 (08:50→17:20)
[2022-06-17 10:00] VITALS: PULSE 53; RESP 20; O2SAT 95
[2022-06-17 11:15] VITALS: O2SAT 98
[2022-06-17 11:51] LABS: Bedside Glucose 146 mg/dL (74-106)
[2022-06-17] MEDS: Ferrous Sulfate 325 MG Tablet PO (12:08)
[2022-06-17 14:31] VITALS: BP 149/64; PULSE 53; RESP 18; TEMP 36.8; O2SAT 93
[2022-06-17 14:32] VITALS: O2SAT 93
[2022-06-17 14:48] VITALS: PULSE 88; RESP 20
[2022-06-17 16:56] LABS: Bedside Glucose 159 mg/dL (74-106)
[2022-06-17] MEDS: Insulin NPH Human 100 UNITS/ML PEN 29 UNITS SC (17:20)
[2022-06-17 17:25] VITALS: O2SAT 94
[2022-06-17] MEDS: Donepezil HCl 10 MG Tablet PO (21:08)
[2022-06-17] MEDS: Atorvastatin Calcium 10 MG Tablet PO (21:09)
[2022-06-17 22:00] LABS: Bedside Glucose 142 mg/dL (74-106)
[2022-06-18] MEDS: amLODIPine 10 MG Tablet PO (05:26)
[2022-06-18] MEDS: Finasteride 5 MG Tablet PO (05:27)
[2022-06-18] MEDS: Pantoprazole Sodium 40 MG Tablet PO ×2 (05:27→17:37)
[2022-06-18] MEDS: Lisinopril 10 MG Tablet PO (05:27)
[2022-06-18] MEDS: Heparin Injection (Vial) 5,000 UNIT/ML VIAL 5000 UNIT SC ×3 (05:28→19:59)
[2022-06-18] MEDS: Sodium Chloride 0.65% 1 SPRAY SPRAY.BTL 2 SPRAY NASAL ×5 (05:33→19:59)
[2022-06-18] MEDS: Saliva Substitute 237 ML BOTTLE 15 ML MUCOUS MEM ×3 (05:33→19:58)
[2022-06-18] MEDS: Menthol/Lanolin/Calamine/Znox 113 GM Tube 1 APPLIC TOPICAL ×2 (05:35→17:38)
[2022-06-18 06:35] LABS: Bedside Glucose 62 mg/dL (74-106)
[2022-06-18 07:36] VITALS: O2SAT 91
[2022-06-18] MEDS: Glucerna Shake 120 ML LIQUID PO ×3 (08:18→19:58)
[2022-06-18] MEDS: Cholecalciferol (Vit D3) 125 MCG CAPSULE (5,000 UNITS) PO (08:20)
[2022-06-18] MEDS: Ascorbic Acid 500 MG Tablet 1000 MG PO (08:20)
[2022-06-18] MEDS: Aspirin 81 MG TAB.CHEW PO (08:20)
[2022-06-18] MEDS: Tamsulosin HCl 0.4 MG Capsule PO (08:22)
--- NOTE | 2022-06-18 09:52 | CASEMGMT ---
Social Work IDT met with patient, , dtr, son and gddtr via conference call for care plan meeting. Discussed patient's progress in PT/OT/ST/SN and dietary. Explained [facility] insurance with NRD 06/18 and continued stay is not guaranteed with each review. Pt is new on 9L of O2, modified diet. The goal is for pt for return home with with 5 steps to enter and 3 steps inside. The can minimally physically assist and complete IADLs, but pt must return to [facility] to return home safely. Broached topic of having an alternate DC plan. Explained SNF and financial liability - private pay and Medicaid. Family to discuss options but goal is to have pt at home. SW to continue to follow to assist with DC plans. Jessa Juarez, DELIVERY DRIVER/CUSTOMER SERVICE DIP BRAZIER
[2022-06-18 11:20] VITALS: PULSE 53; RESP 18
[2022-06-18] MEDS: Albuterol 2.5 MG/3 ML VIAL.NEB. INHALATION (11:20)
[2022-06-18 11:40] LABS: Bedside Glucose 138 mg/dL (74-106)
[2022-06-18] MEDS: Ferrous Sulfate 325 MG Tablet PO (12:55)
[2022-06-18 15:02] VITALS: BP 131/59; PULSE 52; RESP 20; TEMP 36.9; O2SAT 93
[2022-06-18 16:11] LABS: Bedside Glucose 173 mg/dL (74-106)
[2022-06-18] MEDS: Insulin NPH Human 100 UNITS/ML PEN 29 UNITS SC (17:41)
[2022-06-18] MEDS: Donepezil HCl 10 MG Tablet PO (19:58)
[2022-06-18] MEDS: Atorvastatin Calcium 10 MG Tablet PO (19:59)
[2022-06-18 21:41] LABS: Bedside Glucose 232 mg/dL (74-106)
[2022-06-18 22:00] VITALS: PULSE 50; RESP 20; O2SAT 96
[2022-06-19] MEDS: Saliva Substitute 237 ML BOTTLE 15 ML MUCOUS MEM ×3 (05:40→20:35)
[2022-06-19] MEDS: Sodium Chloride 0.65% 1 SPRAY SPRAY.BTL 2 SPRAY NASAL ×5 (05:40→20:37)
[2022-06-19] MEDS: Menthol/Lanolin/Calamine/Znox 113 GM Tube 1 APPLIC TOPICAL ×2 (05:40→17:32)
[2022-06-19] MEDS: Lisinopril 10 MG Tablet PO (05:41)
[2022-06-19] MEDS: Pantoprazole Sodium 40 MG Tablet PO ×2 (05:41→17:31)
[2022-06-19] MEDS: Finasteride 5 MG Tablet PO (05:41)
[2022-06-19] MEDS: Heparin Injection (Vial) 5,000 UNIT/ML VIAL 5000 UNIT SC ×3 (05:41→20:36)
[2022-06-19] MEDS: amLODIPine 10 MG Tablet PO (05:41)
[2022-06-19] MEDS: Glucerna Shake 120 ML LIQUID PO ×4 (05:41→20:34)
[2022-06-19 07:05] LABS: Bedside Glucose 81 mg/dL (74-106)
[2022-06-19 08:10] VITALS: O2SAT 95
[2022-06-19] MEDS: Cholecalciferol (Vit D3) 125 MCG CAPSULE (5,000 UNITS) PO (09:06)
[2022-06-19] MEDS: Aspirin 81 MG TAB.CHEW PO (09:06)
[2022-06-19] MEDS: Tamsulosin HCl 0.4 MG Capsule PO (09:06)
[2022-06-19] MEDS: Ascorbic Acid 500 MG Tablet 1000 MG PO (09:13)
[2022-06-19 09:46] LABS: Bedside Glucose 91 mg/dL (74-106)
[2022-06-19 10:00] VITALS: PULSE 50; RESP 20; O2SAT 96
[2022-06-19] MEDS: Ferrous Sulfate 325 MG Tablet PO (12:02)
--- NOTE | 2022-06-19 12:12 | CASEMGMT ---
Social Work BIMS (05/23) and PHQ-9 (09/04) completed for MDS assessment. Score indicates moderate depression. SW discussed with pt in-room activities of interest; pt denied stating he is staying focused on improving to return home. Discussed medication to improve appetite; pt denied. SW inquired how best to support pt; offered ongoing supportive visits and pot puller visits. Pt replied, you can pray for me. SW offered to pray with pt. Pt agreed and held out his hand for this worker and him to pray together. Pt expressed great appreciation and confirmed to notify staff or this worker for future visits, in-room activities or medication. LISA Gandara DESIGN MAINTENANCE ENGINEER
[2022-06-19 14:30] VITALS: BP 134/64; PULSE 59; RESP 16; TEMP 36.3; O2SAT 95
[2022-06-19 16:55] LABS: Bedside Glucose 205 mg/dL (74-106)
[2022-06-19] MEDS: Insulin NPH Human 100 UNITS/ML PEN 29 UNITS SC (17:31)
[2022-06-19] MEDS: Donepezil HCl 10 MG Tablet PO (20:36)
[2022-06-19] MEDS: Atorvastatin Calcium 10 MG Tablet PO (20:37)
[2022-06-19 23:00] LABS: Bedside Glucose 153 mg/dL (74-106)
[2022-06-20] MEDS: Menthol/Lanolin/Calamine/Znox 113 GM Tube 1 APPLIC TOPICAL ×2 (04:46→17:30)
[2022-06-20] MEDS: Heparin Injection (Vial) 5,000 UNIT/ML VIAL 5000 UNIT SC ×3 (04:46→21:40)
[2022-06-20] MEDS: Saliva Substitute 237 ML BOTTLE 15 ML MUCOUS MEM ×3 (04:46→21:36)
[2022-06-20] MEDS: amLODIPine 10 MG Tablet PO (04:47)
[2022-06-20] MEDS: Pantoprazole Sodium 40 MG Tablet PO ×2 (04:47→17:31)
[2022-06-20] MEDS: Sodium Chloride 0.65% 1 SPRAY SPRAY.BTL 2 SPRAY NASAL ×5 (04:47→21:36)
[2022-06-20] MEDS: Finasteride 5 MG Tablet PO (04:47)
[2022-06-20] MEDS: Lisinopril 10 MG Tablet PO (04:47)
[2022-06-20] MEDS: Glucerna Shake 120 ML LIQUID PO ×4 (04:52→21:36)
[2022-06-20 07:00] LABS: Bedside Glucose 86 mg/dL (74-106)
[2022-06-20 07:00] LABS: Bedside Glucose 81 mg/dL (74-106)
[2022-06-20 07:01] LABS: Bedside Glucose 109 mg/dL (74-106)
[2022-06-20 07:52] VITALS: O2SAT 96
--- NOTE | 2022-06-20 07:53 | NURSING ---
blood sugar 109. hold morning insulin per dr rodriguez.
[2022-06-20] MEDS: Aspirin 81 MG TAB.CHEW PO (07:55)
[2022-06-20] MEDS: Cholecalciferol (Vit D3) 125 MCG CAPSULE (5,000 UNITS) PO (07:55)
[2022-06-20] MEDS: Ascorbic Acid 500 MG Tablet 1000 MG PO (07:55)
[2022-06-20] MEDS: Tamsulosin HCl 0.4 MG Capsule PO (07:55)
[2022-06-20] MEDS: guaiFENesin Dm 10 ML UDC PO (09:48)
[2022-06-20] MEDS: Ferrous Sulfate 325 MG Tablet PO (10:41)
[2022-06-20 11:10] LABS: Bedside Glucose 168 mg/dL (74-106)
[2022-06-20 15:09] VITALS: BP 164/95; PULSE 39; RESP 14; TEMP 36.3; O2SAT 96
[2022-06-20 16:04] VITALS: PULSE 50; O2SAT 97
[2022-06-20 16:50] LABS: Bedside Glucose 154 mg/dL (74-106)
[2022-06-20] MEDS: Insulin NPH Human 100 UNITS/ML PEN 29 UNITS SC (18:08)
[2022-06-20] MEDS: Donepezil HCl 10 MG Tablet PO (21:40)
[2022-06-20] MEDS: Atorvastatin Calcium 10 MG Tablet PO (21:40)
[2022-06-20 23:55] LABS: Bedside Glucose 263 mg/dL (74-106)
[2022-06-21 06:35] LABS: Bedside Glucose 138 mg/dL (74-106)
[2022-06-21 06:39] VITALS: O2SAT 95
[2022-06-21] MEDS: Sodium Chloride 0.65% 1 SPRAY SPRAY.BTL 2 SPRAY NASAL ×5 (06:42→21:09)
[2022-06-21] MEDS: Saliva Substitute 237 ML BOTTLE 15 ML MUCOUS MEM ×3 (06:42→21:07)
[2022-06-21] MEDS: Glucerna Shake 120 ML LIQUID PO ×4 (06:42→21:05)
[2022-06-21] MEDS: Pantoprazole Sodium 40 MG Tablet PO ×2 (06:44→16:57)
[2022-06-21] MEDS: Lisinopril 10 MG Tablet PO (06:45)
[2022-06-21] MEDS: amLODIPine 10 MG Tablet PO (06:45)
[2022-06-21] MEDS: Finasteride 5 MG Tablet PO (06:45)
[2022-06-21] MEDS: Heparin Injection (Vial) 5,000 UNIT/ML VIAL 5000 UNIT SC ×3 (06:45→21:10)
[2022-06-21] MEDS: Menthol/Lanolin/Calamine/Znox 113 GM Tube 1 APPLIC TOPICAL ×2 (06:51→17:01)
--- NOTE | 2022-06-21 06:55 | CON.PCM.UR_ITS ---
Assessment & Plan Assessment/Plan (1) Urethral stricture: PLAN: Steiner in place. Call with questions. HPI Consult Data Date of Consult: 06/21/22 HPI Narrative Reason for Consultation: urethral stricture HPI Narrative: JAYA STANTON, is a 87 M who is currently in TCU recovering from a recent hospitalization. while in hospital had a steiner place, very very difficutl p lacement, has severe stricture. would NOT remove steiner. follow up with Urology as an outpatient to manage steiner, call me with questions. [facility] Medical History (Updated 06/21/22 @ 06:[address] Darrell Stout MD) Arthritis Atrial fibrillation, new onset Chronic neck and back pain Diarrhea DVT (deep venous thrombosis) Fatigue GERD (gastroesophageal reflux disease) Hyperlipidemia Hypertension Incontinence Irregular heart beat Kidney disease Knee pain Non-smoker NSTEMI (non-ST elevated myocardial infarction) Presbycusis Seasonal allergies Skin cancer Syncope Home Medications ferrous sulfate 325 mg (65 mg iron) tablet 325 mg PO DAILY iron 08/28/21 [History Last Taken Unknown] cholecalciferol (vitamin D3) 125 mcg (5,000 unit) capsule 125 mcg PO DAILY vit D3 11/28/21 [History Last Taken Unknown] donepezil 10 mg tablet (Aricept) 10 mg PO QHS memory 06/05/22 [History Last Taken Unknown] simvastatin 20 mg tablet (Zocor) 20 mg PO QHS cholesterol 06/05/22 [History Last Taken Unknown] acetaminophen 325 mg tablet (Tylenol) 650 mg PO Q4H PRN PRN Fever, pain 1-10/10 #0 tabs 06/13/22 [Rx Last Taken Unknown] albuterol sulfate 2.5 mg/3 mL (0.083 %) solution for nebulization 2.5 mg (3 mL) inhalation Q2H PRN PRN Dyspnea, wheezing #0 mL 06/13/22 [Rx Last Taken Unknown] amlodipine 10 mg tablet 10 mg PO DAILY bp 06/13/22 [History Last Taken Unknown] amoxicillin 500 mg-potassium clavulanate 125 mg tablet (Augmentin) 1 tab PO TID ATB 06/13/22 [History Last Taken Unknown] ascorbic acid (vitamin C) 500 mg tablet 1,000 mg PO DAILY vitamin 06/13/22 [History Last Taken Unknown] aspirin 81 mg chewable tablet 81 mg PO BREAKFAST heart health 06/13/22 [History Last Taken Unknown] finasteride 5 mg tablet 5 mg PO DAILY BPH 06/13/22 [History Last Taken Unknown] insulin NPH isoph U-100 human 100 unit/mL (3 mL) subcutaneous pen (Humulin N NPH U-100 Insulin KwikPen) 29 unit subcut BID diabetes 06/13/22 [History Last Taken Unknown] lisinopril 10 mg tablet 10 mg PO DAILY BP 06/13/22 [History Last Taken Unknown] loperamide 2 mg capsule 2 mg PO Q4H PRN loose stool #1 cap 06/13/22 [Rx Last Taken Unknown] menthol 0.44 %-zinc oxide 20.6 % topical ointment (Calmoseptine) 1 applic topical BID buttocks 06/13/22 [History Last Taken Unknown] nutrition tx glu intol,lac-free,soy-fiber 0.06 gram-1.2 kcal/mL liquid (Glucerna 1.2 Brady) 120 ml PO TIDCM nutrition 06/13/22 [History Last Taken Unknown] tamsulosin 0.4 mg capsule 0.4 mg PO DAILY BPH 06/13/22 [History Last Taken Unknown] Allergy/AdvReac Type Severity Reaction Status Date / Time No Known Allergies Allergy Verified 06/05/22 03:44 Family History Brother Heart disease Myocardial infarction Mother Myocardial infarction Heart disease Father CVA (cerebral vascular accident) Surgical History history of caataract removal History of urethral stricture Social History household members: spouse Smoking Status: Never smoker alcohol intake: never substance use type: does not use what type of physical activity do you participate in: none Lab / Micro Data Result Diagrams: 06/16/22 05:21 06/16/22 05:21 Labs: Laboratory Results - last 24 hr 06/19/22 11:07: POC Glucose 86 06/19/22 11:11: POC Glucose 81 06/20/22 06:17: POC Glucose 109 H 06/20/22 10:49: POC Glucose 168 H 06/20/22 16:09: POC Glucose 154 H 06/20/22 21:13: POC Glucose 263 H 06/21/22 06:04: POC Glucose 138 H Micro: Microbiology 06/20/22 06:40 Nasal Secretion SARS-CoV-2 Antigen (Rapid) - Final
[2022-06-21 07:16] LABS: Absolute Lymphocyte Count 7.72 X10^3/uL (0.83-4.51); Absolute Neutrophil Count 4.3 X10^3/uL (2.0-7.7); Basophil# 0.06 X10^3/uL; Basophil% 0.5 % (0-1); Eosinophil# 0.33 X10^3/uL; Eosinophils% 2.5 % (0-5); Hematocrit 34.2 % (40-54); Lymphocyte # 7.72 X10^3/ul (0.83-4.51); Lymphocyte % 59.4 % (19-41); Mean Corp Hgb Conc 32.2 g/dL (32-36); Mean Corpuscular Hgb 31.1 pg (27.0-32.0); Mean Corpuscular Volume 96.6 fL (80-94); Mean Platelet Vol. 9.8 fl (6.2-12.0); Monocyte# 0.59 X10^3/uL; Monocyte% 4.5 % (0-10); NRBC Flagged by Analyzer 0 % (0-5); Neutrophil # 4.25 X10^3/uL (2.7-7.7); Neutrophil % 32.8 % (47-70); POSITIVE DIFFERENTIAL YES; POSITIVE MORPHOLOGY YES; Platelet Count 212 K/mm3 (150-450); RBC Distribution Width CV 13.5 % (11.6-14.6); RBC Distribution Width SD 48.2 fl (35.1-43.9); Red Blood Count 3.54 M/mm3 (4.6-6.2)
[2022-06-21 07:22] LABS: Differential Indicated SCAN CRITERIA MET
[2022-06-21 07:34] LABS: Anion Gap 4 (5-15); BUN 26 mg/dL (7-18); BUN/Creat Ratio 11.6 RATIO (10-20); Calcium,Total 8.8 mg/dL (8.5-10.1); Chloride 114 mmol/L (98-107); Creatinine, Serum 2.24 mg/dL (0.70-1.30); EST Glomerular Filtration Rate 30 mL/min (>60); Est Glom Filt Rate - Afr Amer 36 mL/min (>60); Estimated Creatinine Clearance 28.03 ml/min; Glucose 154 mg/dL (74-106); Sodium Level 140 mmol/L (136-145)
[2022-06-21 08:00] LABS: Platelet Estimate ADEQUATE (ADEQ); Red Cell Morphology NORM C+C NORMAL (NORM C&C)
[2022-06-21] MEDS: Insulin NPH Human 100 UNITS/ML PEN 29 UNITS SC ×2 (09:04→16:54)
[2022-06-21] MEDS: Aspirin 81 MG TAB.CHEW PO (09:05)
[2022-06-21] MEDS: Ascorbic Acid 500 MG Tablet 1000 MG PO (09:05)
[2022-06-21] MEDS: Tamsulosin HCl 0.4 MG Capsule PO (09:06)
[2022-06-21] MEDS: Cholecalciferol (Vit D3) 125 MCG CAPSULE (5,000 UNITS) PO (09:06)
[2022-06-21] MEDS: Tuberculin,Purif.prot.deriv. 50 TU/ML Vial 0.1 ML ID (10:57)
[2022-06-21 11:05] LABS: Bedside Glucose 153 mg/dL (74-106)
--- NOTE | 2022-06-21 11:42 | NURSING ---
overnight stocker reported that pt requesting something for mood feels he is depressed. spoke with pt and he denies depression, I just want to go home Dr Kelly updated, no new orders. just let know that pt declined medication for mood
[2022-06-21] MEDS: Ferrous Sulfate 325 MG Tablet PO (12:03)
[2022-06-21] MEDS: guaiFENesin Dm 10 ML UDC PO (15:02)
[2022-06-21 16:00] VITALS: BP 126/60; PULSE 50; RESP 22; TEMP 36.7; O2SAT 98
[2022-06-21 16:16] LABS: Bedside Glucose 137 mg/dL (74-106)
[2022-06-21] MEDS: guaiFENesin 600 MG Tablet PO (16:56)
[2022-06-21] MEDS: Acetaminophen 325 MG Tablet 650 MG PO (20:38)
--- NOTE | 2022-06-21 20:40 | NURSING ---
Addendum entered by Cisco Herring 06/21/22 20:43: Continued: Mulino thick liquids offered per order and accepted without difficulty. Original Note: Presents in recliner with BLE elevated, offered assist to bed at this time, patient declines, stating I don't sleep in that bed, I always sleep in my chair. Presents as alert to person/place/time. Educated on importance of maintaining skin integrity, encouraged to offload pressure to bottom, patient declines, stating I'm going to sleep in my chair. No distress observed or reported. PRN Tylenol administered as ordered per pt. request. Call light in reach.
[2022-06-21 21:00] VITALS: PULSE 70; RESP 18; O2SAT 94
[2022-06-21] MEDS: Donepezil HCl 10 MG Tablet PO (21:09)
[2022-06-21] MEDS: Atorvastatin Calcium 10 MG Tablet PO (21:09)
[2022-06-21 21:36] LABS: Bedside Glucose 129 mg/dL (74-106)
[2022-06-22] MEDS: amLODIPine 10 MG Tablet PO (04:57)
[2022-06-22] MEDS: Pantoprazole Sodium 40 MG Tablet PO ×2 (04:57→17:15)
[2022-06-22] MEDS: Finasteride 5 MG Tablet PO (04:57)
[2022-06-22] MEDS: Glucerna Shake 120 ML LIQUID PO ×4 (04:57→20:25)
[2022-06-22] MEDS: Lisinopril 10 MG Tablet PO (04:57)
[2022-06-22] MEDS: guaiFENesin 600 MG Tablet PO ×2 (04:57→16:30)
[2022-06-22] MEDS: Menthol/Lanolin/Calamine/Znox 113 GM Tube 1 APPLIC TOPICAL ×2 (04:58→16:33)
[2022-06-22] MEDS: Heparin Injection (Vial) 5,000 UNIT/ML VIAL 5000 UNIT SC ×3 (04:58→20:26)
[2022-06-22] MEDS: Saliva Substitute 237 ML BOTTLE 15 ML MUCOUS MEM ×3 (04:59→20:26)
[2022-06-22] MEDS: Sodium Chloride 0.65% 1 SPRAY SPRAY.BTL 2 SPRAY NASAL ×5 (04:59→20:27)
--- NOTE | 2022-06-22 05:12 | NURSING ---
steiner irrigated as ordered per facility policy, patient tolerated well.
[2022-06-22 05:13] VITALS: BP 128/68; PULSE 59; RESP 16; O2SAT 5
[2022-06-22 06:45] LABS: Bedside Glucose 98 mg/dL (74-106)
[2022-06-22] MEDS: Insulin NPH Human 100 UNITS/ML PEN 29 UNITS SC (08:17)
[2022-06-22] MEDS: Aspirin 81 MG TAB.CHEW PO (08:18)
[2022-06-22] MEDS: Tamsulosin HCl 0.4 MG Capsule PO (08:20)
[2022-06-22] MEDS: Cholecalciferol (Vit D3) 125 MCG CAPSULE (5,000 UNITS) PO (08:20)
[2022-06-22] MEDS: Ascorbic Acid 500 MG Tablet 1000 MG PO (08:20)
[2022-06-22 08:42] VITALS: O2SAT 96
[2022-06-22 11:55] LABS: Bedside Glucose 53 mg/dL (74-106)
[2022-06-22] MEDS: Ferrous Sulfate 325 MG Tablet PO (12:08)
--- NOTE | 2022-06-22 12:21 | NURSING ---
NOTIFIED THAT BS=53 PRIOR TO LUNCH. 4OZ OJ GIVEN. 15MIN RECHECK BS=64. LUNCH GIVEN ALONG WITH ONE MORE 4OZ OJ. DR DOCKERY NOTIFIED. NEW ORDER RECEIVED TO ADJUST NPH INSULIN TO 20UNITS BID. WILL MONITOR.
[2022-06-22 12:30] LABS: Bedside Glucose 64 mg/dL (74-106)
[2022-06-22 13:05] LABS: Bedside Glucose 98 mg/dL (74-106)
[2022-06-22 16:00] VITALS: BP 112/61; PULSE 38; RESP 19; TEMP 36.4; O2SAT 96
[2022-06-22 16:10] LABS: Bedside Glucose 194 mg/dL (74-106)
[2022-06-22] MEDS: guaiFENesin Dm 10 ML UDC PO (16:28)
[2022-06-22] MEDS: Insulin NPH Human 100 UNITS/ML PEN 20 UNITS SC (16:29)
[2022-06-22 16:37] VITALS: PULSE 52
[2022-06-22 17:16] VITALS: O2SAT 98
[2022-06-22] MEDS: Atorvastatin Calcium 10 MG Tablet PO (20:25)
[2022-06-22] MEDS: Donepezil HCl 10 MG Tablet PO (20:25)
[2022-06-22 21:45] LABS: Bedside Glucose 224 mg/dL (74-106)
[2022-06-23] MEDS: Sodium Chloride 0.65% 1 SPRAY SPRAY.BTL 2 SPRAY NASAL ×5 (05:01→21:38)
[2022-06-23] MEDS: Finasteride 5 MG Tablet PO (05:03)
[2022-06-23] MEDS: amLODIPine 10 MG Tablet PO (05:03)
[2022-06-23] MEDS: Glucerna Shake 120 ML LIQUID PO ×4 (05:03→21:47)
[2022-06-23] MEDS: Pantoprazole Sodium 40 MG Tablet PO ×2 (05:03→17:23)
[2022-06-23] MEDS: Lisinopril 10 MG Tablet PO (05:03)
[2022-06-23] MEDS: guaiFENesin 600 MG Tablet PO ×2 (05:03→17:22)
[2022-06-23] MEDS: Heparin Injection (Vial) 5,000 UNIT/ML VIAL 5000 UNIT SC ×3 (05:04→21:48)
[2022-06-23] MEDS: Saliva Substitute 237 ML BOTTLE 15 ML MUCOUS MEM ×3 (05:11→21:46)
[2022-06-23] MEDS: Menthol/Lanolin/Calamine/Znox 113 GM Tube 1 APPLIC TOPICAL ×2 (05:12→17:21)
[2022-06-23 06:46] LABS: Bedside Glucose 161 mg/dL (74-106)
[2022-06-23 07:19] VITALS: O2SAT 97
[2022-06-23] MEDS: Insulin NPH Human 100 UNITS/ML PEN 20 UNITS SC ×2 (08:11→18:05)
[2022-06-23] MEDS: Tamsulosin HCl 0.4 MG Capsule PO (08:14)
[2022-06-23] MEDS: Ascorbic Acid 500 MG Tablet 1000 MG PO (08:14)
[2022-06-23] MEDS: Aspirin 81 MG TAB.CHEW PO (08:14)
[2022-06-23] MEDS: Cholecalciferol (Vit D3) 125 MCG CAPSULE (5,000 UNITS) PO (08:15)
[2022-06-23 10:00] VITALS: PULSE 54; RESP 20; O2SAT 94
[2022-06-23] MEDS: Ferrous Sulfate 325 MG Tablet PO (11:31)
[2022-06-23 11:44] VITALS: PULSE 52; RESP 18; O2SAT 96
[2022-06-23] MEDS: Albuterol 2.5 MG/3 ML VIAL.NEB. INHALATION (11:44)
[2022-06-23 11:45] LABS: Bedside Glucose 142 mg/dL (74-106)
[2022-06-23 16:00] VITALS: BP 135/58; PULSE 54; RESP 20; TEMP 36.9; O2SAT 94
--- NOTE | 2022-06-23 16:00 | PHA.CONS_ITS ---
TCU RX Drug Regimen Review Subjective: TCU Admission. 87 YOM presented the the ER with severe nausea/vomiting with syncope. Admitted to the hospital with acute respiratory failure with hypoxemia secondary to acute right lower lobe pneumonia, atrial fibrillation and acute on chronic renal failure. Admitted to TCU with debility for strengthening and rehabilitation. Objective: Allergies No Known Allergies Allergy (Verified 06/05/22 03:44) Current Medications Generic Name Dose Route Start Last Admin Trade Name Freq PRN Reason Stop Dose Admin Acetaminophen 650 mg 06/13/22 14:44 06/21/22 20:38 Acetaminophen 325 Mg Tablet PO 650 mg Q4H PRN PRN Administration Fever, pain 1-08/18 Albuterol Sulfate 2.5 mg 06/13/22 14:44 06/23/22 11:44 Albuterol 2.5 Mg/3 Ml Vial.Neb. INHALATION 2.5 mg Q2H PRN PRN Administration Dyspnea, wheezing Amlodipine Besylate 10 mg 06/14/22 06:00 06/23/22 05:03 Amlodipine 10 Mg Tablet PO 10 mg DAILY PHILLY Administration Ascorbic Acid 1,000 mg 06/14/22 08:00 06/23/22 08:14 Ascorbic Acid 500 Mg Tablet PO 1,000 mg DAILYCM PHILLY Administration Aspirin 81 mg 06/14/22 08:00 06/23/22 08:14 Aspirin 81 Mg Tab.Chew PO 81 mg BREAKFAST PHILLY Administration Atorvastatin Calcium 10 mg 06/13/22 22:00 06/22/22 20:25 Atorvastatin Calcium 10 Mg Tablet PO 10 mg QHS PHILLY Administration Calamine/Phenol 1 applic 06/13/22 18:00 06/23/22 05:12 Menthol/Lanolin/Calamine/Znox 113 Gm Tube TOPICAL 1 applic BID PHILLY Administration Protocol Cholecalciferol 125 mcg 06/14/22 08:00 06/23/22 08:15 Cholecalciferol (Vit D3) 125 Mcg Capsule (5,000 Units) PO 125 mcg DAILYCM PHILLY Administration Dextrose 0 gm 06/22/22 11:43 Dextrose 50%-Water 25 Gm/50 Ml Disp.Syrin IV X1 PRN Hypoglycemia Protocol Donepezil HCl 10 mg 06/13/22 22:00 06/22/22 20:25 Donepezil Hcl 10 Mg Tablet PO 10 mg QHS PHILLY Administration Ferrous Sulfate 325 mg 06/14/22 12:00 06/23/22 11:31 Ferrous Sulfate 325 Mg Tablet PO 325 mg DAILY@1200 PHILLY Administration Finasteride 5 mg 06/14/22 06:00 06/23/22 05:03 Finasteride 5 Mg Tablet PO 5 mg DAILY PHILLY Administration Glucagon 1 mg 06/22/22 11:43 Glucagon 1 Mg/Ml Syringe IM X1 PRN Hypoglycemia Guaifenesin 10 ml 06/20/22 07:31 06/22/22 16:28 Guaifenesin Dm 10 Ml Udc PO 10 ml Q6H PRN PRN Administration COUGH Guaifenesin 600 mg 06/21/22 18:00 06/23/22 05:03 Guaifenesin 600 Mg Tablet PO 600 mg BID PHILLY Administration Heparin Sodium (Porcine) 5,000 unit 06/15/22 14:00 06/23/22 13:20 Heparin Injection (Vial) 5,000 Unit/Ml Vial SC 5,000 unit Q8 PHILLY Administration Insulin Human NPH 20 units 06/22/22 16:30 06/23/22 08:11 Insulin Nph Human 100 Units/Ml Pen SC 20 u BID@0730,1630 PHILLY Administration Lisinopril 10 mg 06/14/22 06:00 06/23/22 05:03 Lisinopril 10 Mg Tablet PO 10 mg DAILY PHILLY Administration Loperamide HCl 2 mg 06/13/22 14:44 Loperamide 2 Mg Capsule PO Q4H PRN loose stool Nutritional Formula (Lactose Free) 120 ml 06/18/22 17:00 06/23/22 11:32 Glucerna Shake 120 Ml Liquid PO 120 ml 4X/DAY PHILLY Administration Pantoprazole Sodium 40 mg 06/16/22 19:00 06/23/22 05:03 Pantoprazole Sodium 40 Mg Tablet PO 40 mg BID PHILLY Administration Saliva Substitute 15 ml 06/14/22 15:57 Saliva Substitute 237 Ml Bottle MUCOUS MEM Q2H PRN PRN DRY MOUTH Saliva Substitute 15 ml 06/14/22 22:00 06/23/22 13:20 Saliva Substitute 237 Ml Bottle MUCOUS MEM 15 ml TID PHILLY Administration Sodium Chloride 10 - 40 ml 06/13/22 14:37 0.9% Saline Lock 10 Ml Syringe IV UD PRN SALINE FLUSH Sodium Chloride 2 spray 06/16/22 22:00 06/23/22 13:19 Sodium Chloride 0.65% 1 [place].Btl NASAL 2 spray Q4 PHILLY Administration Tamsulosin HCl 0.4 mg 06/14/22 08:30 06/23/22 08:14 Tamsulosin Hcl 0.4 Mg Capsule PO 0.4 mg DAILY@0830 PHILLY Administration Problem List (Last Updated 06/15/22 @ 09:[address] Yaritza Schroeder, DO) Urethral stricture (Acute) Physical debility (Acute) Diabetes mellitus type 2 in obese (Acute) Non-ST elevation myocardial infarction (NSTEMI) in recovery phase (Acute) Dysphagia (Acute) Bradycardia (Acute) CKD (chronic kidney disease) stage 3, GFR 30-59 ml/min (Chronic) Iron deficiency anemia, unspecified (Acute) Right lower lobe pneumonia (Acute) Hypoxia (Acute) Hyperlipidemia (Chronic) Hypertension (Chronic) Vital Signs Temp Pulse Resp BP Pulse Ox O2 Del Method O2 Flow Rate 97.6 F L 52 L 18 112/61 96 Nasal Cannula 2 06/22/22 16:00 06/23/22 11:44 06/23/22 11:44 06/22/22 16:00 06/23/22 11:44 06/23/22 11:44 06/23/22 11:44 Oxygen Flow Rate (L/min) 2 Oxygen Delivery Method Nasal Cannula Weight: 119.8 kg Body Mass Index (BMI) 33.9 Sodium 140 mmol/L (136-145) 06/21/22 07:05 Potassium 5.0 mmol/L (3.5-5.1) 06/21/22 07:05 Chloride 114 mmol/L (98-107) H 06/21/22 07:05 Carbon Dioxide 22.0 mmol/L (21.0-32.0) 06/21/22 07:05 Anion Gap 4 (5-15) L 06/21/22 07:05 BUN 26 mg/dL (7-18) H 06/21/22 07:05 Creatinine 2.24 mg/dL (0.70-1.30) H 06/21/22 07:05 Est GFR (MDRD) Af Amer 36 mL/min (>60) L 06/21/22 07:05 Est GFR (MDRD) Non-Af 30 mL/min (>60) L 06/21/22 07:05 BUN/Creatinine Ratio 11.6 RATIO (10-20) 06/21/22 07:05 Glucose 154 mg/dL (74-106) H 06/21/22 07:05 Assessment/Plan: 1. Atrial fibrillation/NSTEMI: aspirin 81 mg PO BREAKFAST. Please continue to monitor hemoglobin and S/S of bleeding. 2. DVT prophylaxis: heparin 5,000U SC q8. Please continue to monitor hemoglobin (last 11.0g/dL) and S/S of bleeding ? 2. Pain: acetaminophen 650mg PO Q4H PRN Fever, pain 1-10/10. Patient has received 2 doses. Last dose 06/21/22 for generalized pain score of 5. Continue to monitor for S/S of increased pain and PRN usage. 3. Bowel: loperamide 2mg PO Q4H PRN loose stool. Please continue to monitor for loose stools and PRN usage. No doses given so far. Last bowel movement documented 06/17/22. 4. GI: pantoprazole 40 mg BID. Please continue to monitor S/S of GERD and diarrhea. 5. Iron deficiency anemia: ferrous sulfate 325 mg PO DAILY and ascorbic acid (vitamin C) 1,000 mg PO DAILY. Please continue to monitor hemoglobin (last 11.0g/dL), dark stools and constipation 6. Hyperlipidemia: atorvastatin 10 mg PO QHS. Please continue to monitor lipid panel last 06/05/22 TC (123), HDL (33), LDL(51), TG(253), LFTs (last 06/05/22) and muscle pain. 7. Hypertension: lisinopril 10 mg PO DAILY, amlodipine 10 mg PO DAILY. Please continue to monitor blood pressure (last 112/61), potassium (last 5mmol/L), cough, swelling and renal function. 8. DM type 2: insulin NPH U-100 20 unit SC BID. Please continue to monitor blood glucose (last 06/23/22 161), S/S of hyper/hypoglycemia?and hemoglobin A1c (last 9.2% 06/16/22). 9. BPH: finasteride 5 mg PO DAILY and tamsulosin 0.4 mg PO DAILY. Please continue to monitor blood pressure. Last documented BP was 112/61. 10. Cough: guaifenesin 600mg PO BID and guaifenesin DM 10ml PO Q6H PRN cough. Please continue to monitor for cough and PRN usage. Has had 3 doses. 11. Dry Mouth: Biotene 15mL MM TID and Q2H PRN dry mouth. Please continue to monitor for S/S of dry mouth and PRN usage. Has not required PRN doses. 12. Dyspnea/wheezing: albuterol nebulizer 2.5mg inhalation Q2H PRN SOB/wheezing. Please continue to monitor for S/S of SOB/wheezing and PRN usage. Resident has had 4 doses so far. Assessment/Plan for indications treated with psychotropic medications: None Medical chart and medication regimen reviewed. The following medication irregularities or issues were identified: *1.Cholecalciferol 125 mcg PO DAILY. There is no documentation of vitamin d3 deficiency and no past levels on record for patient. Please consider adding an indication or stopping if not clinically indicated. Please check a vitamin d3 level if continued. Thanks. *2. Donepezil 10 mg PO QHS. I did not see a documented indication of dementia. Please consider adding indication or stopping if not clinically indicated. Thanks. On the BEERs list for syncope related to bradycardia. Date of Note:: 06/23/22
[2022-06-23 16:50] LABS: Bedside Glucose 171 mg/dL (74-106)
[2022-06-23 17:34] VITALS: O2SAT 94
[2022-06-23 21:25] LABS: Bedside Glucose 187 mg/dL (74-106)
[2022-06-23] MEDS: Donepezil HCl 10 MG Tablet PO (21:38)
[2022-06-23] MEDS: Atorvastatin Calcium 10 MG Tablet PO (21:38)
[2022-06-24 05:29] VITALS: BP 149/80; PULSE 52
[2022-06-24] MEDS: Glucerna Shake 120 ML LIQUID PO ×4 (05:30→20:15)
[2022-06-24] MEDS: Saliva Substitute 237 ML BOTTLE 15 ML MUCOUS MEM ×3 (05:30→20:14)
[2022-06-24] MEDS: Menthol/Lanolin/Calamine/Znox 113 GM Tube 1 APPLIC TOPICAL ×2 (05:31→17:41)
[2022-06-24] MEDS: Lisinopril 10 MG Tablet PO (05:32)
[2022-06-24] MEDS: amLODIPine 10 MG Tablet PO (05:32)
[2022-06-24] MEDS: Finasteride 5 MG Tablet PO (05:32)
[2022-06-24] MEDS: guaiFENesin 600 MG Tablet PO ×2 (05:32→17:39)
[2022-06-24] MEDS: Pantoprazole Sodium 40 MG Tablet PO ×2 (05:32→17:39)
[2022-06-24] MEDS: Heparin Injection (Vial) 5,000 UNIT/ML VIAL 5000 UNIT SC ×3 (05:33→20:16)
[2022-06-24] MEDS: Sodium Chloride 0.65% 1 SPRAY SPRAY.BTL 2 SPRAY NASAL ×5 (05:37→20:15)
[2022-06-24 06:31] LABS: Bedside Glucose 107 mg/dL (74-106)
[2022-06-24] MEDS: Cholecalciferol (Vit D3) 125 MCG CAPSULE (5,000 UNITS) PO (08:52)
[2022-06-24] MEDS: Tamsulosin HCl 0.4 MG Capsule PO (08:52)
[2022-06-24] MEDS: Aspirin 81 MG TAB.CHEW PO (08:52)
[2022-06-24] MEDS: Ascorbic Acid 500 MG Tablet 1000 MG PO (08:52)
[2022-06-24] MEDS: Insulin NPH Human 100 UNITS/ML PEN 20 UNITS SC ×2 (08:55→17:42)
[2022-06-24 11:01] LABS: Bedside Glucose 136 mg/dL (74-106)
[2022-06-24] MEDS: BACITRACIN 15 GM Tube 1 APPLIC TOPICAL ×2 (12:34→17:40)
[2022-06-24] MEDS: Ferrous Sulfate 325 MG Tablet PO (12:34)
[2022-06-24 14:57] VITALS: BP 117/59; PULSE 51; RESP 14; TEMP 36.3; O2SAT 94
--- NOTE | 2022-06-24 15:25 | NURSING ---
Late entry. Updated next of kin that a staff member tested positive for COVID.
[2022-06-24] MEDS: Acetaminophen 325 MG Tablet 650 MG PO (15:37)
[2022-06-24] MEDS: guaiFENesin Dm 10 ML UDC PO (15:38)
--- NOTE | 2022-06-24 16:26 | CHAPLAIN ---
Type of Pastoral Visit ___ Initial Visit ___ Follow-up Visit ___ On-call Visit ___ General Patient Visit ___ Spiritual Assessment ___ Family Conference ___ Bereavement ___ Rapid Response ___ Code Blue ___ Other (describe below) Pastoral Care Referral From ___ Patient ___ Family ___ Nurse ___ Physician ___ Skip Tender ___ Hop Worker ___ Other (describe below) Sacrament/Intervention ___ Active listening ___ Anointing ___ Protestant ___ Bereavement ___ Communion ___ Alpa exploration ___ ___ Life review ___ Prayer ___ Reconciliation ___ Sacrament of Sick ___ Supportive presence ___ Wedding ___ Other (describe below) Pastoral Comments stopped to see patient but he had family members talking with him; greeted pt and family, offered support, and stated that this taxicab coordinator would return another time
[2022-06-24 16:50] LABS: Bedside Glucose 145 mg/dL (74-106)
[2022-06-24] MEDS: Atorvastatin Calcium 10 MG Tablet PO (20:15)
[2022-06-24] MEDS: Donepezil HCl 10 MG Tablet PO (20:16)
[2022-06-24 21:00] VITALS: PULSE 60; RESP 18; O2SAT 93
[2022-06-24 21:35] LABS: Bedside Glucose 197 mg/dL (74-106)
[2022-06-25] MEDS: Glucerna Shake 120 ML LIQUID PO ×4 (05:42→21:07)
[2022-06-25] MEDS: Saliva Substitute 237 ML BOTTLE 15 ML MUCOUS MEM ×3 (05:42→21:07)
[2022-06-25] MEDS: BACITRACIN 15 GM Tube 1 APPLIC TOPICAL ×2 (05:42→16:43)
[2022-06-25] MEDS: Heparin Injection (Vial) 5,000 UNIT/ML VIAL 5000 UNIT SC ×3 (05:43→21:08)
[2022-06-25] MEDS: Menthol/Lanolin/Calamine/Znox 113 GM Tube 1 APPLIC TOPICAL ×2 (05:43→16:43)
[2022-06-25] MEDS: Lisinopril 10 MG Tablet PO (05:44)
[2022-06-25] MEDS: guaiFENesin 600 MG Tablet PO ×2 (05:44→16:44)
[2022-06-25] MEDS: amLODIPine 10 MG Tablet PO (05:45)
[2022-06-25] MEDS: Sodium Chloride 0.65% 1 SPRAY SPRAY.BTL 2 SPRAY NASAL ×5 (05:45→21:08)
[2022-06-25] MEDS: Finasteride 5 MG Tablet PO (05:45)
[2022-06-25] MEDS: Pantoprazole Sodium 40 MG Tablet PO ×2 (05:45→16:44)
[2022-06-25 06:31] LABS: Bedside Glucose 124 mg/dL (74-106)
[2022-06-25 06:42] VITALS: O2SAT 97
--- NOTE | 2022-06-25 08:08 | NURSING ---
Principal Java Software Engineer Note: Interview and section F of MDS complete. Activities CAA complete.
[2022-06-25] MEDS: Insulin NPH Human 100 UNITS/ML PEN 20 UNITS SC ×2 (08:59→16:42)
[2022-06-25] MEDS: Aspirin 81 MG TAB.CHEW PO (08:59)
[2022-06-25] MEDS: Tamsulosin HCl 0.4 MG Capsule PO (09:00)
[2022-06-25] MEDS: Ascorbic Acid 500 MG Tablet 1000 MG PO (09:00)
[2022-06-25] MEDS: Cholecalciferol (Vit D3) 125 MCG CAPSULE (5,000 UNITS) PO (09:00)
[2022-06-25 11:10] LABS: Bedside Glucose 165 mg/dL (74-106)
[2022-06-25] MEDS: Ferrous Sulfate 325 MG Tablet PO (12:00)
[2022-06-25 13:41] VITALS: BP 111/54; PULSE 53; RESP 14; TEMP 36.1; O2SAT 94
--- NOTE | 2022-06-25 13:54 | CASEMGMT ---
Addendum entered by Jessa Juarez 06/27/22 15:16: SAE spoke with about DC details. requesting FWW, information on [facility]. SW made referral to [facility] [place] for FWW as [facility] no longer has FWW in stock. SW provided with [facility] resources. SAE recommending SW added to HHC order to f/u with success at home. Addendum entered by Jessa Juarez 06/25/22 15:52: Correction: LCD 06/29, DC 06/30. present in pts room. Spoke with pt and about DC 06/30. Both requesting to DC 06/29. to transport. Provided skilled HHC list of providers including quality and resource use data and consistent with the patient?s preferred geographic region, medical needs, and insurance network. Pt/ prefers [facility]. Referral made via phone to [facility] for PT/OT/ST/SN. Pt is new on O2, aerosols and steiner cath. [facility] to order supplies and leg bag. [place] faxed referral to [facility] for O2 and nebulizer. Plan: DC 06/29 home with , [facility] PT/OT/ST/SN, O2, nebulizer, steiner Original Note: Social Work Insurance issued LCD 06/28, DC 06/29. Left message for on both listed phone numbers. LISA Gandara
--- NOTE | 2022-06-25 15:02 | NURSING ---
Per ST, Pt will have swallow study on 06/27 at 930am.
--- NOTE | 2022-06-25 15:06 | CHAPLAIN ---
Type of Pastoral Visit ___ Initial Visit _x__ Follow-up Visit ___ On-call Visit ___ General Patient Visit ___ Spiritual Assessment ___ Family Conference ___ Bereavement ___ Rapid Response ___ Code Blue ___ Other (describe below) Pastoral Care Referral From _x__ Patient ___ Family ___ Nurse ___ Physician ___ Completions Engineer ___ Senior Credit Analyst ___ Other (describe below) Sacrament/Intervention ___ Active listening ___ Anointing ___ Methodist ___ Bereavement ___ Communion ___ Alpa exploration ___ ___ Life review _x__ Prayer ___ Reconciliation ___ Sacrament of Sick __x_ Supportive presence ___ Wedding ___ Other (describe below) Pastoral Comments patient exhibits low energy and only answers questions; pt is slow to react to conversation and says I don't know for plan for further services; pt does welcome prayer
[2022-06-25 16:16] LABS: Bedside Glucose 188 mg/dL (74-106)
--- NOTE | 2022-06-25 20:34 | PCM.DC.SUM ---
Providers Date of Admission: 06/13/22 Primary Care Physician: Dr. Nate Watters DO Reason For Visit: PNA,SYNCOPE,PAF Diagnosis Discharge Diagnosis (1) Urethral stricture: Status: Acute Code(s): N35.919 - Unspecified urethral stricture, male, unspecified site Medications at Discharge Home Medications ferrous sulfate 325 mg (65 mg iron) tablet 325 mg PO DAILY iron 08/28/21 cholecalciferol (vitamin D3) 125 mcg (5,000 unit) capsule 125 mcg PO DAILY vit D3 11/28/21 donepezil 10 mg tablet (Aricept) 10 mg PO QHS memory 06/05/22 simvastatin 20 mg tablet (Zocor) 20 mg PO QHS cholesterol 06/05/22 acetaminophen 325 mg tablet (Tylenol) 650 mg PO Q4H PRN PRN Fever, pain 1-08/18 #0 tabs 06/13/22 ascorbic acid (vitamin C) 500 mg tablet 1,000 mg PO DAILY vitamin 06/13/22 aspirin 81 mg chewable tablet 81 mg PO BREAKFAST [facility] 06/13/22 finasteride 5 mg tablet 5 mg PO DAILY BPH 06/13/22 insulin NPH isoph U-100 human 100 unit/mL (3 mL) subcutaneous pen (Humulin N NPH U-100 Insulin KwikPen) 29 unit subcut BID diabetes 06/13/22 lisinopril 10 mg tablet 10 mg PO DAILY BP 06/13/22 tamsulosin 0.4 mg capsule 0.4 mg PO DAILY BPH 06/13/22 albuterol sulfate 2.5 mg/3 mL (0.083 %) solution for nebulization 2.5 mg (3 mL) inhalation Q2H PRN PRN Dyspnea, wheezing 30 days #360 mL 06/25/22 amlodipine 10 mg tablet 10 mg PO DAILY bp 30 days #30 tabs 06/25/22 pantoprazole 40 mg tablet,delayed release 40 mg PO BID 30 days #60 tabs 06/25/22 Hospital Course Operations - (Urethral dilatation. ) Procedures None Summary of Care Provided Minutes Spent on Discharge: 35 Hospital Course: 87 year old male with below past medical history hospitalized for acute respiratory failure with hypoxia secondary to pneumonia, complicated by atrial fibrillation with rapdi ventricular response, NSTEMI, urinary retention requiring urethral dilatation/steiner catheter, acute kidney injury admitted to TCU with debility, here for rehabilitation, strengthening, prior to discharge home with . Discharge home with 06/29/2022, [facility] PT/OT/ST/SN, Oxygen, nebulizer, Steiner catheter. Physical Exam Const alert General Appearance: cooperative HEENT normocephalic Eyes PERRL and EOMs intact bilaterally Neck supple, no JVD and no carotid bruits Resp normal respiratory effort, normal air movement and clear to auscultation bilaterally Cardio regular rate and regular rhythm GI normal to inspection, nondistended, normoactive bowel sounds, non-tender and non-distended Extremity normal capillary refill General Extremity: Negative for edema Skin no rashes or lesions noted General Skin Exam: no breakdown Psych affect normal Appearance: appropriate Medical Records Data Medical Nutrition Assessment Dietitian: Malnutrition Criteria Met Start: 06/25/22 15:55 Freq: Status: Active Protocol: Document 06/25/22 15:55 SLA (Rec: 06/25/22 15:55 [facility] [id number]) Nutrition Malnutrition Evidence of Malnutrition Exists Yes Malnutrition (severe): Acute Illness/Injury Evidenced By Suboptimal Energy Intake ( Severe),Weight Loss (Severe) Intake Problem Inadequate Oral Intake Status Inactive Problem Clinical Problem Acute Disease or Injury Related Malnutrition Etiology severe related to issues w/ dysphagia requiring mech altered diet, inadequate energy intake to meet est nutritional needs and issues w / edema Signs/Symptoms as evidenced by res consuming <50% of est nutritional needs over >5 days and wt loss of 6% since last review. Status Active Problem Biting/Chewing Difficulty Etiology swallowing related to dysphagia Signs/Symptoms as evidenced by need for mech altered diet consistencies of food and liquid Status Active Problem Recommendation Dietitian Recommendations/Changes Will liberalize diet to CHO Control/CHAGO diet - consistency per BRINE MAKER - d/t signs and symptoms of malnutrition Will continue to provide ensure pudding or magic cup w / lunch and dinner Will continue 120 ml glucerna shake 4x/day w/ medpass Weight / BMI Weight Weight: 112.718 kg Body Mass Index (BMI) 33.9 ABG / Lab / Microbiology Data Result Diagrams: 06/21/22 07:05 06/21/22 07:05 Laboratory: Laboratory Results - last 24 hr 06/24/22 21:13: POC Glucose 197 H 06/25/22 06:09: POC Glucose 124 H 08/17/22 10:52: POC Glucose 165 H 06/25/22 15:44: POC Glucose 188 H Microbiology: Microbiology 06/20/22 06:40 Nasal Secretion SARS-CoV-2 Antigen (Rapid) - Final 06/16/22 16:09 Stool Stool Occult Blood (MICHAEL) - Final Occult Blood Positive 06/13/22 23:10 Urine, Catheterized Urine Culture - Final Presumptive C albicans D/C Instructions Discharge Diet: No restrictions Discharge Activity: Return to Normal Activity, May Shower and Use Walker Weight Bearing Status: Weight bearing as tolerated Call your doctor if you observe: Fever of 101 or Higher, Inability to urinate, Inability to have a bowel movement, Shortness of breath, Dizziness, Fainting spells, Swelling in the ankles, Chest pain and Uncontrolled pain Additional Instructions: Discharge home with 06/29/2022, [facility] PT/OT/ST/SN, Oxygen, nebulizer, Steiner catheter. Please Follow Up With: Darrell Stout MD When: 2 weeks. Meaningful Use Info Meaningful Use Diagnoses (Choose all that apply): None applicable Discharge Plan Admission Admit Date/Time: 06/13/22 14:11 Primary Reason for Your Visit: Debility. Attending Provider: Gabriel Kelly Chi Primary Care Provider: Nate Watters Instructions Additional Instructions / Restrictions: Discharge home with 06/29/2022, [facility] PT/OT/ST/SN, Oxygen, nebulizer, Steiner catheter. Discharge Orders/Prescriptions Prescriptions: New pantoprazole 40 mg Tablet,Delayed Release (Dr/Ec) 40 mg PO BID 30 Days Qty: 60 0RF Continued ferrous sulfate 325 mg (65 mg iron) tablet 325 mg PO DAILY cholecalciferol (vitamin D3) 125 mcg (5,000 unit) capsule 125 mcg PO DAILY donepezil [Aricept] 10 mg tablet 10 mg PO QHS simvastatin [Zocor] 20 mg tablet 20 mg PO QHS acetaminophen [Tylenol] 325 mg Tablet 650 mg PO Q4H PRN PRN (Reason: Fever, pain 1-08/18) Qty: 0 0RF ascorbic acid (vitamin C) 500 mg tablet 1,000 mg PO DAILY tamsulosin 0.4 mg capsule 0.4 mg PO DAILY lisinopril 10 mg tablet 10 mg PO DAILY aspirin 81 mg tablet,chewable 81 mg PO BREAKFAST finasteride 5 mg tablet 5 mg PO DAILY Humulin N NPH Insulin KwikPen 100 unit/mL (3 mL) insulin pen 29 unit subcut BID albuterol sulfate 2.5 mg /3 mL (0.083 %) Solution For Nebulization 2.5 mg inhalation Q2H PRN PRN (Reason: Dyspnea, wheezing) 30 Days Qty: 360 0RF amlodipine 10 mg tablet 10 mg PO DAILY 30 Days Qty: 30 0RF Discontinued loperamide 2 mg Capsule 2 mg PO Q4H PRN (Reason: loose stool) Qty: 1 0RF amoxicillin-pot clavulanate [Augmentin] 500-125 mg tablet 1 tab PO TID Rx Instructions: 1 3 times daily with meals starting 06/13/2022-continue for 2 days Glucerna 1.2 Brady 0.06-1.2 gram-kcal/mL liquid 120 ml PO TIDCM menthol-zinc oxide [Calmoseptine] 0.44-20.6 % ointment 1 applic topical BID Protocol: *Topical Application Instructions APPLICATION INSTRUCTIONS: apply to groin/buttocks Referrals / Follow Up: Nate Watters DO [Primary Care Provider] - Disposition Disposition (needs filled in before D/C Order can be placed): Home Health Service
[2022-06-25 21:00] VITALS: PULSE 56; RESP 18; O2SAT 97
[2022-06-25] MEDS: Donepezil HCl 10 MG Tablet PO (21:07)
[2022-06-25] MEDS: Atorvastatin Calcium 10 MG Tablet PO (21:08)
[2022-06-25 21:46] LABS: Bedside Glucose 213 mg/dL (74-106)
[2022-06-26] MEDS: Glucerna Shake 120 ML LIQUID PO ×4 (05:26→22:38)
[2022-06-26] MEDS: Saliva Substitute 237 ML BOTTLE 15 ML MUCOUS MEM ×3 (05:26→22:41)
[2022-06-26] MEDS: amLODIPine 10 MG Tablet PO (05:27)
[2022-06-26] MEDS: Menthol/Lanolin/Calamine/Znox 113 GM Tube 1 APPLIC TOPICAL ×2 (05:27→17:47)
[2022-06-26] MEDS: Sodium Chloride 0.65% 1 SPRAY SPRAY.BTL 2 SPRAY NASAL ×5 (05:27→22:42)
[2022-06-26] MEDS: Lisinopril 10 MG Tablet PO (05:27)
[2022-06-26] MEDS: guaiFENesin 600 MG Tablet PO ×2 (05:27→17:46)
[2022-06-26] MEDS: Finasteride 5 MG Tablet PO (05:28)
[2022-06-26] MEDS: Pantoprazole Sodium 40 MG Tablet PO ×2 (05:28→17:46)
[2022-06-26] MEDS: Heparin Injection (Vial) 5,000 UNIT/ML VIAL 5000 UNIT SC ×3 (05:28→22:48)
[2022-06-26] MEDS: BACITRACIN 15 GM Tube 1 APPLIC TOPICAL ×2 (05:31→17:45)
[2022-06-26 06:36] LABS: Bedside Glucose 137 mg/dL (74-106)
[2022-06-26 07:11] VITALS: O2SAT 95
[2022-06-26] MEDS: Insulin NPH Human 100 UNITS/ML PEN 20 UNITS SC ×2 (07:53→17:51)
[2022-06-26] MEDS: Ascorbic Acid 500 MG Tablet 1000 MG PO (07:54)
[2022-06-26] MEDS: Aspirin 81 MG TAB.CHEW PO (07:54)
[2022-06-26] MEDS: Tamsulosin HCl 0.4 MG Capsule PO (07:55)
[2022-06-26] MEDS: Cholecalciferol (Vit D3) 125 MCG CAPSULE (5,000 UNITS) PO (07:55)
--- NOTE | 2022-06-26 08:39 | MDS.RN ---
Information for the mds was obtained from review of the clinical record, interview of resident, staff, and direct observation of resident's care.
[2022-06-26 11:06] LABS: Bedside Glucose 182 mg/dL (74-106)
--- NOTE | 2022-06-26 11:15 | ST.MBS ---
Modified Barium Swallow - Patient Information Study Date: 06/26/22 Study Time: 10:00 Direct Billable Minutes: 90 Total Minutes procedure & reportin Diagnosis: RLL PNA J18.9, DYSPHAGIA R13.10 Referring Physician: Gabriel Kelly Chi Reason for Referral: Objectively assess swallow function, risk for aspiration, and determine recommendations for least restrictive diet textures and compensatory strategies to improve safety of swallow. Medical History: JAYA STANTON, is a 87-year-old M with a past medical history of chronic anemia/iron deficiency anemia, hypertension, hyperlipidemia, obesity, diabetes mellitus type 2, chronic neck and back pain, BPH, dementia with possible behavioral disturbance history, chronic bradycardia, frequent urinary tract infections, history of DVT right leg, allergic rhinitis and GERD who presented to the [facility] emergency department on 06/05/2022 with complaint of profound nausea and vomiting with syncope lasting approximately 20 to 30 seconds and then recurring 2-3 more times. Pulse ox initially in the emergency department was 85% on room air and improved to 92% on his 6 L nasal cannula. White blood cell count was elevated at 26,000 and the platelet count was low at 130,000. Serum bicarb was low at 16 and the BUN was 30 with a creatinine of 2.35 (baseline is around 1.8). Chest x-ray showed a right lower lobe infiltrate and a CT brain showed no acute findings. He was admitted to the hospitalist service with a diagnosis of acute respiratory failure with hypoxemia secondary to acute right lower lobe pneumonia, atrial fibrillation and acute on chronic renal failure. Troponins were trended because of the new onset atrial fibrillation and they did trend up. He was started on Rocephin and azithromycin. Appropriate cultures and lab work was ordered. An echocardiogram was ordered due to new onset atrial fibrillation. He was seen by cardiology, pulmonary medicine and nephrology while in the hospital. He had a pharmacologic nuclear stress test on 06/05/2022 and the EF was 63% with no evidence of significant ischemia or infarction. The echocardiogram showed normal left ventricular function with a 60% EF and no regional wall motion abnormalities. The left atrium was mildly enlarged and the right atrium was normal. PA systolic pressure was estimated at 30. Nephrology felt the acute kidney injury was related to dehydration and altered hemodynamics plus obstructive uropathy. Dr. Stout was consulted and performed a urethral dilatation at the bedside and then placed a Manzo catheter to keep the urethra open. He should go home with a catheter and will follow up with Dr. Pedro in the office post discharge. While in the hospital he was on Airvo to keep him oxygenated. He was evaluated by PT/OT/ST while in the hospital and it was apparent he is too weak to go home. He was transferred to the transitional care unit on 06/13/2022 for therapy to strengthen him and get him as close to his baseline as possible prior to discharging home. Current Diet Ordered: SOFT BITE SIZED / NTL Dentition: Lower Dentures Mental Status: Impaired - hx of dementia Respiratory Status: Oxygenating on 2L/M nasal cannula - Penetration-Aspiration Scale Penetration-Aspiration Scale: OBJECTIVE ASSESSMENT OF SWALLOW FUNCTION (QUANTITATIVE ? PER TRIAL): PENETRATION / ASPIRATION SCALE (REDDY): 1 = does not enter airway 2 = enters airway/above vocal folds/ejected 3 = enters airway/above vocal folds/not ejected 4 = enters airway/contacts vocal folds/ejected 5 = enters airway/contacts vocal folds/not ejected 6 = enters airway/below vocal folds/ejected 7 = enters airway/below vocal folds/not ejected despite effort 8 = enters airway/below vocal folds/no effort VIDEOFLOROSCOPIC SCALE SCORE (REDDY): Grade I = aspiration of material that has penetrated into the laryngeal vestibule, intact cough reflex Grade II = aspiration < 10 % of the bolus, intact cough reflex Grade III = aspiration of < 10 % of the bolus, reduced cough reflex or aspiration of > 10 % of the bolus, intact cough reflex Grade IV = aspiration of > 10 % of the bolus, reduced cough reflex - Penetration-Aspiration Scale Score Thin Liquid via teaspoon Result: 2= enter airway/above vocal folds/ejected Thin Liquid via teaspoon Trial 2 Result: 7= enters airways/below vocal folds/not ejected despite effort Thin Liquid via small single sip from cup Result: 2= enter airway/above vocal folds/ejected Thin Liquid via sequential sips from cup Result: 3= enters airways/above vocal folds/not ejected [place] Thick Liquid via small single sip from cup Result: 2= enter airway/above vocal folds/ejected Honey Thick Liquid via small single sip from cup Result: 3= enters airways/above vocal folds/not ejected Pudding via teaspoon w/ esophageal screening Result: 2= enter airway/above vocal folds/ejected 1/2 Cookie Result: 1= does not enter airway Thin Liquid via single sip from straw Result: 3= enters airways/above vocal folds/not ejected Thin Liquid via small single sip from cup Effortful swallow Result: 5= enters airways/contacts vocal folds/not ejected - Oral Phase Labial Seal: No Labial Escape Tongue Control During Bolus Hold: Posterior escape of greater than half of bolus Bolus Preparation/Mastication: Slow prolonged chewing/mashing with complete recollection Bolus Transport/Lingual Motion: Delayed initiation of tongue motion Oral Residue: Trace residue lining oral structures - Pharyngeal Phase Initiation of Pharyngeal Swallow: Bolus head in pyriforms Soft Palate Elevation: No bolus between soft palate and pharyngeal wall Laryngeal Elevation: Partial superior movement thyroid cart/partial apprx aryt-epig petiole Anterior Hyoid Excursion: Partial anterior movement Epiglottic Movement: Partial inversion Laryngeal Vestibule Closure at Height of Swallow: Incomplete; narrow column of air/contrast in laryngeal vestibule Pharyngeal Stripping Wave: Present - diminished Pharyngoesophageal Segment Opening: Complete distension and complete duration; no obstruction of flow Tongue Base Retraction: Narrow column of contrast between tongue base & post. pharyngeal wall Pharyngeal Residue: Collection of residue within or on pharyngeal structures - Esophageal Phase Esophageal Clearance: Esophageal retention w/ retrograde flow below pharyngoesophageal seg. - Treatment Strategies Effects of treatment strategies attemped:: effortful swallow = not effective - Diagnosis/Impression Diagnosis: moderate oropharyngeal dysphagia (R13.12) Impression: Patient pleasant and agreeable to Modified Barium Swallow Study to objectively assess swallow function to determine least restrictive diet to maintain adequate nutrition and hydration. Patient is on 2L of O2 via nasal canula. Patient seen sitting upright - required frequent cues to sit up straight to participate in swallow study. Patient presented w/ oral phase dysphagia characterized by slow prolonged chewing/mashing with complete recollection, delayed initiation of tongue motion, and poor bolus control leading to premature posterior loss to pyriforms and laryngeal vestibule resulting in oral residuals. Oral phase also characterized by suboptimal lingual control which is contributing to pre-prandial penetration. Pharyngeal w/ moderate pharyngeal phase dysphagia characterized by reduced closure of the airway during deglutition attributed to reduced laryngeal elevation, reduced anterior hyoid excursion resulting in insufficient epiglottic inversion, and poor laryngeal vestibule closure. Penetration was observed with all consistencies re: thin, nectar thick, honey thick and pudding thick. With thin liquids w/ use of effortful swallow resulted in contacts the vocal folds and was not ejected so effortful swallow was ineffective. Aspiration occurred with thin by tsp with weak, ineffective cough reflex. - Recommendations Diet: [place]-thick Liquids - soft and bite sized textures Comment: Recommend continued implementation of the Gray Free Water Protocol (FFWP), as continued manipulation of thin liquids with above recommended aspiration precautions may promote improved hydration, increased opportunities for swallowing and pt.'s quality of life. Compensatory Strategies: Small Bites, Small Sips, No Straws, Slow Rate, Alternate bites/solids and sips/liquids, Remain sitting upright for 30 minutes after PO intake, Minimize/decrease distractions Supervision: Distant Supervision Recommend Repeat Modified Barium Swallow: TBD Need for Skilled Speech Therapy Services: Yes Education Completed: 1. Described result of evaluation., 2. Pt understands evaluation & agrees with goals and treatment plan. - Status Active ST Patient: Active - Contact Information [facility] Speech Therapy:: 06/26/22 14:13 Li Hardin M.A., CCC-MULTIMEDIA PROJECT MANAGER Speech-Language Pathologist [facility] [address] [place] [address] [phone]
--- NOTE | 2022-06-26 11:38 | CASEMGMT ---
Social Work BIMS (06/04) and PHQ-9 (02/02) completed for MDS assessment. LISA GandaraW
--- NOTE | 2022-06-26 11:38 | CASEMGMT ---
Social Work BIMS () and PHQ-9 (01/05) completed for MDS assessment. Jessa Juarez MSW SUPERVISOR ORDER TAKERS
[2022-06-26] MEDS: Ferrous Sulfate 325 MG Tablet PO (11:41)
--- NOTE | 2022-06-26 12:58 | NURSING ---
Talked to by phone and informed him of a covid positive patient in TCU.
[2022-06-26 13:47] VITALS: BP 119/56; PULSE 58; RESP 18; TEMP 36.2; O2SAT 97
[2022-06-26 17:41] LABS: Bedside Glucose 140 mg/dL (74-106)
[2022-06-26 19:27] VITALS: O2SAT 98
[2022-06-26 21:31] LABS: Bedside Glucose 241 mg/dL (74-106)
--- NOTE | 2022-06-26 21:52 | PCA ---
When rounding CARDIOLOGY SPECIALIST noticed patient was not in their chair. CARDIOLOGY SPECIALIST found patient in the bathroom sitting on the toilet and without a walker. CARDIOLOGY SPECIALIST explained the importance of calling for help when needed and to not get up without assistance. re educated patient on how to use call light to call for help. Patient was upset and said they felt like CARDIOLOGY SPECIALIST was scolding them. CARDIOLOGY SPECIALIST told patient they aren't trying to be mean, but are just looking out for their safety. patient seemed to be in agreement and apologized for getting up on their own. helped patient back to their recliner and gave them their call light. Patient voiced no more assistance was needed.
[2022-06-26] MEDS: Donepezil HCl 10 MG Tablet PO (22:41)
[2022-06-26] MEDS: Atorvastatin Calcium 10 MG Tablet PO (22:42)
--- NOTE | 2022-06-26 22:43 | PCA ---
Patient does not wish to sleep in the bed at this time. in recliner with legs elevated
[2022-06-27 05:57] VITALS: BP 118/56; PULSE 105
[2022-06-27] MEDS: BACITRACIN 15 GM Tube 1 APPLIC TOPICAL ×2 (05:59→18:16)
[2022-06-27] MEDS: Glucerna Shake 120 ML LIQUID PO ×4 (05:59→23:16)
[2022-06-27] MEDS: Sodium Chloride 0.65% 1 SPRAY SPRAY.BTL 2 SPRAY NASAL ×5 (06:00→23:17)
[2022-06-27] MEDS: Saliva Substitute 237 ML BOTTLE 15 ML MUCOUS MEM ×3 (06:00→23:16)
[2022-06-27] MEDS: guaiFENesin 600 MG Tablet PO ×2 (06:01→18:17)
[2022-06-27] MEDS: Menthol/Lanolin/Calamine/Znox 113 GM Tube 1 APPLIC TOPICAL ×2 (06:01→18:16)
[2022-06-27] MEDS: Pantoprazole Sodium 40 MG Tablet PO ×2 (06:02→18:18)
[2022-06-27] MEDS: amLODIPine 10 MG Tablet PO (06:02)
[2022-06-27] MEDS: Lisinopril 10 MG Tablet PO (06:02)
[2022-06-27] MEDS: Heparin Injection (Vial) 5,000 UNIT/ML VIAL 5000 UNIT SC ×3 (06:02→23:18)
[2022-06-27] MEDS: Finasteride 5 MG Tablet PO (06:02)
[2022-06-27 06:35] LABS: Bedside Glucose 152 mg/dL (74-106)
[2022-06-27 07:01] VITALS: O2SAT 94
[2022-06-27] MEDS: Insulin NPH Human 100 UNITS/ML PEN 20 UNITS SC ×2 (08:52→18:20)
--- NOTE | 2022-06-27 08:59 | MDS.RN ---
Pain interview for phillip 06/29/22
[2022-06-27] MEDS: Cholecalciferol (Vit D3) 125 MCG CAPSULE (5,000 UNITS) PO (09:16)
[2022-06-27] MEDS: Aspirin 81 MG TAB.CHEW PO (09:16)
[2022-06-27] MEDS: Tamsulosin HCl 0.4 MG Capsule PO (09:17)
[2022-06-27] MEDS: Ascorbic Acid 500 MG Tablet 1000 MG PO (09:17)
[2022-06-27] MEDS: Ferrous Sulfate 325 MG Tablet PO (11:09)
[2022-06-27 11:20] LABS: Bedside Glucose 166 mg/dL (74-106)
[2022-06-27 15:17] VITALS: BP 114/57; PULSE 63; RESP 20; TEMP 36.9; O2SAT 92
[2022-06-27 16:50] LABS: Bedside Glucose 181 mg/dL (74-106)
[2022-06-27 17:01] VITALS: O2SAT 95
[2022-06-27 20:13] VITALS: PULSE 92; RESP 18
[2022-06-27 22:01] LABS: Bedside Glucose 258 mg/dL (74-106)
[2022-06-27] MEDS: Atorvastatin Calcium 10 MG Tablet PO (23:18)
[2022-06-27] MEDS: Donepezil HCl 10 MG Tablet PO (23:18)
--- NOTE | 2022-06-28 01:04 | CPS ---
PT TO HAVE AN OVERNIGHT PULSE OX STUDY. PT IS RESTROOM. WILL START SOON PT IS OUT.
[2022-06-28 01:06] VITALS: O2SAT 95
[2022-06-28 01:24] VITALS: O2SAT 95
--- NOTE | 2022-06-28 02:36 | NURSING ---
Addendum entered by Traci Mack 06/28/22 02:39: Cath was flushed last night around 2230, note entered late. Original Note: Catheter flushed w/ 45cc normal saline per order. Flushed easily, patient tolerated well, urine yellow w/ sediment.
[2022-06-28] MEDS: Saliva Substitute 237 ML BOTTLE 15 ML MUCOUS MEM ×3 (06:23→21:50)
[2022-06-28] MEDS: Sodium Chloride 0.65% 1 SPRAY SPRAY.BTL 2 SPRAY NASAL ×5 (06:23→21:54)
[2022-06-28] MEDS: BACITRACIN 15 GM Tube 1 APPLIC TOPICAL ×2 (06:24→17:25)
[2022-06-28] MEDS: Menthol/Lanolin/Calamine/Znox 113 GM Tube 1 APPLIC TOPICAL ×2 (06:24→17:28)
[2022-06-28] MEDS: Glucerna Shake 120 ML LIQUID PO ×4 (06:25→21:52)
[2022-06-28] MEDS: Heparin Injection (Vial) 5,000 UNIT/ML VIAL 5000 UNIT SC ×3 (06:25→21:54)
[2022-06-28] MEDS: guaiFENesin 600 MG Tablet PO ×2 (06:26→17:28)
[2022-06-28] MEDS: Pantoprazole Sodium 40 MG Tablet PO ×2 (06:28→17:28)
[2022-06-28] MEDS: Lisinopril 10 MG Tablet PO (06:28)
[2022-06-28] MEDS: amLODIPine 10 MG Tablet PO (06:28)
[2022-06-28] MEDS: Finasteride 5 MG Tablet PO (06:28)
[2022-06-28 06:31] VITALS: BP 122/60; PULSE 54
[2022-06-28 07:00] LABS: Bedside Glucose 159 mg/dL (74-106)
[2022-06-28 07:18] LABS: Absolute Neutrophil Count 3.9 X10^3/uL (2.0-7.7); Basophil# 0.07 X10^3/uL; Basophil% 0.5 % (0-1); Eosinophil# 0.36 X10^3/uL; Eosinophils% 2.7 % (0-5); Hematocrit 35.3 % (40-54); Hemoglobin 11.4 g/dL (13.0-16.5); Mean Corp Hgb Conc 32.3 g/dL (32-36); Mean Corpuscular Hgb 31.1 pg (27.0-32.0); Mean Corpuscular Volume 96.4 fL (80-94); Mean Platelet Vol. 10.6 fl (6.2-12.0); Monocyte# 0.62 X10^3/uL; Monocyte% 4.7 % (0-10); NRBC Flagged by Analyzer 0 % (0-5); Neutrophil # 3.94 X10^3/uL (2.7-7.7); Neutrophil % 29.9 % (47-70); POSITIVE DIFFERENTIAL YES; Platelet Count 202 K/mm3 (150-450); RBC Distribution Width CV 13.6 % (11.6-14.6); RBC Distribution Width SD 48.1 fl (35.1-43.9); Red Blood Count 3.66 M/mm3 (4.6-6.2); White Blood Count 13.2 K/mm3 (4.4-11.0)
[2022-06-28 07:35] LABS: Anion Gap 5 (5-15); BUN 40 mg/dL (7-18); BUN/Creat Ratio 17.5 RATIO (10-20); Calcium,Total 9.1 mg/dL (8.5-10.1); Chloride 114 mmol/L (98-107); Creatinine, Serum 2.28 mg/dL (0.70-1.30); EST Glomerular Filtration Rate 29 mL/min (>60); Est Glom Filt Rate - Afr Amer 35 mL/min (>60); Estimated Creatinine Clearance 27.54 ml/min; Glucose 166 mg/dL (74-106); Potassium 4.8 mmol/L (3.5-5.1); Sodium Level 140 mmol/L (136-145)
[2022-06-28 07:52] LABS: Differential Indicated SCAN CRITERIA MET
[2022-06-28 08:10] LABS: Platelet Morphology LARGE
[2022-06-28] MEDS: Insulin NPH Human 100 UNITS/ML PEN 20 UNITS SC ×2 (09:03→17:22)
[2022-06-28] MEDS: Tamsulosin HCl 0.4 MG Capsule PO (09:07)
[2022-06-28] MEDS: Ascorbic Acid 500 MG Tablet 1000 MG PO (09:07)
[2022-06-28] MEDS: Cholecalciferol (Vit D3) 125 MCG CAPSULE (5,000 UNITS) PO (09:07)
[2022-06-28] MEDS: Aspirin 81 MG TAB.CHEW PO (09:07)
[2022-06-28 09:40] VITALS: O2SAT 95
[2022-06-28] MEDS: Ferrous Sulfate 325 MG Tablet PO (11:31)
[2022-06-28 11:55] LABS: Bedside Glucose 204 mg/dL (74-106)
--- NOTE | 2022-06-28 14:16 | NURSING ---
VM left with pt's spouse notifying there was a COVID positive patient on TCU
[2022-06-28 15:45] VITALS: BP 122/55; PULSE 56; RESP 14; TEMP 36.2; O2SAT 93
[2022-06-28 17:05] LABS: Bedside Glucose 161 mg/dL (74-106)
--- NOTE | 2022-06-28 21:45 | NURSING ---
This nurse witnessed pt ambulating to the bathroom with wheeled walker unassisted. Then assisted pt to the bathroom and educated on the importance of asking for help. Will continue to monitor.
[2022-06-28 21:51] LABS: Bedside Glucose 214 mg/dL (74-106)
[2022-06-28] MEDS: Acetaminophen 325 MG Tablet 650 MG PO (21:52)
[2022-06-28] MEDS: Donepezil HCl 10 MG Tablet PO (21:52)
[2022-06-28] MEDS: Atorvastatin Calcium 10 MG Tablet PO (21:53)
[2022-06-29 05:45] VITALS: BP 129/67; PULSE 56
[2022-06-29] MEDS: Finasteride 5 MG Tablet PO (05:45)
[2022-06-29] MEDS: guaiFENesin 600 MG Tablet PO (05:45)
[2022-06-29] MEDS: Pantoprazole Sodium 40 MG Tablet PO (05:45)
[2022-06-29] MEDS: Heparin Injection (Vial) 5,000 UNIT/ML VIAL 5000 UNIT SC (05:46)
[2022-06-29] MEDS: amLODIPine 10 MG Tablet PO (05:46)
[2022-06-29] MEDS: Sodium Chloride 0.65% 1 SPRAY SPRAY.BTL 2 SPRAY NASAL ×2 (05:46→10:09)
[2022-06-29] MEDS: BACITRACIN 15 GM Tube 1 APPLIC TOPICAL (05:47)
[2022-06-29] MEDS: Saliva Substitute 237 ML BOTTLE 15 ML MUCOUS MEM (05:47)
[2022-06-29] MEDS: Lisinopril 10 MG Tablet PO (05:48)
[2022-06-29] MEDS: Menthol/Lanolin/Calamine/Znox 113 GM Tube 1 APPLIC TOPICAL (05:51)
[2022-06-29] MEDS: Glucerna Shake 120 ML LIQUID PO (05:52)
[2022-06-29 06:40] LABS: Bedside Glucose 173 mg/dL (74-106)
[2022-06-29] MEDS: Ascorbic Acid 500 MG Tablet 1000 MG PO (08:04)
[2022-06-29] MEDS: Aspirin 81 MG TAB.CHEW PO (08:04)
[2022-06-29] MEDS: Tamsulosin HCl 0.4 MG Capsule PO (08:05)
[2022-06-29] MEDS: Cholecalciferol (Vit D3) 125 MCG CAPSULE (5,000 UNITS) PO (08:05)
[2022-06-29] MEDS: Insulin NPH Human 100 UNITS/ML PEN 20 UNITS SC (08:09)
[2022-06-29 09:14] VITALS: O2SAT 94
[2022-06-29 10:03] VITALS: O2SAT 94
[2022-06-29 12:27] VITALS: BP 124/62; PULSE 54; RESP 16; TEMP 36.6; O2SAT 96
--- NOTE | 2022-06-29 12:29 | NURSING ---
Pt and refusing to take O2 tank in patient's room delivered from [employer]. Pulse ox 96% on RA. Education provided.
== END 2022-06-29 11:45 | disposition home health service (06) | DRG 193 ==
PROVIDERS: Internal Medicine; Admitting Provider Family Medicine Geriatric Medicine; PCP Family Medicine; Visit Provider Family Medicine Geriatric Medicine
DX: J18.9 Pneumonia, unspecified organism (principal); I21.4 Non-ST elevation (NSTEMI) myocardial infarction; E11.22 Type 2 diabetes mellitus with diabetic chronic kidney disease; D50.9 Iron deficiency anemia, unspecified; E78.2 Mixed hyperlipidemia; E66.9 Obesity, unspecified; N18.30 Chronic kidney disease, stage 3 unspecified; I48.91 Unspecified atrial fibrillation; Z79.4 Long term (current) use of insulin; I12.9 Hypertensive chronic kidney disease with stage 1 through stage 4 chronic kidney disease, or unspecified chronic kidney disease; K21.9 Gastro-esophageal reflux disease without esophagitis; N35.919 Unspecified urethral stricture, male, unspecified site; Z79.82 Long term (current) use of aspirin; R09.02 Hypoxemia; Z68.33 Body mass index [BMI] 33.0-33.9, adult; Z79.899 Other long term (current) drug therapy; Z86.718 Personal history of other venous thrombosis and embolism; N40.0 Benign prostatic hyperplasia without lower urinary tract symptoms
CPT/HCPCS: 36415; 74230; 80048; 80069; 81001; 82040; 82274; 82962; 83036; 84439; 85025; 85027; 87086; 87088; 87811; 92507; 92526; 92610; 92611; 94640; 94667; 94668; 94762; 97110; 97116; 97162; 97166; 97530; 97535; 97802

== ENCOUNTER 2022-07-17 10:11 | Inpatient (IN) | payer MEDICARE, SELFPAY ==
[2022-07-17] VITALS (20 sets, daily range): BP systolic 124–160; BP diastolic 63–74; PULSE 61–82; RESP 14–29; TEMP 36.3–37.2; O2SAT 2–99; BMI 17.9; BMI 30.2
--- NOTE | 2022-07-17 10:23 | EKG12_ITS ---
Test Reason : SOB Blood Pressure : / mmHG Vent. Rate : 076 BPM Atrial Rate : 090 BPM P-R Int : 000 ms QRS Dur : 126 ms QT Int : 392 ms P-R-T Axes : 000 -55 073 degrees QTc Int : 441 ms Atrial fibrillation Left axis deviation Non-specific intra-ventricular conduction block Abnormal ECG Confirmed by CALLIE SAMUEL, EDWIN ([id number]), sound editor WILBERT BELLO ([id number]) on 07/21/2022 10:42:01 AM Referred By: STEFF Confirmed By:EDWIN LEDESMA MD
--- NOTE | 2022-07-17 10:30 | EDS_ITS ---
HPI History of Present Illness Chief Complaint: Shortness of Breath Narrative Narrative: 87-year-old male presenting with shortness of breath and hypoxia. Patient with recent admission for hypoxic respiratory failure secondary to pneumonia which was presumed to be aspiration pneumonia about a month ago. Patient states he recovered in the hospital and was in the TCU. He was otherwise well up until yesterday when he developed a cough and shortness of breath. He denies a fever, chills, body aches. He is not have any chest pain. He does express dyspnea. He does not usually wear home O2. No known sick contacts. [facility] Medical History Anemia Arthritis Atrial fibrillation, new onset Blackout Cardiology follow-up encounter Chronic neck and back pain Dementia Depression Diarrhea Dietary restriction DVT (deep venous thrombosis) Fatigue GERD (gastroesophageal reflux disease) History of echocardiogram History of edema History of heart attack History of stress test Hyperlipidemia Hypertension Incontinence Indwelling urethral catheter present Insulin dependent diabetes mellitus Irregular heart beat Kidney disease Knee pain Non-smoker NSTEMI (non-ST elevated myocardial infarction) Presbycusis Seasonal allergies Shortness of breath on exertion Skin cancer Syncope Walker as ambulation aid Wears glasses Home Medications ferrous sulfate 325 mg (65 mg iron) tablet 325 mg PO DAILY iron 08/28/21 [History Last Taken Unknown] cholecalciferol (vitamin D3) 125 mcg (5,000 unit) capsule 125 mcg PO DAILY vit D3 11/28/21 [History Last Taken Unknown] donepezil 10 mg tablet (Aricept) 10 mg PO QHS memory 06/05/22 [History Last Taken Unknown] simvastatin 20 mg tablet (Zocor) 20 mg PO QHS cholesterol 06/05/22 [History Last Taken Unknown] acetaminophen 325 mg tablet (Tylenol) 650 mg PO Q4H PRN PRN Fever, pain 1-10 #0 tabs 06/13/22 [Rx Last Taken Unknown] ascorbic acid (vitamin C) 500 mg tablet 1,000 mg PO DAILY vitamin 06/13/22 [History Last Taken Unknown] aspirin 81 mg chewable tablet 81 mg PO BREAKFAST heart health 06/13/22 [History Last Taken Unknown] finasteride 5 mg tablet 5 mg PO DAILY BPH 06/13/22 [History Last Taken Unknown] insulin NPH isoph U-100 human 100 unit/mL (3 mL) subcutaneous pen (Humulin N NPH U-100 Insulin KwikPen) 29 unit subcut BID diabetes 06/13/22 [History Last Taken Unknown] lisinopril 10 mg tablet 10 mg PO DAILY BP 06/13/22 [History Last Taken Unknown] tamsulosin 0.4 mg capsule 0.4 mg PO DAILY BPH 06/13/22 [History Last Taken Unknown] albuterol sulfate 2.5 mg/3 mL (0.083 %) solution for nebulization 2.5 mg (3 mL) inhalation Q2H PRN PRN Dyspnea, wheezing 30 days #360 mL 06/25/22 [Rx Last Taken Unknown] amlodipine 10 mg tablet 10 mg PO DAILY bp 30 days #30 tabs 06/25/22 [Rx Last Taken Unknown] nebulizers #1 ea 06/30/22 [Rx Last Taken Unknown] loperamide 2 mg capsule 4 mg PO DAILY loose stools 07/08/22 [History Last Taken Unknown] loratadine 10 mg tablet 10 mg PO DAILY 07/08/22 [History Last Taken Unknown] fluoxetine 20 mg capsule (Prozac) 20 mg PO DAILY #90 caps 07/16/22 [Rx Last Taken Unknown] Allergy/AdvReac Type Severity Reaction Status Date / Time No Known Allergies Allergy Verified 07/17/22 10:13 Family History Brother Heart disease Myocardial infarction Mother Myocardial infarction Heart disease Father CVA (cerebral vascular accident) Surgical History history of caataract removal History of urethral stricture Social History household members: spouse Smoking Status: Never smoker alcohol intake: never substance use type: does not use what type of physical activity do you participate in: none EXAM Physical Exam Const Vital Signs: 07/17/22 10:13 07/17/22 10:21 07/17/22 10:37 Temperature 99 F Temperature Source Temporal Pulse Rate 75 Respiratory Rate 22 H Respiratory Effort Respiratory Depth Respiratory Pattern Blood Pressure 157/68 H Blood Pressure Mean 97 Pulse Ox 90 2 88 Oxygen Delivery Method Room Air Nasal Cannula Room Air Oxygen Flow Rate (L/min) 2 Fraction of Inspired Oxygen (FIO2) 07/17/22 10:37 07/17/22 11:48 07/17/22 11:51 Temperature 97.6 F L 97.6 F L Temperature Source Temporal Temporal Pulse Rate 68 Respiratory Rate 24 H Respiratory Effort Respiratory Depth Respiratory Pattern Blood Pressure 137/67 H Blood Pressure Mean 90 Pulse Ox 90 90 Oxygen Delivery Method Nasal Cannula Venturi Mask Oxygen Flow Rate (L/min) 2 Fraction of Inspired Oxygen (FIO2) 35 07/17/22 11:52 Temperature Temperature Source Pulse Rate Respiratory Rate Respiratory Effort Short of Breath Respiratory Depth Deep Respiratory Pattern Tachypnea Blood Pressure Blood Pressure Mean Pulse Ox Oxygen Delivery Method Venturi Mask Oxygen Flow Rate (L/min) Fraction of Inspired Oxygen (FIO2) 35 MDM MDM MDM Narrative Medical decision making narrative: 87-year-old male presenting with dyspnea which is worse on exertion. His recent admission last month for pneumonia and it looks like he did have aspiration pneumonia. He has not had any fever, chills today. EKG was obtained and on my interpretation shows atrial fibrillation with a controlled ventricular response of 76 bpm. Chest x-ray my interpretation shows a right lower lobe infiltrate. Patient is significantly hypoxic down to 85% on room air initially. He was started on oxygen. Sepsis work-up was obtained. Patient empirically treated with vancomycin and Zosyn with given the concern for hospital-acquired pneumonia and recent aspiration pneumonia. Patient noted to have a 20,000 white count. Hemoglobin is actually improved at 13.3. Platelets are slightly at 143 previously these were 202. PT and INR normal. Creatinine is slightly worsened at 2.27. Electrolytes unremarkable. Lactic acid returned at 3.0. High- sensitivity troponin is 23. I did obtain DVT studies because on exam he does have right greater than left lower extremity swelling. He has a history of DVT and is not on Eliquis anymore. His DVT study showed he has a right popliteal DVT and a left-sided gastroc medius and peroneal DVT. Patient will need to be anticoagulated. It was noted he had occult stool that was positive previously but his hemoglobin has significantly improved. Patient was discussed with the hospitalist for admission. Impression: 1. Hypoxic respiratory failure 2. Sepsis 3. Leukocytosis 4. Right lower lobe pneumonia 5. Lactic acidosis 6. Right popliteal DVT 7. Left gastrocnemius and peroneal DVT Lab Data Labs: Laboratory Results - last 24 hr 07/17/22 07/17/22 07/17/22 10:30 10:30 10:30 WBC 20.8 H RBC 4.33 L Hgb 13.3 Hct 41.2 MCV 95.2 H MCH 30.7 MCHC 32.3 RDW Std Deviation 50.6 H RDW Coeff of Bebe 14.6 Plt Count 143 L MPV 10.5 Immature Gran % (Auto) 0.300 Neut % (Auto) 37.7 L Lymph % (Auto) 56.4 H Ashley % (Auto) 4.2 Eos % (Auto) 1.2 Baso % (Auto) 0.2 Absolute Neuts (auto) 7.9 H Absolute Lymphs (auto) 11.76 H Nucleated RBC % 0 Differential Comment COMMENT PT 14.0 INR 1.1 APTT 33.0 Sodium 145 Potassium 4.4 Chloride 115 H Carbon Dioxide 18.0 L Anion Gap 12 BUN 28 H Creatinine 2.27 H Estim Creat Clear Calc 21.37 Est GFR (MDRD) Af Amer 35 L Est GFR (MDRD) Non-Af 29 L BUN/Creatinine Ratio 12.3 Glucose 193 H Lactic Acid Calcium 9.3 Total Bilirubin 1.20 H AST 17 ALT 24 Alkaline Phosphatase 84 Troponin I High Sens 23 Total Protein 7.6 Albumin 3.6 Globulin 4.0 Albumin/Globulin Ratio 0.9 07/17/22 10:30 WBC RBC Hgb Hct MCV MCH MCHC RDW Std Deviation RDW Coeff of Bebe Plt Count MPV Immature Gran % (Auto) Neut % (Auto) Lymph % (Auto) Ashley % (Auto) Eos % (Auto) Baso % (Auto) Absolute Neuts (auto) Absolute Lymphs (auto) Nucleated RBC % Differential Comment PT INR APTT Sodium Potassium Chloride Carbon Dioxide Anion Gap BUN Creatinine Estim Creat Clear Calc Est GFR (MDRD) Af Amer Est GFR (MDRD) Non-Af BUN/Creatinine Ratio Glucose Lactic Acid 3.0 H* Calcium Total Bilirubin AST ALT Alkaline Phosphatase Troponin I High Sens Total Protein Albumin Globulin Albumin/Globulin Ratio Radiography Diagnostic Testing: Clinical Impression(s) from Imaging Studies Chest X-Ray 07/17/22 10:58 IMPRESSION: Elevation of the right hemidiaphragm with right basilar atelectasis/infiltrate. Electronically Signed: Tito Sargent MD at 11:13 EDT , Discharge Plan Triage Chief Complaint: Shortness of Breath ED Provider: Ramirez Espana Dx/Rx/DC Orders Primary Care Provider: Nate Watters
--- NOTE | 2022-07-17 10:32 | VDLE_ITS ---
Reason For Study: Swelling RIGHT LEFT GSV is normal. GSV is normal. CFV and FV are comperssible. CFV, FV and PTV are compressible. Acute deep vein thrombosis is noted in the Acute deep vein thrombosis is noted in the right PopV, T/P Trunk, PTV and PeroV. left PopV, GastrocV and PeroV. Thrombus from Procedure GastrocV is extending into the PopV. This is a venous duplex using B-mode, color flow and spectral Doppler. Exam performed portable in ED. The exam was abbreviated due to the COVID 19 protocol. A preliminary report was called and/or faxed to [facility]. VL/Venous Duplex US - Matias Extrem Interpretation Summary Acute deep venous thrombosis right popliteal, tibioperoneal trunk, posterior ti bial and peroneal veins. Patent and compressible right great saphenous vein. Acute deep venous thrombosis left popliteal vein, gastrocnemius,and peroneal ve ins. Thrombus is identified extending from the gastrocnemius vein into the popliteal vein Patent and compressible left great saphenous vein. Abreviated Covid 19 protocol utilized. History of acute deep venous thrombosis right lower extremity 04/08/21. Ordering Physician: Ramirez Espana Referring Physician: Zack Watters M.D. Performed By: Norma Herrera RVT
[2022-07-17 10:43] LABS: Absolute Lymphocyte Count 11.76 X10^3/uL (0.83-4.51); Absolute Neutrophil Count 7.9 X10^3/uL (2.0-7.7); Basophil# 0.05 X10^3/uL; Basophil% 0.2 % (0-1); Eosinophil# 0.25 X10^3/uL; Eosinophils% 1.2 % (0-5); Hematocrit 41.2 % (40-54); Hemoglobin 13.3 g/dL (13.0-16.5); Lymphocyte # 11.76 X10^3/ul (0.83-4.51); Lymphocyte % 56.4 % (19-41); Mean Corp Hgb Conc 32.3 g/dL (32-36); Mean Corpuscular Hgb 30.7 pg (27.0-32.0); Mean Corpuscular Volume 95.2 fL (80-94); Mean Platelet Vol. 10.5 fl (6.2-12.0); Monocyte# 0.87 X10^3/uL; Monocyte% 4.2 % (0-10); NRBC Flagged by Analyzer 0 % (0-5); Neutrophil # 7.85 X10^3/uL (2.7-7.7); Neutrophil % 37.7 % (47-70); POSITIVE DIFFERENTIAL YES; POSITIVE MORPHOLOGY YES; Platelet Count 143 K/mm3 (150-450); RBC Distribution Width CV 14.6 % (11.6-14.6); RBC Distribution Width SD 50.6 fl (35.1-43.9); Red Blood Count 4.33 M/mm3 (4.6-6.2); White Blood Count 20.8 K/mm3 (4.4-11.0)
[2022-07-17 10:44] LABS: Differential Indicated SCAN CRITERIA MET
[2022-07-17 10:52] LABS: International Normalized Ratio 1.1
--- NOTE | 2022-07-17 10:58 | RAD_ITS ---
STUDY: X-RAY CHEST REASON FOR EXAM: Male, 87 years old. Hypoxic respiratory failure TECHNIQUE: Single AP portable view of the chest. COMPARISON: Comparison is made with prior study dated 12/06/2020. FINDINGS: There is elevation of the right hemidiaphragm. Increased markings at the right lung base with areas of confluence suggestive of either right basilar atelectasis and/or infiltrate. There is no demonstrated pleural abnormality. Normal size heart. Normal mediastinum and yvette. Normal visualized pulmonary arteries. There is atherosclerotic calcification of the aortic arch with tortuosity. There are diffuse degenerative changes of the visualized thoracic spine. There is degenerative osteoarthritis of the bilateral shoulders. Moderate sized hiatal hernia. RAD/Chest 1 View (Portable) IMPRESSION: Elevation of the right hemidiaphragm with right basilar atelectasis/infiltrate. Electronically Signed: Tito Sargent MD at 11:13 EDT ,
[2022-07-17 11:07] LABS: ALB/GLOB Ratio 0.9 RATIO (0.9-2.4); AST(SGOT) 17 U/L (15-37); Alanine Aminotransfer ALT/SGPT 24 U/L (16-61); Albumin, Serum 3.6 g/dL (3.2-5.0); Alkaline Phosphatase 84 U/L (45-117); Anion Gap 12 (5-15); BUN 28 mg/dL (7-18); BUN/Creat Ratio 12.3 RATIO (10-20); Calcium,Total 9.3 mg/dL (8.5-10.1); Chloride 115 mmol/L (98-107); Creatinine, Serum 2.27 mg/dL (0.70-1.30); EST Glomerular Filtration Rate 29 mL/min (>60); Est Glom Filt Rate - Afr Amer 35 mL/min (>60); Estimated Creatinine Clearance 21.37 ml/min; Glucose 193 mg/dL (74-106); Potassium 4.4 mmol/L (3.5-5.1); Protein, Total 7.6 g/dL (6.4-8.2); Sodium Level 145 mmol/L (136-145); Troponin-I HS 23 pg/mL (3.0-78.0)
[2022-07-17] MEDS: Heparin Injection (Vial) 5,000 UNIT/ML VIAL IV (12:57)
[2022-07-17] MEDS: HEPARIN/D5w 25,000 UNITS 25,000 UNITS/250 ML IV.SOLN. 10 UNITS CONT INF (12:58)
[2022-07-17 14:26] LABS: Allen Test Positive; Base Excess -10 mmol/L (-2 to +2); Blood Gas Specimen Type ART; FI02 100; O2 Delivery Device NRB; PO2 79 mmHG (75-100); SITE R Radial; SO2 95 % (95-99); Total Carbon Dioxide 17 mmol/L; pCO2 28.3 mmHg (35-45); pH 7.36 (7.35-7.45)
[2022-07-17 14:38] LABS: Reflex Lactate? Y
--- NOTE | 2022-07-17 14:40 | HP.PCM.HOS_ITS ---
Documented by User: Keiko Simpson NP, [employer]-C 07/17/22 15:05 HPI - General General Date of Admission: 07/17/22 Date of Service: 07/17/22 Chief Complaint: Shortness of breath. HPI Narrative JAYA STANTON, is a 87 M who presents to the emergency room due to shortness of breath and cough. Patient is unable to state how long he has been short of breath. He was admitted approximately 1 month ago for pneumonia which was suspected secondary to aspiration. He denies fever, chills. Cough is nonproductive. Reports some lower extremity swelling. Denies calf or leg pain. Denies exposure to sick contacts. Complains of general weakness and malaise. He states he was scheduled for outpatient procedure with urology tomorrow for scar tissue. He has a past medical history of type 2 diabetes mellitus, hypertension, chronic kidney disease stage IV, dementia. FORMERLY [facility], [facility] Medical History Anemia Arthritis Atrial fibrillation, new onset Blackout Cardiology follow-up encounter Chronic neck and back pain Dementia Depression Diarrhea Dietary restriction DVT (deep venous thrombosis) Fatigue GERD (gastroesophageal reflux disease) History of echocardiogram History of edema History of heart attack History of stress test Hyperlipidemia Hypertension Incontinence Indwelling urethral catheter present Insulin dependent diabetes mellitus Irregular heart beat Kidney disease Knee pain Non-smoker NSTEMI (non-ST elevated myocardial infarction) Presbycusis Seasonal allergies Shortness of breath on exertion Skin cancer Syncope Walker as ambulation aid Wears glasses Home Medications ferrous sulfate 325 mg (65 mg iron) tablet 325 mg PO DAILY iron 08/28/21 [History Last Taken Unknown] cholecalciferol (vitamin D3) 125 mcg (5,000 unit) capsule 125 mcg PO DAILY vit D3 11/28/21 [History Last Taken Unknown] donepezil 10 mg tablet (Aricept) 10 mg PO QHS memory 06/05/22 [History Last Taken Unknown] simvastatin 20 mg tablet (Zocor) 20 mg PO QHS cholesterol 06/05/22 [History Last Taken Unknown] acetaminophen 325 mg tablet (Tylenol) 650 mg PO Q4H PRN PRN Fever, pain 1-10/10 #0 tabs 06/13/22 [Rx Last Taken Unknown] ascorbic acid (vitamin C) 500 mg tablet 1,000 mg PO DAILY vitamin 06/13/22 [History Last Taken Unknown] aspirin 81 mg chewable tablet 81 mg PO BREAKFAST heart health 06/13/22 [History Last Taken Unknown] finasteride 5 mg tablet 5 mg PO DAILY BPH 06/13/22 [History Last Taken Unknown] insulin NPH isoph U-100 human 100 unit/mL (3 mL) subcutaneous pen (Humulin N NPH U-100 Insulin KwikPen) 29 unit subcut BID diabetes 06/13/22 [History Last Taken Unknown] lisinopril 10 mg tablet 10 mg PO DAILY BP 06/13/22 [History Last Taken Unknown] tamsulosin 0.4 mg capsule 0.4 mg PO DAILY BPH 06/13/22 [History Last Taken Unknown] albuterol sulfate 2.5 mg/3 mL (0.083 %) solution for nebulization 2.5 mg (3 mL) inhalation Q2H PRN PRN Dyspnea, wheezing 30 days #360 mL 06/25/22 [Rx Last Taken Unknown] amlodipine 10 mg tablet 10 mg PO DAILY bp 30 days #30 tabs 06/25/22 [Rx Last Taken Unknown] nebulizers #1 ea 06/30/22 [Rx Last Taken Unknown] loperamide 2 mg capsule 4 mg PO DAILY loose stools 07/08/22 [History Last Taken Unknown] loratadine 10 mg tablet 10 mg PO DAILY 07/08/22 [History Last Taken Unknown] fluoxetine 20 mg capsule (Prozac) 20 mg PO DAILY #90 caps 07/16/22 [Rx Last Taken Unknown] Allergy/AdvReac Type Severity Reaction Status Date / Time No Known Allergies Allergy Verified 07/17/22 10:13 Family History Brother Heart disease Myocardial infarction Mother Myocardial infarction Heart disease Father CVA (cerebral vascular accident) Surgical History history of caataract removal History of urethral stricture Social History household members: spouse Smoking Status: Never smoker alcohol intake: never substance use type: does not use what type of physical activity do you participate in: none ROS Constitutional Constitutional: Reports chills, fatigue, malaise and weakness; Denies change in weight or fever(s) Cardiovascular Cardiovascular: Reports edema; Denies chest pain, lightheadedness, palpitations or syncope Respiratory/Chest Respiratory/Chest: Reports cough and dyspnea; Denies productive cough or wheezing Gastrointestinal Gastrointestinal: Denies abdominal pain, constipation, diarrhea, nausea or vomiting Genitourinary Genitourinary: Denies burning urination, difficulty urinating, dysuria, hematuria, urinary frequency, urinary incontinence or urinary urgency Musculoskeletal Musculoskeletal: Denies back pain, joint pain or muscle weakness Integumentary Integumentary: Denies erythema, lesions, rash or wounds Neurologic Neurologic: Denies abnormal speech, confusion, dizziness, focal weakness, numbness, paresthesias, seizure-like activity or syncope Psychiatric Psychiatric: Denies anxiety or depression Hematologic/Lymphatic Hematologic/Lymphatic: Denies anemia, easy bleeding or easy bruising Allergic/Immunologic Allergic/Immunologic: Denies hives or asthma Vital Signs Vital Signs Vital Signs: 07/17/22 10:13 07/17/22 10:21 07/17/22 10:37 Temperature 99 F Temperature Source Temporal Pulse Rate 75 Respiratory Rate 22 H Respiratory Effort Respiratory Depth Respiratory Pattern Blood Pressure 157/68 H Blood Pressure Mean 97 Blood Pressure Source Blood Pressure Position Blood Pressure Location Pulse Ox 90 2 88 Oxygen Delivery Method Room Air Nasal Cannula Room Air Oxygen Flow Rate (L/min) 2 Fraction of Inspired Oxygen (FIO2) 07/17/22 10:37 07/17/22 11:48 07/17/22 11:51 Temperature 97.6 F L 97.6 F L Temperature Source Temporal Temporal Pulse Rate 68 Respiratory Rate 24 H Respiratory Effort Respiratory Depth Respiratory Pattern Blood Pressure 137/67 H Blood Pressure Mean 90 Blood Pressure Source Blood Pressure Position Blood Pressure Location Pulse Ox 90 90 Oxygen Delivery Method Nasal Cannula Venturi Mask Oxygen Flow Rate (L/min) 2 Fraction of Inspired Oxygen (FIO2) 35 07/17/22 11:52 07/17/22 12:42 07/17/22 12:44 Temperature 98.1 F 98.1 F Temperature Source Temporal Temporal Pulse Rate 72 Respiratory Rate 26 H Respiratory Effort Short of Breath Respiratory Depth Deep Respiratory Pattern Tachypnea Blood Pressure 124/63 H Blood Pressure Mean 83 Blood Pressure Source Blood Pressure Position Blood Pressure Location Pulse Ox 92 Oxygen Delivery Method Venturi Mask Venturi Mask Oxygen Flow Rate (L/min) Fraction of Inspired Oxygen (FIO2) 35 35 07/17/22 13:01 07/17/22 13:01 07/17/22 13:27 Temperature 98.1 F 98.1 F 98 F Temperature Source Temporal Temporal Temporal Pulse Rate 82 69 Respiratory Rate 29 H 20 H Respiratory Effort Respiratory Depth Respiratory Pattern Blood Pressure 139/66 H 160/74 H Blood Pressure Mean 90 102 Blood Pressure Source Monitor Blood Pressure Position Sitting Blood Pressure Location Left Arm Pulse Ox 90 93 Oxygen Delivery Method Venturi Mask Non-Rebreather Oxygen Flow Rate (L/min) 15 Fraction of Inspired Oxygen (FIO2) 35 07/17/22 14:19 Temperature Temperature Source Pulse Rate Respiratory Rate Respiratory Effort Respiratory Depth Respiratory Pattern Blood Pressure Blood Pressure Mean Blood Pressure Source Blood Pressure Position Blood Pressure Location Pulse Ox 95 Oxygen Delivery Method Non-Rebreather Oxygen Flow Rate (L/min) Fraction of Inspired Oxygen (FIO2) 100 Weight Weight: 235 lb 0.204 oz Body Mass Index (BMI) 30.2 Physical Exam Const alert and oriented x3 Constitutional Narrative: Ill appearing, on nonrebreather. HEENT normocephalic and moist oral mucous membranes Eyes PERRL, EOMs intact bilaterally and conjunctivae normal Neck no lymphadenopathy Resp Resp Narrative: Tachypneic, on nonrebreather Auscultation: diminished lung sounds Percussion: other Coarse breath sounds Cardio regular rate, regular rhythm and no murmurs Peripheral Pulses: pulses 2+ throughout GI normal to inspection, nondistended, normoactive bowel sounds, non-tender and non-distended Extremity normal to inspection General Extremity: edema bilateral lower extremity Skin no rashes or lesions noted Lesions: no lesions Rashes: no rashes Trauma: no lacerations or abrasions Neuro CN's II-XII intact bilaterally, no focal motor deficits, no sensory deficits noted and deep tendon reflexes 2+ bilaterally Psych mental status grossly normal and affect normal Results Lab / Micro Data Result Diagrams: 07/17/22 10:30 07/17/22 10:30 Labs: Laboratory Results - last 24 hr 07/17/22 10:30: WBC 20.8 H, Corrected WBC [employer], RBC 4.33 L, Hgb 13.3, Hct 41.2, MCV 95.2 H, MCH 30.7, MCHC 32.3, RDW Std Deviation 50.6 H, RDW Coeff of Bebe 14.6, Plt Count 143 L, MPV 10.5, Immature Gran % (Auto) 0.300, Neut % (Auto) 37.7 L, Lymph % (Auto) 56.4 H, Lassen % (Auto) 4.2, Eos % (Auto) 1.2, Baso % (Auto) 0.2, Absolute Neuts (auto) 7.9 H, Absolute Lymphs (auto) 11.76 H, Total Counted [employer], Neutrophils % (Manual) [employer], Band Neutrophils % [employer], Lymphocytes % (Manual) [employer], Monocytes % (Manual) [employer], Eosinophils % (Manual) [employer], Basophils % (Manual) [employer], Metamyelocytes % [employer], Myelocytes % [employer], Promyelocytes % [employer], Blast Cells % [employer], Plasma Cell % (Manual) [employer], Other Cells % [employer], Nucleated RBC % 0, Nucleated RBCs/100 WBC [employer], Differential Comment COMMENT, Diff Path Review [employer], Hypersegmented Neuts [employer], Atypical Lymphocytes [employer], Reactive Lymphocytes [employer], Smudg e Cells [employer], Toxic Granulation [employer], Toxic Vacuolation [employer], Dohle Bodies [employer], Nivia Rods [employer], Platelet Estimate [employer], Plt Morphology Comment [employer], RBC Morphology [employer], Polychromasia [employer], Hypochromasia [employer], Poikilocytosis [employer], Basophilic Stippling [employer], Anisocytosis [employer], Microcytosis [employer], Macrocytosis [employer], Spherocytes [employer], Sickle Cells [employer], Target Cells [employer], Tear Drop Cells [employer], Ovalocytes [employer], Stomatocytes [employer], [place] Bodies [employer], Nakina Cells [employer], Bite Cells [employer], Crenated Cell [employer], Acanthocytes (Spur) [employer], Rouleaux [employer], Schistocytes [employer] 07/17/22 10:30: PT 14.0, INR 1.1, APTT 33.0 07/17/22 10:30: Sodium 145, Potassium 4.4, Chloride 115 H, Carbon Dioxide 18.0 L , Anion Gap 12, BUN 28 H, Creatinine 2.27 H, Estim Creat Clear Calc 21.37, Est GFR (MDRD) Af Amer 35 L, Est GFR (MDRD) Non-Af 29 L, BUN/Creatinine Ratio 12.3, Glucose 193 H, Calcium 9.3, Total Bilirubin 1.20 H, AST 17, ALT 24, Alkaline Phosphatase 84, Troponin I High Sens 23, Total Protein 7.6, Albumin 3.6, Globulin 4.0, Albumin/Globulin Ratio 0.9 07/17/22 10:30: Lactic Acid 3.0 H* Micro: Microbiology 07/17/22 10:32 Nasal Secretion SARS-CoV-2 Antigen (Rapid) - Final ABG Data ABG results: ABG 07/17/22 14:18 Specimen Type ART Sample Site R Radial pH 7.36 Bicarbonate Actual 16.0 L Total CO2 17 Base Excess -10 L O2 Saturation 95 O2 % 100 ABG pCO2 28.3 L ABG pO2 79 Carlos Test Positive O2 Delivery Device NRB Radiology Impression Venous Doppler Study 07/17/22 10:32 Interpretation Summary Acute deep venous thrombosis right popliteal, tibioperoneal trunk, posterior tibial and peroneal veins. Patent and compressible right great saphenous vein. Acute deep venous thrombosis left popliteal vein, gastrocnemius,and peroneal veins. Thrombus is identified extending from the gastrocnemius vein into the popliteal vein Patent and compressible left great saphenous vein. Abreviated Covid 19 protocol utilized. History of acute deep venous thrombosis right lower extremity 04/08/21. Ordering Physician: Ramirez Espana Referring Physician: Zack Watters M.D. Performed By: Norma Herrera, Julianne Chest X-Ray 07/17/22 10:58 IMPRESSION: Elevation of the right hemidiaphragm with right basilar atelectasis/infiltrate. Electronically Signed: Tito Sargent MD at 11:13 EDT , Assessment & Plan Assessment/Plan (1) Acute hypoxemic respiratory failure: PLAN: Plan 1. Sepsis secondary to acute hypoxic respiratory failure as a result of right basilar pneumonia with prior concern for aspiration-IV Zosyn. Speech therapy consult. Sepsis criteria with WBC 20.8, tachypnea, lactic acid 3 and acute hypoxic respiratory failure. Patient noted to be 88% on room air, now requiring 100% nonrebreather. Continue supplemental oxygen to maintain O2 above 90%. Obtain sputum culture. Blood culture pending. COVID-negative. PT/OT. Recent TCU rehab. 2. Acute DVT-found to have right popliteal and left gastrocnemius and peroneal DVT. On heparin drip. Patient reports prior remote history of DVT. He is unable to state if this was provoked or not. 3. Type 2 diabetes [id number] with sliding scale insulin. Continue home insulin regimen. 4. Chronic kidney disease stage IV-appears at baseline. Trend BMP. 5. Hypertension-continue home medication regimen with hold parameters. 6. Hyperlipidemia-continue statin. 7. BPH/urethral stricture-continue Flomax, finasteride. Following with urology. 8. Anxiety/depression-on fluoxetine. 9. Dementia-unknown behavioral disturbance history. Continue Aricept. DVT prophylaxis-Heparin drip This patient was seen by ADALBERTO Gomez under the supervision of Dr. Mendez. Time spent examining patient, reviewing data and subsequent management of care: 27 minutes Documented by User: Dr. Ed Mendez MD 07/17/22 16:17 HPI - General General Date of Admission: 07/17/22 FORMERLY [facility], [facility] Medical History Anemia Arthritis Atrial fibrillation, new onset Blackout Cardiology follow-up encounter Chronic neck and back pain Dementia Depression Diarrhea Dietary restriction DVT (deep venous thrombosis) Fatigue GERD (gastroesophageal reflux disease) History of echocardiogram History of edema History of heart attack History of stress test Hyperlipidemia Hypertension Incontinence Indwelling urethral catheter present Insulin dependent diabetes mellitus Irregular heart beat Kidney disease Knee pain Non-smoker NSTEMI (non-ST elevated myocardial infarction) Presbycusis Seasonal allergies Shortness of breath on exertion Skin cancer Syncope Walker as ambulation aid Wears glasses Home Medications ferrous sulfate 325 mg (65 mg iron) tablet 325 mg PO DAILY iron 08/28/21 [History Last Taken Unknown] cholecalciferol (vitamin D3) 125 mcg (5,000 unit) capsule 125 mcg PO DAILY vit D3 11/28/21 [History Last Taken Unknown] donepezil 10 mg tablet (Aricept) 10 mg PO QHS memory 06/05/22 [History Last Taken Unknown] simvastatin 20 mg tablet (Zocor) 20 mg PO QHS cholesterol 06/05/22 [History Last Taken Unknown] acetaminophen 325 mg tablet (Tylenol) 650 mg PO Q4H PRN PRN Fever, pain -08/18 #0 tabs 06/13/22 [Rx Last Taken Unknown] ascorbic acid (vitamin C) 500 mg tablet 1,000 mg PO DAILY vitamin 06/13/22 [History Last Taken Unknown] aspirin 81 mg chewable tablet 81 mg PO BREAKFAST heart health 06/13/22 [History Last Taken Unknown] finasteride 5 mg tablet 5 mg PO DAILY BPH 06/13/22 [History Last Taken Unknown] insulin NPH isoph U-100 human 100 unit/mL (3 mL) subcutaneous pen (Humulin N NPH U-100 Insulin KwikPen) 29 unit subcut BID diabetes 06/13/22 [History Last Taken Unknown] lisinopril 10 mg tablet 10 mg PO DAILY BP 06/13/22 [History Last Taken Unknown] tamsulosin 0.4 mg capsule 0.4 mg PO DAILY BPH 06/13/22 [History Last Taken Unknown] albuterol sulfate 2.5 mg/3 mL (0.083 %) solution for nebulization 2.5 mg (3 mL) inhalation Q2H PRN PRN Dyspnea, wheezing 30 days #360 mL 06/25/22 [Rx Last Taken Unknown] amlodipine 10 mg tablet 10 mg PO DAILY bp 30 days #30 tabs 06/25/22 [Rx Last Taken Unknown] nebulizers #1 ea 06/30/22 [Rx Last Taken Unknown] loperamide 2 mg capsule 4 mg PO DAILY loose stools 07/08/22 [History Last Taken Unknown] loratadine 10 mg tablet 10 mg PO DAILY 07/08/22 [History Last Taken Unknown] fluoxetine 20 mg capsule (Prozac) 20 mg PO DAILY #90 caps 07/16/22 [Rx Last Taken Unknown] Allergy/AdvReac Type Severity Reaction Status Date / Time No Known Allergies Allergy Verified 07/17/22 10:13 Family History Brother Heart disease Myocardial infarction Mother Myocardial infarction Heart disease Father CVA (cerebral vascular accident) Surgical History history of caataract removal History of urethral stricture Social History household members: spouse Smoking Status: Never smoker alcohol intake: never substance use type: does not use what type of physical activity do you participate in: none Results Lab / Micro Data Result Diagrams: 07/17/22 10:30 07/17/22 10:30 Assessment & Plan Assessment/Plan (1) Acute hypoxemic respiratory failure: Charges/Coding Addendum Addendum: Addendum: Dr. Mendez I personally examined the patient and reviewed the chart. I agree with the above. 87-year-old male presents to the hospital with shortness of breath. He was recently in the hospital and discharged to the transitional care unit after an episode of pneumonia. At that time he also had a cardiac work-up with a normal stress test and echo. Currently he presents septic with a white count of 20 lactic acid of 3 with a consolidation on chest x-ray in his right lower lobe. We will have him evaluate PT and OT as well as speech therapy and continue with vancomycin and Zosyn for now. Blood cultures and sputum cultures are pending. His lactic acid has improved to 1.4 however he is still requiring quite a bit of oxygen and in the ER refused BiPAP. ABG demonstrates a slight acidosis to 7.36 and a bicarb of 16 with a PCO2 of 28.3 consistent with acute hypoxic respiratory failure. Given that his lactic acid has improved we will continue with gentle hydration and continue to monitor his respiratory status. Of note he does have chronic kidney disease with a creatinine of 2.27, this is baseline for him. I did attempt to call his and his son to get a little bit of a better history as the patient could not tell me how long he has been feeling short of breath however they did not answer their phones. He did have some lower extremity swelling so in the ER he had Doppler of his legs done which demonstrated bilateral DVTs. He cannot have CTA of his chest secondary to chronic kidney disease therefore he was started on a heparin drip. Given his age and his chronic kidney disease may be more beneficial to convert to Coumadin on discharge. We can have this discussion when that time comes. Of note he does have a Manzo in place but he cannot tell me as to why or how long its been and, he does have a urethral stricture that was supposed to be dilated tomorrow so it is likely that he has had the Manzo in for some time, it does look cloudy and a urinalysis as well as a culture is pending. Clinical time spent in all aspects of patient care: 45 minutes Visit Charges Inpatient E&M: 46002 Init Hosp L3
[2022-07-17] MEDS: Ipratropium/Albuterol Sulfate 3 ML AMPUL.NEB INHALATION ×2 (15:13→19:59)
[2022-07-17 15:54] LABS: Lactic Acid 1.4 mmol/L (0.4-1.9)
[2022-07-17] MEDS: 0.9% Normal Saline 1,000 ML 100 ML IV (16:04)
--- NOTE | 2022-07-17 16:19 | PCM.RX.CS ---
Consult Pharmacy has been consulted to manage selected antiobiotic: Vancomycin Type of Consult: New start Suspected Infection: Sepsis, Pneumonia Prior Doses of Antibiotics Received/Current Regimen: VANCOMYCIN 1500 MG IV X1 Labs: Sodium 145 mmol/L (136-145) 07/17/22 10:30 Potassium 4.4 mmol/L (3.5-5.1) 07/17/22 10:30 Chloride 115 mmol/L (98-107) H 07/17/22 10:30 Carbon Dioxide 18.0 mmol/L (21.0-32.0) L 07/17/22 10:30 Anion Gap 12 (5-15) 07/17/22 10:30 BUN 28 mg/dL (7-18) H 07/17/22 10:30 Creatinine 2.27 mg/dL (0.70-1.30) H 07/17/22 10:30 Est GFR (MDRD) Af Amer 35 mL/min (>60) L 07/17/22 10:30 Est GFR (MDRD) Non-Af 29 mL/min (>60) L 07/17/22 10:30 BUN/Creatinine Ratio 12.3 RATIO (10-20) 07/17/22 10:30 Glucose 193 mg/dL (74-106) H 07/17/22 10:30 Microbiology: Microbiology 07/17/22 10:32 Nasal Secretion SARS-CoV-2 Antigen (Rapid) - Final Weight used for dosin.6 kg Estimated Creatinine Clearance: 31 ml/min Goal Trough: 15-20 mcg/mL Pharmacy Plan for Drug Dosing: Vancomycin 1500 IV q24H per policy. Estimated CrCl calculated with adjusted body weight Pharmacy Service will continue to monitor and adjust dosing as required. Follow-Up Labs: Trough Vancomycin Labs to be done on [date and time ordered]: 07/19/22 1100
[2022-07-17 17:55] LABS: Bedside Glucose 128 mg/dL (74-106)
[2022-07-17 18:03] LABS: Mucous, Urine 0 SEEN /hpf (<or=2+)
[2022-07-17 18:10] LABS: Color, Urine Straw (Yellow); Glucose, Dipstick Normal (Normal); Ketone-Dipstick Negative (Negative); Leukocyte Esterase-Dipstick 500 /ul (Negative); Nitrite-Dipstick Positive (Negative); Occult Blood-Urine 250 /ul (Negative); Protein-Dipstick 500 mg/dl (Negative); Urine Bilirubin Dipstick Negative (Negative); Urine Clarity Cloudy (Clear); Urine Urobilinogen Normal (Normal)
[2022-07-17 18:16] LABS: Red Blood Cells-Urine 50-100 SEEN /hpf (0-5); White Blood Cells >100 SEEN /hpf (0-5)
[2022-07-17 18:18] LABS: Bacteria 4+ /hpf (None Seen); Yeast-Urine 4+ /hpf (None Seen)
[2022-07-17 18:19] LABS: Uric Acid Crystals Ur 4+ /hpf (<or=1+)
[2022-07-17 18:20] LABS: Squamous Epithelial Cells - UA 0-5 SEEN /hpf (0-5)
[2022-07-17 19:58] LABS: Partial Thromboplast Time 49.1 Seconds (24.1-36.2)
[2022-07-17] MEDS: 0.9% Saline Lock 10 ML Syringe IV (20:27)
[2022-07-18] VITALS (19 sets, daily range): BP systolic 103–143; BP diastolic 56–71; PULSE 37–59; RESP 12–31; TEMP 36.2–36.9; O2SAT 92–100
[2022-07-18 01:20] LABS: Bedside Glucose 135 mg/dL (74-106)
[2022-07-18 02:53] LABS: Absolute Lymphocyte Count 7.52 X10^3/uL (0.83-4.51); Absolute Neutrophil Count 4.3 X10^3/uL (2.0-7.7); Basophil# 0.04 X10^3/uL; Basophil% 0.3 % (0-1); Eosinophil# 0.17 X10^3/uL; Eosinophils% 1.3 % (0-5); Hematocrit 34.4 % (40-54); Lymphocyte # 7.52 X10^3/ul (0.83-4.51); Mean Corpuscular Hgb 30.5 pg (27.0-32.0); Mean Corpuscular Volume 95.3 fL (80-94); Mean Platelet Vol. 10.8 fl (6.2-12.0); Monocyte# 0.65 X10^3/uL; Monocyte% 5.1 % (0-10); NRBC Flagged by Analyzer 0 % (0-5); Neutrophil # 4.32 X10^3/uL (2.7-7.7); POSITIVE DIFFERENTIAL YES; POSITIVE MORPHOLOGY YES; Platelet Count 114 K/mm3 (150-450); RBC Distribution Width CV 14.5 % (11.6-14.6); RBC Distribution Width SD 50.1 fl (35.1-43.9); Red Blood Count 3.61 M/mm3 (4.6-6.2); White Blood Count 12.7 K/mm3 (4.4-11.0)
[2022-07-18 03:07] LABS: Differential Indicated SCAN CRITERIA MET; Macrocytosis 1+; Partial Thromboplast Time 54.6 Seconds (24.1-36.2)
[2022-07-18 03:08] LABS: Anisocytosis 1+
[2022-07-18 03:09] LABS: Anion Gap 7 (5-15); BUN 27 mg/dL (7-18); BUN/Creat Ratio 13.8 RATIO (10-20); Calcium,Total 8.3 mg/dL (8.5-10.1); Chloride 122 mmol/L (98-107); Creatinine, Serum 1.95 mg/dL (0.70-1.30); EST Glomerular Filtration Rate 35 mL/min (>60); Est Glom Filt Rate - Afr Amer 42 mL/min (>60); Glucose 136 mg/dL (74-106); Potassium 4.4 mmol/L (3.5-5.1); Sodium Level 146 mmol/L (136-145)
[2022-07-18] MEDS: 0.9% Normal Saline 1,000 ML 100 ML IV (04:27)
[2022-07-18 06:21] LABS: Bedside Glucose 130 mg/dL (74-106)
[2022-07-18] MEDS: Ipratropium/Albuterol Sulfate 3 ML AMPUL.NEB INHALATION ×3 (06:58→19:29)
--- NOTE | 2022-07-18 09:37 | CT_ITS ---
STUDY: CT CHEST WITHOUT CONTRAST REASON FOR EXAM: Male, 87 years old. Hypoxia and shortness of breath. Cough. RADIATION DOSAGE (If Supplied By Facility): CTDIvol = ( 19.56 ) mGy, DLP = ( 703.69 ) mGycm TECHNIQUE: Transaxial imaging was performed without the administration of intravenous contrast material. Multiplanar coronal and sagittal images were reformatted. Individualized dose optimization techniques were used for this CT. COMPARISON: Comparison is made with prior study dated 06/07/2022. FINDINGS: CHEST Small bilateral axillary lymph nodes. There is a small right pleural effusion with the infiltration in the right lower lobe. Mild elevation of the right hemidiaphragm. There are calcifications of the coronary arteries. Normal mediastinum. Normal hilar regions. Normal unenhanced pulmonary arteries. There is atherosclerotic calcification of the aortic arch with tortuosity and elongation of the aortic arch and descending thoracic aorta. There are multi-level degenerative changes of the thoracic spine. Multiple small gallstones along the dependent portion of the gallbladder lumen. Small hiatal hernia. CT/Chest without Contrast IMPRESSION: Small right pleural effusion with right basilar infiltrate. Electronically Signed: Tito Sargent MD at 10:38 EDT ,
[2022-07-18] MEDS: HEPARIN/D5w 25,000 UNITS 25,000 UNITS/250 ML IV.SOLN. 12 UNITS CONT INF (09:49)
[2022-07-18 10:25] LABS: Partial Thromboplast Time 61.2 Seconds (24.1-36.2)
--- NOTE | 2022-07-18 10:35 | CASEMGMT ---
Pt is on continuous bipap and not at bedside to complete CM assessment. RN CM will attempt again later. S[place]en RN CM
--- NOTE | 2022-07-18 11:43 | PCM.PN.HOSP ---
Documented by User: Keiko Simpson PIER MASTER ASSISTANT, PIER MASTER ASSISTANT-C 07/18/22 11:55 Subjective Subjective Patient seen and examined. On nonrebreather, respiratory switching to BiPAP. Dementia at baseline, denies current symptoms or complaints. Objective Data Objective Data Vital Signs: Vital Signs Temp Pulse Resp BP Pulse Ox O2 Del Method O2 Flow Rate 97.2 F L 58 L 20 H 131/63 H 94 Bi-pap 15 07/18/22 09:42 07/18/22 09:42 07/18/22 09:42 07/18/22 09:42 07/18/22 10:00 07/18/22 10:00 07/18/22 09:42 FiO2 55 07/18/22 10:00 Oxygen Flow Rate (L/min) 15 Oxygen Delivery Method Bi-pap Weight: 235 lb 0.204 oz Body Mass Index (BMI) 30.2 Intake & Output: Intake and Output for Last 24 Hours 07/16/22 07/17/22 07/18/22 23:59 23:59 23:59 Intake Total 1642.33 / 1642.33 785.97 / 785.97 Output Total 650 / 650 200 / 200 Balance 992.33 / 992.33 585.97 / 585.97 Lab / Micro Data Result Diagrams: 07/18/22 02:35 07/18/22 02:35 Labs: Laboratory Results - last 24 hr 07/17/22 10:30: WBC 20.8 H, Corrected WBC PIER MASTER ASSISTANT, RBC 4.33 L, Hgb 13.3, Hct 41.2, MCV 95.2 H, MCH 30.7, MCHC 32.3, RDW Std Deviation 50.6 H, RDW Coeff of Bebe 14.6, Plt Count 143 L, MPV 10.5, Immature Gran % (Auto) 0.300, Neut % (Auto) 37.7 L, Lymph % (Auto) 56.4 H, Osborne % (Auto) 4.2, Eos % (Auto) 1.2, Baso % (Auto) 0.2, Absolute Neuts (auto) 7.9 H, Absolute Lymphs (auto) 11.76 H, Total Counted PIER MASTER ASSISTANT, Neutrophils % (Manual) PIER MASTER ASSISTANT, Band Neutrophils % PIER MASTER ASSISTANT, Lymphocytes % (Manual) PIER MASTER ASSISTANT, Monocytes % (Manual) PIER MASTER ASSISTANT, Eosinophils % (Manual) PIER MASTER ASSISTANT, Basophils % (Manual) PIER MASTER ASSISTANT, Metamyelocytes % PIER MASTER ASSISTANT, Myelocytes % PIER MASTER ASSISTANT, Promyelocytes % PIER MASTER ASSISTANT, Blast Cells % PIER MASTER ASSISTANT, Plasma Cell % (Manual) PIER MASTER ASSISTANT, Other Cells % PIER MASTER ASSISTANT, Nucleated RBC % 0, Nucleated RBCs/100 WBC PIER MASTER ASSISTANT, Differential Comment COMMENT, Diff Path Review PIER MASTER ASSISTANT, Hypersegmented Neuts PIER MASTER ASSISTANT, Atypical Lymphocytes PIER MASTER ASSISTANT, Reactive Lymphocytes PIER MASTER ASSISTANT, Smudge Cells PIER MASTER ASSISTANT, Toxic Granulation PIER MASTER ASSISTANT, Toxic Vacuolation PIER MASTER ASSISTANT, Dohle Bodies PIER MASTER ASSISTANT, Nivia Rods PIER MASTER ASSISTANT, Platelet Estimate PIER MASTER ASSISTANT, Plt Morphology Comment PIER MASTER ASSISTANT, RBC Morphology PIER MASTER ASSISTANT, Polychromasia PIER MASTER ASSISTANT, Hypochromasia PIER MASTER ASSISTANT, Poikilocytosis PIER MASTER ASSISTANT, Basophilic Stippling PIER MASTER ASSISTANT, Anisocytosis PIER MASTER ASSISTANT, Microcytosis PIER MASTER ASSISTANT, Macrocytosis PIER MASTER ASSISTANT, Spherocytes PIER MASTER ASSISTANT, Sickle Cells PIER MASTER ASSISTANT, Target Cells PIER MASTER ASSISTANT, Tear Drop Cells PIER MASTER ASSISTANT, Ovalocytes PIER MASTER ASSISTANT, Stomatocytes PIER MASTER ASSISTANT, [place] Bodies PIER MASTER ASSISTANT, [place] Cells PIER MASTER ASSISTANT, Bite Cells PIER MASTER ASSISTANT, Crenated Cell PIER MASTER ASSISTANT, Acanthocytes (Spur) PIER MASTER ASSISTANT, Rouleaux PIER MASTER ASSISTANT, Schistocytes PIER MASTER ASSISTANT 07/17/22 15:00: Lactic Acid 1.4 07/17/22 17:38: POC Glucose 128 H 07/17/22 17:51: Urine Color Straw, Urine Clarity Cloudy, Urine pH 6.0, Ur Specific [place] 1.020, Urine Protein 500 H, Urine Glucose (UA) Normal, Urine Ketones Negative, Urine Occult Blood 250 H, Urine Nitrite Positive H, Urine Bilirubin Negative, Urine Urobilinogen Normal, Ur Leukocyte Esterase 500 H, Urine RBC 50-100 SEEN, Urine WBC >100 SEEN, Ur Squamous Epith Cells 0-5 SEEN, Uric Acid Crystals 4+, Urine Bacteria 4+, Urine Mucus 0 SEEN, Urine Yeast 4+ 07/17/22 19:00: APTT 49.1 H 07/18/22 01:01: POC Glucose 135 H 07/18/22 02:35: WBC 12.7 H, RBC 3.61 L, Hgb 11.0 L, Hct 34.4 L, MCV 95.3 H, MCH 30.5, MCHC 32.0, RDW Std Deviation 50.1 H, RDW Coeff of Bebe 14.5, Plt Count 114 L, MPV 10.8, Immature Gran % (Auto) 0.300, Neut % (Auto) 34.0 L, Lymph % (Auto) 59.0 H, [place] % (Auto) 5.1, Eos % (Auto) 1.3, Baso % (Auto) 0.3, Absolute Neuts (auto) 4.3, Absolute Lymphs (auto) 7.52 H, Nucleated RBC % 0, Anisocytosis 1+, Macrocytosis 1+ 07/18/22 02:35: Sodium 146 H, Potassium 4.4, Chloride 122 H, Carbon Dioxide 17.0 L, Anion Gap 7, BUN 27 H, Creatinine 1.95 H, Estim Creat Clear Calc 32.20, Est GFR (MDRD) Af Amer 42 L, Est GFR (MDRD) Non-Af 35 L, BUN/Creatinine Ratio 13.8, Glucose 136 H, Calcium 8.3 L 07/18/22 02:35: APTT 54.6 H 07/18/22 05:59: POC Glucose 130 H 07/18/22 09:55: APTT 61.2 H Micro: Microbiology 07/17/22 17:50 Urine, Clean Catch Urine Culture - Preliminary GNR lactose nurse assistant 07/17/22 10:32 Nasal Secretion SARS-CoV-2 Antigen (Rapid) - Final ABG Data ABG results: ABG 07/17/22 14:18 Specimen Type ART Sample Site R Radial pH 7.36 Bicarbonate Actual 16.0 L Total CO2 17 Base Excess -10 L O2 Saturation 95 O2 % 100 ABG pCO2 28.3 L ABG pO2 79 Carlos Test Positive O2 Delivery Device NRB Radiography Diagnostic Testing: Radiology Impression Venous Doppler Study 07/17/22 10:32 Interpretation Summary Acute deep venous thrombosis right popliteal, tibioperoneal trunk, posterior tibial and peroneal veins. Patent and compressible right great saphenous vein. Acute deep venous thrombosis left popliteal vein, gastrocnemius,and peroneal veins. Thrombus is identified extending from the gastrocnemius vein into the popliteal vein Patent and compressible left great saphenous vein. Abreviated Covid 19 protocol utilized. History of acute deep venous thrombosis right lower extremity 04/08/21. Ordering Physician: Ramirez Espana Referring Physician: Zack Watters M.D. Performed By: Norma Herrera RVT Chest X-Ray 07/17/22 10:58 IMPRESSION: Elevation of the right hemidiaphragm with right basilar atelectasis/infiltrate. Electronically Signed: Tito Sargent MD at 11:13 EDT , Chest CT 07/18/22 09:37 IMPRESSION: Small right pleural effusion with right basilar infiltrate. Electronically Signed: Tito Sargent MD at 10:38 EDT , Physical Exam Const alert Constitutional Narrative: Baseline dementia HEENT normocephalic Mouth: dry mucous membranes Eyes PERRL, EOMs intact bilaterally and conjunctivae normal Neck no lymphadenopathy Resp Effort and Inspection: tachypneic Auscultation: diminished lung sounds Cardio regular rhythm and no murmurs Cardio Narrative: Mild bradycardia Peripheral Pulses: pulses 2+ throughout GI normal to inspection, nondistended, normoactive bowel sounds, non-tender and non-distended Extremity normal to inspection General Extremity: edema bilateral lower extremity Skin no rashes or lesions noted Lesions: no lesions Rashes: no rashes Trauma: no lacerations or abrasions Neuro CN's II-XII intact bilaterally, no focal motor deficits, no sensory deficits noted and deep tendon reflexes 2+ bilaterally Psych Mood & Affect: flat affect Assessment & Plan Assessment/Plan (1) Acute hypoxemic respiratory failure: (2) Sepsis: (3) UTI (urinary tract infection): (4) Chronic indwelling Manzo catheter: (5) Metabolic acidosis: (6) Hyperchloremia: (7) Hypernatremia: PLAN: Plan 1.? Sepsis secondary to acute hypoxic respiratory failure as a result of right basilar pneumonia with prior concern for aspiration and Acute UTI-IV Zosyn.? Speech therapy consult.? Sepsis criteria with WBC 20.8, tachypnea, lactic acid 3 and acute hypoxic respiratory failure.? Patient noted to be 88% on room air, now requiring BIPAP.? Continue supplemental oxygen to maintain O2 above 90%.? Obtain sputum culture.? Blood culture pending.? UA with positive nitrite, 4+ bacteria, greater than 100 WBC. Urine culture preliminary growing greater than 100,000 GNR. COVID-negative.? PT/OT.? Recent TCU rehab. Check BNP due to lower extremity swelling. 2.? Acute DVT-found to have right popliteal and left gastrocnemius and peroneal DVT.? On heparin drip.? Patient reports prior remote history of DVT.? He is unable to state if this was provoked or not. 3. Type 2 diabetes [id number] with sliding scale insulin.? Continue home insulin regimen. 4. Chronic kidney disease stage IV-appears at baseline.? Trend BMP. 5. Hypertension-continue home medication regimen with hold parameters. 6. Hyperlipidemia-continue statin. 7. BPH/urethral stricture-continue Flomax, finasteride.? Following with urology. Consult urology given patient was to undergo surgery for DVIU. This will preferably need done before patient is placed on oral anticoagulation to avoid break in therapy for acute DVT. Urology consulted. Patient had difficult Manzo catheter placement during previous admission for urinary retention. 8. Anxiety/depression-on fluoxetine. 9. Dementia-unknown behavioral disturbance history.? Continue Aricept. DVT prophylaxis-Heparin drip This patient was seen by MILLI GomezC under the supervision of Dr. Donovan. Documented by User: Dr. Jessika Donovan DO 07/18/22 13:10 Subjective Subjective This patient was seen in conjunction with Keiko Simpson NP. The following represents my independent history and physical examination. Please see below addendum to the above. Patient had just been switched to nonrebreather but having desaturation so we will maintain on a BiPAP through today and reevaluate tomorrow. No significant changes in the last 24 hours since admission. White count has overall improved with antibiotics. No issues overnight. Objective Data Lab / Micro Data Result Diagrams: 07/18/22 02:35 07/18/22 02:35 Physical Exam Const alert and well nourished Constitutional Narrative: Elderly white male lying in bed currently on nonrebreather however being converted to BiPAP upon my arrival, appears comfortable at this time, no issues with cooperation regarding his mask HEENT head/scalp atraumatic and moist oral mucous membranes HEENT Narrative: Edentulous Head and Scalp: normocephalic Resp no retractions and no use of accessory muscles Resp Narrative: Tachypnea, diffusely diminished especially right lower lobe but no adventitious sounds noted Auscultation: Negative for crackles, rhonchi or wheezes Cardio regular rhythm, S1 normal heart sound, S2 normal heart sound, no murmurs, no rub, no gallops, no clicks and no JVD Cardio Narrative: Mild bradycardia GI normal to inspection, nondistended, normoactive bowel sounds, soft to palpation and non-tender; Negative for hepatosplenomegaly Extremity normal to inspection and no clubbing, cyanosis or edema Neuro oriented x3, moves all extremities and no focal motor deficits Sensorium / Orientation: awake, alert, oriented to person, oriented to place and oriented to time Speech: speech normal Assessment & Plan Assessment/Plan (1) Acute hypoxemic respiratory failure: (2) Sepsis: (3) UTI (urinary tract infection): (4) Chronic indwelling Manzo catheter: (5) Metabolic acidosis: (6) Hyperchloremia: (7) Hypernatremia: PLAN: Plan Assessment: Sepsis secondary to right lower lobe pneumonia(suspect aspiration)/UTI Acute hypoxic respiratory failure Right lower lobe pneumonia-suspect aspiration Gram-negative UTI with chronic indwelling Manzo Bilateral lower extremity DVT-acute Hypernatremia Hyperchloremia Not anion gap metabolic acidosis CKD stage IV DM-2 HTN HPL BPH/urethral stricture Debility Depression Anxiety Dementia Plan: -Sepsis criteria met as documented above -Continue broad-spectrum antibiotics -Blood cultures pending -Urine culture showing gram-negative michael -We will likely need his Manzo exchanged--> difficult Manzo placement and Dr. Stout now consulted -Patient was also supposed to have an outpatient urothelial procedure with regards to his urothelial stricture unfortunately he was found to have bilateral lower extremity DVTs and had to be placed on anticoagulation. We will need to discuss this with Dr. Stout how as I suspect anticoagulation will need to be held for the procedure. I would like to discharge the patient on Eliquis 2.5 mg twice daily -Continue heparin drip for now with plans to transition to Eliquis 2.5 mg twice daily at discharge given age and renal failure -Continue BiPAP throughout the day today and reevaluate tomorrow -Speech therapy to evaluate and patient will likely need repeat MBS prior to discharge -Patient did have MBS in June at which time nectar thick liquids and soft bite sized textures were recommended with Gray free water protocol -Decrease IV fluids and convert to half-normal saline secondary to increased chloride and sodium -Rate decreased to 50 cc/h -CT of the chest ordered and performed--> shows significant right lower lobe infiltrate -Unable to do CTA secondary to renal function however PE would not be out of the question with his bilateral extensive DVTs -Patient is already anticoagulated -Change all medications to IV that can be altered to IV form and hold other medications -Per discussion with patient will likely need to be placed as he is becoming more difficult to handle at home with worsening dementia -Discussed with case management Charges/Coding Visit Charges Inpatient E&M: 31229 Subs Hosp L2
--- NOTE | 2022-07-18 11:46 | CASEMGMT ---
BLAISE CHRISTENSEN assessment: Call to pt's for initial transition planning/care coordination assessment as pt is on cont bipap and has dementia. BLAISE CHRISTENSEN introduced self and role at [facility], voices understanding and consents to assessment. answers all questions appropriately.? Care providers, pharmacy,?and demographics verified. ? Presentation: SOB, sent in by PCP for pna Admitting dx: Pna, DVT PCP: Duong Specialists: nitin Stout Preferred [facility]acy: [facility]: [facility] Will/HPOA: Pt does not have LW/HPOA and declines info at this time. LNOK: Laura Alonso, ; Neville Alonso, son Living Arrangements: Pt lives with in 1 story home with 5 steps in. states pt is confused a lot of the time and she tries to assist with care but pt is obstinate at times. states pt has been refusing to shower at times and is incontinent frequently. states Dr. Watters just advised pt should likely be in a SNF but states financial concerns, E.Deonna SW aware. states she is with pt 01/06 unless she has an appt and pt usually sleeps during that time. Transportation: does all the driving and states no transportation concerns. DME/HHC: Pt has the following DME: cane, WW, raised toilet seat, shower chair, grab bars and nebulizer thru [employer]. Pt is active with [facility] for SN, PT/OT and has been to TCU in recent past. does state concerns with pt coming home at time of discharge. Pt is retired. Pt does not smoke cigarettes or drink ETOH. voices no further concerns/needs. CM to follow for therapy notes, home oxygen testing, and any further discharge planning/needs. Advised to ask for CM if any further questions/concerns/needs arise, voices understanding. Pt Goal: Home ? Plan[place] BLAISE CHRISTENSEN
[2022-07-18 12:05] LABS: Bedside Glucose 136 mg/dL (74-106)
[2022-07-18 12:23] LABS: BNP,B-Type NATRIURETIC PEPTIDE 111.3 pg/mL (0-100)
[2022-07-18] MEDS: 0.45% Normal Saline 1,000 ML 50 ML IV (13:46)
--- NOTE | 2022-07-18 14:42 | CON.PCM.UR_ITS ---
Assessment & Plan Assessment/Plan (1) Urethral stricture: PLAN: He does have a urethral stricture we are planning a DVIU but given his cu rrent condition and can hold off on doing surgical intervention at on the can go underneath general anesthesia with his current lungs. I suspect that he is going to need to be anticoagulated and should be okay to do he is got a catheter in place and the urine is clear. Call me with questions and proceed from there. HPI Consult Data Date of Consult: 07/18/22 HPI Narrative Reason for Consultation: Urethral stricture HPI Narrative: JAYA STANTON, is a 87 M who presents to the hospital with worsening pulmonary function at this point he is on BiPAP. He has a catheter in place from a urethral stricture the catheter is stable. He does have a blood clot I think the medical service is considering anticoagulating the patient. I do not plan to do any surgical intervention on his urethra or the catheter go ahead and anticoagulate the patient. Hopefully he will not bleed. But given his overall condition I do not think [facility] taken the surgery to do an elective DVIU. So we will leave the catheter in place. Call me with questions. [facility] Medical History Anemia Arthritis Atrial fibrillation, new onset Blackout Cardiology follow-up encounter Chronic neck and back pain Dementia Depression Diarrhea Dietary restriction DVT (deep venous thrombosis) Fatigue GERD (gastroesophageal reflux disease) History of echocardiogram History of edema History of heart attack History of stress test Hyperlipidemia Hypertension Incontinence Indwelling urethral catheter present Insulin dependent diabetes mellitus Irregular heart beat Kidney disease Knee pain Non-smoker NSTEMI (non-ST elevated myocardial infarction) Presbycusis Seasonal allergies Shortness of breath on exertion Skin cancer Syncope Walker as ambulation aid Wears glasses Home Medications ferrous sulfate 325 mg (65 mg iron) tablet 325 mg PO DAILY iron 08/28/21 [History Last Taken Unknown] cholecalciferol (vitamin D3) 125 mcg (5,000 unit) capsule 125 mcg PO DAILY vit D3 11/28/21 [History Last Taken Unknown] donepezil 10 mg tablet (Aricept) 10 mg PO QHS memory 06/05/22 [History Last Taken Unknown] simvastatin 20 mg tablet (Zocor) 20 mg PO QHS cholesterol 06/05/22 [History Last Taken Unknown] acetaminophen 325 mg tablet (Tylenol) 650 mg PO Q4H PRN PRN Fever, pain 1-08/18 #0 tabs 06/13/22 [Rx Last Taken Unknown] ascorbic acid (vitamin C) 500 mg tablet 1,000 mg PO DAILY vitamin 06/13/22 [History Last Taken Unknown] aspirin 81 mg chewable tablet 81 mg PO BREAKFAST heart health 06/13/22 [History Last Taken Unknown] finasteride 5 mg tablet 5 mg PO DAILY BPH 06/13/22 [History Last Taken Unknown] insulin NPH isoph U-100 human 100 unit/mL (3 mL) subcutaneous pen (Humulin N NPH U-100 Insulin KwikPen) 29 unit subcut BID diabetes 06/13/22 [History Last Taken Unknown] lisinopril 10 mg tablet 10 mg PO DAILY BP 06/13/22 [History Last Taken Unknown] tamsulosin 0.4 mg capsule 0.4 mg PO DAILY BPH 06/13/22 [History Last Taken Unknown] albuterol sulfate 2.5 mg/3 mL (0.083 %) solution for nebulization 2.5 mg (3 mL) inhalation Q2H PRN PRN Dyspnea, wheezing 30 days #360 mL 06/25/22 [Rx Last Taken Unknown] amlodipine 10 mg tablet 10 mg PO DAILY bp 30 days #30 tabs 06/25/22 [Rx Last Taken Unknown] nebulizers #1 ea 06/30/22 [Rx Last Taken Unknown] loperamide 2 mg capsule 4 mg PO DAILY loose stools 07/08/22 [History Last Taken Unknown] loratadine 10 mg tablet 10 mg PO DAILY 07/08/22 [History Last Taken Unknown] fluoxetine 20 mg capsule (Prozac) 20 mg PO DAILY #90 caps 07/16/22 [Rx Last Taken Unknown] Allergy/AdvReac Type Severity Reaction Status Date / Time No Known Allergies Allergy Verified 07/17/22 10:13 Family History Brother Heart disease Myocardial infarction Mother Myocardial infarction Heart disease Father CVA (cerebral vascular accident) Surgical History history of caataract removal History of urethral stricture Social History household members: spouse Smoking Status: Never smoker alcohol intake: never substance use type: does not use what type of physical activity do you participate in: none Physical Exam Narrative Patient is alert but not really communicating well he is on BiPAP, catheter is in place got clear yellow urine no blood. Lab / Micro Data Result Diagrams: 07/18/22 02:35 07/18/22 02:35 Labs: Laboratory Results - last 24 hr 07/17/22 15:00: Lactic Acid 1.4 07/17/22 17:38: POC Glucose 128 H 07/17/22 17:51: Urine Color Straw, Urine Clarity Cloudy, Urine pH 6.0, Ur Specific [place] 1.020, Urine Protein 500 H, Urine Glucose (UA) Normal, Urine Ketones Negative, Urine Occult Blood 250 H, Urine Nitrite Positive H, Urine Bilirubin Negative, Urine Urobilinogen Normal, Ur Leukocyte Esterase 500 H, Urine RBC 50-100 SEEN, Urine WBC >100 SEEN, Ur Squamous Epith Cells 0-5 SEEN, Uric Acid Crystals 4+, Urine Bacteria 4+, Urine Mucus 0 SEEN, Urine Yeast 4+ 07/17/22 19:00: APTT 49.1 H 07/18/22 01:01: POC Glucose 135 H 07/18/22 02:35: WBC 12.7 H, RBC 3.61 L, Hgb 11.0 L, Hct 34.4 L, MCV 95.3 H, MCH 30.5, MCHC 32.0, RDW Std Deviation 50.1 H, RDW Coeff of Bebe 14.5, Plt Count 114 L, MPV 10.8, Immature Gran % (Auto) 0.300, Neut % (Auto) 34.0 L, Lymph % (Auto) 59.0 H, [place] % (Auto) 5.1, Eos % (Auto) 1.3, Baso % (Auto) 0.3, Absolute Neuts (auto) 4.3, Absolute Lymphs (auto) 7.52 H, Nucleated RBC % 0, Anisocytosis 1+, Macrocytosis 1+ 07/18/22 02:35: Sodium 146 H, Potassium 4.4, Chloride 122 H, Carbon Dioxide 17.0 L, Anion Gap 7, BUN 27 H, Creatinine 1.95 H, Estim Creat Clear Calc 32.20, Est GFR (MDRD) Af Amer 42 L, Est GFR (MDRD) Non-Af 35 L, BUN/Creatinine Ratio 13.8, Glucose 136 H, Calcium 8.3 L 07/18/22 02:35: APTT 54.6 H 07/18/22 02:35: B-Natriuretic Peptide 111.3 H 07/18/22 05:59: POC Glucose 130 H 07/18/22 09:55: APTT 61.2 H 07/18/22 11:42: POC Glucose 136 H Micro: Microbiology 07/17/22 17:50 Urine, Clean Catch Urine Culture - Preliminary GNR lactose bird raiser 07/17/22 10:32 Nasal Secretion SARS-CoV-2 Antigen (Rapid) - Final Radiology Impression Chest CT 07/18/22 09:37 IMPRESSION: Small right pleural effusion with right basilar infiltrate. Electronically Signed: Tito Sargent MD at 10:38 EDT ,
--- NOTE | 2022-07-18 16:59 | CASEMGMT ---
CHARLOTTE met with patient's and daughter. Introduced self and role at [facility]. SW provided patient's with a Medicaid application and information on Help with Medicare expenses and Medicare Part D expenses. CHARLOTTE went over information with her as well. CHARLOTTE will follow up on Thursday as patient likely will not be ready before then. Kassi DAS
[2022-07-18 17:05] LABS: Bedside Glucose 151 mg/dL (74-106)
[2022-07-18 17:09] LABS: Partial Thromboplast Time 64.7 Seconds (24.1-36.2)
[2022-07-19] VITALS (16 sets, daily range): BP systolic 140–154; BP diastolic 69–75; PULSE 47–60; RESP 14–24; TEMP 36.6–36.9; O2SAT 93–97
[2022-07-19 00:31] LABS: Bedside Glucose 130 mg/dL (74-106)
[2022-07-19 06:01] LABS: Bedside Glucose 115 mg/dL (74-106)
[2022-07-19 06:40] LABS: Absolute Lymphocyte Count 6.18 X10^3/uL (0.83-4.51); Basophil# 0.04 X10^3/uL; Basophil% 0.4 % (0-1); Eosinophil# 0.35 X10^3/uL; Eosinophils% 3.2 % (0-5); Hematocrit 35.5 % (40-54); Hemoglobin 11.2 g/dL (13.0-16.5); Lymphocyte # 6.18 X10^3/ul (0.83-4.51); Lymphocyte % 55.8 % (19-41); Mean Corp Hgb Conc 31.5 g/dL (32-36); Mean Corpuscular Hgb 30.7 pg (27.0-32.0); Mean Corpuscular Volume 97.3 fL (80-94); Mean Platelet Vol. 10.7 fl (6.2-12.0); Monocyte# 0.51 X10^3/uL; Monocyte% 4.6 % (0-10); NRBC Flagged by Analyzer 0 % (0-5); Neutrophil # 3.97 X10^3/uL (2.7-7.7); Neutrophil % 35.8 % (47-70); POSITIVE DIFFERENTIAL YES; Platelet Count 112 K/mm3 (150-450); RBC Distribution Width CV 14.6 % (11.6-14.6); RBC Distribution Width SD 52.4 fl (35.1-43.9); Red Blood Count 3.65 M/mm3 (4.6-6.2); White Blood Count 11.1 K/mm3 (4.4-11.0)
[2022-07-19 06:51] LABS: Differential Indicated SCAN CRITERIA MET; Partial Thromboplast Time 62.7 Seconds (24.1-36.2)
[2022-07-19] MEDS: Ipratropium/Albuterol Sulfate 3 ML AMPUL.NEB INHALATION ×3 (07:03→19:55)
[2022-07-19 07:17] LABS: Anion Gap 7 (5-15); BUN 26 mg/dL (7-18); BUN/Creat Ratio 13.1 RATIO (10-20); Calcium,Total 8.4 mg/dL (8.5-10.1); Chloride 123 mmol/L (98-107); Creatinine, Serum 1.98 mg/dL (0.70-1.30); EST Glomerular Filtration Rate 34 mL/min (>60); Est Glom Filt Rate - Afr Amer 42 mL/min (>60); Estimated Creatinine Clearance 31.71 ml/min; Glucose 130 mg/dL (74-106); Potassium 4.3 mmol/L (3.5-5.1); Sodium Level 147 mmol/L (136-145)
[2022-07-19 07:30] LABS: Differential Comment SCANNED
--- NOTE | 2022-07-19 10:41 | PN.HOSP_ITS ---
Documented by User: Keiko Simpson NP, CHIEF LIBR[employer]IAN [employer] DEPARTMENT-C 07/19/22 10:47 Subjective Subjective Patient seen and examined. Tolerating off of BiPAP this morning with high flow oxygen. Denies current symptoms or complaints. Asking for something to drink. Awaiting speech therapy evaluation. Objective Data Objective Data Vital Signs: Vital Signs Temp Pulse Resp BP Pulse Ox O2 Del Method O2 Flow Rate 97.8 F 60 18 154/71 H 93 High Flow 15 07/19/22 09:59 07/19/22 09:59 07/19/22 09:59 07/19/22 09:59 07/19/22 09:59 07/19/22 09:59 07/19/22 09:59 FiO2 35 07/19/22 07:03 Oxygen Flow Rate (L/min) 15 Oxygen Delivery Method High Flow Weight: 235 lb 0.204 oz Body Mass Index (BMI) 30.2 Intake & Output: Intake and Output for Last 24 Hours 07/17/22 07/18/22 07/19/22 23:59 23:59 23:59 Intake Total 1642.33 / 1642.33 1515.97 / 1515.97 348.33 / 348.33 Output Total 650 / 650 900 / 1350 750 / 750 Balance 992.33 / 992.33 615.97 / 165.97 -401.67 / -401.67 Lab / Micro Data Result Diagrams: 07/19/22 06:30 07/19/22 06:30 Labs: Laboratory Results - last 24 hr 07/18/22 02:35: B-Natriuretic Peptide 111.3 H 07/18/22 11:42: POC Glucose 136 H 07/18/22 16:35: APTT 64.7 H 07/18/22 16:44: POC Glucose 151 H 07/19/22 00:08: POC Glucose 130 H 07/19/22 05:38: POC Glucose 115 H 07/19/22 06:30: WBC 11.1 H, RBC 3.65 L, Hgb 11.2 L, Hct 35.5 L, MCV 97.3 H, MCH 30.7, MCHC 31.5 L, RDW Std Deviation 52.4 H, RDW Coeff of Bebe 14.6, Plt Count 112 L, MPV 10.7, Immature Gran % (Auto) 0.200, Neut % (Auto) 35.8 L, Lymph % (Auto) 55.8 H, [place] % (Auto) 4.6, Eos % (Auto) 3.2, Baso % (Auto) 0.4, Absolute Neuts (auto) 4.0, Absolute Lymphs (auto) 6.18 H, Nucleated RBC % 0, Differential Comment SCANNED 07/19/22 06:30: Sodium 147 H, Potassium 4.3, Chloride 123 H, Carbon Dioxide 17.0 L, Anion Gap 7, BUN 26 H, Creatinine 1.98 H, Estim Creat Clear Calc 31.71, Est GFR (MDRD) Af Amer 42 L, Est GFR (MDRD) Non-Af 34 L, BUN/Creatinine Ratio 13.1, Glucose 130 H, Calcium 8.4 L 07/19/22 06:30: APTT 62.7 H Micro: Microbiology 07/17/22 17:50 Urine, Clean Catch Urine Culture - Final Klebsiella oxytoca 07/17/22 10:52 Blood Culture (Wb) - Anticubital Right Blood Culture - Preliminary No growth in 48 hours. 07/17/22 10:30 Blood Culture (Wb) - Anticubital Right Blood Culture - Preliminary No growth in 48 hours. 07/17/22 10:32 Nasal Secretion SARS-CoV-2 Antigen (Rapid) - Final Physical Exam Const alert Constitutional Narrative: Baseline dementia Orientation / Consciousness: oriented to person HEENT normocephalic Mouth: dry mucous membranes Eyes PERRL, EOMs intact bilaterally and conjunctivae normal Neck no lymphadenopathy Resp clear to auscultation bilaterally Auscultation: diminished lung sounds Cardio regular rate, regular rhythm and no murmurs Peripheral Pulses: pulses 2+ throughout GI normal to inspection, nondistended, normoactive bowel sounds, non-tender and non-distended Extremity normal to inspection General Extremity: edema bilateral lower extremity Skin no rashes or lesions noted Lesions: no lesions Rashes: no rashes Trauma: no lacerations or abrasions Neuro CN's II-XII intact bilaterally, no focal motor deficits, no sensory deficits noted and deep tendon reflexes 2+ bilaterally Psych Mood & Affect: flat affect Assessment & Plan Assessment/Plan (1) Sepsis: PLAN: Plan 1.? Sepsis secondary to acute hypoxic respiratory failure as a result of right basilar pneumonia with prior concern for aspiration and Acute UTI-IV Zosyn.? Speech therapy consult.? Sepsis criteria with WBC 20.8, tachypnea, lactic acid 3 and acute hypoxic respiratory failure.? Patient noted to be 88% on room air, now requiring BIPAP/high flow oxygen.? Continue supplemental oxygen to maintain O2 above 90%.? Obtain sputum culture.? Blood culture with no growth.? UA with po sitive nitrite, 4+ bacteria, greater than 100 WBC.? Urine culture preliminary growing greater than 100,000 Klebsiella.? COVID-negative.? PT/OT.? Recent TCU rehab.? 2.? Acute DVT-found to have right popliteal and left gastrocnemius and peroneal DVT.? On heparin drip.? Patient reports prior remote history of DVT.? He is unable to state if this was provoked or not. 3. Type 2 diabetes [id number] with sliding scale insulin.? Continue home insulin regimen. 4. Chronic kidney disease stage IV-appears at baseline.? Trend BMP. 5. Hypertension-continue home medication regimen with hold parameters. 6. Hyperlipidemia-continue statin. 7. BPH/urethral stricture-continue Flomax, finasteride.? Following with urology.? Urology consulted given patient was to undergo surgery for DVIU.? Patient had difficult Manzo catheter placement during previous admission for urinary retention. Hold off on surgical intervention at this time however will reevaluate when stable from a respiratory standpoint. 8. Anxiety/depression-on fluoxetine. 9. Dementia-unknown behavioral disturbance history.? Continue Aricept. DVT prophylaxis-Heparin drip This patient was seen by MILLI GomezC under the supervision of Dr. Donovan. Documented by User: Dr. Jessika Donovan DO 07/19/22 12:02 Subjective Subjective This patient was seen in conjunction with Keiko Simpson NP. The following represents my independent history and physical lamination. Please see below for than the above. No significant overnight events. Patient tolerated BiPAP this morning and will be transition to less oxygen later this morning. He followed all commands for the exam. Objective Data Lab / Micro Data Result Diagrams: 07/19/22 06:30 07/19/22 06:30 Physical Exam Const no apparent distress and well nourished Constitutional Narrative: Obese, elderly white male lying in bed, awake, follows all commands but remains on BiPAP at this time, appears comfortable and nontoxic HEENT head/scalp atraumatic HEENT Narrative: Mucous membranes are dry, patient is a dentulous, Mallampati is 3 Head and Scalp: normocephalic Resp normal respiratory effort, no retractions and no use of accessory muscles Resp Narrative: Comfortable breathing at this time on BiPAP, no signs of respiratory distress, patient is diminished but clear Auscultation: Negative for crackles, rales, rhonchi or wheezes Cardio regular rhythm, S1 normal heart sound, S2 normal heart sound, no murmurs, no rub, no gallops, no clicks and no JVD Cardio Narrative: Mild bradycardia GI normal to inspection, nondistended, normoactive bowel sounds, soft to palpation and non-tender Extremity Extremity Narrative: 1+ bilateral lower extremity pitting edema, no cyanosis or clubbing Neuro CN's II-XII intact bilaterally and moves all extremities Neuro Narrative: Patient follows commands today on exam consistently, unable to assess orientation as patient remains on Psych Psych Narrative: Calm unable to fully assess Assessment & Plan Assessment/Plan (1) Sepsis: PLAN: Plan Assessment: Sepsis secondary to right lower lobe pneumonia(suspect aspiration)/UTI Acute hypoxic respiratory failure Right lower lobe pneumonia-suspect aspiration Klebsiella oxytoca UTI with chronic indwelling Manzo Bilateral lower extremity DVT-acute Hypernatremia Hyperchloremia Bradycardia Thrombocytopenia Not anion gap metabolic acidosis CKD stage IV DM-2 HTN HPL BPH/urethral stricture Debility Depression Anxiety Dementia Plan: -Sepsis criteria met as documented above -Discontinue vancomycin -Continue Zosyn and await sensitivities for Klebsiella -White count is improving -Blood cultures with no growth at 48 hours -Urine culture showing Klebsiella -We will likely need his Manzo exchanged--> urology is following -Patient was also supposed to have an outpatient urothelial procedure with regards to his urothelial stricture unfortunately he was found to have bilateral lower extremity DVTs and had to be placed on anticoagulation.? -Dr. Green has cleared us to start him on anticoagulation and he will not need to stop anticoagulation for upcoming procedure -Continue heparin drip for now with plans to transition to Eliquis 2.5 mg twice daily once able to take p.o. consistently given age and renal failure -Wean from BiPAP as able--> trial of Airvo and wean FiO2 -Continue as needed BiPAP -Speech therapy evaluation pending and patient will likely need repeat MBS prior to discharge -Patient did have MBS in June at which time nectar thick liquids and soft bite sized textures were recommended with Isaac free water protocol -Sodium and chloride still elevated therefore will change IV fluids to free water -Repeat BMP in a.m. -Per discussion with patient will likely need to be placed as he is becoming more difficult to handle at home with worsening dementia -Discussed with case management and they plan to follow-up on Thursday once he is more medically stable -Check TSH -Suspect thrombocytopenia is related to antibiotics and acute infection--> stable at 112,000--> continue to monitor Charges/Coding Visit Charges Inpatient E&M: 52139 Subs Hosp L2
[2022-07-19] MEDS: HEPARIN/D5w 25,000 UNITS 25,000 UNITS/250 ML IV.SOLN. 12 UNITS CONT INF (11:23)
[2022-07-19 12:00] LABS: Bedside Glucose 142 mg/dL (74-106)
[2022-07-19 12:23] LABS: Vancomycin, Trough Level 14.7 ug/mL (5.0-15.0)
[2022-07-19] MEDS: APIXABAN 5 MG TABLET 10 MG PO (16:32)
[2022-07-19] MEDS: amLODIPine 10 MG Tablet PO (16:32)
[2022-07-19] MEDS: Tamsulosin HCl 0.4 MG Capsule PO (16:33)
[2022-07-19] MEDS: Lisinopril 10 MG Tablet PO (16:33)
[2022-07-19] MEDS: Finasteride 5 MG Tablet PO (16:34)
[2022-07-19 17:25] LABS: Bedside Glucose 137 mg/dL (74-106)
[2022-07-19] MEDS: Oxymetazoline 0.05% 1 SPRAY SPRAY.BTL NASAL (21:49)
[2022-07-19] MEDS: Atorvastatin Calcium 10 MG Tablet PO (21:53)
[2022-07-19] MEDS: Donepezil HCl 10 MG Tablet PO (21:53)
[2022-07-20] VITALS (18 sets, daily range): BP systolic 123–150; BP diastolic 61–73; PULSE 52–65; RESP 17–24; TEMP 36.2–36.7; O2SAT 92–99
[2022-07-20] MEDS: Insulin Lispro 100 UNIT/ML INSULN.PEN SC ×5 (00:04→20:14)
[2022-07-20 00:46] LABS: Bedside Glucose 160 mg/dL (74-106)
[2022-07-20] MEDS: Ipratropium/Albuterol Sulfate 3 ML AMPUL.NEB INHALATION ×3 (07:05→19:39)
[2022-07-20 07:15] LABS: Bedside Glucose 162 mg/dL (74-106)
[2022-07-20 07:24] LABS: Absolute Lymphocyte Count 6.72 X10^3/uL (0.83-4.51); Absolute Neutrophil Count 4.1 X10^3/uL (2.0-7.7); Basophil# 0.06 X10^3/uL; Basophil% 0.5 % (0-1); Eosinophil# 0.29 X10^3/uL; Eosinophils% 2.5 % (0-5); Hematocrit 37.8 % (40-54); Hemoglobin 12.5 g/dL (13.0-16.5); Lymphocyte # 6.72 X10^3/ul (0.83-4.51); Lymphocyte % 57.6 % (19-41); Mean Corp Hgb Conc 33.1 g/dL (32-36); Mean Corpuscular Hgb 31.4 pg (27.0-32.0); Monocyte# 0.49 X10^3/uL; Monocyte% 4.2 % (0-10); NRBC Flagged by Analyzer 0 % (0-5); Neutrophil # 4.08 X10^3/uL (2.7-7.7); POSITIVE DIFFERENTIAL YES; POSITIVE MORPHOLOGY YES; Platelet Count 118 K/mm3 (150-450); RBC Distribution Width CV 14.2 % (11.6-14.6); RBC Distribution Width SD 49.9 fl (35.1-43.9); Red Blood Count 3.98 M/mm3 (4.6-6.2); White Blood Count 11.7 K/mm3 (4.4-11.0)
[2022-07-20 07:41] LABS: Partial Thromboplast Time 35.9 Seconds (24.1-36.2)
[2022-07-20 07:55] LABS: Anion Gap 8 (5-15); BUN 22 mg/dL (7-18); BUN/Creat Ratio 11.9 RATIO (10-20); Calcium,Total 8.6 mg/dL (8.5-10.1); Chloride 119 mmol/L (98-107); Creatinine, Serum 1.85 mg/dL (0.70-1.30); EST Glomerular Filtration Rate 37 mL/min (>60); Est Glom Filt Rate - Afr Amer 45 mL/min (>60); Estimated Creatinine Clearance 33.94 ml/min; Glucose 164 mg/dL (74-106); Potassium 3.9 mmol/L (3.5-5.1); Sodium Level 145 mmol/L (136-145); Thyroid Stim Hormone (TSH) 2.82 uIU/mL (0.358-3.74)
[2022-07-20 08:06] LABS: Differential Indicated SCAN CRITERIA MET
[2022-07-20] MEDS: Tamsulosin HCl 0.4 MG Capsule PO (08:53)
[2022-07-20] MEDS: FLUoxetine 20 MG Capsule PO (08:53)
[2022-07-20] MEDS: Lisinopril 10 MG Tablet PO (08:53)
[2022-07-20] MEDS: APIXABAN 5 MG TABLET 10 MG PO ×2 (08:54→20:25)
[2022-07-20] MEDS: amLODIPine 10 MG Tablet PO (08:54)
[2022-07-20] MEDS: Finasteride 5 MG Tablet PO (08:55)
[2022-07-20] MEDS: Oxymetazoline 0.05% 1 SPRAY SPRAY.BTL NASAL ×2 (08:55→20:10)
[2022-07-20 09:31] LABS: Differential Comment SCANNED
[2022-07-20] MEDS: Ferrous Sulfate 325 MG Tablet PO (11:20)
--- NOTE | 2022-07-20 11:40 | PN.HOSP_ITS ---
Documented by User: Keiko Simpson NP, NANOSCIENCE TECHNICIAN-C 07/20/22 11:44 Subjective Subjective Patient seen and examined. Resting in chair. Clinically improving. Patient denies any symptoms or complaints. Objective Data Objective Data Vital Signs: Vital Signs Temp Pulse Resp BP Pulse Ox O2 Del Method O2 Flow Rate 97.8 F 56 L 18 150/73 H 98 Airvo 40 07/20/22 08:43 07/20/22 11:11 07/20/22 08:43 07/20/22 08:43 07/20/22 08:43 07/20/22 08:50 07/20/22 07:05 FiO2 64 07/20/22 07:05 Oxygen Flow Rate (L/min) 40 Oxygen Delivery Method Airvo Weight: 235 lb 0.204 oz Body Mass Index (BMI) 30.2 Intake & Output: Intake and Output for Last 24 Hours 07/18/22 07/19/22 07/20/22 23:59 23:59 23:59 Intake Total 1515.97 / 1515.97 1173.93 / 1373.93 1210 / 1210 Output Total 900 / 1350 1800 / 2400 850 / 850 Balance 615.97 / 165.97 -626.07 / -1026.07 360 / 360 Lab / Micro Data Result Diagrams: 07/20/22 06:44 07/20/22 06:44 Labs: Laboratory Results - last 24 hr 07/19/22 11:03: Vancomycin Trough 14.7 07/19/22 11:33: POC Glucose 142 H 07/19/22 16:56: POC Glucose 137 H 07/20/22 00:03: POC Glucose 160 H 07/20/22 06:22: POC Glucose 162 H 07/20/22 06:44: APTT 35.9 07/20/22 06:44: WBC 11.7 H, RBC 3.98 L, Hgb 12.5 L, Hct 37.8 L, MCV 95.0 H, MCH 31.4, MCHC 33.1 D, RDW Std Deviation 49.9 H, RDW Coeff of Bebe 14.2, Plt Count 118 L, MPV 11.0, Immature Gran % (Auto) 0.200, Neut % (Auto) 35.0 L, Lymph % (Auto) 57.6 H, [place] % (Auto) 4.2, Eos % (Auto) 2.5, Baso % (Auto) 0.5, Absolute Neuts (auto) 4.1, Absolute Lymphs (auto) 6.72 H, Nucleated RBC % 0, Differential Comment SCANNED 07/20/22 06:44: Sodium 145, Potassium 3.9, Chloride 119 H, Carbon Dioxide 18.0 L , Anion Gap 8, BUN 22 H, Creatinine 1.85 H, Estim Creat Clear Calc 33.94, Est GFR (MDRD) Af Amer 45 L, Est GFR (MDRD) Non-Af 37 L, BUN/Creatinine Ratio 11.9, Glucose 164 H, Calcium 8.6, TSH 2.82 Micro: Microbiology 07/17/22 17:50 Urine, Clean Catch Urine Culture - Final Klebsiella oxytoca 07/17/22 10:52 Blood Culture (Wb) - Anticubital Right Blood Culture - Preliminary No growth in 48 hours. 07/17/22 10:30 Blood Culture (Wb) - Anticubital Right Blood Culture - Preliminary No growth in 48 hours. 07/17/22 10:32 Nasal Secretion SARS-CoV-2 Antigen (Rapid) - Final Physical Exam Const alert Orientation / Consciousness: awake HEENT normocephalic Mouth: dry mucous membranes Eyes PERRL, EOMs intact bilaterally and conjunctivae normal Neck no lymphadenopathy Resp clear to auscultation bilaterally Auscultation: diminished lung sounds Cardio regular rate, regular rhythm and no murmurs Peripheral Pulses: pulses 2+ throughout GI normal to inspection, nondistended, normoactive bowel sounds, non-tender and non-distended Extremity normal to inspection Skin no rashes or lesions noted Lesions: no lesions Rashes: no rashes Trauma: no lacerations or abrasions Neuro CN's II-XII intact bilaterally, no focal motor deficits, no sensory deficits noted and deep tendon reflexes 2+ bilaterally Psych Mood & Affect: flat affect Assessment & Plan Assessment/Plan (1) Sepsis: (2) Acute hypoxemic respiratory failure: PLAN: Plan 1.? Sepsis secondary to acute hypoxic respiratory failure as a result of right basilar pneumonia with prior concern for aspiration and Acute UTI-IV Zosyn.? Speech therapy consult.? Sepsis criteria with WBC 20.8, tachypnea, lactic acid 3 and acute hypoxic respiratory failure.? Patient noted to be 88% on room air, now requiring BIPAP/high flow oxygen.? Continue supplemental oxygen to maintain O2 above 90%.? Obtain sputum culture.? Blood culture with no growth.? Urine cultu regrowing Klebsiella.? COVID-negative.? PT/OT.? Recent TCU rehab.? 2.? Acute DVT-found to have right popliteal and left gastrocnemius and peroneal DVT.? Patient reports prior remote history of DVT.? He is unable to state if this was provoked or not. He can Eliquis acute DVT dosing. 3. Type 2 diabetes [id number] with sliding scale insulin.? Continue home insulin regimen. 4. Chronic kidney disease stage IV-appears at baseline.? Trend BMP. 5. Hypertension-continue home medication regimen with hold parameters. 6. Hyperlipidemia-continue statin. 7. BPH/urethral stricture-continue Flomax, finasteride.? Following with urology.? Urology consulted given patient was to undergo surgery for DVIU.? Patient had difficult Amnzo catheter placement during previous admission for urinary retention.? Hold off on surgical intervention at this time however will reevaluate when stable from a respiratory standpoint. 8. Anxiety/depression-on fluoxetine. 9. Dementia-unknown behavioral disturbance history.? Continue Aricept. DVT prophylaxis-Eliquis This patient was seen by MILL[facility] GomezC under the supervision of Dr. Donovan. Documented by User: Dr. Jessika Donovan DO 07/20/22 11:57 Subjective Subjective Seen in conjunction with Keiko Simpson NP. The following represents my independent history and physical examination. Please see below for addendum the above. Patient denies any significant complaints at this time. Denies any significant shortness of breath. Has been weaned to Airvo from BiPAP and done well with this thus far. Discussed with respiratory therapy there intent to wean him further to high flow nasal cannula from Airvo today. No significant issues ov pat Objective Data Lab / Micro Data Result Diagrams: 07/20/22 06:44 07/20/22 06:44 Physical Exam Const alert and no apparent distress Constitutional Narrative: Obese, elderly white male sitting up in a chair at the bedside, awake and oriented to self and place only, appears comfortable and nontoxic on Airvo HEENT head/scalp atraumatic and moist oral mucous membranes HEENT Narrative: Mallampati 3, no thrush Head and Scalp: normocephalic Resp normal respiratory effort, no retractions and no use of accessory muscles Resp Narrative: Diminished right base Cardio regular rate, regular rhythm, S1 normal heart sound, S2 normal heart sound, no murmurs, no rub, no gallops, no clicks and no JVD Cardio Narrative: Mild bradycardia GI normal to inspection, nondistended, normoactive bowel sounds, soft to palpation and non-tender Extremity Extremity Narrative: Trace to 1+ bilateral lower extremity pitting edema, no cyanosis or clubbing Neuro moves all extremities and no focal motor deficits Neuro Narrative: Follows commands consistently, orientation is to place and self only Speech: speech normal Psych Psych Narrative: Very pleasant and appropriately interactive affect is somewhat flat Assessment & Plan Assessment/Plan (1) Sepsis: (2) Acute hypoxemic respiratory failure: PLAN: Plan Assessment: Sepsis secondary to right lower lobe pneumonia(suspect aspiration)/UTI Acute hypoxic respiratory failure Right lower lobe pneumonia-suspect aspiration Klebsiella oxytoca UTI with chronic indwelling Manzo Bilateral lower extremity DVT-acute Hypernatremia-resolved Hyperchloremia-resolved Bradycardia Thrombocytopenia Not anion gap metabolic acidosis-resolving CKD stage IV DM-2 HTN HPL BPH/urethral stricture Debility Depression Anxiety Dementia Plan: -Sepsis criteria met as documented above -Patient clinically much improved -Continue Zosyn -White count has dramatically improved -Blood cultures remain with no growth -Urine culture showing Klebsiella -We will likely need his Manzo exchanged--> urology is following -Patient was also supposed to have an outpatient urothelial procedure with regards to his urothelial stricture unfortunately he was found to have bilateral lower extremity DVTs and had to be placed on anticoagulation.? -Dr. Green has cleared us to start him on anticoagulation and he will not need to stop anticoagulation for upcoming procedure -Heparin drip discontinued and Eliquis 10 mg twice daily x7 days with a follow- up of Eliquis 5 mg twice daily for 3 to 6 months given DVT -No dose adjustment for PE/DVT recommended -Weaned from Airvo to heated high flow nasal cannula as able -Speech therapy has evaluated the patient he is to remain n.p.o. except for p.o. meds until modified barium swallow can be performed -Hopefully will be able to do this tomorrow -Patient did have MBS in June at which time nectar thick liquids and soft bite sized textures were recommended with Gray free water protocol -Oral medications have been reinitiated -Sodium and chloride are improved -Since patient remains n.p.o. we will continue D5W at 60 cc/h -Per discussion with patient will likely need to be placed as he is becoming more difficult to handle at home with worsening dementia -Discussed with case management and they plan to follow-up on Thursday once he is more medically stable -TSH is within normal limits -Suspect thrombocytopenia is related to antibiotics and acute infection--> stable at 112,000--> continue to monitor Charges/Coding Visit Charges Inpatient E&M: 35226 Subs Hosp L2
[2022-07-20 12:11] LABS: Bedside Glucose 210 mg/dL (74-106)
[2022-07-20 16:50] LABS: Bedside Glucose 294 mg/dL (74-106)
[2022-07-20] MEDS: 0.9% Saline Lock 10 ML Syringe IV ×2 (17:24→20:01)
[2022-07-20] MEDS: Donepezil HCl 10 MG Tablet PO (20:23)
[2022-07-20] MEDS: Atorvastatin Calcium 10 MG Tablet PO (20:26)
[2022-07-21] VITALS (15 sets, daily range): BP systolic 142–148; BP diastolic 66–76; PULSE 57–89; RESP 18–28; TEMP 36.2–37.4; O2SAT 90–97
[2022-07-21 01:31] LABS: Bedside Glucose 283 mg/dL (74-106)
--- NOTE | 2022-07-21 03:23 | NURSING ---
Patient requested to have meds when RN was in room rounding around 2029. Meds given per patient request.
[2022-07-21 06:03] LABS: Absolute Lymphocyte Count 5.84 X10^3/uL (0.83-4.51); Absolute Neutrophil Count 7.6 X10^3/uL (2.0-7.7); Basophil# 0.05 X10^3/uL; Basophil% 0.4 % (0-1); Eosinophil# 0.13 X10^3/uL; Eosinophils% 0.9 % (0-5); Hematocrit 36.3 % (40-54); Hemoglobin 12.1 g/dL (13.0-16.5); Lymphocyte # 5.84 X10^3/ul (0.83-4.51); Lymphocyte % 41.1 % (19-41); Mean Corp Hgb Conc 33.3 g/dL (32-36); Mean Corpuscular Volume 93.1 fL (80-94); Monocyte# 0.57 X10^3/uL; NRBC Flagged by Analyzer 0 % (0-5); Neutrophil # 7.56 X10^3/uL (2.7-7.7); Neutrophil % 53.2 % (47-70); POSITIVE DIFFERENTIAL YES; POSITIVE MORPHOLOGY YES; Platelet Count 132 K/mm3 (150-450); RBC Distribution Width CV 14.2 % (11.6-14.6); RBC Distribution Width SD 48.2 fl (35.1-43.9); White Blood Count 14.2 K/mm3 (4.4-11.0)
[2022-07-21 06:05] LABS: Differential Indicated SCAN CRITERIA MET
[2022-07-21 06:23] LABS: Platelet Estimate SLT DEC (ADEQ)
[2022-07-21] MEDS: Insulin Lispro 100 UNIT/ML INSULN.PEN SC ×4 (06:38→21:00)
[2022-07-21] MEDS: 0.9% Saline Lock 10 ML Syringe IV ×3 (06:39→21:09)
[2022-07-21 06:45] LABS: ALB/GLOB Ratio 0.7 RATIO (0.9-2.4); AST(SGOT) 19 U/L (15-37); Alanine Aminotransfer ALT/SGPT 24 U/L (16-61); Albumin, Serum 2.7 g/dL (3.2-5.0); Alkaline Phosphatase 78 U/L (45-117); Anion Gap 10 (5-15); BUN 19 mg/dL (7-18); BUN/Creat Ratio 10.2 RATIO (10-20); Calcium,Total 8.7 mg/dL (8.5-10.1); Chloride 117 mmol/L (98-107); Creatinine, Serum 1.87 mg/dL (0.70-1.30); EST Glomerular Filtration Rate 37 mL/min (>60); Est Glom Filt Rate - Afr Amer 44 mL/min (>60); Estimated Creatinine Clearance 33.58 ml/min; Globulin 4.1 g/dL (2.2-4.2); Glucose 220 mg/dL (74-106); Magnesium 2.2 mg/dL (1.6-2.6); Phosphorus 2.7 mg/dL (2.5-4.9); Potassium 3.8 mmol/L (3.5-5.1); Protein, Total 6.8 g/dL (6.4-8.2); Sodium Level 143 mmol/L (136-145)
[2022-07-21] MEDS: Ipratropium/Albuterol Sulfate 3 ML AMPUL.NEB INHALATION ×3 (07:54→19:15)
[2022-07-21 07:55] LABS: Bedside Glucose 205 mg/dL (74-106)
[2022-07-21] MEDS: Finasteride 5 MG Tablet PO (09:04)
[2022-07-21] MEDS: Tamsulosin HCl 0.4 MG Capsule PO (09:05)
[2022-07-21] MEDS: FLUoxetine 20 MG Capsule PO (09:05)
[2022-07-21] MEDS: APIXABAN 5 MG TABLET 10 MG PO ×2 (09:05→20:57)
[2022-07-21] MEDS: Oxymetazoline 0.05% 1 SPRAY SPRAY.BTL NASAL ×2 (09:06→20:56)
[2022-07-21] MEDS: amLODIPine 10 MG Tablet PO (09:10)
[2022-07-21] MEDS: Lisinopril 10 MG Tablet PO (09:10)
--- NOTE | 2022-07-21 10:54 | ST.MBS ---
Modified Barium Swallow - Patient Information Study Date: 07/21/22 Study Time: 10:05 Direct Billable Minutes: 110 Total Minutes procedure & reportin Diagnosis: Sepsis (A41.9), Dysphagia (R13.10) Referring Physician: Arnav Washington Reason for Referral: Objectively assess swallow function, risk for aspiration, and determine recommendations for least restrictive diet textures and compensatory strategies to improve safety of swallow. Medical History: Andrey Alonso is a 87-year-old M who presented to the [facility] emergency room 07/17/2022 due to shortness of breath and cough. He was admitted ~1 month ago for pneumonia which was suspected secondary to aspiration. He was admitted for management of sepsis and acute hypoxic respiratory failure as a result of right basilar pneumonia. He was recommended for puree textures / nectar thick liquids following bedside assessment of swallow function with POWERHOUSE ENGINEER on 07/20/2022 with recommendation for repeat MBSS. MBS studies completed during recent hospitalization on 06/06/2022 and 06/26/2022, which revealed moderate oropharyngeal phase dysphagia and recommended Soft and bite size textures / [place] (mildly) thick liquids with use of aspiration precautions. He was seen by ST on acute from 06/05/22-06/12/2022 with recommendations for the above mentioned diet and direct supervision. He was then seen by ST on TCU from 06/13/2022-06/27/2022 and discharged with the above recommended diet, FFWP, and distant supervision. Per pt, he was not utilizing thickener most of his time at home after discharge. Current Diet Ordered: Puree Textures / [place] Thick Liquids Dentition: Missing Teeth Mental Status: Impaired - Hx of dementia Respiratory Status: Oxygenating on 4L/M nasal cannula - 6L/M - Penetration-Aspiration Scale Penetration-Aspiration Scale: OBJECTIVE ASSESSMENT OF SWALLOW FUNCTION (QUANTITATIVE ? PER TRIAL): PENETRATION / ASPIRATION SCALE (REDDY): 1 = does not enter airway 2 = enters airway/above vocal folds/ejected 3 = enters airway/above vocal folds/not ejected 4 = enters airway/contacts vocal folds/ejected 5 = enters airway/contacts vocal folds/not ejected 6 = enters airway/below vocal folds/ejected 7 = enters airway/below vocal folds/not ejected despite effort 8 = enters airway/below vocal folds/no effort VIDEOFLOROSCOPIC SCALE SCORE (REDDY): Grade I = aspiration of material that has penetrated into the laryngeal vestibule, intact cough reflex Grade II = aspiration < 10 % of the bolus, intact cough reflex Grade III = aspiration of < 10 % of the bolus, reduced cough reflex or aspiration of > 10 % of the bolus, intact cough reflex Grade IV = aspiration of > 10 % of the bolus, reduced cough reflex - Penetration-Aspiration Scale Score Thin Liquid via teaspoon Result: 4= enters airway/contacts vocal folds/ejected - cough ejected contrast from vocal folds Thin Liquid via teaspoon Trial 2 Result: 3= enters airways/above vocal folds/not ejected Thin Liquid via small single sip from cup Result: 3= enters airways/above vocal folds/not ejected [place] Thick Liquid via small single sip from cup Result: 2= enter airway/above vocal folds/ejected [place] Thick Liquid via small single sip from cup Effortful swallow Result: 2= enter airway/above vocal folds/ejected Honey Thick Liquid via small single sip from cup Result: 2= enter airway/above vocal folds/ejected Pudding via teaspoon Result: 2= enter airway/above vocal folds/ejected 1/2 Cookie Result: 2= enter airway/above vocal folds/ejected Thin Liquid via single sip from straw Result: 3= enters airways/above vocal folds/not ejected Thin Liquid via small single sip from cup cued fast, hard swallow Result: 3= enters airways/above vocal folds/not ejected [place] Thick Liquid via small single sip from cup Trial 2 Result: 3= enters airways/above vocal folds/not ejected - Oral Phase Labial Seal: No Labial Escape Tongue Control During Bolus Hold: Posterior escape of greater than half of bolus Bolus Preparation/Mastication: Slow prolonged chewing/mashing with complete recollection Bolus Transport/Lingual Motion: Delayed initiation of tongue motion Oral Residue: Trace residue lining oral structures - Pharyngeal Phase Initiation of Pharyngeal Swallow: Bolus head in pyriforms Soft Palate Elevation: No bolus between soft palate and pharyngeal wall Laryngeal Elevation: Partial superior movement thyroid cart/partial apprx aryt-epig petiole Anterior Hyoid Excursion: Partial anterior movement Epiglottic Movement: Complete inversion Laryngeal Vestibule Closure at Height of Swallow: Incomplete; narrow column of air/contrast in laryngeal vestibule Pharyngeal Stripping Wave: Present - complete Pharyngoesophageal Segment Opening: Complete distension and complete duration; no obstruction of flow Tongue Base Retraction: Narrow column of contrast between tongue base & post. pharyngeal wall Pharyngeal Residue: Trace residue within or on pharyngeal structures - Treatment Strategies Effects of treatment strategies attemped:: Effortful swallow = somewhat effective. Cough = effective at ejecting thin liquid contrast when contacting the vocal folds. - Diagnosis/Impression Diagnosis: Moderate oropharyngeal phase dysphagia (R13.12) Impression: The oral phase is primarily marked by... -Decreased bolus control with premature posterior loss of >1/2 the bolus to the pyriforms prior to swallow onset, especially observed with thin liquid trials. -Prolonged but adequate mastication. -Trace oral residues. The pharyngeal phase is primarily marked by... -Decreased laryngeal vestibular closure during the swallow due to decreased laryngeal elevation and anterior hyoid excursion. -Mildly decreased tongue base retraction. -Laryngeal penetration to the vocal folds with thin liquid by tsp which fully ejected. 2/3 trials of nectar thick liquids penetrated the laryngeal vestibule and fully ejected - 1/3 trials resulted in trace residue in the laryngeal vestibule after the swallow. The patient appeared to have increased depth of laryngeal penetration with thin liquid trials as compared to thickened liquid trials. POWERHOUSE ENGINEER concerned for increased risk to aspirate with thin liquids at this time. SEE PAS scores above for full details. No aspiration was observed during the study. - Recommendations Diet: [place]-thick Liquids - Easy to Chew textures (IDDSI Level 7) Comment: Encourage cough and re-swallow if wet vocal quality Compensatory Strategies: Small Bites, Small Sips - Encourage effortful swallows, Slow Rate, Sitting upright, Remain sitting upright for 30 minutes after PO intake Supervision: 1:1 Close Supervision - for all food/drink Recommend Repeat Modified Barium Swallow: TBD - Pt required max cues during recent TCU admission to complete oropharyngeal strengthening. If pt participates in skilled dysphagia therapy with more consistent completion of oropharyngeal exercise program, will recommend repeat MBSS in 4-6 weeks to determine appropriateness for diet advancement. Need for Skilled Speech Therapy Services: Yes Comment: Will recommend the patient for continued dysphagia therapy to address deficits in oropharyngeal swallow function. Will recommend the patient for oropharyngeal strengthening to improve lingual control/strength, laryngeal elevation, hyoid excursion, and tongue base retraction (CTAR, lingual resistance exercises, Molly, Donato). The patient would benefit from thorough education regarding diet recommendations and recommended compensatory strategies. Patient was on Gray Free Water Protocol (FFWP) during stay on TCU; however, his stated he was resistive to oral care after meals with FFWP at home. Will only recommend implementation of FFWP if good compliance with oral care after meals. Education Completed: 1. Described result of evaluation., 4. Family/caregivers understand evaluation & agree w/ goals & tx plan. - Per , pt was not always compliant at home with thickened liquids and would serve himself thin liquids. He was also resistant to oral care with FFWP., 7. Pt requires further education on strategies & risks. - Hx of dementia, poor recall of purpose for modified diet and oropharyngeal strengthening, he requires frequent re-education to encourage participation in ST - Status Active ST Patient: Active - Contact Information [facility] Speech Therapy:: Bushra Gonzales M.A. [facility]-POWERHOUSE ENGINEER Speech-Language Pathologist [facility] [address] [place] [address] [email or web address] [phone] 07/21/22 15:46
[2022-07-21] MEDS: Ferrous Sulfate 325 MG Tablet PO (12:15)
[2022-07-21 12:35] LABS: Bedside Glucose 234 mg/dL (74-106)
--- NOTE | 2022-07-21 12:38 | PN.HOSP_ITS ---
Documented by User: Kieko Simpson NP, DEVELOPMENTAL WRITING INSTRUCTOR-C 07/21/22 12:48 Subjective Subjective Patient seen and examined. Complains of dry mouth. Respiratory status remains stable. To undergo modified barium swallow. Objective Data Objective Data Vital Signs: Vital Signs Temp Pulse Resp BP Pulse Ox O2 Del Method O2 Flow Rate 99.4 F H 64 18 142/66 H 90 High Flow 6 07/21/22 09:28 07/21/22 09:28 07/21/22 09:28 07/21/22 09:28 07/21/22 09:49 07/21/22 09:28 07/21/22 09:49 FiO2 60 07/21/22 05:03 Oxygen Flow Rate (L/min) 6 Oxygen Delivery Method High Flow Weight: 235 lb 0.204 oz Body Mass Index (BMI) 30.2 Intake & Output: Intake and Output for Last 24 Hours 07/19/22 07/20/22 07/21/22 23:59 23:59 23:59 Intake Total 1173.93 / 1373.93 2434.50 / 2434.50 100 / 100 Output Total 1800 / 2400 1250 / 1250 900 / 900 Balance -626.07 / -1026.07 1184.50 / 1184.50 -800 / -800 Lab / Micro Data Result Diagrams: 07/21/22 05:25 07/21/22 05:25 Labs: Laboratory Results - last 24 hr 07/20/22 16:29: POC Glucose 294 H 07/20/22 20:14: POC Glucose 283 H 07/21/22 05:25: WBC 14.2 H, RBC 3.90 L, Hgb 12.1 L, Hct 36.3 L, MCV 93.1, MCH 31.0, MCHC 33.3, RDW Std Deviation 48.2 H, RDW Coeff of Bebe 14.2, Plt Count 132 L, MPV 11.0, Immature Gran % (Auto) 0.400, Neut % (Auto) 53.2, Lymph % (Auto) 41.1 H, [place] % (Auto) 4.0, Eos % (Auto) 0.9, Baso % (Auto) 0.4, Absolute Neuts (auto) 7.6, Absolute Lymphs (auto) 5.84 H, Nucleated RBC % 0, Platelet Estimate SLT 07/21/22 05:25: Sodium 143, Potassium 3.8, Chloride 117 H, Carbon Dioxide 16.0 L , Anion Gap 10, BUN 19 H, Creatinine 1.87 H, Estim Creat Clear Calc 33.58, Est GFR (MDRD) Af Amer 44 L, Est GFR (MDRD) Non-Af 37 L, BUN/Creatinine Ratio 10.2, Glucose 220 H, Calcium 8.7, Phosphorus 2.7, Magnesium 2.2, Total Bilirubin 1.00, AST 19, ALT 24, Alkaline Phosphatase 78, Total Protein 6.8, Albumin 2.7 L, Globulin 4.1, Albumin/Globulin Ratio 0.7 L 07/21/22 06:36: POC Glucose 205 H 07/21/22 12:11: POC Glucose 234 H Micro: Microbiology 07/17/22 17:50 Urine, Clean Catch Urine Culture - Final Klebsiella oxytoca 07/17/22 10:52 Blood Culture (Wb) - Anticubital Right Blood Culture - Preliminary No growth in 48 hours. 07/17/22 10:30 Blood Culture (Wb) - Anticubital Right Blood Culture - Preliminary No growth in 48 hours. 07/17/22 10:32 Nasal Secretion SARS-CoV-2 Antigen (Rapid) - Final Physical Exam Const alert Orientation / Consciousness: awake HEENT normocephalic Mouth: dry mucous membranes Eyes PERRL, EOMs intact bilaterally and conjunctivae normal Neck no lymphadenopathy Resp clear to auscultation bilaterally Auscultation: diminished lung sounds Cardio regular rate, regular rhythm and no murmurs Peripheral Pulses: pulses 2+ throughout GI normal to inspection, nondistended, normoactive bowel sounds, non-tender and non-distended Extremity normal to inspection Skin no rashes or lesions noted Lesions: no lesions Rashes: no rashes Trauma: no lacerations or abrasions Neuro CN's II-XII intact bilaterally, no focal motor deficits, no sensory deficits noted and deep tendon reflexes 2+ bilaterally Psych Mood & Affect: flat affect Assessment & Plan Assessment/Plan (1) UTI (urinary tract infection): (2) Acute hypoxemic respiratory failure: PLAN: Plan 1.? Sepsis secondary to acute hypoxic respiratory failure as a result of right basilar pneumonia with prior concern for aspiration and Acute UTI-IV Zosyn.? Speech therapy consult.? To undergo modified barium swallow. Continue supplemental oxygen to maintain O2 above 90%.? Sputum culture ordered.? Blood culture with no growth.? Urine culturegrowing Klebsiella.? COVID-negative.? PT/OT.? SNF when medically stable. Oxygenation improving. Previously requiring BiPAP. 2.? Acute DVT-found to have right popliteal and left gastrocnemius and peroneal DVT.?? Patient reports prior remote history of DVT.? Eliquis acute DVT dosing. 3. Type 2 diabetes [id number] with sliding scale insulin.? Continue home insulin regimen. 4. Chronic kidney disease stage IV-appears at baseline.? Trend BMP. 5. Hypertension-continue home medication regimen with hold parameters. 6. Hyperlipidemia-continue statin. 7. BPH/urethral stricture-continue Flomax, finasteride.? Following with urology.? Urology consulted given patient was to undergo surgery for DVIU.? Patient had difficult Manzo catheter placement during previous admission for urinary retention.? Hold off on surgical intervention at this time however will reevaluate when stable from a respiratory standpoint. 8. Anxiety/depression-on fluoxetine. 9. Dementia-unknown behavioral disturbance history.? Continue Aricept. DVT prophylaxis- Eliquis This patient was seen by ADALBERTO Gomez under the supervision of Dr. Washington. Time spent examining patient, reviewing data and subsequent management of care: 15 minutes Documented by User: Dr. Arnav Washington, 07/21/22 15:46 Objective Data Lab / Micro Data Result Diagrams: 07/21/22 05:25 07/21/22 05:25 Assessment & Plan Assessment/Plan (1) UTI (urinary tract infection): (2) Acute hypoxemic respiratory failure: Charges/Coding Addendum Addendum: Patient seen and examined independently. Data and vitals reviewed. I agree with the above note by the nurse practitioner. Patient denies any complaints No acute distress and afebrile. Listless but alert. Heart rate regular and rhythm plus S1-S2 without any murmurs Rubs. Lungs Are Clear to Auscultation Bilaterally. Abdomen Is Soft Nontender Nondistended with Normal Bowel Sounds. Extremities Are without Any cyanosis, Clubbing or Edema. Assessment and plan 1. Sepsis: Resolved. Secondary to pneumonia and UTI. Blood cultures thus far negative. 2. Klebsiella UTI: Resistant to ampicillin, intermediate to Unasyn. Not ESBL. 3. Aspiration pneumonia: Continue piperacillin/tazobactam. 3. Acute DVT in the right popliteal and left crosstalk anemia's and peroneal. On apixaban. 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 4. Urethral stricture: On tamsulosin and finasteride. Continue catheter. Follow-up with urology as outpatient. 5. Dysphagia: Had modified barium swallow. Recommendations are to encourage cough and reswallow if wet vocal quality. Small bites, small sips. Encourage effortful swallows, slow rate, sitting upright, remain sitting upright for 30 minutes after p.o. intake. One-to-one close supervision for all food and drink. 6. Acute hypoxic respiratory failure: Secondary to aspiration pneumonia and pleural effusion. Continue with antibiotics. Pulmonary toilet, which would be limited by endurance. Visit Charges Inpatient E&M: 06898 Subs Hosp L2
--- NOTE | 2022-07-21 13:50 | CASEMGMT ---
SW met with patient and his . Introduced self and role at [facility]. SW spoke with them about placement for patient. Patient's said she is not sure yet about a plan. SW let her know he likely would not be able to go back to TCU as he may only have a few skilled days left. He would have to either pay a co-pay or apply for Medicaid and TCU does not take Medicaid. SW did give patient's a list of nursing home facility providers including quality and resource use data and consistent with patient?s preferred geographic region, medical needs, and insurance network were provided from the [employer] Guide. SW will check back with patient and his . Kassi DAS
[2022-07-21] MEDS: Glucerna Shake 120 ML LIQUID PO (17:29)
[2022-07-21 17:50] LABS: Bedside Glucose 185 mg/dL (74-106)
[2022-07-21] MEDS: Atorvastatin Calcium 10 MG Tablet PO (20:56)
[2022-07-21] MEDS: Donepezil HCl 10 MG Tablet PO (20:57)
[2022-07-21 22:20] LABS: Bedside Glucose 207 mg/dL (74-106)
[2022-07-22] VITALS (17 sets, daily range): BP systolic 133–149; BP diastolic 56–74; PULSE 56–67; RESP 18–32; TEMP 36.5–37; O2SAT 88–96
--- NOTE | 2022-07-22 04:13 | CPS ---
called by nurse because pt has nose bleed-pt did not want to be put on bipap-50% vm put on -nurse aware
[2022-07-22] MEDS: Insulin Lispro 100 UNIT/ML INSULN.PEN SC ×4 (06:34→21:49)
[2022-07-22] MEDS: Ipratropium/Albuterol Sulfate 3 ML AMPUL.NEB INHALATION ×3 (06:44→19:35)
[2022-07-22 06:55] LABS: Bedside Glucose 166 mg/dL (74-106)
[2022-07-22 06:58] LABS: Absolute Lymphocyte Count 7.31 X10^3/uL (0.83-4.51); Basophil# 0.05 X10^3/uL; Basophil% 0.4 % (0-1); Eosinophil# 0.42 X10^3/uL; Eosinophils% 3.1 % (0-5); Hematocrit 33.8 % (40-54); Hemoglobin 11.2 g/dL (13.0-16.5); Lymphocyte # 7.31 X10^3/ul (0.83-4.51); Lymphocyte % 54.2 % (19-41); Mean Corp Hgb Conc 33.1 g/dL (32-36); Mean Corpuscular Hgb 31.3 pg (27.0-32.0); Mean Corpuscular Volume 94.4 fL (80-94); Monocyte# 0.62 X10^3/uL; Monocyte% 4.6 % (0-10); NRBC Flagged by Analyzer 0 % (0-5); Neutrophil # 5.04 X10^3/uL (2.7-7.7); Neutrophil % 37.4 % (47-70); POSITIVE DIFFERENTIAL YES; POSITIVE MORPHOLOGY YES; Platelet Count 139 K/mm3 (150-450); RBC Distribution Width CV 14.1 % (11.6-14.6); RBC Distribution Width SD 48.8 fl (35.1-43.9); Red Blood Count 3.58 M/mm3 (4.6-6.2); White Blood Count 13.5 K/mm3 (4.4-11.0)
[2022-07-22 07:03] LABS: Differential Indicated SCAN CRITERIA MET
[2022-07-22 07:25] LABS: Differential Comment SCANNED
[2022-07-22 07:30] LABS: Anion Gap 9 (5-15); BUN 15 mg/dL (7-18); BUN/Creat Ratio 8.3 RATIO (10-20); Calcium,Total 8.3 mg/dL (8.5-10.1); Chloride 118 mmol/L (98-107); Creatinine, Serum 1.81 mg/dL (0.70-1.30); EST Glomerular Filtration Rate 38 mL/min (>60); Est Glom Filt Rate - Afr Amer 46 mL/min (>60); Estimated Creatinine Clearance 34.69 ml/min; Glucose 163 mg/dL (74-106); Potassium 3.6 mmol/L (3.5-5.1); Sodium Level 144 mmol/L (136-145)
--- NOTE | 2022-07-22 08:28 | RAD_ITS ---
STUDY: X-RAY CHEST REASON FOR EXAM: Male, 87 years old. Respiratory failure TECHNIQUE: Single AP portable view of the chest. COMPARISON: Comparison is made with prior study dated 07/17/2022. FINDINGS: EKG electrodes are seen. Stable elevation of the right hemidiaphragm. There is no demonstrated pleural abnormality. Normal size heart. Normal mediastinum and yvette. Normal visualized pulmonary arteries. Normal visualized aortic arch and descending thoracic aorta. There are diffuse degenerative changes of the visualized thoracic spine. There is degenerative osteoarthritis of the bilateral shoulders. Moderate sized hiatal hernia. RAD/Chest 1 View (Portable) IMPRESSION: Stable examination. Electronically Signed: Tito Sargent MD at 11:15 EDT ,
[2022-07-22] MEDS: Glucerna Shake 120 ML LIQUID PO ×3 (09:24→17:19)
[2022-07-22] MEDS: Oxymetazoline 0.05% 1 SPRAY SPRAY.BTL NASAL ×2 (09:24→21:49)
[2022-07-22] MEDS: amLODIPine 10 MG Tablet PO (09:25)
[2022-07-22] MEDS: APIXABAN 5 MG TABLET 10 MG PO ×2 (09:25→21:49)
[2022-07-22] MEDS: FLUoxetine 20 MG Capsule PO (09:25)
[2022-07-22] MEDS: Tamsulosin HCl 0.4 MG Capsule PO (09:25)
[2022-07-22] MEDS: Lisinopril 10 MG Tablet PO (09:25)
[2022-07-22] MEDS: Finasteride 5 MG Tablet PO (09:25)
[2022-07-22] MEDS: Ferrous Sulfate 325 MG Tablet PO (11:34)
[2022-07-22 11:55] LABS: Bedside Glucose 209 mg/dL (74-106)
--- NOTE | 2022-07-22 12:05 | PCM.PN.HOSP ---
Documented by User: Keiko Simpson NP, PRE K SPECIAL EDUCATION TEACHER-C 07/22/22 12:40 Subjective Subjective Patient seen and examined. Up to bathroom. Objective Data Objective Data Vital Signs: Vital Signs Temp Pulse Resp BP Pulse Ox O2 Del Method O2 Flow Rate 97.7 F L 61 18 143/57 H 94 High Flow 9 07/22/22 09:30 07/22/22 09:30 07/22/22 09:30 07/22/22 09:30 07/22/22 09:30 07/22/22 09:30 07/22/22 09:30 FiO2 50 07/22/22 03:30 Oxygen Flow Rate (L/min) 9 Oxygen Delivery Method High Flow Weight: 235 lb 0.204 oz Body Mass Index (BMI) 30.2 Intake & Output: Intake and Output for Last 24 Hours 07/20/22 07/21/22 07/22/22 23:59 23:59 23:59 Intake Total 2434.50 / 2434.50 930 / 1330 900 / 900 Output Total 1250 / 1250 1300 / 1520 1040 / 1040 Balance 1184.50 / 1184.50 -370 / -190 -140 / -140 Lab / Micro Data Result Diagrams: 07/22/22 06:05 07/22/22 06:05 Labs: Laboratory Results - last 24 hr 07/21/22 12:11: POC Glucose 234 H 07/21/22 17:27: POC Glucose 185 H 07/21/22 21:00: POC Glucose 207 H 07/22/22 06:05: WBC 13.5 H, RBC 3.58 L, Hgb 11.2 L, Hct 33.8 L, MCV 94.4 H, MCH 31.3, MCHC 33.1, RDW Std Deviation 48.8 H, RDW Coeff of Bebe 14.1, Plt Count 139 L, MPV 11.0, Immature Gran % (Auto) 0.300, Neut % (Auto) 37.4 L, Lymph % (Auto) 54.2 H, [place] % (Auto) 4.6, Eos % (Auto) 3.1, Baso % (Auto) 0.4, Absolute Neuts (auto) 5.0, Absolute Lymphs (auto) 7.31 H, Nucleated RBC % 0, Differential Comment SCANNED 07/22/22 06:05: Sodium 144, Potassium 3.6, Chloride 118 H, Carbon Dioxide 17.0 L, Anion Gap 9, BUN 15, Creatinine 1.81 H, Estim Creat Clear Calc 34.69, Est GFR (MDRD) Af Amer 46 L, Est GFR (MDRD) Non-Af 38 L, BUN/Creatinine Ratio 8.3 L, Glucose 163 H, Calcium 8.3 L 07/22/22 06:32: POC Glucose 166 H 07/22/22 11:28: POC Glucose 209 H Micro: Microbiology 07/22/22 08:45 Sputum, Expectorated/Coughed Gram Stain - Final 07/17/22 10:52 Blood Culture (Wb) - Anticubital Right Blood Culture - Final No growth in 5 days. 07/17/22 10:30 Blood Culture (Wb) - Anticubital Right Blood Culture - Final No growth in 5 days. 07/17/22 17:50 Urine, Clean Catch Urine Culture - Final Klebsiella oxytoca 07/17/22 10:32 Nasal Secretion SARS-CoV-2 Antigen (Rapid) - Final Radiography Diagnostic Testing: Radiology Impression Chest X-Ray 07/22/22 08:28 IMPRESSION: Stable examination. Electronically Signed: Tito Sargent MD at 11:15 EDT , Physical Exam Const alert HEENT normocephalic and moist oral mucous membranes Eyes PERRL, EOMs intact bilaterally and conjunctivae normal Neck no lymphadenopathy Resp clear to auscultation bilaterally Auscultation: diminished lung sounds Cardio regular rate, regular rhythm and no murmurs Peripheral Pulses: pulses 2+ throughout GI normal to inspection, nondistended, normoactive bowel sounds, non-tender and non-distended Extremity normal to inspection Skin no rashes or lesions noted Lesions: no lesions Rashes: no rashes Trauma: no lacerations or abrasions Neuro CN's II-XII intact bilaterally, no focal motor deficits, no sensory deficits noted and deep tendon reflexes 2+ bilaterally Psych mental status grossly normal and affect normal Assessment & Plan Assessment/Plan (1) Sepsis: (2) UTI (urinary tract infection): PLAN: Plan 1.? Sepsis secondary to acute hypoxic respiratory failure as a result of right basilar pneumonia with prior concern for aspiration and Acute UTI-IV Zosyn.? Speech therapy consulted. Continue modified diet. Continue supplemental oxygen to maintain O2 above 90%.? Sputum culture ordered.? Blood culture with no growth.? Urine culture growing Klebsiella.? COVID-negative.? PT/OT.? SNF when medically stable.? This morning requiring increased supplemental oxygen. Patient ambulating more, clinically appears improved. Repeat chest x-ray stable. 2.? Acute DVT-found to have right popliteal and left gastrocnemius and peroneal DVT.?? Patient reports prior remote history of DVT.? Eliquis acute DVT dosing. 3. Type 2 diabetes [id number] with sliding scale insulin.? Continue home insulin regimen. 4. Chronic kidney disease stage IV-appears at baseline.? Trend BMP. 5. Hypertension-continue home medication regimen with hold parameters. 6. Hyperlipidemia-continue statin. 7. BPH/urethral stricture-continue Flomax, finasteride.? Following with urology.? Urology consulted given patient was to undergo surgery for DVIU.? Patient had difficult Manzo catheter placement during previous admission for urinary retention.? Hold off on surgical intervention at this time however will reevaluate when stable from a respiratory standpoint. 8. Anxiety/depression-on fluoxetine. 9. Dementia-unknown behavioral disturbance history.? Continue Aricept. DVT prophylaxis- Eliquis This patient was seen by ADALBERTO Gomez under the supervision of Dr. Washington. Discharge plan: SNF when medically stable/pending acceptance. Time spent examining patient, reviewing data and subsequent management of care: 14 minutes Documented by User: Dr. Arnav Washington, 07/22/22 14:02 Objective Data Lab / Micro Data Result Diagrams: 07/22/22 06:05 07/22/22 06:05 Assessment & Plan Assessment/Plan (1) Sepsis: (2) UTI (urinary tract infection): Charges/Coding Addendum Addendum: Patient seen and examined independently.? Data and vitals reviewed.? I agree with the above note by the nurse practitioner. Patient denies any complaints. States he feels better despite his oxygen requirements have gone up. No acute distress and afebrile.? Listless but alert.? Heart rate regular and rhythm plus S1-S2 without any murmurs Rubs.? Lungs Are Clear to Auscultation Bilaterally.? Abdomen Is Soft Nontender Nondistended with Normal Bowel Sounds.? Extremities Are without Any cyanosis, Clubbing or Edema. Assessment and plan 1.? Sepsis: Resolved.? Secondary to pneumonia and UTI.? Blood cultures thus far negative. 2.? Klebsiella UTI: Resistant to ampicillin, intermediate to Unasyn.? Not ESBL. 3. Aspiration pneumonia: Continue piperacillin/tazobactam. 3.? Acute DVT in the right popliteal and left gastrocnemius and peroneal.? On apixaban.? 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 4.? Urethral stricture: On tamsulosin and finasteride.? Continue catheter.? Follow-up with urology as outpatient. 5.? Dysphagia: Had modified barium swallow.? Recommendations are to encourage cough and reswallow if wet vocal quality.? Small bites, small sips.? Encourage effortful swallows, slow rate, sitting upright, remain sitting upright for 30 minutes after p.o. intake.? One-to-one close supervision for all food and drink. 6.? Acute hypoxic respiratory failure: Secondary to aspiration pneumonia and pleural effusion.? Continue with antibiotics.? Pulmonary toilet, which would be limited by endurance. Chest x-ray performed and shows right elevated hemidiaphragm. Visit Charges Inpatient E&M: 32946 Subs Hosp L2
[2022-07-22 17:35] LABS: Bedside Glucose 260 mg/dL (74-106)
[2022-07-22] MEDS: 0.9% Saline Lock 10 ML Syringe IV (20:05)
[2022-07-22] MEDS: Donepezil HCl 10 MG Tablet PO (21:49)
[2022-07-22] MEDS: Atorvastatin Calcium 10 MG Tablet PO (21:49)
[2022-07-22 23:41] LABS: Bedside Glucose 193 mg/dL (74-106)
[2022-07-23] VITALS (25 sets, daily range): BP systolic 141–159; BP diastolic 67–87; PULSE 55–75; RESP 16–20; TEMP 36.5–37; O2SAT 92–98
[2022-07-23] MEDS: Menthol/Lanolin/Calamine/Znox 113 GM Tube 1 APPLIC TOPICAL ×3 (05:44→21:16)
[2022-07-23 06:31] LABS: Absolute Lymphocyte Count 7.19 X10^3/uL (0.83-4.51); Basophil# 0.04 X10^3/uL; Basophil% 0.3 % (0-1); Eosinophil# 0.44 X10^3/uL; Eosinophils% 3.3 % (0-5); Hematocrit 33.9 % (40-54); Hemoglobin 11.3 g/dL (13.0-16.5); Lymphocyte # 7.19 X10^3/ul (0.83-4.51); Lymphocyte % 54.3 % (19-41); Mean Corp Hgb Conc 33.3 g/dL (32-36); Mean Corpuscular Hgb 31.4 pg (27.0-32.0); Mean Corpuscular Volume 94.2 fL (80-94); Mean Platelet Vol. 10.7 fl (6.2-12.0); Monocyte# 0.53 X10^3/uL; NRBC Flagged by Analyzer 0 % (0-5); Neutrophil # 5.03 X10^3/uL (2.7-7.7); Neutrophil % 37.9 % (47-70); POSITIVE DIFFERENTIAL YES; POSITIVE MORPHOLOGY YES; Platelet Count 148 K/mm3 (150-450); RBC Distribution Width CV 14.2 % (11.6-14.6); RBC Distribution Width SD 48.5 fl (35.1-43.9); White Blood Count 13.3 K/mm3 (4.4-11.0)
[2022-07-23 06:34] LABS: Differential Indicated SCAN CRITERIA MET
[2022-07-23] MEDS: Insulin Lispro 100 UNIT/ML INSULN.PEN SC ×4 (06:37→21:17)
--- NOTE | 2022-07-23 06:50 | NURSING ---
Documentation of nurse orientee Bushra reviewed information is accurately entered.
[2022-07-23 06:51] LABS: Atypical Lymphocyte RARE %; Differential Comment SCANNED
[2022-07-23] MEDS: Ipratropium/Albuterol Sulfate 3 ML AMPUL.NEB INHALATION ×3 (06:51→19:16)
[2022-07-23 06:55] LABS: Anion Gap 7 (5-15); BUN 17 mg/dL (7-18); BUN/Creat Ratio 9.3 RATIO (10-20); Calcium,Total 8.8 mg/dL (8.5-10.1); Chloride 117 mmol/L (98-107); Creatinine, Serum 1.83 mg/dL (0.70-1.30); EST Glomerular Filtration Rate 38 mL/min (>60); Est Glom Filt Rate - Afr Amer 45 mL/min (>60); Estimated Creatinine Clearance 34.31 ml/min; Glucose 197 mg/dL (74-106); Potassium 3.8 mmol/L (3.5-5.1); Sodium Level 143 mmol/L (136-145)
[2022-07-23 07:00] LABS: Bedside Glucose 185 mg/dL (74-106)
[2022-07-23] MEDS: Lisinopril 10 MG Tablet PO (08:05)
[2022-07-23] MEDS: FLUoxetine 20 MG Capsule PO (08:05)
[2022-07-23] MEDS: Oxymetazoline 0.05% 1 SPRAY SPRAY.BTL NASAL ×2 (08:05→21:16)
[2022-07-23] MEDS: APIXABAN 5 MG TABLET 10 MG PO ×2 (08:06→21:20)
[2022-07-23] MEDS: Finasteride 5 MG Tablet PO (08:06)
[2022-07-23] MEDS: amLODIPine 10 MG Tablet PO (08:06)
[2022-07-23] MEDS: Tamsulosin HCl 0.4 MG Capsule PO (08:06)
[2022-07-23] MEDS: Glucerna Shake 120 ML LIQUID PO ×3 (08:18→17:08)
[2022-07-23] MEDS: Furosemide 40 MG/4 ML Vial IV (08:39)
[2022-07-23] MEDS: Ferrous Sulfate 325 MG Tablet PO (11:09)
[2022-07-23 11:35] LABS: Bedside Glucose 288 mg/dL (74-106)
--- NOTE | 2022-07-23 13:42 | PCM.PN.HOSP ---
Documented by User: Keiko Simpson NP, [employer] 07/23/22 13:45 Subjective Subjective Patient seen and examined. Denies significant shortness of breath however requiring 10 L nasal cannula this morning. Now down to 8 L. Reports occasional cough. Denies fever, chills. Discussed plan of care. Patient states he does not want to go to a long term, planning to go home at discharge. Objective Data Objective Data Vital Signs: Vital Signs Temp Pulse Resp BP Pulse Ox O2 Del Method O2 Flow Rate 97.7 F L 72 20 H 141/72 H 95 High Flow 8 07/23/22 10:02 07/23/22 10:02 07/23/22 10:02 07/23/22 10:02 07/23/22 12:25 07/23/22 12:25 07/23/22 12:25 FiO2 50 07/23/22 03:53 Oxygen Flow Rate (L/min) 8 Oxygen Delivery Method High Flow Weight: 235 lb 0.204 oz Body Mass Index (BMI) 30.2 Intake & Output: Intake and Output for Last 24 Hours 07/21/22 07/22/22 07/23/22 23:59 23:59 23:59 Intake Total 930 / 1330 1310 / 1310 520 / 520 Output Total 1300 / 1520 1690 / 1690 1050 / 1050 Balance -370 / -190 -380 / -380 -530 / -530 Lab / Micro Data Result Diagrams: 07/23/22 05:40 07/23/22 05:40 Labs: Laboratory Results - last 24 hr 07/22/22 17:14: POC Glucose 260 H 07/22/22 21:45: POC Glucose 193 H 07/23/22 05:40: WBC 13.3 H, RBC 3.60 L, Hgb 11.3 L, Hct 33.9 L, MCV 94.2 H, MCH 31.4, MCHC 33.3, RDW Std Deviation 48.5 H, RDW Coeff of Bebe 14.2, Plt Count 148 L, MPV 10.7, Immature Gran % (Auto) 0.200, Neut % (Auto) 37.9 L, Lymph % (Auto) 54.3 H, [place] % (Auto) 4.0, Eos % (Auto) 3.3, Baso % (Auto) 0.3, Absolute Neuts (auto) 5.0, Absolute Lymphs (auto) 7.19 H, Nucleated RBC % 0, Differential Comment SCANNED, Atypical Lymphocytes RARE 07/23/22 05:40: Sodium 143, Potassium 3.8, Chloride 117 H, Carbon Dioxide 19.0 L, Anion Gap 7, BUN 17, Creatinine 1.83 H, Estim Creat Clear Calc 34.31, Est GFR (MDRD) Af Amer 45 L, Est GFR (MDRD) Non-Af 38 L, BUN/Creatinine Ratio 9.3 L, Glucose 197 H, Calcium 8.8 07/23/22 06:36: POC Glucose 185 H 07/23/22 11:07: POC Glucose 288 H Micro: Microbiology 07/22/22 08:45 Sputum, Expectorated/Coughed Gram Stain - Final 07/22/22 08:45 Sputum, Expectorated/Coughed Respiratory Culture - Preliminary Appears to be normal respiratory lenard. Further studies to follow. 07/17/22 10:52 Blood Culture (Wb) - Anticubital Right Blood Culture - Final No growth in 5 days. 07/17/22 10:30 Blood Culture (Wb) - Anticubital Right Blood Culture - Final No growth in 5 days. 07/17/22 17:50 Urine, Clean Catch Urine Culture - Final Klebsiella oxytoca 07/17/22 10:32 Nasal Secretion SARS-CoV-2 Antigen (Rapid) - Final Physical Exam Const alert HEENT normocephalic and moist oral mucous membranes Eyes PERRL, EOMs intact bilaterally and conjunctivae normal Neck no lymphadenopathy Resp Auscultation: crackles and diminished lung sounds Cardio regular rate, regular rhythm and no murmurs Peripheral Pulses: pulses 2+ throughout GI normal to inspection, nondistended, normoactive bowel sounds, non-tender and non-distended Extremity normal to inspection Skin no rashes or lesions noted Lesions: no lesions Rashes: no rashes Trauma: no lacerations or abrasions Neuro CN's II-XII intact bilaterally, no focal motor deficits, no sensory deficits noted and deep tendon reflexes 2+ bilaterally Psych Mood & Affect: flat affect Assessment & Plan Assessment/Plan (1) Sepsis: PLAN: Plan 1.? Sepsis secondary to acute hypoxic respiratory failure as a result of right basilar pneumonia with prior concern for aspiration and Acute UTI-IV Zosyn.? Speech therapy consulted.? Continue modified diet. Continue supplemental oxygen to maintain O2 above 90%.? Sputum culture ordered.? Blood culture with no growth.? Urine culture growing Klebsiella.? COVID-negative. Repeat chest x-ray stable. IV lasix X1. 2.? Acute DVT-found to have right popliteal and left gastrocnemius and peroneal DVT.?? Patient reports prior remote history of DVT.? Eliquis acute DVT dosing. 3. Type 2 diabetes [id number] with sliding scale insulin.? Continue home insulin regimen. 4. Chronic kidney disease stage IV-appears at baseline.? Trend BMP. 5. Hypertension-continue home medication regimen with hold parameters. 6. Hyperlipidemia-continue statin. 7. BPH/urethral stricture-continue Flomax, finasteride.? Following with urology.? Urology consulted given patient was to undergo surgery for DVIU.? Patient had difficult Manzo catheter placement during previous admission for urinary retention.? Hold off on surgical intervention at this time however will reevaluate when stable from a respiratory standpoint. 8. Anxiety/depression-on fluoxetine. 9. Dementia-unknown behavioral disturbance history.? Continue Aricept. DVT prophylaxis- Eliquis This patient was seen by ADALBERTO Gomez under the supervision of Dr. Washington. Discharge plan: SNF vs home pending medically stable. Follow PT. Time spent examining patient, reviewing data and subsequent management of care: 15 minutes Documented by User: Dr. Arnav Washington, DO 07/23/22 14:04 Objective Data Lab / Micro Data Result Diagrams: 07/23/22 05:40 07/23/22 05:40 Assessment & Plan Assessment/Plan (1) Sepsis: Charges/Coding Addendum Addendum: Patient seen and examined independently.? Data and vitals reviewed.? I agree with the above note by the nurse practitioner. Patient denies any complaints.? Denies any new complaints. No acute distress and afebrile.? Listless but alert.? Heart rate regular and rhythm plus S1-S2 without any murmurs Rubs.? Lungs Are Clear to Auscultation Bilaterally.? Abdomen Is Soft Nontender Nondistended with Normal Bowel Sounds.? Extremities Are without Any cyanosis, Clubbing or Edema. Assessment and plan 1.? Sepsis: Resolved.? Secondary to pneumonia and UTI.? Blood cultures thus far negative. 2.? Klebsiella UTI: Resistant to ampicillin, intermediate to Unasyn.? Not ESBL. 3. Aspiration pneumonia: Continue piperacillin/tazobactam. 3.? Acute DVT in the right popliteal and left gastrocnemius and peroneal.? On apixaban.? 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 4.? Urethral stricture: On tamsulosin and finasteride.? Continue catheter.? Follow-up with urology as outpatient. 5.? Dysphagia: Had modified barium swallow.? Recommendations are to encourage cough and reswallow if wet vocal quality.? Small bites, small sips.? Encourage effortful swallows, slow rate, sitting upright, remain sitting upright for 30 minutes after p.o. intake.? One-to-one close supervision for all food and drink. 6.? Acute hypoxic respiratory failure: Secondary to aspiration pneumonia and pleural effusion.? Continue with antibiotics.? Pulmonary toilet, which would be limited by endurance.? Chest x-ray performed and shows right elevated hemidiaphragm. Lasix challenge. Continue to encourage incentive spirometry Visit Charges Inpatient E&M: 81712 Subs Hosp L2
[2022-07-23 16:15] LABS: Bedside Glucose 227 mg/dL (74-106)
--- NOTE | 2022-07-23 19:39 | CPS ---
PATIENT FOUND ON 3 LPM AT TIME OF VISIT.
[2022-07-23] MEDS: 0.9% Saline Lock 10 ML Syringe IV (20:01)
[2022-07-23] MEDS: Donepezil HCl 10 MG Tablet PO (21:17)
[2022-07-23] MEDS: Atorvastatin Calcium 10 MG Tablet PO (21:17)
[2022-07-23 22:41] LABS: Bedside Glucose 226 mg/dL (74-106)
[2022-07-24] VITALS (11 sets, daily range): BP systolic 122–131; BP diastolic 55–62; PULSE 54–65; RESP 16–20; TEMP 36.5–36.8; O2SAT 86–96
[2022-07-24] MEDS: 0.9% Saline Lock 10 ML Syringe IV (03:40)
[2022-07-24] MEDS: Menthol/Lanolin/Calamine/Znox 113 GM Tube 1 APPLIC TOPICAL (06:33)
[2022-07-24] MEDS: Insulin Lispro 100 UNIT/ML INSULN.PEN SC ×2 (06:33→10:58)
[2022-07-24 06:42] LABS: Absolute Lymphocyte Count 8.13 X10^3/uL (0.83-4.51); Absolute Neutrophil Count 5.5 X10^3/uL (2.0-7.7); Basophil# 0.06 X10^3/uL; Basophil% 0.4 % (0-1); Eosinophils% 2.7 % (0-5); Hematocrit 35.1 % (40-54); Hemoglobin 11.6 g/dL (13.0-16.5); Lymphocyte # 8.13 X10^3/ul (0.83-4.51); Lymphocyte % 55.5 % (19-41); Mean Corpuscular Hgb 30.9 pg (27.0-32.0); Mean Corpuscular Volume 93.4 fL (80-94); Monocyte# 0.56 X10^3/uL; Monocyte% 3.8 % (0-10); NRBC Flagged by Analyzer 0 % (0-5); Neutrophil # 5.46 X10^3/uL (2.7-7.7); Neutrophil % 37.3 % (47-70); POSITIVE DIFFERENTIAL YES; Platelet Count 171 K/mm3 (150-450); RBC Distribution Width CV 14.1 % (11.6-14.6); RBC Distribution Width SD 47.8 fl (35.1-43.9); Red Blood Count 3.76 M/mm3 (4.6-6.2); White Blood Count 14.7 K/mm3 (4.4-11.0)
[2022-07-24 06:48] LABS: Differential Indicated SCAN CRITERIA MET
[2022-07-24 06:57] LABS: Differential Comment SCANNED
[2022-07-24 07:00] LABS: Bedside Glucose 187 mg/dL (74-106)
[2022-07-24] MEDS: Ipratropium/Albuterol Sulfate 3 ML AMPUL.NEB INHALATION (07:05)
[2022-07-24 07:20] LABS: Anion Gap 11 (5-15); BUN 19 mg/dL (7-18); BUN/Creat Ratio 10.6 RATIO (10-20); Calcium,Total 8.9 mg/dL (8.5-10.1); Chloride 113 mmol/L (98-107); EST Glomerular Filtration Rate 38 mL/min (>60); Est Glom Filt Rate - Afr Amer 46 mL/min (>60); Estimated Creatinine Clearance 34.88 ml/min; Glucose 173 mg/dL (74-106); Potassium 3.6 mmol/L (3.5-5.1); Sodium Level 143 mmol/L (136-145)
--- NOTE | 2022-07-24 08:15 | PN.HOSP_ITS ---
Subjective Subjective Breathing well. No new events. Objective Data Objective Data Vital Signs: Vital Signs Temp Pulse Resp BP Pulse Ox O2 Del Method O2 Flow Rate 36.8 C 63 16 122/59 H 94 Nasal Cannula 2 07/24/22 07:52 07/24/22 07:52 07/24/22 07:52 07/24/22 07:52 07/24/22 07:52 07/24/22 07:52 07/24/22 07:52 FiO2 50 07/23/22 03:53 Oxygen Flow Rate (L/min) 2 Oxygen Delivery Method Nasal Cannula Weight: 106.6 kg Body Mass Index (BMI) 30.2 Intake & Output: Intake and Output for Last 24 Hours 07/22/22 07/23/22 07/24/22 23:59 23:59 23:59 Intake Total 1310 / 1310 810 / 810 50 / 50 Output Total 1690 / 1690 1950 / 1950 350 / 350 Balance -380 / -380 -1140 / -1140 -300 / -300 Lab / Micro Data Result Diagrams: 07/24/22 05:55 07/24/22 05:55 Labs: Laboratory Results - last 24 hr 07/23/22 11:07: POC Glucose 288 H 07/23/22 15:50: POC Glucose 227 H 07/23/22 21:12: POC Glucose 226 H 07/24/22 05:55: WBC 14.7 H, RBC 3.76 L, Hgb 11.6 L, Hct 35.1 L, MCV 93.4, MCH 30.9, MCHC 33.0, RDW Std Deviation 47.8 H, RDW Coeff of Bebe 14.1, Plt Count 171, MPV 11.0, Immature Gran % (Auto) 0.300, Neut % (Auto) 37.3 L, Lymph % (Auto) 55.5 H, [place] % (Auto) 3.8, Eos % (Auto) 2.7, Baso % (Auto) 0.4, Absolute Neuts (auto) 5.5, Absolute Lymphs (auto) 8.13 H, Nucleated RBC % 0, Differential Comment SCANNED 07/24/22 05:55: Sodium 143, Potassium 3.6, Chloride 113 H, Carbon Dioxide 19.0 L , Anion Gap 11, BUN 19 H, Creatinine 1.80 H, Estim Creat Clear Calc 34.88, Est GFR (MDRD) Af Amer 46 L, Est GFR (MDRD) Non-Af 38 L, BUN/Creatinine Ratio 10.6, Glucose 173 H, Calcium 8.9 07/24/22 06:29: POC Glucose 187 H Micro: Microbiology 07/22/22 08:45 Sputum, Expectorated/Coughed Gram Stain - Final 07/22/22 08:45 Sputum, Expectorated/Coughed Respiratory Culture - Preliminary Appears to be normal respiratory lenard. Further studies to follow. 07/17/22 10:52 Blood Culture (Wb) - Anticubital Right Blood Culture - Final No growth in 5 days. 07/17/22 10:30 Blood Culture (Wb) - Anticubital Right Blood Culture - Final No growth in 5 days. 07/17/22 17:50 Urine, Clean Catch Urine Culture - Final Klebsiella oxytoca 07/17/22 10:32 Nasal Secretion SARS-CoV-2 Antigen (Rapid) - Final Physical Exam HEENT head/scalp atraumatic Resp Resp Narrative: crackles RLL Cardio regular rate, regular rhythm, S1 normal heart sound and S2 normal heart sound GI normal to inspection, nondistended, normoactive bowel sounds Extremity General Extremity: edema bilateral lower extremity Details: mild Assessment & Plan Assessment/Plan (1) Sepsis: QUALIFIERS: Sepsis acute organ dysfunction status: without acute organ dysfunction Sepsis type: sepsis due to unspecified organism Qualified Code(s): A41.9 - Sepsis, unspecified organism PLAN: Resolved.? Secondary to pneumonia and UTI.? Blood cultures thus far negative. (2) UTI (urinary tract infection): QUALIFIERS: Hematuria presence: without hematuria Urinary tract infection type: acute cystitis Qualified Code(s): N30.00 - Acute cystitis without hematuria PLAN: Klebsiella UTI: Resistant to ampicillin, intermediate to Unasyn.? Not ESBL. Change to ciprofloxacin (3) Aspiration pneumonia: PLAN: Aspiration pneumonia: change piperacillin/tazobactam to ciprofloxacin (4) DVT (deep venous thrombosis): PLAN: Acute DVT in the right popliteal and left gastrocnemius and peroneal.? On apixaban.? 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 (5) Urethral stricture: PLAN: Urethral stricture: On tamsulosin and finasteride.? Continue catheter.? Follow-up with urology as outpatient. (6) Dysphagia: PLAN: Dysphagia: Had modified barium swallow.? Recommendations are to encourage cough and reswallow if wet vocal quality.? Small bites, small sips.? Encourage effortful swallows, slow rate, sitting upright, remain sitting upright for 30 minutes after p.o. intake.? One-to-one close supervision for all food and drink. Continue speech therapy (7) Acute respiratory failure with hypoxia: PLAN: Acute hypoxic respiratory failure: Secondary to aspiration pneumonia and pleural effusion.? Continue with antibiotics.? Pulmonary toilet, which would be limited by endurance.? Chest x-ray performed and shows right elevated hemidiaphragm.? Lasix challenge.? Continue to encourage incentive spirometry Improved dramatically with 1x dose of furosemide. Now down to 2l/nc PLAN: Plan Chronic conditions: * Type 2 diabetes [id number] with sliding scale insulin.? Continue home insulin regimen. * Chronic kidney disease stage IV-appears at baseline.? Trend BMP. * Hypertension-continue home medication regimen with hold parameters. * Hyperlipidemia-continue statin. * Anxiety/depression-on fluoxetine. * Dementia-unknown behavioral disturbance history.? Continue Aricept. VTE prophylaxis: not indicated as pt is anticoagulated DC home with [facility]
[2022-07-24] MEDS: Tamsulosin HCl 0.4 MG Capsule PO (08:45)
[2022-07-24] MEDS: Glucerna Shake 120 ML LIQUID PO (08:46)
[2022-07-24] MEDS: Finasteride 5 MG Tablet PO (09:34)
[2022-07-24] MEDS: FLUoxetine 20 MG Capsule PO (09:34)
[2022-07-24] MEDS: amLODIPine 10 MG Tablet PO (09:34)
[2022-07-24] MEDS: Lisinopril 10 MG Tablet PO (09:34)
[2022-07-24] MEDS: APIXABAN 5 MG TABLET 10 MG PO (09:35)
--- NOTE | 2022-07-24 10:21 | CASEMGMT ---
Patient may be discharged today. CHARLOTTE called patient's , Laura and let her know this information. CHARLOTTE told her it is not definite, but CHARLOTTE wanted to let her know it is a possibility. CHARLOTTE asked Laura if she is still okay with patient coming home and resuming home health. Laura said she is fine with taking patient home, but she doesn't know his current diet. CHARLOTTE let Laura know that the RN will go over d/c instructions with her and diet will be included. Laura will get clothes together for patient. Kassi DAS
[2022-07-24] MEDS: Oxymetazoline 0.05% 1 SPRAY SPRAY.BTL NASAL (10:31)
--- NOTE | 2022-07-24 10:31 | DCINST_ITS ---
Discharge Instructions Diet Discharge Diet: Low fat / Low cholesterol (allow meds whole, oral care after PO; only when alert; 1:1 supervision when able), 1999 Calorie Control Diet and 6 Cup Fluid Restriction Activity Discharge Activity: Return to Normal Activity and Use Walker Dressing / Incision Call your doctor if you observe: Shortness of breath Follow Up Care Test Results: Test results from this visit will be discussed in further detail at your follow- up appointment, if applicable. Discharge Plan Admission Admit Date/Time: 07/17/22 12:24 Primary Reason for Your Visit: pneumonia. UTI. Attending Provider: Arnav Washington Primary Care Provider: Nate Watters Consulting Providers: Ed Mendez ; Darrell Stout ; Jessika Donovan Discharge Orders/Prescriptions Prescriptions: New Eliquis 5 mg Tablet 5 mg PO BID Qty: 60 0RF furosemide 20 mg tablet 20 mg PO DAILY Qty: 30 0RF potassium chloride 10 mEq capsule, extended release 10 meq PO DAILY Qty: 30 0RF metformin 500 mg tablet 500 mg PO DAILY Qty: 30 0RF Continued ferrous sulfate 325 mg (65 mg iron) tablet 325 mg PO DAILY cholecalciferol (vitamin D3) 125 mcg (5,000 unit) capsule 125 mcg PO DAILY loratadine 10 mg tablet 10 mg PO DAILY loperamide 2 mg capsule 4 mg PO DAILY donepezil [Aricept] 10 mg tablet 10 mg PO QHS simvastatin [Zocor] 20 mg tablet 20 mg PO QHS acetaminophen [Tylenol] 325 mg Tablet 650 mg PO Q4H PRN PRN (Reason: Fever, pain 1-08/18) Qty: 0 0RF ascorbic acid (vitamin C) 500 mg tablet 1,000 mg PO DAILY tamsulosin 0.4 mg capsule 0.4 mg PO DAILY lisinopril 10 mg tablet 10 mg PO DAILY aspirin 81 mg tablet,chewable 81 mg PO BREAKFAST finasteride 5 mg tablet 5 mg PO DAILY Humulin N NPH Insulin KwikPen 100 unit/mL (3 mL) insulin pen 29 unit subcut BID albuterol sulfate 2.5 mg /3 mL (0.083 %) Solution For Nebulization 2.5 mg inhalation Q2H PRN PRN (Reason: Dyspnea, wheezing) 30 Days Qty: 360 0RF amlodipine 10 mg tablet 10 mg PO DAILY 30 Days Qty: 30 0RF (DME) nebulizers Misc See Rx Instructions .Route Qty: 1 0RF Rx Instructions: As directed fluoxetine [Prozac] 20 mg capsule 20 mg PO DAILY Qty: 90 0RF Referrals / Follow Up: Nate Watters DO [Primary Care Provider] - Within 2 Weeks Disposition Disposition (needs filled in before D/C Order can be placed): Home Health Service
--- NOTE | 2022-07-24 10:41 | DS.PCM_ITS ---
Providers Date of Admission: 07/17/22 Primary Care Physician: Dr. 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 Secondary to pneumonia and UTI.? Blood cultures thus far negative. (2) UTI (urinary tract infection): Status: Acute Code(s): N39.0 - Urinary tract infection, site not specified Qualifiers: Urinary tract infection type: acute cystitis Hematuria presence: without hematuria Qualified Code(s): N30.00 - Acute cystitis without hematuria Plan: Klebsiella UTI: Resistant to ampicillin, intermediate to Unasyn.? Not ESBL. Change to ciprofloxacin (3) Aspiration pneumonia: Status: Acute Code(s): J69.0 - Pneumonitis due to inhalation of food and vomit Plan: Aspiration pneumonia: change piperacillin/tazobactam to ciprofloxacin (4) DVT (deep venous thrombosis): Status: Acute Code(s): I82.409 - Acute embolism and thrombosis of unspecified deep veins of unspecified lower extremity Plan: Acute DVT in the right popliteal and left gastrocnemius and peroneal.? On apixaban.? 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 (5) Urethral stricture: Status: Acute Code(s): N35.919 - Unspecified urethral stricture, male, unspecified site Plan: Urethral stricture: On tamsulosin and finasteride.? Continue catheter.? Follow- up with urology as outpatient. (6) Dysphagia: Status: Acute Code(s): R13.10 - Dysphagia, unspecified Plan: Dysphagia: Had modified barium swallow.? Recommendations are to encourage cough and reswallow if wet vocal quality.? Small bites, small sips.? Encourage effortful swallows, slow rate, sitting upright, remain sitting upright for 30 minutes after p.o. intake.? One-to-one close supervision for all food and drink. Continue speech therapy (7) Acute respiratory failure with hypoxia: Status: Acute Code(s): J96.01 - Acute respiratory failure with hypoxia Plan: Acute hypoxic respiratory failure: Secondary to aspiration pneumonia and pleural effusion.? Continue with antibiotics.? Pulmonary toilet, which would be limited by endurance.? Chest x-ray performed and shows right elevated hemidiaphragm.? Lasix challenge.? Continue to encourage incentive spirometry Improved dramatically with 1x dose of furosemide. Now down to 2l/nc (8) Diabetes mellitus, type 2: Status: Acute Code(s): E11.9 - Type 2 diabetes mellitus without complications Plan: Add metformin 500 mg/day Ideally, he should check his glucose daily, but given his lack of motivation to even use an IS, will not prescribe at this time. (9) (HFpEF) heart failure with preserved ejection fraction: Status: Acute Code(s): I50.30 - Unspecified diastolic (congestive) heart failure Plan: EF 60% on 06/05/2022 on furosemide 20 not a candidate for ACEi/ARB given CKD Plan Chronic conditions: * Type 2 diabetes [id number] with sliding scale insulin.? Continue home insulin regimen. * Chronic kidney disease stage IV-appears at baseline.? Trend BMP. * Hypertension-continue home medication regimen with hold parameters. * Hyperlipidemia-continue statin. * Anxiety/depression-on fluoxetine. * Dementia-unknown behavioral disturbance history.? Continue Aricept. VTE prophylaxis: not indicated as pt is anticoagulated DC home with [facility] Medications at Discharge Home Medications ferrous sulfate 325 mg (65 mg iron) tablet 325 mg PO DAILY iron 08/28/21 cholecalciferol (vitamin D3) 125 mcg (5,000 unit) capsule 125 mcg PO DAILY vit D3 11/28/21 donepezil 10 mg tablet (Aricept) 10 mg PO QHS memory 06/05/22 simvastatin 20 mg tablet (Zocor) 20 mg PO QHS cholesterol 06/05/22 acetaminophen 325 mg tablet (Tylenol) 650 mg PO Q4H PRN PRN Fever, pain 1-08/18 #0 tabs 06/13/22 ascorbic acid (vitamin C) 500 mg tablet 1,000 mg PO DAILY vitamin 06/13/22 aspirin 81 mg chewable tablet 81 mg PO BREAKFAST heart health 06/13/22 finasteride 5 mg tablet 5 mg PO DAILY BPH 06/13/22 insulin NPH isoph U-100 human 100 unit/mL (3 mL) subcutaneous pen (Humulin N NPH U-100 Insulin KwikPen) 29 unit subcut BID diabetes 06/13/22 lisinopril 10 mg tablet 10 mg PO DAILY BP 06/13/22 tamsulosin 0.4 mg capsule 0.4 mg PO DAILY BPH 06/13/22 albuterol sulfate 2.5 mg/3 mL (0.083 %) solution for nebulization 2.5 mg (3 mL) inhalation Q2H PRN PRN Dyspnea, wheezing 30 days #360 mL 06/25/22 amlodipine 10 mg tablet 10 mg PO DAILY bp 30 days #30 tabs 06/25/22 nebulizers #1 ea 06/30/22 loperamide 2 mg capsule 4 mg PO DAILY loose stools 07/08/22 loratadine 10 mg tablet 10 mg PO DAILY 07/08/22 fluoxetine 20 mg capsule (Prozac) 20 mg PO DAILY #90 caps 07/16/22 apixaban 5 mg tablet (Eliquis) 5 mg PO BID #60 tabs 07/24/22 furosemide 20 mg tablet 20 mg PO DAILY #30 tabs 07/24/22 metformin 500 mg tablet 500 mg PO DAILY #30 tabs 07/24/22 potassium chloride 10 mEq capsule,extended release 10 meq PO DAILY #30 caps 07/24/22 Hospital Course Operations None Procedures None Summary of Care Provided Minutes Spent on Discharge: 42 Weight / BMI Weight Weight: 106.6 kg Body Mass Index (BMI) 30.2 ABG / Lab / Microbiology Data Result Diagrams: 07/24/22 05:55 07/24/22 05:55 Laboratory: Laboratory Results - last 24 hr 07/23/22 11:07: POC Glucose 288 H 07/23/22 15:50: POC Glucose 227 H 07/23/22 21:12: POC Glucose 226 H 07/24/22 05:55: WBC 14.7 H, RBC 3.76 L, Hgb 11.6 L, Hct 35.1 L, MCV 93.4, MCH 30.9, MCHC 33.0, RDW Std Deviation 47.8 H, RDW Coeff of Bebe 14.1, Plt Count 171, MPV 11.0, Immature Gran % (Auto) 0.300, Neut % (Auto) 37.3 L, Lymph % (Auto) 55.5 H, Henderson % (Auto) 3.8, Eos % (Auto) 2.7, Baso % (Auto) 0.4, Absolute Neuts (auto) 5.5, Absolute Lymphs (auto) 8.13 H, Nucleated RBC % 0, Differential Comment SCANNED 07/24/22 05:55: Sodium 143, Potassium 3.6, Chloride 113 H, Carbon Dioxide 19.0 L , Anion Gap 11, BUN 19 H, Creatinine 1.80 H, Estim Creat Clear Calc 34.88, Est GFR (MDRD) Af Amer 46 L, Est GFR (MDRD) Non-Af 38 L, BUN/Creatinine Ratio 10.6, Glucose 173 H, Calcium 8.9 07/24/22 06:29: POC Glucose 187 H Microbiology: Microbiology 07/22/22 08:45 Sputum, Expectorated/Coughed Gram Stain - Final 07/22/22 08:45 Sputum, Expectorated/Coughed Respiratory Culture - Final Presumptive C albicans Mixed Yumiko 07/17/22 10:52 Blood Culture (Wb) - Anticubital Right Blood Culture - Final No growth in 5 days. 07/17/22 10:30 Blood Culture (Wb) - Anticubital Right Blood Culture - Final No growth in 5 days. 07/17/22 17:50 Urine, Clean Catch Urine Culture - Final Klebsiella oxytoca 07/17/22 10:32 Nasal Secretion SARS-CoV-2 Antigen (Rapid) - Final D/C Instructions Discharge Diet: Low fat / Low cholesterol (allow meds whole, oral care after PO; only when alert; 1:1 supervision when able), 2000 Calorie Control Diet and 6 Cup Fluid Restriction Call your doctor if you observe: Shortness of breath Meaningful Use Info Meaningful Use Diagnoses (Choose all that apply): CHF CHF [place]/ARB ordered at discharge?: No Reason [place]/ARB not ordered?: Worsening renal disease Documented LVEF (%): 60 Discharge Plan Admission Admit Date/Time: 07/17/22 12:24 Primary Reason for Your Visit: pneumonia. UTI. Attending Provider: Arnav Washington Primary Care Provider: Nate Watters Consulting Providers: Ed Mendez ; Darrell Stout ; Jessika Donovan Discharge Orders/Prescriptions Prescriptions: New Eliquis 5 mg Tablet 5 mg PO BID Qty: 60 0RF furosemide 20 mg tablet 20 mg PO DAILY Qty: 30 0RF potassium chloride 10 mEq capsule, extended release 10 meq PO DAILY Qty: 30 0RF metformin 500 mg tablet 500 mg PO DAILY Qty: 30 0RF Continued ferrous sulfate 325 mg (65 mg iron) tablet 325 mg PO DAILY cholecalciferol (vitamin D3) 125 mcg (5,000 unit) capsule 125 mcg PO DAILY loratadine 10 mg tablet 10 mg PO DAILY loperamide 2 mg capsule 4 mg PO DAILY donepezil [Aricept] 10 mg tablet 10 mg PO QHS simvastatin [Zocor] 20 mg tablet 20 mg PO QHS acetaminophen [Tylenol] 325 mg Tablet 650 mg PO Q4H PRN PRN (Reason: Fever, pain 1-08/18) Qty: 0 0RF ascorbic acid (vitamin C) 500 mg tablet 1,000 mg PO DAILY tamsulosin 0.4 mg capsule 0.4 mg PO DAILY lisinopril 10 mg tablet 10 mg PO DAILY aspirin 81 mg tablet,chewable 81 mg PO BREAKFAST finasteride 5 mg tablet 5 mg PO DAILY Humulin N NPH Insulin KwikPen 100 unit/mL (3 mL) insulin pen 29 unit subcut BID albuterol sulfate 2.5 mg /3 mL (0.083 %) Solution For Nebulization 2.5 mg inhalation Q2H PRN PRN (Reason: Dyspnea, wheezing) 30 Days Qty: 360 0RF amlodipine 10 mg tablet 10 mg PO DAILY 30 Days Qty: 30 0RF (DME) nebulizers Misc See Rx Instructions .Route Qty: 1 0RF Rx Instructions: As directed fluoxetine [Prozac] 20 mg capsule 20 mg PO DAILY Qty: 90 0RF Referrals / Follow Up: Naet Watters, [Primary Care Provider] - Within 2 Weeks Disposition Disposition (needs filled in before D/C Order can be placed): Home Health Service Charges/Coding Visit Charges Inpatient E&M: 25212 Disch Hosp
--- NOTE | 2022-07-24 10:51 | CASEMGMT ---
Addendum entered by Norma Loaiza 07/24/22 11:09: Pt qualifies for 3L w/ exertion at discharge and stated preference for [facility] previously as pt has nebulizer thru [facility] already. Pt/ decline further list. Order sent via careport to [facility]. Pt provided with [facility] pulse ox for discharge. Wendie WELSH updated on all, voices understanding. [facility] aware that pt discharging with oxygen. An WELSH CM Original Note: Pt is down to 2L nc and to be tested for home oxygen. Plan is to discharge pt home today with [facility]. Gloria at [facility] aware of pt discharge and [place] PORTER spoke with pt's regarding d/c home and RN to go over instructions with pt/ at discharge. CM to follow for oxygen testing. An WELSH CM
[2022-07-24 11:21] LABS: Bedside Glucose 239 mg/dL (74-106)
[2022-07-24] MEDS: Ferrous Sulfate 325 MG Tablet PO (12:30)
== END 2022-07-24 13:11 | disposition home health service (06) | DRG 871 ==
LOC: ED 12:34 → PCU 12:51
PROVIDERS: Internal Medicine; Nurse Practitioner Family; Student in an Organized Health Care Education/Training Program; Admitting Provider Family Medicine; Emergency Provider Student in an Organized Health Care Education/Training Program; PCP Family Medicine
DX: A41.9 Sepsis, unspecified organism (principal); J69.0 Pneumonitis due to inhalation of food and vomit; J96.01 Acute respiratory failure with hypoxia; I50.31 Acute diastolic (congestive) heart failure; I82.431 Acute embolism and thrombosis of right popliteal vein; N18.4 Chronic kidney disease, stage 4 (severe); E87.0 Hyperosmolality and hypernatremia; I82.452 Acute embolism and thrombosis of left peroneal vein; T83.511A Infection and inflammatory reaction due to indwelling urethral catheter, initial encounter; I13.0 Hypertensive heart and chronic kidney disease with heart failure and stage 1 through stage 4 chronic kidney disease, or unspecified chronic kidney disease; N30.00 Acute cystitis without hematuria; Z16.11 Resistance to penicillins; E11.22 Type 2 diabetes mellitus with diabetic chronic kidney disease; D69.59 Other secondary thrombocytopenia; F03.90 Unspecified dementia, unspecified severity, without behavioral disturbance, psychotic disturbance, mood disturbance, and anxiety; Z79.4 Long term (current) use of insulin; I82.462 Acute embolism and thrombosis of left calf muscular vein; I48.91 Unspecified atrial fibrillation; E87.8 Other disorders of electrolyte and fluid balance, not elsewhere classified; I25.2 Old myocardial infarction; K21.9 Gastro-esophageal reflux disease without esophagitis; E78.5 Hyperlipidemia, unspecified; F41.9 Anxiety disorder, unspecified; R00.1 Bradycardia, unspecified; N35.919 Unspecified urethral stricture, male, unspecified site; F32.A Depression, unspecified; Z86.718 Personal history of other venous thrombosis and embolism; Z85.828 Personal history of other malignant neoplasm of skin; Z79.899 Other long term (current) drug therapy; N40.0 Benign prostatic hyperplasia without lower urinary tract symptoms; R53.81 Other malaise; Y84.6 Urinary catheterization as the cause of abnormal reaction of the patient, or of later complication, without mention of misadventure at the time of the procedure; B96.89 Other specified bacterial agents as the cause of diseases classified elsewhere; R13.12 Dysphagia, oropharyngeal phase
CPT/HCPCS: 36415; 36600; 71045; 71250; 74230; 80048; 80053; 80202; 81001; 82803; 82962; 83605; 83735; 83880; 84100; 84443; 84484; 85025; 85610; 85730; 87040; 87070; 87077; 87086; 87088; 87186; 87205; 87811; 92526; 92610; 92611; 93005; 93970; 94002; 94003; 94640; 94660; 94667; 94668; 94762; 97110; 97116; 97162; 97166; 97530; 97535; 97802; 97803; 99285; J7030; J7040; J7050; A4216; J1940

== ENCOUNTER → 2022-07-28 | Outpatient (CLI) | payer MEDICARE, SELFPAY ==
[2022-07-28 12:13] LABS: Absolute Lymphocyte Count 8.08 X10^3/uL (0.83-4.51); Absolute Neutrophil Count 2.5 X10^3/uL (2.0-7.7); Basophil# 0.05 X10^3/uL; Basophil% 0.4 % (0-1); Eosinophil# 0.13 X10^3/uL; Eosinophils% 1.1 % (0-5); Hematocrit 38.6 % (40-54); Hemoglobin 12.1 g/dL (13.0-16.5); Lymphocyte # 8.08 X10^3/ul (0.83-4.51); Lymphocyte % 69.6 % (19-41); Mean Corp Hgb Conc 31.3 g/dL (32-36); Mean Corpuscular Hgb 29.7 pg (27.0-32.0); Mean Corpuscular Volume 94.6 fL (80-94); Mean Platelet Vol. 10.8 fl (6.2-12.0); Monocyte# 0.87 X10^3/uL; Monocyte% 7.5 % (0-10); NRBC Flagged by Analyzer 0 % (0-5); Neutrophil # 2.45 X10^3/uL (2.7-7.7); Neutrophil % 21.1 % (47-70); POSITIVE DIFFERENTIAL YES; Platelet Count 214 K/mm3 (150-450); RBC Distribution Width CV 14.1 % (11.6-14.6); RBC Distribution Width SD 49.6 fl (35.1-43.9); Red Blood Count 4.08 M/mm3 (4.6-6.2); White Blood Count 11.6 K/mm3 (4.4-11.0)
[2022-07-28 12:17] LABS: Differential Indicated SCAN CRITERIA MET
[2022-07-28 12:43] LABS: ALB/GLOB Ratio 0.7 RATIO (0.9-2.4); AST(SGOT) 25 U/L (15-37); Alanine Aminotransfer ALT/SGPT 23 U/L (16-61); Albumin, Serum 3.2 g/dL (3.2-5.0); Alkaline Phosphatase 75 U/L (45-117); Anion Gap 9 (5-15); BUN 28 mg/dL (7-18); BUN/Creat Ratio 14.1 RATIO (10-20); Calcium,Total 9.1 mg/dL (8.5-10.1); Chloride 114 mmol/L (98-107); Creatinine, Serum 1.98 mg/dL (0.70-1.30); EST Glomerular Filtration Rate 34 mL/min (>60); Est Glom Filt Rate - Afr Amer 42 mL/min (>60); Globulin 4.3 g/dL (2.2-4.2); Glucose 78 mg/dL (74-106); Potassium 4.1 mmol/L (3.5-5.1); Protein, Total 7.5 g/dL (6.4-8.2); Sodium Level 144 mmol/L (136-145)
== END | disposition home or self-care (01) ==
LOC: BIMLAB 10:42
PROVIDERS: PCP Family Medicine; Referring Provider Physician Assistant; Visit Provider Physician Assistant
DX: I50.30 Unspecified diastolic (congestive) heart failure (principal); J69.0 Pneumonitis due to inhalation of food and vomit; J96.01 Acute respiratory failure with hypoxia; E11.9 Type 2 diabetes mellitus without complications; E87.0 Hyperosmolality and hypernatremia; E87.8 Other disorders of electrolyte and fluid balance, not elsewhere classified; C44.90 Unspecified malignant neoplasm of skin, unspecified
CPT/HCPCS: 36415; 80053; 85025

== ENCOUNTER → 2022-08-01 | Outpatient (CLI) | payer MEDICARE, SELFPAY ==
[2022-08-01 14:29] LABS: Mucous, Urine 0 SEEN /hpf (<or=2+)
[2022-08-01 16:48] LABS: Color, Urine Straw (Yellow); Glucose, Dipstick Normal (Normal); Ketone-Dipstick Negative (Negative); Leukocyte Esterase-Dipstick 500 /ul (Negative); Nitrite-Dipstick Negative (Negative); Occult Blood-Urine 25 /ul (Negative); Protein-Dipstick 100 mg/dl (Negative); Specific Gravity, Urine 1.015 (1.002-1.030); Urine Bilirubin Dipstick Negative (Negative); Urine Clarity Cloudy (Clear); Urine Urobilinogen Normal (Normal)
[2022-08-01 16:56] LABS: White Blood Cells >100 SEEN /hpf (0-5)
[2022-08-01 16:57] LABS: Bacteria 4+ /hpf (None Seen); Red Blood Cells-Urine 10-25 SEEN /hpf (0-5); Squamous Epithelial Cells - UA 0-5 SEEN /hpf (0-5); Yeast-Urine 3+ /hpf (None Seen)
[2022-08-01 16:58] LABS: Triple Phosphate Crystals Ur 3+ /hpf (<or=1+)
== END | disposition home or self-care (01) ==
LOC: BIMLAB 14:27
PROVIDERS: PCP Family Medicine; Referring Provider Physician Assistant; Visit Provider Physician Assistant
DX: N30.00 Acute cystitis without hematuria (principal)
CPT/HCPCS: 81001; 87077; 87086; 87088; 87186

== ENCOUNTER 2022-08-05 09:40 | Emergency (ER) | payer MEDICARE, SELFPAY ==
[2022-08-05 09:44] VITALS: BP 146/81; PULSE 51; RESP 17; TEMP 35.7; O2SAT 96; BMI 27.9
--- NOTE | 2022-08-05 09:49 | ED.VIS.FALL ---
HPI HPI - Fall History of Present Illness Chief Complaint: Fall Detail of Chief Complaint: Patient with dementia fell at home. Limited informant. Informant: patient Occured/Mechanism Occurred: Today Pain/Injury Pain Location: head Current Severity: Mild Maximum Severity: Mild Associated Symptoms Associated Symptoms: Negative for Parasthesias, Weakness, Loss of function, Inability to ambulate, Loss of consciousness or Amnesia Narrative Narrative: 87-year-old male extensive past medical history of dementia, CAD, OR, A. fib, hypertension and DVT. He is also diabetic. Is on chronic anticoagulation using Eliquis. Poorly fell today at home hit the back of his head causing a laceration. Patient himself denies any complaints. I believe he lives at home with his . He is also on chronic oxygen. Tetanus Immunization: Unknown Prior similar symptoms: No Recent Illness/Hospitalization: No PFSH PFSH Medical History (HFpEF) heart failure with preserved ejection fraction Actinic keratosis Anemia Arthritis Atrial fibrillation, new onset Blackout Cardiology follow-up encounter Chronic indwelling Manzo catheter Chronic neck and back pain CKD (chronic kidney disease) stage 3, GFR 30-59 ml/min Dementia Depression Diabetes mellitus type 2 in obese Diabetes mellitus, type 2 Diarrhea Dietary restriction DVT (deep venous thrombosis) DVT (deep venous thrombosis) Dysphagia Fatigue GERD (gastroesophageal reflux disease) History of echocardiogram History of edema History of heart attack History of stress test Hyperlipidemia Hypertension Incontinence Incontinent of feces Indwelling urethral catheter present Insulin dependent diabetes mellitus Iron deficiency anemia, unspecified Irregular heart beat Kidney disease Knee pain Memory loss of unknown cause Nocturnal leg cramps Non-smoker NSTEMI (non-ST elevated myocardial infarction) Physical debility Presbycusis Seasonal allergies Shortness of breath on exertion Skin cancer Syncope Urethral stricture Urethral stricture Walker as ambulation aid Wears glasses Home Medications nebulizers #1 ea 06/30/22 [Rx Last Taken Unknown] acetaminophen 325 mg tablet (Tylenol) 650 mg PO Q4H PRN PRN Fever, pain 1-08/18 #60 tabs 07/29/22 [Rx Last Taken Unknown] albuterol sulfate 2.5 mg/3 mL (0.083 %) solution for nebulization 2.5 mg (3 mL) inhalation Q2H PRN PRN Dyspnea, wheezing 30 days #360 mL 07/29/22 [Rx Last Taken Unknown] amlodipine 10 mg tablet 10 mg PO DAILY bp #30 tabs 07/29/22 [Rx Last Taken Unknown] apixaban 5 mg tablet (Eliquis) 5 mg PO BID #60 tabs 07/29/22 [Rx Last Taken Unknown] ascorbic acid (vitamin C) 1,000 mg tablet 1,000 mg PO DAILY vitamin #30 tabs 07/29/22 [Rx Last Taken Unknown] cholecalciferol (vitamin D3) 125 mcg (5,000 unit) capsule 125 mcg PO DAILY vit D3 #30 caps 07/29/22 [Rx Last Taken Unknown] donepezil 10 mg tablet (Aricept) 10 mg PO QHS memory #30 tabs 07/29/22 [Rx Last Taken Unknown] ferrous sulfate 325 mg (65 mg iron) tablet 325 mg PO DAILY iron #30 tabs 07/29/22 [Rx Last Taken Unknown] finasteride 5 mg tablet 5 mg PO DAILY BPH #30 tabs 07/29/22 [Rx Last Taken Unknown] fluoxetine 20 mg capsule (Prozac) 20 mg PO DAILY #30 caps 07/29/22 [Rx Last Taken Unknown] furosemide 20 mg tablet 20 mg PO DAILY #30 tabs 07/29/22 [Rx Last Taken Unknown] insulin NPH isoph U-100 human 100 unit/mL (3 mL) subcutaneous pen (Humulin N NPH U-100 Insulin KwikPen) 29 unit (0.29 mL) subcut BID diabetes #15 mL 07/29/22 [Rx Last Taken Unknown] loperamide 2 mg tablet See Rx Instructions PO .COMPLEX PRN loose stool #20 tabs 07/29/22 [Rx Last Taken Unknown] loratadine 10 mg tablet 10 mg PO DAILY #30 tabs 07/29/22 [Rx Last Taken Unknown] potassium chloride 10 mEq capsule,extended release 10 meq PO DAILY #30 caps 07/29/22 [Rx Last Taken Unknown] tamsulosin 0.4 mg capsule 0.4 mg PO DAILY BPH #30 caps 07/29/22 [Rx Last Taken Unknown] aspirin 81 mg chewable tablet 81 mg PO BREAKFAST heart health #30 tabs 07/31/22 [Rx Last Taken Unknown] lisinopril 10 mg tablet 10 mg PO DAILY BP #30 tabs 07/31/22 [Rx Last Taken Unknown] simvastatin 20 mg tablet (Zocor) 20 mg PO QHS cholesterol #30 tabs 07/31/22 [Rx Last Taken Unknown] cephalexin 500 mg capsule 500 mg PO Q8H #21 caps 08/01/22 [Rx Last Taken Unknown] Allergy/AdvReac Type Severity Reaction Status Date / Time No Known Allergies Allergy Verified 08/05/22 09:41 Family History Brother Heart disease Myocardial infarction Mother Myocardial infarction Heart disease Father CVA (cerebral vascular accident) Surgical History history of caataract removal History of urethral stricture Social History household members: spouse Smoking Status: Never smoker alcohol intake: never substance use type: does not use what type of physical activity do you participate in: none ROS ROS ED ROS Narrative Patient denies but limited informant due to dementia. Review of Systems ROS Unobtainable: due to encephalopathy Constitutional Constitutional ED: Denies chills or fever(s) Eyes Eyes: Denies blurry vision ENT ENT ED: Denies ear pain Cardiovascular Cardiovascular: Denies chest pain Respiratory/Chest Respiratory/Chest: Denies cough Gastrointestinal Gastrointestinal: Denies abdominal pain Genitourinary Genitourinary ED: Reports other Details: Chronic indwelling Manzo catheter. Currently being treated for UTI. Musculoskeletal Musculoskeletal: Denies arthralgias or back pain Integumentary Denies abscess or Abrasions Neurologic Neurologic: Denies headache(s) Psychiatric Psychiatric: Denies anxiety or depression Endocrine Endocrinology: Denies polydipsia Hematologic/Lymphatic Hematologic/Lymphatic: Denies easy bleeding Allergic/Immunologic Allergic/Immunologic ED: Denies mouth swelling or tongue swelling EXAM Physical Exam Narrative Exam Narrative: 87-year-old male. Vital signs are stable afebrile. Pulse ox 96% on 3 L. H EENT exam give dry reactive light. Moist mucous membranes. No dental injury. Posterior scalp has a quarter sized contusion no significant hematoma. There is about a 2.5 cm laceration. That will need closed. I do not feel any step-off. There is dried blood but no significant bleeding. C-spine and back nontender. Trachea midline. Lungs are clear. Heart bradycardic in the 50s. Chest wall nontender. Abdomen soft nontender. Pelvic girdle intact. No shortening, rotation or pain to palpation to either hip. He is able to flex extend both hips, and knees ankles and feet. Dorsi and plantar flexion is intact. Nontender no deformity. Upper extremities are nontender no deformity normal community service specialist strength. Neurologically is awake and alert. He does have dementia. But he does follow commands and answers limited questions. Const Vital Signs: 08/05/22 09:44 08/05/22 12:25 Temperature 96.2 F L Temperature Source Temporal Pulse Rate 51 L 56 L Respiratory Rate 17 18 Blood Pressure 146/81 H 154/56 H Blood Pressure Mean 102 88 Pulse Ox 96 99 Oxygen Delivery Method Nasal Cannula Room Air Oxygen Flow Rate (L/min) 3 Positive well nourished and well developed; Negative for obese, cachectic, contractures or unkempt General Appearance ED: well developed and NAD; Negative for unkempt, cachectic or contractures Nutritional Appearance: Negative for cachectic or obese HEENT Reports normocephalic HEENT Narrative: Posterior scalp laceration approximately 2.5 cm. trauma, contusion and tenderness; Negative for atraumatic or hematoma Eyes PERRL and EOMs intact bilaterally General Eye ED: Negative for pale conjunctiva or scleral icterus Neck full ROM, no lymphadenopathy and supple General: Negative for tenderness Chest Wall inspection of chest normal and palpation of chest normal Chest: Negative for other Resp normal respiratory effort, no retractions and clear to auscultation bilaterally Effort and Inspection: Negative for pain with movement Auscultation: Negative for rales, rhonchi or wheezes Cardio Negative for regular rate or regular rhythm Cardio Narrative: Bradycardia with a rate in the 50s. Rate: bradycardia GI non-tender, non-distended and no masses Inspection: Negative for abdominal distention Auscultation: normoactive bowel sounds Palpation: soft; Negative for guarding Back/Spine no CVA tenderness General Back: Negative for CVA tenderness Cervical Spine: Negative for cervical spine tenderness Thoracic Spine / Upper Back: Negative for ROM limited or pain with ROM Lumbar Spine / Lower Back: Negative for lumbar spinal tenderness Neuro No oriented x3, moves all extremities and no focal motor deficits Sensorium / Orientation: alert, oriented to person, oriented to place and confused; Negative for oriented to time, lethargic or stuporous Motor Exam: strength 5/5 throughout Psych mental status grossly normal and thought process normal Appearance: Negative for unkempt Attitude: No agitated Mood & Affect: Negative for depressed, anxious or tearful Skin Skin Narrative: Posterior scalp laceration and contusion about 2.5 cm. Nurses cleaned the wound. It will need closed. Lesions: no lesions Rashes: no rashes Trauma: abrasion and laceration MDM MDM MDM Narrative Medical decision making narrative: Older male fell at home. Currently being treated UTI. Is a chronic indwelling Manzo catheter. Screening labs to be obtained. Due to him being on Eliquis and hitting his head a CAT scan to be obtained. His tetanus will be updated. His scalp laceration will be cleaned, explored and closed. Otherwise exam that he has no other injuries. Repeat exam unchanged. Family at bedside. and I believe his daughter and son-in-law. I placed 2 stitches in the patient's scalp laceration. Discussed with him. office services coordinator had already been consulted by nursing. Family would like him made hospice. Hospice nurse was in talking to them and they are going to try to get him in there inpatient hospice unit. is just unable to care for him now at home. Tetanus was updated. Lab Data Attestation: I reviewed the patient's lab results. Lab results narrative: CBC patient a white count of 14.8. H&H of 13.2 and 41.6. He has a known UTI. Electrolytes show a gap of 8 BUN and creatinine are 37 and 2.5. Glucose 112. CAT scan of his brain shows chronic changes no acute bleed. Read by the radiologist and reviewed by me. Labs: Laboratory Results - last 24 hr 08/05/22 08/05/22 09:53 09:53 WBC 14.8 H RBC 4.40 L Hgb 13.2 Hct 41.6 MCV 94.5 H MCH 30.0 MCHC 31.7 L RDW Std Deviation 47.8 H RDW Coeff of Bebe 13.7 Plt Count 181 MPV 11.5 Immature Gran % (Auto) 0.200 Neut % (Auto) 25.4 L Lymph % (Auto) 70.2 H [place] % (Auto) 3.5 Eos % (Auto) 0.5 Baso % (Auto) 0.2 Absolute Neuts (auto) 3.8 Absolute Lymphs (auto) 10.39 H Nucleated RBC % 0 Differential Comment COMMENT Sodium 143 Potassium 4.4 Chloride 112 H Carbon Dioxide 23.0 Anion Gap 8 BUN 37 H Creatinine 2.50 H Estim Creat Clear Calc 24.41 Est GFR (MDRD) Af Amer 32 L Est GFR (MDRD) Non-Af 26 L BUN/Creatinine Ratio 14.8 Glucose 112 H Calcium 9.1 Radiography Diagnostic Testing: Clinical Impression(s) from Imaging Studies Brain CT 08/05/22 09:56 IMPRESSION: Chronic involutional changes of the brain. Stable 4.8 cm x 4.8 cm arachnoid cyst in the left temporal fossa. Electronically Signed: Tito Sargent MD at 10:40 EDT , CAT scan of the brain shows chronic changes no acute bleed is read by the radiologist and reviewed by me. Rhythm Strip Rhythm Strip: Sinus Rhythm Rate: 52 Ectopy: None EKG Initial EKG: Attestation: I personally reviewed and interpreted this EKG as follows: Interpretation: Sinus Rhythm, No Acute Injury Pattern and Sinus Bradycardia Comments: Sinus bradycardia rate of 52. No acute signs of OR or ischemia. Nonspecific interventricular conduction delay. Procedures Lacerations Scalp laceration: Length: 0.98 in Depth: Skin Shape: Linear Prep: Shure-Clens Laceration repair: Lidocaine with epi, Local and Skin sutures Number of Sutures/[place]: 2 Suture Information: Ethilon, Simple and 4-0 Comment: 2.5 cm scalp laceration posterior midline. Local anesthetized lidocaine epinephrine. Cleaned with Shur-Clens. Washed with saline. Explored. Closed using two 4-0 Ethilon sutures. Proper hemostasis and wound closure is obtained. Family was instructed on wound care and suture removal in 7 to 10 days. Discharge Plan Triage Chief Complaint: Fall ED Provider: Reagan Haddad Dx/Rx/DC Orders Clinical Impression: Fall, Head injury, Chronic anticoagulation, Laceration of scalp, History of UTI, Admission for hospice care Instructions: ED Head Injury (Adult), ED Laceration Scalp Stitches or [place] Prescriptions: No Action (DME) nebulizers Misc See Rx Instructions .Route Qty: 1 0RF Rx Instructions: As directed albuterol sulfate 2.5 mg /3 mL (0.083 %) solution for nebulization 2.5 mg inhalation Q2H PRN PRN (Reason: Dyspnea, wheezing) 30 Days Qty: 360 0RF amlodipine 10 mg tablet 10 mg PO DAILY Qty: 30 2RF Eliquis 5 mg tablet 5 mg PO BID Qty: 60 2RF acetaminophen [Tylenol] 325 mg tablet 650 mg PO Q4H PRN PRN (Reason: Fever, pain 1-08/18) Qty: 60 2RF cholecalciferol (vitamin D3) 125 mcg (5,000 unit) capsule 125 mcg PO DAILY Qty: 30 2RF donepezil [Aricept] 10 mg tablet 10 mg PO QHS Qty: 30 2RF ferrous sulfate 325 mg (65 mg iron) tablet 325 mg PO DAILY Qty: 30 2RF finasteride 5 mg tablet 5 mg PO DAILY Qty: 30 2RF fluoxetine [Prozac] 20 mg capsule 20 mg PO DAILY Qty: 30 2RF furosemide 20 mg tablet 20 mg PO DAILY Qty: 30 2RF Humulin N NPH Insulin KwikPen 100 unit/mL (3 mL) insulin pen 29 unit subcut BID Qty: 15 2RF loperamide 2 mg tablet See Rx Instructions PO .COMPLEX MDD 16mg PRN (Reason: loose stool) Qty: 20 0RF Rx Instructions: Take 2 tablets by mouth with first loose stool then 1 tablet by mouth after each loose stool. Can take up to 8 tablets in 1 day. loratadine 10 mg tablet 10 mg PO DAILY Qty: 30 2RF potassium chloride 10 mEq capsule, extended release 10 meq PO DAILY Qty: 30 2RF tamsulosin 0.4 mg capsule 0.4 mg PO DAILY Qty: 30 2RF ascorbic acid (vitamin C) 1,000 mg tablet 1,000 mg PO DAILY Qty: 30 2RF aspirin 81 mg tablet,chewable 81 mg PO BREAKFAST Qty: 30 0RF lisinopril 10 mg tablet 10 mg PO DAILY Qty: 30 2RF simvastatin [Zocor] 20 mg tablet 20 mg PO QHS Qty: 30 2RF cephalexin 500 mg capsule 500 mg PO Q8H Qty: 21 0RF Primary Care Provider: Nate Watters Referrals: Nate Watters, DO [Primary Care Provider] - As Needed Activity Restrictions/Additional Instructions: Keep scalp wound clean. Clean daily with soap and water. Apply antibiotic ointment. Stitches out no sooner than 7 to 10 days. Continue antibiotics for urinary tract infection. Disposition Disposition: Home, Self Care
--- NOTE | 2022-08-05 09:56 | EKG12_ITS ---
Test Reason : FALL Blood Pressure : / mmHG Vent. Rate : 052 BPM Atrial Rate : 052 BPM P-R Int : 258 ms QRS Dur : 128 ms QT Int : 468 ms P-R-T Axes : 115 -60 072 degrees QTc Int : 435 ms Sinus bradycardia with 1st degree A-V block Left axis deviation Non-specific intra-ventricular conduction block Minimal voltage criteria for LVH, may be normal variant ( Shane product ) Abnormal ECG Confirmed by CONSTANCE SAMUEL, ANNE-MARIE ([id number]), news video editor WILBERT BELLO ([id number]) on 08/06/2022 9:08:00 AM Referred By: NABIL Confirmed By:ANNE-MARIE NOLASCO MD
--- NOTE | 2022-08-05 09:56 | CT_ITS ---
STUDY: CT BRAIN WITHOUT CONTRAST REASON FOR EXAM: Male, 87 years old. HEAD INJURY RADIATION DOSAGE (If Supplied By Facility): CTDIvol = ( 44.99 ) mGy, DLP = ( 846.73 ) mGycm TECHNIQUE: Transaxial CT imaging of the brain was performed without administration of intravenous contrast material. Individualized dose optimization techniques were used for this CT. COMPARISON: Comparison is made with prior study dated 06/05/2022. FINDINGS: Normal soft tissue structures. Normal calvarium. There is mild cerebral atrophy with widening of the extra-axial spaces and ventricular dilatation. There are areas of decreased attenuation within the white matter tracts of the supratentorial brain, consistent with microvascular disease changes. Stable appearance of the 4.8 cm by 4.8 cm arachnoid cyst in the anterior left temporal fossa. Normal basal ganglia and thalami. Normal brainstem. Normal cerebellum. There is no intracranial hemorrhage. There are no findings of an acute ischemic infarction. Atherosclerotic calcification of the vertebral arteries and cavernous portions of the internal carotid arteries bilaterally. Minimal degree of mucosal thickening of the maxillary sinuses and ethmoid sinuses bilaterally. CT/Brain/Head without Contrast IMPRESSION: Chronic involutional changes of the brain. Stable 4.8 cm x 4.8 cm arachnoid cyst in the left temporal fossa. Electronically Signed: Tito Sargent MD at 10:40 EDT ,
[2022-08-05 10:11] LABS: Absolute Lymphocyte Count 10.39 X10^3/uL (0.83-4.51); Absolute Neutrophil Count 3.8 X10^3/uL (2.0-7.7); Basophil# 0.03 X10^3/uL; Basophil% 0.2 % (0-1); Eosinophil# 0.07 X10^3/uL; Eosinophils% 0.5 % (0-5); Hematocrit 41.6 % (40-54); Hemoglobin 13.2 g/dL (13.0-16.5); Lymphocyte # 10.39 X10^3/ul (0.83-4.51); Lymphocyte % 70.2 % (19-41); Mean Corp Hgb Conc 31.7 g/dL (32-36); Mean Corpuscular Volume 94.5 fL (80-94); Mean Platelet Vol. 11.5 fl (6.2-12.0); Monocyte# 0.52 X10^3/uL; Monocyte% 3.5 % (0-10); NRBC Flagged by Analyzer 0 % (0-5); Neutrophil # 3.76 X10^3/uL (2.7-7.7); Neutrophil % 25.4 % (47-70); POSITIVE DIFFERENTIAL YES; POSITIVE MORPHOLOGY YES; Platelet Count 181 K/mm3 (150-450); RBC Distribution Width CV 13.7 % (11.6-14.6); RBC Distribution Width SD 47.8 fl (35.1-43.9); White Blood Count 14.8 K/mm3 (4.4-11.0)
[2022-08-05 10:13] LABS: Differential Indicated SCAN CRITERIA MET
[2022-08-05 10:30] LABS: Anion Gap 8 (5-15); BUN 37 mg/dL (7-18); BUN/Creat Ratio 14.8 RATIO (10-20); Calcium,Total 9.1 mg/dL (8.5-10.1); Chloride 112 mmol/L (98-107); EST Glomerular Filtration Rate 26 mL/min (>60); Est Glom Filt Rate - Afr Amer 32 mL/min (>60); Estimated Creatinine Clearance 24.41 ml/min; Glucose 112 mg/dL (74-106); Potassium 4.4 mmol/L (3.5-5.1); Sodium Level 143 mmol/L (136-145)
[2022-08-05] MEDS: Lidocaine 1% /Epi 1:100 (20ml) 20 ML Vial 10 ML INFILT (10:32)
[2022-08-05] MEDS: Diphth,Pertuss(Acell),Tet Vac 0.5 ML Vial IM (10:33)
--- NOTE | 2022-08-05 12:20 | CM.ED ---
Addendum entered by Debbie Montes 08/05/22 14:56: SW Note SW met with Radha, nurse doing assessment and spoke to her. She then met with patient and reviewed case with Hospice MD Dr. Parish. Dr. Parish did not feel patient was [facility] appropriate. SW had asked family earlier about their plans regarding patient if he could not go to [facility]. Family had stated that patient will go home with hospice. SW spoke to Radha and Radha said that patient's familiar do want to take patient home on hospice. Radha said that the family doesn't want to place patient in SNF and are concerned about financial issues. Radha said that their health care / medical job titles can follow up with patient's family regarding options. No further SW needs at this time. Plan: Home with Hospice Debbie FUENTES Original Note: SW received consult that patient's son and wanted a hospice referral. SW spoke to patient's son, Neville and patient's , Laura stated that they wanted to talk to [facility]. They requested [facility] and declined list of hospice agencies. Neville and Laura requested that Neville and his aunt, Laura 's sister, Bebe Infante be contacted to meet with [facility]. CHARLOTTE called [facility] and spoke to Ijeoma to make the referral. CHARLOTTE faxed referral to [facility]. CHARLOTTE received call from Margaux at [facility] inquiring if they could come over to meet with family as family had reached out to discuss hospice services. SW indicated that would be fine. CHARLOTTE received voice mail from Ijeoma. CHARLOTTE called Ijeoma and she inquired if 3 family members would be present when meeting with hospice and SW said that would be fine. SW received call from Hospice. Yaritza Núñez will be there between 11:00-11:30am. CHARLOTTE spoke with Yaritza Núñez from [facility]. Yaritza Núñez said that the had signed [facility]'s paperwork. Yaritza Núñez inquired if patient was I[facility] appropriate and CHARLOTTE spoke to MD who confirmed that patient is IPU appropriate. CHARLOTTE updated Yaritza Núñez that per MD patient is [facility] appropriate. Plan: Hospice - [facility] Debbie Jyoti FUENTES
[2022-08-05 12:25] VITALS: BP 154/56; PULSE 56; RESP 18; O2SAT 99
[2022-08-05 14:31] VITALS: BP 122/62; PULSE 52; RESP 23; O2SAT 97
== END 2022-08-05 15:42 | disposition home or self-care (01) ==
PROVIDERS: Emergency Provider Emergency Medicine; PCP Family Medicine; Visit Provider Emergency Medicine
DX: S01.01XA Laceration without foreign body of scalp, initial encounter (principal); F03.90 Unspecified dementia, unspecified severity, without behavioral disturbance, psychotic disturbance, mood disturbance, and anxiety; I13.0 Hypertensive heart and chronic kidney disease with heart failure and stage 1 through stage 4 chronic kidney disease, or unspecified chronic kidney disease; I50.32 Chronic diastolic (congestive) heart failure; E11.22 Type 2 diabetes mellitus with diabetic chronic kidney disease; I48.91 Unspecified atrial fibrillation; Z79.4 Long term (current) use of insulin; N18.30 Chronic kidney disease, stage 3 unspecified; I25.10 Atherosclerotic heart disease of native coronary artery without angina pectoris; E78.5 Hyperlipidemia, unspecified; Z79.01 Long term (current) use of anticoagulants; W19.XXXA Unspecified fall, initial encounter; I25.2 Old myocardial infarction; Z86.718 Personal history of other venous thrombosis and embolism; Y92.009 Unspecified place in unspecified non-institutional (private) residence as the place of occurrence of the external cause; Z99.81 Dependence on supplemental oxygen; K21.9 Gastro-esophageal reflux disease without esophagitis; D50.9 Iron deficiency anemia, unspecified; Z85.828 Personal history of other malignant neoplasm of skin; Z79.82 Long term (current) use of aspirin; Z79.899 Other long term (current) drug therapy; Z96.0 Presence of urogenital implants; N39.0 Urinary tract infection, site not specified; Z51.5 Encounter for palliative care
CPT/HCPCS: 12001; 70450; 80048; 85025; 90715; 93005; 99285; A4216

== ENCOUNTER → 2022-09-07 | Outpatient (CLI) | payer MEDICARE, SELFPAY ==
[2022-09-07 05:43] LABS: Mucous, Urine 0 SEEN /hpf (<or=2+); Red Blood Cells-Urine 0 SEEN /hpf (0-5); Squamous Epithelial Cells - UA 0 SEEN /hpf (0-5)
[2022-09-07 05:49] LABS: Color, Urine Yellow (Yellow); Glucose, Dipstick Normal (Normal); Ketone-Dipstick Negative (Negative); Leukocyte Esterase-Dipstick 500 /ul (Negative); Nitrite-Dipstick Negative (Negative); Occult Blood-Urine Negative /ul (Negative); Protein-Dipstick 100 mg/dl (Negative); Urine Bilirubin Dipstick Negative (Negative); Urine Clarity Cloudy (Clear); Urine Urobilinogen Normal (Normal)
[2022-09-07 05:58] LABS: Bacteria 3+ /hpf (None Seen); Triple Phosphate Crystals Ur 2+ /hpf (<or=1+); White Blood Cells 0-5 SEEN /hpf (0-5)
== END | disposition home or self-care (01) ==
PROVIDERS: PCP Family Medicine; Visit Provider Family Medicine Hospice and Palliative Medicine
DX: R33.9 Retention of urine, unspecified (principal); N39.0 Urinary tract infection, site not specified
CPT/HCPCS: 81001; 87077; 87086; 87088; 87186